=== PATIENT | male | born 1955 | race Caucasian/White ===

== ENCOUNTER 2017-11-27 20:31 | Emergency (ER) | payer MEDICARE, BC, SELFPAY ==
[2017-11-27 20:36] VITALS: BP 164/89; PULSE 80; RESP 20; TEMP 36.2; O2SAT 98
--- NOTE | 2017-11-27 20:41 | DI.RAD.S_ITS ---
PROCEDURE: XR RIBS LT MIN 3V W CXR1V INDICATIONS: GLF, lt rib pain TECHNIQUE: 4 views of the left ribs were acquired, along with a single view chest. COMPARISON: [facility], , CHEST 1 VIEW, 02/26/2017, 17:37. FINDINGS: Surgical changes and devices: None. Bones and chest wall: No displaced rib fracture identified. No suspicious bony lesions. Overlying soft tissues appear unremarkable. Lungs and pleura: No pleural effusions or pneumothorax. Lungs appear clear. Mediastinum: Mediastinal contours appear normal. Heart size is normal. IMPRESSION: 1. No displaced rib fracture identified. Dictated by: Herman Vences M.D. on 11/27/2017 at 21:04 Approved by: Herman Vences M.D. on 11/27/2017 at 21:08
--- NOTE | 2017-11-27 20:41 | DI.RAD.S_ITS ---
PROCEDURE: XR FINGER RT MIN 2V INDICATIONS: glf, rt thumb pain/swelling TECHNIQUE: AP hand, 2 views of the 1st digit required. COMPARISON: None. FINDINGS: Bones: No acute fractures or dislocations. There are postsurgical changes demonstrated with fixation anchors in the scaphoid and a fixation wire within the capitate. There is irregularity of the scaphoid compatible with sequelae of prior trauma. There is mild degeneration of the 1st carpometacarpal joint. No suspicious bony lesions. Soft tissues: There are small calcifications adjacent to the scaphoid consistent with sequelae of prior trauma. IMPRESSION: 1. No acute fracture or dislocation. Dictated by: Herman Vences M.D. on 11/27/2017 at 21:08 Approved by: Herman Vences M.D. on 11/27/2017 at 21:10
--- NOTE | 2017-11-27 20:52 | PC.NURSE ---
GLF this AM, denies loc/neck pain/nausea or other sx, pain/swelling to rt thumb with avulsion, bleeding controlled, also c/o lt lower rib pain, normal resp rate/depth, denies soa, amb ind with cane
--- NOTE | 2017-11-27 21:33 | ED.UPPEXIN ---
HPI - Extremity Injury (Upper) General Chief Complaint: Extremity Injury, Upper Stated Complaint: LEFT SIDE RIB PAIN AND RIGHT THUMB PAIN Time Seen by Provider: 11/27/17 20:50 History of Present Illness HPI narrative: HPI 62-year-old male with DM and long-standing vertiginous type symptoms with frequent falls presents after a typical fall today where he stumbled forward and fell onto concrete jamming his right thumb and striking his left lower anterior chest wall. Denies abdominal pain. Present for evaluation of his thumb injury and his left chest wall pain. Patient washed his thumb after his injury and rest it with a bandage. Patient's tetanus is up-to-date. Denied preceding chest pain, shortness of breath, abdominal pain, patient without LOC, takes no blood thinners or antiplatelet agents. Denies head strike. M/S/F/SocHx notable for: please see HPI; remainder reviewed with patient and in chart. ROS: Negative constitutional, eye, cardiovascular, pulmonary, GI, , MSK, skin, neurologic, psychiatric, endocrine unless noted in the HPI. Exam General: pleasant, non-toxic appearing, resting comfortably. HENT: No evidence of facial or head trauma. Eyes: EOMI, PERRL. Neck: Tracheal midline. No visible skin defects, no step-offs, no c-spine TTP, no stridor, or JVD. Cardiac: Regular rate and rhythm. Chest: No crepitus, visual evidence of trauma, mild tenderness to palpation from approximately 10 through 12th ribs from a mid axillary to anterior axillary line, no further tenderness palpation, no palpable abnormalities. Equal chest rise. Pulm: Clear to auscultation bilaterally, normal work of breathing without accessory muscle usage. Abd: Soft, nontender to palpation, nondistended, no guarding or visual evidence of trauma. Back: No spinous process tenderness to palpation, no step-offs or visible injuries. Pelvis: Stable, no tenderness to palpation or instability. RUE: right thumb without tenderness palpation of the MCP or IP, no bony tenderness palpation, full functional range of motion with full strength, sensation intact, brisk capillary refill, there is approximately 1.5 cm in diameter hematoma on the fingertip pad on the medial aspect there is a 6 mm long partial thickness laceration on the border of the hematoma, no further injuries appreciated. Deployment Technician 5/5, radial pulse 2+, sensation intact at hand. Shoulder, elbow, wrist, and fingers with full functional range of motion. Muscle compartments of the upper arm, forearm, and hand are soft and without marked tenderness to palpation. LUE: No visible injuries. Deployment Technician 5/5, radial pulse 2+, sensation intact at hand. Shoulder, elbow, wrist, and fingers with full functional range of motion. Muscle compartments of the upper arm, forearm, and hand are soft and without marked tenderness to palpation. RLE: No visible injuries. Dorsiflexion 5/5, distal pulse 1+, sensation intact at foot. Hip, knee, ankle, and toes with full functional range of motion. Muscle compartments of the thigh, calf, and foot are soft and without marked tenderness to palpation. LLE: No visible injuries. Dorsiflexion 5/5, distal pulse 1+, sensation grossly intact. Hip, knee, ankle, and toes with full functional range of motion. Muscle compartments of the thigh, calf, and foot are soft and without marked tenderness to palpation. Neuro: AOx3, CN VII intact Skin: Warm and dry (focal injuries noted above). Psych: Normal affect and judgment. Labs / Imaging (pertinent): CXR: no acute traumatic abnormalities. XR R Thumb: No acute fracture or dislocation. MDM Previous chart, nursing note, and vitals reviewed. A: 62-year-old male with DM and long-standing vertiginous type symptoms with frequent falls presents after a typical fall today where he stumbled forward and fell onto concrete jamming his right thumb and striking his left lower anterior chest wall. DDx & Evaluation: imaging without evidence of fracture, pneumothorax, pneumomediastinum, suspect rib contusion versus occult fracture. Abdominal exam without evidence of splenic tenderness, doubts splenic injury. Some notable for a contusion with superficial laceration that is not amenable to repair. Wound already cleaned well prior to arrival, tetanus up-to-date. No further interventions required. Return to care precautions provided. Patient was notified of their elevated blood pressure and recommended to follow up with their primary care physician. As the patient is without evidence of acute end organ dysfunction no further emergent evaluation is indicated as per the 2013 [facility] clinical policy. Impression: laceration, contusions (please reference below for remainder of encounter information) Related Data Home Medications Medication Instructions Recorded Confirmed ASCORBIC ACID (VITAMIN C) 1,000 mg PO QDAY #0 03/28/12 Fish Oil 1,000 mg PO QDAY #0 03/28/12 brimonidine #0 02/08/17 dorzolamide-timolol #0 02/08/17 latanoprost #0 02/08/17 liraglutide [Victoza 2-Shahab] #0 10/24/17 Previous Rx's Medication Instructions Recorded Syringes: 1cc Insulin Syringes syr #540 07/30/16 with [place] metformin [Glucophage] 1,000 mg PO BIDCC #360 tab 08/20/16 ropinirole 0 PO SEE INSTRUCTIONS #720 tab 09/03/16 betamethasone valerate 0 TP DIRECTED #1 bot 10/12/16 insulin aspart U-100 [Novolog 0 SQ SEE INSTRUCTIONS #15 vial 04/27/17 U-100 Insulin aspart] Glucose: Test Strips 0 str SQ SEE INSTRUCTIONS #100 str 05/04/17 furosemide 40 mg PO QAM #90 tab 05/11/17 losartan 50 mg PO QDAY #90 tab 07/26/17 amlodipine [Norvasc] 5 mg PO QDAY #90 tab 09/27/17 gabapentin [Neurontin] 0 PO SEE INSTRUCTIONS #540 cap 09/27/17 spironolactone 50 mg PO QDAY #90 tab 09/27/17 insulin glargine [Lantus Solostar 0 SQ DIRECTED #35 syr 10/10/17 U-100 Insulin] glipizide 10 mg PO BID #180 tab 10/13/17 metoprolol succinate 100 mg PO QDAY #90 tab 10/13/17 rosuvastatin [Crestor] 10 mg PO HS #90 tab 10/13/17 duloxetine [Cymbalta] 60 mg PO QDAY #90 cap 10/21/17 olmesartan [Benicar] 40 mg PO QDAY #90 tab 10/21/17 hydrocodone-acetaminophen [[place]] 1 - 2 tab PO HSP PRN #60 tab 10/24/17 Allergies Allergy/AdvReac Type Severity Reaction Status Date / Time LOLY Inhibitors AdvReac Mild cough Unverified 10/19/17 12:59 [LOLY INHIBITORS] shrimp Allergy Severe blotchy Uncoded 10/19/17 12:59 eyes, edema PFSH Surgical History History of carpal tunnel repair Status post arthroscopy Status post rotator cuff repair Family History Father Coronary artery disease Alcoholism Social History Smoking Status: Never smoker Exam Initial Vital Signs Initial Vital Signs: Vital Signs Temperature 97.1 F L 11/27/17 20:36 Pulse Rate 80 11/27/17 20:36 Respiratory Rate 20 11/27/17 20:36 Blood Pressure 164/89 H 11/27/17 20:36 Pulse Oximetry 98 11/27/17 20:36 Course Orders Ordered: ED Orders 11/27/17 20:41 XR finger RT min 2V Stat XR ribs LT min 3V w CXR1V Stat Vital Signs - 8 hr 11/27/17 20:36 Temperature 97.1 F L Pulse Rate 80 Respiratory Rate 20 Blood Pressure 164/89 H Pulse Oximetry 98 Discharge Plan Departure Prescriptions: No Action Fish Oil 1,000 mg PO QDAY Qty: 0 RF: 0 ASCORBIC ACID (VITAMIN C) 1,000 mg PO QDAY Qty: 0 RF: 0 Syringes: 1cc Insulin Syringes with [place] Qty: 540 RF: 3 metformin [Glucophage] 500 MG tablet 1,000 mg PO BIDCC Qty: 360 RF: 3 ropinirole 0.5 MG tablet PO SEE INSTRUCTIONS Qty: 720 RF: 3 betamethasone valerate 0.1 % lotion TP DIRECTED Qty: 1 RF: 3 brimonidine 0.2 % drops Qty: 0 RF: 0 dorzolamide-timolol 2 %/0.5 % drops Qty: 0 RF: 0 latanoprost 0.005 % drops Qty: 0 RF: 0 insulin aspart U-100 [Novolog U-100 Insulin aspart] 100 UNIT/1 ML solution SQ SEE INSTRUCTIONS Qty: 15 RF: 3 Glucose: Test Strips SQ SEE INSTRUCTIONS Qty: 100 RF: 11 furosemide 40 MG tablet 40 mg PO QAM Qty: 90 RF: 3 losartan 50 MG tablet 50 mg PO QDAY Qty: 90 RF: 3 amlodipine [Norvasc] 5 MG tablet 5 mg PO QDAY Qty: 90 RF: 3 spironolactone 50 MG tablet 50 mg PO QDAY Qty: 90 RF: 3 gabapentin [Neurontin] 300 MG capsule PO SEE INSTRUCTIONS Qty: 540 RF: 3 insulin glargine [Lantus Solostar U-100 Insulin] 100 UNIT/1 ML insulin pen SQ DIRECTED Qty: 35 RF: 3 glipizide 10 MG tablet 10 mg PO BID Qty: 180 RF: 3 rosuvastatin [Crestor] 10 MG tablet 10 mg PO HS Qty: 90 RF: 3 metoprolol succinate 100 MG tablet extended release 24 hr 100 mg PO QDAY Qty: 90 RF: 3 olmesartan [Benicar] 40 MG tablet 40 mg PO QDAY Qty: 90 RF: 3 duloxetine [Cymbalta] 60 MG capsule,delayed release(DR/EC) 60 mg PO QDAY Qty: 90 RF: 3 liraglutide [Victoza 2-Shahab] 0.6 MG/0.1 ML pen injector Qty: 0 RF: 0 hydrocodone-acetaminophen [[place]] 5 MG/325 MG tablet 1 - 2 tab PO HSP PRNQty: 60 RF: 0
[2017-11-27 21:48] VITALS: BP 143/88; PULSE 79; RESP 15; O2SAT 100
== END 2017-11-27 21:55 | disposition home or self-care (01) ==
PROVIDERS: Emergency Provider Emergency Medicine; PCP Family Medicine
DX: S61.011A Laceration without foreign body of right thumb without damage to nail, initial encounter (principal); S60.111A Contusion of right thumb with damage to nail, initial encounter; W19.XXXA Unspecified fall, initial encounter
CPT/HCPCS: 71101; 73140; 99282; 99283

== ENCOUNTER → 2018-04-24 11:35 | Outpatient (CLI) | payer MEDICARE, BC, SELFPAY ==
[2018-04-24 11:54] LABS: Bacteria Urine None Seen; RBC Urine None Seen (0-5/HPF); WBC Urine None Seen (0-5/HPF)
[2018-04-24 12:22] LABS: Add Manual Diff / Slide Review NO; Basophils Percent Auto 0.6 % (0-2); Eosinophils Percent Auto 3.4 % (2-4); Hematocrit 39.5 % (41-53); Hemoglobin 13.6 g/dL (13.5-17.5); Lymphocytes Percent Auto 33.8 % (25-40); Mean Corpuscular HGB Conc 34.4 % (30-36); Mean Corpuscular Hemoglobin 31.5 PG (26-34); Mean Corpuscular Volume 91.5 fL (80-100); Monocytes Percent Auto 7.8 % (3-14); Neutrophils Absolute Auto 5000 /uL (3000-5900); Neutrophils Percent Auto 54.4 % (50-75); Platelet Count 219 X10^3/uL (150-400); Red Blood Cell Count 4.32 X10^6/uL (4.5-5.9); Red Cell Distribution Width 14.4 % (11.6-14.8); White Blood Cell Count 9.1 X10^3/uL (4.5-11.0)
[2018-04-24 12:46] LABS: Blood Urea Nitrogen 27 mg/dL (9-20); Calcium 9.7 mg/dL (8.4-10.2); Carbon Dioxide 29 mmol/L (22-32); Chloride 104 mmol/L (98-107); Estimated Glomerular Filt Rate > 60.0 mL/min (>60); Glucose 127 mg/dL (80-110); HEMOLYSIS < 15 (0-50); Potassium 5.3 mmol/L (3.4-5.1); Sodium 143 mmol/L (137-145)
[2018-04-24 14:19] LABS: Appearance Urine UA CLEAR; Bilirubin Urine UA NEGATIVE (NEGATIVE); Color Urine UA YELLOW; Glucose Urine UA TRACE g/dL (Normal); Ketones Urine UA NEGATIVE (NEGATIVE); Leukocyte Esterase Urine UA NEGATIVE (NEGATIVE); Nitrite Urine UA NEGATIVE (Negative); Occult Blood Urine UA NEGATIVE (Negative); Protein Urine UA 2+ (Negative); Specific Gravity Urine UA 1.025 (1.000-1.035); Urobilinogen Urine UA 0.2 E.U./dL (0.2)
[2018-04-24 14:29] LABS: Culture Indicated Urine Cult Not Indicated
[2018-04-24 15:03] LABS: Creatinine Urine Random 110.5 mg/dL; Protein (Total) Urine Random 133 mg/dL (0-12)
== END ==
PROVIDERS: Family Provider Internal Medicine; Visit Provider Internal Medicine
DX: E11.21 Type 2 diabetes mellitus with diabetic nephropathy (principal); I10 Essential (primary) hypertension; R80.9 Proteinuria, unspecified; Z79.4 Long term (current) use of insulin
CPT/HCPCS: 36415; 80048; 81001; 82570; 84156; 85025

== ENCOUNTER → 2018-07-01 13:35 | Outpatient (CLI) | payer MEDICARE, BC, SELFPAY ==
--- NOTE | 2018-07-01 13:37 | DI.MRI.S_ITS ---
PROCEDURE: MR CERVICAL SPINE WO CON INDICATIONS: Cervicalgia + radicular symptoms TECHNIQUE: Noncontrast sagittal T1 spin echo and T2 fast spin echo, sagittal STIR, foraminal oblique sagittal T2 fast spin echo, and axial gradient echo or T2 fast spin echo through the cervical spine. COMPARISON: [facility], MR, C-SPINE WITHOUT CONTRAST, 10/02/2013, 17:49. [facility], MR, C-SPINE WITHOUT CONTRAST, 08/30/2011, 19:18. [facility] [place], , SPINE CERVICAL 2 OR 3VW, 04/28/2016, 13:48. FINDINGS: Image quality: Excellent. Alignment and Curvature: There is normal bony alignment. Bone Marrow: Marrow demonstrates normal overall signal. Spinal Cord: Visualized spinal cord has normal size and signal. No cerebellar tonsillar herniation. Paraspinous Soft Tissues: No paravertebral masses. Prevertebral soft tissues are normal in thickness. C2-C3: Preserved disc height. Moderate disc desiccation. There is mild diffuse posterior disc bulge. The central canal is mildly narrowed. No foraminal stenosis. No significant change. C3-C4: Moderate loss of disc height. Moderate disc desiccation. There is diffuse posterior disc bulge and disc osteophyte complex. Uncovertebral hypertrophy. The central canal is severity narrowed. Moderate bilateral foraminal stenosis. Severe narrowing of the lateral recess bilaterally. No significant change. C4-C5: Moderate loss of disc height and disc desiccation. There is diffuse posterior disc bulge and disc osteophyte complex. Uncovertebral hypertrophy. Mild bilateral facet arthropathy. The central canal is severity narrowed. Severe bilateral foraminal stenosis. Severe narrowing of the lateral recess bilaterally. No significant change. C5-C6: Moderate loss of disc height and disc desiccation. There is diffuse posterior disc bulge and disc osteophyte complex. Uncovertebral hypertrophy. Mild bilateral facet arthropathy. The central canal is severity narrowed. Severe bilateral foraminal stenosis. Severe narrowing of the lateral recess bilaterally. No significant change. C6-C7: Moderate loss of disc height and disc desiccation. There is diffuse posterior disc bulge and disc osteophyte complex. Uncovertebral hypertrophy. Mild bilateral facet arthropathy. The central canal is moderately narrowed. Severe bilateral foraminal stenosis. No significant change. C7-T1: Normal appearance. IMPRESSION: 1. Multilevel degenerative disc disease and facet arthropathy as described. 2. Severe central canal stenosis at C3-C4, C4-C5 and C5-C6, and moderate central canal stenosis at C6-C7. 3. Multilevel subarticular foraminal stenoses as described. 4. Multilevel severe narrowing of lateral recess bilaterally as described. Dictated by: Arianna Cardoso M.D. on 07/03/2018 at 11:05 Approved by: Arianna Cardoso M.D. on 07/03/2018 at 12:11
== END ==
PROVIDERS: Family Provider Internal Medicine; PCP Family Medicine; Visit Provider Student in an Organized Health Care Education/Training Program
DX: M54.12 Radiculopathy, cervical region (principal)
CPT/HCPCS: 72141

== ENCOUNTER → 2018-09-12 12:27 | Outpatient (CLI) | payer MEDICARE, BC, SELFPAY ==
[2018-09-12 12:52] LABS: Add Manual Diff / Slide Review NO; Basophils Absolute Auto 100 /uL (0-100); Eosinophils Absolute Auto 300 /uL (0-450); Eosinophils Percent Auto 3.8 % (2-4); Hematocrit 40.3 % (41-53); Hemoglobin 13.4 g/dL (13.5-17.5); Lymphocytes Absolute Auto 3300 /uL (1100-4500); Lymphocytes Percent Auto 39.6 % (25-40); Mean Corpuscular HGB Conc 33.2 % (30-36); Mean Corpuscular Hemoglobin 31.1 PG (26-34); Mean Corpuscular Volume 93.8 fL (80-100); Monocytes Absolute Auto 700 /uL (0-900); Monocytes Percent Auto 8.3 % (3-14); Neutrophils Absolute Auto 3900 /uL (1500-7000); Neutrophils Percent Auto 47.3 % (50-75); Platelet Count 215 X10^3/uL (150-400); Red Cell Distribution Width 13.3 % (11.6-14.8); White Blood Cell Count 8.2 X10^3/uL (4.5-11.0)
[2018-09-12 13:07] LABS: Hemoglobin A1C% w Est Avg Glu 7.8 % (4.0-6.0)
[2018-09-12 13:14] LABS: Alanine Aminotransferase 47 IU/L (21-72); Albumin 4.3 g/dL (3.5-5.0); Albumin Globulin Ratio 1.4 (1.0-2.8); Alkaline Phosphatase 60 U/L (38-126); Aspartate Aminotransferase 40 IU/L (17-59); BUN Creatinine Ratio 22.2 (6-22); Bilirubin Total 0.3 mg/dL (0.2-1.3); Blood Urea Nitrogen 20 mg/dL (9-20); Calcium 9.6 mg/dL (8.4-10.2); Carbon Dioxide 26 mmol/L (22-32); Chloride 103 mmol/L (98-107); Cholesterol 138 mg/dL (140-199); Estimated Glomerular Filt Rate > 60.0 mL/min (>60); Globulin 3.1 g/dL (1.7-4.1); Glucose 215 mg/dL (80-110); HDL Cholesterol 34 mg/dL (40-60); HEMOLYSIS < 15 (0-50); LDL Cholesterol Calculated 32 mg/dL (<100); Potassium 5.3 mmol/L (3.4-5.1); Sodium 138 mmol/L (137-145); Total Protein 7.4 g/dL (6.3-8.2); Triglycerides 361 mg/dL (35-150)
[2018-09-12 13:28] LABS: Free T4, Direct Thyroxine 0.93 ng/dL (0.78-2.19)
[2018-09-12 13:42] LABS: Thyroid Stimulating Hormone 0.48 uIU/mL (0.47-4.68)
[2018-09-12 15:27] LABS: Vitamin D 25 Hydroxy (D3) 30.1 ng/mL (30.0-100.0)
[2018-09-15 19:26] LABS: Testosterone Total 257 ng/dL (250-1100)
== END ==
PROVIDERS: Family Provider Internal Medicine Endocrinology, Diabetes & Metabolism; PCP Student in an Organized Health Care Education/Training Program; Visit Provider Student in an Organized Health Care Education/Training Program
DX: E55.9 Vitamin D deficiency, unspecified (principal); K59.00 Constipation, unspecified; E11.622 Type 2 diabetes mellitus with other skin ulcer; E78.2 Mixed hyperlipidemia; E88.9 Metabolic disorder, unspecified; G63 Polyneuropathy in diseases classified elsewhere; I10 Essential (primary) hypertension; I25.10 Atherosclerotic heart disease of native coronary artery without angina pectoris; L98.499 Non-pressure chronic ulcer of skin of other sites with unspecified severity; E29.1 Testicular hypofunction; E66.9 Obesity, unspecified
CPT/HCPCS: 36415; 80053; 80061; 82306; 83036; 84402; 84403; 84439; 84443; 85025

== ENCOUNTER → 2018-09-14 13:34 | Outpatient (CLI) | payer MEDICARE, BC, SELFPAY ==
[2018-09-14 14:50] LABS: Creatinine Urine Random 145.8 mg/dL
[2018-09-14 15:07] LABS: Microalbumi Creatinin Ratio Ur 626.2 ug/mg CR (<30); Microalbumin Urine Random 91.3 mg/dL (0-1.6)
== END ==
PROVIDERS: Family Provider Internal Medicine Endocrinology, Diabetes & Metabolism; PCP Student in an Organized Health Care Education/Training Program; Visit Provider Student in an Organized Health Care Education/Training Program
DX: E11.622 Type 2 diabetes mellitus with other skin ulcer (principal); I10 Essential (primary) hypertension; L98.499 Non-pressure chronic ulcer of skin of other sites with unspecified severity
CPT/HCPCS: 82043; 82570

== ENCOUNTER → 2019-01-26 12:18 | Outpatient (CLI) | payer MEDICARE, BC, SELFPAY ==
--- NOTE | 2019-01-26 | DI.RAD.S_ITS ---
PROCEDURE: XR CERVICAL SPINE 2V OR 3V INDICATIONS: Spinal stenosis, cervical region TECHNIQUE: 3 view(s) of the cervical spine were acquired. COMPARISON: [facility] [place], [place], SPINE CERVICAL 2 OR 3VW, 04/28/2016, 13:48. FINDINGS: Bones: No fractures or dislocations to the C7 level. The lateral masses of C1 appear intact on the odontoid view. No suspicious bony lesions. There is discectomy and anterior fusion at C5-C6. There is degenerative disc disease in cervical spine, severe at C4-C5, moderate at C3-C4 and C6-C7, and mild at C2-C3. Mild to moderate bilateral facet arthropathy scattered in cervical spine. Soft tissues: No prevertebral soft tissue swelling. IMPRESSION: Degenerative and postsurgical changes in cervical spine. Dictated by: Arianna Cardoso M.D. on 01/26/2019 at 17:19 Approved by: Arianna Cardoso M.D. on 01/26/2019 at 17:21
== END ==
PROVIDERS: Family Provider Internal Medicine Endocrinology, Diabetes & Metabolism; PCP Student in an Organized Health Care Education/Training Program; Visit Provider Physician Assistant Medical
DX: M48.02 Spinal stenosis, cervical region (principal); M50.30 Other cervical disc degeneration, unspecified cervical region; M54.12 Radiculopathy, cervical region
CPT/HCPCS: 72040

== ENCOUNTER 2019-03-15 17:03 | Emergency (ER) | payer MEDICARE, BC, SELFPAY ==
[2019-03-15 17:22] VITALS: BP 128/114; PULSE 128; RESP 15; TEMP 36.4; O2SAT 99; BMI 38.1
--- NOTE | 2019-03-15 17:22 | DI.RAD.S_ITS ---
PROCEDURE: XR CHEST 2V INDICATIONS: shortness of breath TECHNIQUE: 2 views of the chest were acquired. COMPARISON: [facility], CT, THORAX WITH CONTRAST, 12/25/2007, 22:16. [facility], CR, CHEST 1 VIEW, 02/26/2017, 17:37. [facility], CR, CHEST 1 VIEW, 06/27/2016, 0:26. FINDINGS: Surgical changes and devices: None. Lungs and pleura: Lungs are abnormal with a mild degree of interstitial prominence. No pleural effusions or pneumothorax. 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 Mediastinum: Mediastinal contours are normal. Heart size is normal. Bones and chest wall: No suspicious bony abnormalities. Soft tissues appear unremarkable. IMPRESSION: No acute disease no source of shortness of breath is not seen. There is a mild interstitial prominence but this appears to have been previously present. It is not possible to entirely exclude the presence of a mild pulmonary edema pattern superimposed. Dictated by: Kevin Ricketts M.D. on 03/15/2019 at 18:14 Approved by: Kevin Ricketts M.D. on 03/15/2019 at 18:16
--- NOTE | 2019-03-15 17:49 | ED_ITS ---
HPI - SOB/Dyspnea <Ro ZhaoMARAH - Last Filed: 03/15/19 20:17> General Chief Complaint: Shortness of Breath/Dyspnea Stated Complaint: sob,when lays down feels like he cant breath Time Seen by Provider: 03/15/19 17:40 Source: patient Mode of arrival: ambulatory Limitations: no limitations History of Present Illness HPI Narrative: 64-year-old male with a history of diabetes type II, h ypertension, and 1 coronary artery stent, presents emergency department today complaining of shortness of breath for the past 2 days. He states it was significantly worse today, worse when he lies down, and worse with exertion. He complains of associated diaphoresis when he woke up this morning and when he exerts himself. He denies any other symptoms such as fevers, chest pain, chest pressure, dizziness, cough, recent illness, chills, malaise, palpitations, or leg swelling, abdominal pain, nausea, vomiting, or bowel or bladder changes. MD Complaint: shortness of breath Related Data Home Medications Medication Instructions Recorded Confirmed brimonidine 1 drp EYE-LEFT BID #0 02/08/17 03/15/19 latanoprost 1 drp EYE-BOTH BEDTIME #0 02/08/17 03/15/19 insulin lispro 100) 100 unit/mL 50 unit SUBCUT TID ml 07/25/18 03/15/19 subcutaneous solution Respironics RemStar CPAP #1 ea 11/13/18 03/15/19 duloxetine [Cymbalta] 60 mg PO DAILY 03/15/19 03/15/19 gabapentin 1,200 mg PO BID 03/15/19 03/15/19 metoprolol succinate 100 mg PO DAILY 03/15/19 03/15/19 olmesartan [Benicar] 40 mg PO DAILY 03/15/19 03/15/19 ropinirole 2 mg PO QAM 03/15/19 03/15/19 ropinirole 3 mg PO QPM 03/15/19 03/15/19 rosuvastatin [Crestor] 10 mg PO BEDTIME 03/15/19 03/15/19 semaglutide [Ozempic] 1 mg SUBCUT QWEEK 03/15/19 03/15/19 spironolactone 50 mg PO DAILY 03/15/19 03/15/19 Previous Rx's Medication Instructions Recorded cyclobenzaprine 10 mg tablet 10 mg PO TID #30 tab 04/03/18 pen needle, diabetic 31 gauge x #300 each 07/06/1811/23 blood sugar diagnostic #600 each 07/20/18 blood-glucose meter #1 each 07/20/18 glipizide 10 mg tablet 10 mg PO BID #180 tab 08/25/18 metformin 500 mg tablet 1,000 mg PO BIDCC #360 tab 08/25/18 insulin syringe-needle U-100 1 mL #450 each 10/09/18 31 gauge x 11/23 hydrocodone 5 mg-acetaminophen 325 1 tab PO HSP PRN #30 tab 11/09/18 mg tablet insulin glargine 100 unit/mL (3 50 unit SUBCUT BID #90 ml 01/18/19 mL) subcutaneous pen Allergies Allergy/AdvReac Type Severity Reaction Status Date / Time LOLY Inhibitors AdvReac Mild cough Unverified 06/28/18 09:24 [LOLY INHIBITORS] shrimp Allergy Severe blotchy Uncoded 06/28/18 09:24 eyes, edema Review of Systems <MARAH Zaman - Last Filed: 03/15/19 20:17> Review of Systems Narrative: REVIEW OF SYSTEMS: GENERAL: Denies fever, chills, malaise, or wt. loss. HENT: No head trauma, hearing loss, rhinorrhea, epistaxis, sinus pressure, sore throat, or dysphagia. EYES: No loss of vision, double vision, eye pain, or irritation. CARDIOVASCULAR: Complains of orthopnea, see HPI. No chest pain, palpitations, edema, syncope. RESPIRATORY: Complains of shortness of breath, see HPI. GASTROINTESTINAL: No change in appetite, nausea, vomiting, stool changes, or melena. GENITOURINARY: No flank pain, urinary incontinence, hesitancy, frequency, or dysuria. No vaginal discharge or dyspareunia. MUSCULOSKELETAL: No pain, weakness, or deformities. INTEGUMENTARY: No rash, lesions, or pruritus. NEURO: No numbness, tingling, memory loss, confusion, or headaches. PSYCH: No behavior or mood changes. LYMPHATIC: No lymphadenopathy. 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 07/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) Primary osteoarthritis of left knee (Chronic 03/03/16) Restless legs syndrome (Chronic 04/24/15) Squamous cell carcinoma of nose (Resolved 2004) Type 2 diabetes mellitus with other skin ulcer (Chronic 04/24/15) Surgical History History of carpal tunnel repair (Resolved 1977) History of coronary artery stent placement (Resolved 04/2014) Hx of inguinal hernia surgery (Resolved 1977) Status post arthroscopy (Resolved) Status post rotator cuff repair (Resolved) Family History Father Coronary artery disease Alcoholism Sudden Other Depression Social History (Updated 11/12/18 @ 15:14 by MARAH Nunez) marital status: details: to Pattie lives in [place] household members: spouse lives independently: Yes caregiver/support person: No 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: [employer] / Amish Smoking Status: Never smoker alcohol intake: never substance use type: does not use Family History Father Coronary artery disease Alcoholism Sudden Other Depression Social History marital status: details: jose Blankenship lives in [place] household members: spouse lives independently: Yes caregiver/support person: No 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 Answers questions promptly and appropriately. Vital signs noted. HENT: Normocephalic, atraumatic. Ear canals patent. Oral mucosa is pink and moist, no caries or lesions present. Pharynx without erythema. EYES: PERRLA, EOMIs, conjunctiva pink, sclera white, no periorbital swelling. NECK: Full range of motion, nontender. LYMPH: No lymphadenopathy. CHEST: Normal to inspection and without deformities. CARDIOVASCULAR: S1 and S2 sounds heard. Irregular rhythm and increased rate. RESPIRATORY: Patient is not tachypneic patient is seen taking deep breath during exam, trachea midline, airway patent. No stridor, nasal flaring or accessory muscle use. Lungs are clear in all perez without wheeze, rhonchi, or crackles. Talks in complete sentences. GASTROINTESTINAL: Bowel sounds normoactive. Abdomen is soft and non-tender. No organomegaly. MUSCULOSKELETAL: Normal gait and coordination. Equal tone and mass bilaterally. No spinal tenderness or deformities. EXTREMITIES: CMS intact. Full range of motion and 5/5 strength to upper and lower extremities SKIN: Warm, dry, soft, appropriate color for ethnicity. No lesions, rashes, or wounds. NEURO: Alert and Oriented X 3. Good coordination. No ataxia, or sensory deficits, or cognitive issues. PSYCH: Appropriate affect and mood. <Eddie Horan DO - Last Filed: 03/16/19 02:38> Initial Vital Signs Initial Vital Signs: Vital Signs Temperature 97.6 F 03/15/19 17:22 Pulse Rate 128 H 03/15/19 17:22 Respiratory Rate 15 03/15/19 17:22 Blood Pressure 128/114 H 03/15/19 17:22 Pulse Oximetry 99 03/15/19 17:22 Scores <MARAH Zaman - Last Filed: 03/15/19 20:17> Wells' Criteria for PE Clinical signs and symptoms of DVT: Yes PE is #1 Dx or equally likely: Yes Heart rate > 100: Yes Immobilization at least 3 days or surg in previous 4 weeks: No History of PE or DVT: No Hemoptysis: No Malignancy w/Treatment within 6 months or palliative: No Wells' PE Score total: 7.5 Course <MARAH Zaman - Last Filed: 03/15/19 20:17> Course Course Narrative: Patient's age adjusted D-dimer is 315. This patient was managed closely with Dr. Cornelius and Dr. Horan. Fluids were started due to tachycardia 145 upon admission, initial EKG was obtained showing ST depression. A 2nd EKG was obtained 10-15 minutes later after patient was taken to Radiology showing an irregular heartbeat without P waves and continued ST depression in the leads, this was confirmed by Dr. Cornelius. 5 mg of IV metoprolol work given. Patient continued to have shortness of breath and continues to report lack of chest pain, 5mg of metoprolol was given. Positive troponin, elevated CKMB index, and elevated BNP was indicated by a call from lab, fluids were stopped at this time. Aspirin and heparin were started at this time. Patient's heart rate increased to 104, a 3rd EKG was done which continued to show ST depression and all leads as well as AFib. No additional much trouble was given due to acute heart failure. [facility] cardiology was consulted, demand ischemia versus NSTEMI was discussed. However, [facility] did not have any beds. [facility] cardiology was consulted this, I spoke with Dr. Max who accepts. Additionally, report was called to Dr. Vidya Ogden who also accepted the patient.. Plan was discussed with patient, he agrees to ALS transport to [facility]. Family was at bedside and was informed of plan of care. Patient denied further questions at this time. Orders Ordered: ED Orders 03/15/19 17:40 B Type Natriuretic Peptide Stat Complete Blood Count AUTO DIFF Stat D Dimer Stat Lactate (Lactic Acid) Stat Partial Thromboplastin Time Stat Procalcitonin Stat Prothrombin Time INR Stat Troponin & CK Cardiac Panel Stat 03/15/19 17:50 EKG-12 Lead Stat 03/15/19 18:32 EKG-12 Lead Stat 03/15/19 18:39 Comprehensive Metabolic Panel Stat Discontinued Medications Aspirin (Aspirin Chew) 324 mg PO NOW ONE Stop: 03/15/19 18:26 Last Admin: 03/15/19 18:38 Dose: 324 mg Documented by: HANNA Heparin Sodium (Porcine) (Heparin) 5,000 unit IV NOW ONE Stop: 03/15/19 18:26 Last Admin: 03/15/19 18:39 Dose: 5,000 unit Documented by: HANNA Sodium Chloride (Normal Saline 0.9%) 1,000 mls @ 1,000 mls/hr IV BOLUS ONE Stop: 03/15/19 18:50 Last Infusion: 03/15/19 18:41 Dose: 0 mls/hr Documented by: Admin: 03/15/19 18:04 Dose: 1,000 mls/hr Documented by: HANNA Heparin Sodium/Dextrose (Heparin Drip) 25,000 unit in 500 mls @ 30.59 mls/hr IV CONT MELANIE; Protocol Last Titration: 03/15/19 20:54 Dose: 0 units/kg/hr, 0 mls/hr Documented by: Titration: 03/15/19 20:54 Dose: 12 units/kg/hr, 30.59 mls/hr Documented by: Admin: 03/15/19 18:39 Dose: 12 units/kg/hr, 30.59 mls/hr Documented by: HANNA Metoprolol Tartrate (Lopressor) 5 mg IV NOW ONE Stop: 03/15/19 18:13 Last Admin: 03/15/19 18:17 Dose: 5 mg Documented by: HANNA Reevaluation(s) Reevaluation #1: Patient was re-evaluated after each EKG, he continues to report and no chest pain. Shortness of breath remains unchanged. Consultations Consultation #1: Extensive consultation was done with Dr. Cornelius and Dr. Horan. [facility] cardiology was consulted at 1900 [facility] cardiology, Dr. Max was consulted at 1909 [facility] hospitalist consulted at 1920 Vital Signs Vital signs: Vital Signs - 8 hr 03/15/19 20:10 Pulse Rate 101 H Respiratory Rate 21 Blood Pressure [Right Arm] 129/87 Pulse Oximetry 97 <Eddie Horan, - Last Filed: 03/16/19 02:38> Orders Ordered: ED Orders 03/15/19 17:40 B Type Natriuretic Peptide Stat Complete Blood Count AUTO DIFF Stat D Dimer Stat Lactate (Lactic Acid) Stat Partial Thromboplastin Time Stat Procalcitonin Stat Prothrombin Time INR Stat Troponin & CK Cardiac Panel Stat 03/15/19 17:50 EKG-12 Lead Stat 03/15/19 18:32 EKG-12 Lead Stat 03/15/19 18:39 Comprehensive Metabolic Panel Stat Discontinued Medications Aspirin (Aspirin Chew) 324 mg PO NOW ONE Stop: 03/15/19 18:26 Last Admin: 03/15/19 18:38 Dose: 324 mg Documented by: HANNA Heparin Sodium (Porcine) (Heparin) 5,000 unit IV NOW ONE Stop: 03/15/19 18:26 Last Admin: 03/15/19 18:39 Dose: 5,000 unit Documented by: HANNA Sodium Chloride (Normal Saline 0.9%) 1,000 mls @ 1,000 mls/hr IV BOLUS ONE Stop: 03/15/19 18:50 Last Infusion: 03/15/19 18:41 Dose: 0 mls/hr Documented by: Admin: 03/15/19 18:04 Dose: 1,000 mls/hr Documented by: HANNA Heparin Sodium/Dextrose (Heparin Drip) 25,000 unit in 500 mls @ 30.59 mls/hr IV CONT MELANIE; Protocol Last Titration: 03/15/19 20:54 Dose: 0 units/kg/hr, 0 mls/hr Documented by: Titration: 03/15/19 20:54 Dose: 12 units/kg/hr, 30.59 mls/hr Documented by: Admin: 03/15/19 18:39 Dose: 12 units/kg/hr, 30.59 mls/hr Documented by: HANNA Metoprolol Tartrate (Lopressor) 5 mg IV NOW ONE Stop: 03/15/19 18:13 Last Admin: 03/15/19 18:17 Dose: 5 mg Documented by: HANNA Vital Signs Vital signs: Vital Signs - 8 hr 03/15/19 20:10 Pulse Rate 101 H Respiratory Rate 21 Blood Pressure [Right Arm] 129/87 Pulse Oximetry 97 MDM - SOB/Dyspnea <MARAH Zaman - Last Filed: 03/15/19 20:17> Medical Records Attestation: I reviewed the patient's medical records. Lab Data Attestation: I reviewed the patient's lab results. Result diagrams: 03/15/19 17:40 03/15/19 18:39 Labs: Lab Results 03/15/19 03/15/19 03/15/19 Range/Units 17:40 17:40 17:40 WBC 9.1 (4.5-11.0) X10^3/uL RBC 3.99 L (4.5-5.9) X10^6/uL Hgb 12.4 L (13.5-17.5) g/dL Hct 36.7 L (41-53) % MCV 92.0 (80-100) fL MCH 31.2 (26-34) PG MCHC 33.9 (30-36) % RDW 14.4 (11.6-14.8) % Plt Count 230 (150-400) X10^3/uL Neut % (Auto) 49.3 L (50-75) % Lymph % (Auto) 38.4 (25-40) % Florence % (Auto) 8.3 (3-14) % Eos % (Auto) 2.2 (2-4) % Baso % (Auto) 1.8 (0-2) % Neut # (Auto) 4500 (2115-6099) /uL Lymph # (Auto) 3500 (8663-1428) /uL Florence # (Auto) 800 (0-900) /uL Eos # (Auto) 200 (0-450) /uL Baso # (Auto) 200 H (0-100) /uL PT (10.1-12.7) SECONDS INR (0.9-1.3) APTT (26.4-36.2) SECONDS D-Dimer (<230) ng/mL Sodium (137-145) mmol/L Potassium (3.4-5.1) mmol/L Chloride (98-107) mmol/L Carbon Dioxide (22-32) mmol/L BUN (9-20) mg/dL Creatinine (0.66-1.25) mg/dL Estimated GFR (>60) mL/min BUN/Creatinine Ratio (6-22) Glucose (80-110) mg/dL Lactate 1.6 (0.7-2.1) mmol/L Calcium (8.4-10.2) mg/dL Total Bilirubin (0.2-1.3) mg/dL AST (17-59) IU/L ALT (21-72) IU/L Alkaline Phosphatase (38-126) U/L Total Creatine Kinase 262 H (55-170) U/L CK-MB (CK-2) 18.60 H (<2.37) ng/mL CK-MB (CK-2) Rel Index 7.1 H* (1.5-5.0) % Troponin I 2.050 H* (0.01-0.034) ng/mL B-Natriuretic Peptide (<100) Total Protein (6.3-8.2) g/dL Albumin (3.5-5.0) g/dL Globulin (1.7-4.1) g/dL Albumin/Globulin Ratio (1.0-2.8) Procalcitonin (<0.5) ng/mL 03/15/19 03/15/19 03/15/19 Range/Units 17:40 17:40 17:40 WBC (4.5-11.0) X10^3/uL RBC (4.5-5.9) X10^6/uL Hgb (13.5-17.5) g/dL Hct (41-53) % MCV (80-100) fL MCH (26-34) PG MCHC (30-36) % RDW (11.6-14.8) % Plt Count (150-400) X10^3/uL Neut % (Auto) (50-75) % Lymph % (Auto) (25-40) % Florence % (Auto) (3-14) % Eos % (Auto) (2-4) % Baso % (Auto) (0-2) % Neut # (Auto) (6389-5653) /uL Lymph # (Auto) (7204-3545) /uL Florence # (Auto) (0-900) /uL Eos # (Auto) (0-450) /uL Baso # (Auto) (0-100) /uL PT 10.7 (10.1-12.7) SECONDS INR 0.9 (0.9-1.3) APTT 31 (26.4-36.2) SECONDS D-Dimer (<230) ng/mL Sodium (137-145) mmol/L Potassium (3.4-5.1) mmol/L Chloride (98-107) mmol/L Carbon Dioxide (22-32) mmol/L BUN (9-20) mg/dL Creatinine (0.66-1.25) mg/dL Estimated GFR (>60) mL/min BUN/Creatinine Ratio (6-22) Glucose (80-110) mg/dL Lactate (0.7-2.1) mmol/L Calcium (8.4-10.2) mg/dL Total Bilirubin (0.2-1.3) mg/dL AST (17-59) IU/L ALT (21-72) IU/L Alkaline Phosphatase (38-126) U/L Total Creatine Kinase (55-170) U/L CK-MB (CK-2) (<2.37) ng/mL CK-MB (CK-2) Rel Index (1.5-5.0) % Troponin I (0.01-0.034) ng/mL B-Natriuretic Peptide 517 H (<100) Total Protein (6.3-8.2) g/dL Albumin (3.5-5.0) g/dL Globulin (1.7-4.1) g/dL Albumin/Globulin Ratio (1.0-2.8) Procalcitonin < 0.05 (<0.5) ng/mL 03/15/19 03/15/19 Range/Units 17:40 18:39 WBC (4.5-11.0) X10^3/uL RBC (4.5-5.9) X10^6/uL Hgb (13.5-17.5) g/dL Hct (41-53) % MCV (80-100) fL MCH (26-34) PG MCHC (30-36) % RDW (11.6-14.8) % Plt Count (150-400) X10^3/uL Neut % (Auto) (50-75) % Lymph % (Auto) (25-40) % Florence % (Auto) (3-14) % Eos % (Auto) (2-4) % Baso % (Auto) (0-2) % Neut # (Auto) (6739-7597) /uL Lymph # (Auto) (6122-6120) /uL Florence # (Auto) (0-900) /uL Eos # (Auto) (0-450) /uL Baso # (Auto) (0-100) /uL PT (10.1-12.7) SECONDS INR (0.9-1.3) APTT (26.4-36.2) SECONDS D-Dimer 335 H (<230) ng/mL Sodium 137 (137-145) mmol/L Potassium 5.3 H (3.4-5.1) mmol/L Chloride 103 (98-107) mmol/L Carbon Dioxide 25 (22-32) mmol/L BUN 34 H (9-20) mg/dL Creatinine 1.10 (0.66-1.25) mg/dL Estimated GFR > 60.0 (>60) mL/min BUN/Creatinine Ratio 30.9 H (6-22) Glucose 224 H (80-110) mg/dL Lactate (0.7-2.1) mmol/L Calcium 9.5 (8.4-10.2) mg/dL Total Bilirubin 0.4 (0.2-1.3) mg/dL AST 38 (17-59) IU/L ALT 26 (21-72) IU/L Alkaline Phosphatase 54 (38-126) U/L Total Creatine Kinase (55-170) U/L CK-MB (CK-2) (<2.37) ng/mL CK-MB (CK-2) Rel Index (1.5-5.0) % Troponin I (0.01-0.034) ng/mL B-Natriuretic Peptide (<100) Total Protein 6.9 (6.3-8.2) g/dL Albumin 3.9 (3.5-5.0) g/dL Globulin 3.0 (1.7-4.1) g/dL Albumin/Globulin Ratio 1.3 (1.0-2.8) Procalcitonin (<0.5) ng/mL Imaging Data Chest x-ray: Radiologist's impression: [address] [address] XRay Report Signed Patient: Cory Lin KMR#: [id number] : 6Acct:[id number] Age/Sex: 64 / MDate of Service: 03/15/19 Loc: ED Accession Number: [id number] Procedure: XR chest 2V Ordering Provider: Kirstie Cornelius D.O. PROCEDURE: XR CHEST 2V INDICATIONS: shortness of breath TECHNIQUE: 2 views of the chest were acquired. COMPARISON: [facility], CT, THORAX WITH CONTRAST, 12/25/2007, 22:16. [facility], CR, CHEST 1 VIEW, 02/26/2017, 17:37. [facility], CR, CHEST 1 VIEW, 06/27/2016, 0:26. FINDINGS: Surgical changes and devices: None. Lungs and pleura: Lungs are abnormal with a mild degree of interstitial prominence. No pleural effusions or pneumothorax. 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 Mediastinum: Mediastinal contours are normal. Heart size is normal. Bones and chest wall: No suspicious bony abnormalities. Soft tissues appear unremarkable. IMPRESSION: No acute disease no source of shortness of breath is not seen. There is a mild interstitial prominence but this appears to have been previously present. It is not possible to entirely exclude the presence of a mild pulmonary edema pattern superimposed. Dictated by: Kevin Ricketts M.D. on 03/15/2019 at 18:14 Approved by: Kevin Ricketts M.D. on 03/15/2019 at 18:16 ECG Data Interpretation: EKG 1: Completed at 1854: ST depression in all leads, no ST elevation, no T-wave inversion, sinus tachycardia, rate 138, TN interval 156, QTC 383. No ectopy. EKG also viewed by Dr. Cornelius EKG 2: Completed at 1758: ST depressions noted in all leads, no ST elevation, irregular rhythm most likely atrial fibrillation, rate 114, TN interval unknown, QTC 345. EKG also viewed by Dr. Cornelius and Dr. Horan. EKG 3: Completed at 1854: ST depression noted in all leads, no ST elevation, no T-wave inversion, atrial fibrillation, rate 104, TN interval unknown, QTC 385. EKG also viewed by Dr. Cornelius and Dr. horan. MDM Narrative Medical decision making narrative: Differential includes NSTEMI (ST depression, significant risk factors such as obesity, past coronary artery stent, diabetes, and hypertension, positive troponin, elevated CK-MB index, shortness of breath that is worth with exertion, complains of episodes of diaphoresis) versus demand ischemia (positive troponin, ST depression in the leads, irregular rhythm, elevated CK-MB index, elevated BNP and shortness of breath-indicative of possible acute are failure. These diagnoses appear to be complicated by the onset of acute heart failure as exhibited by elevated BNP, orthopnea, shortness of breath. Less likely STEMI (no ST elevation), PE (while his D-dimer was slightly elevated for his age-was only slightly elevated and other lab results indicate that is clearly cardiac in nature, additionally is low risk factors such as recent travel for his PE). Further workup is needed to determine exact cause of patient's symptoms. Patient was transferred to [facility] was accepted by cardiology and hospitalist. <Eddie Horan DO - Last Filed: 03/16/19 02:38> Lab Data Labs: Lab Results 03/15/19 03/15/19 03/15/19 Range/Units 17:40 17:40 17:40 WBC 9.1 (4.5-11.0) X10^3/uL RBC 3.99 L (4.5-5.9) X10^6/uL Hgb 12.4 L (13.5-17.5) g/dL Hct 36.7 L (41-53) % MCV 92.0 (80-100) fL MCH 31.2 (26-34) PG MCHC 33.9 (30-36) % RDW 14.4 (11.6-14.8) % Plt Count 230 (150-400) X10^3/uL Neut % (Auto) 49.3 L (50-75) % Lymph % (Auto) 38.4 (25-40) % Florence % (Auto) 8.3 (3-14) % Eos % (Auto) 2.2 (2-4) % Baso % (Auto) 1.8 (0-2) % Neut # (Auto) 4500 (8767-4208) /uL Lymph # (Auto) 3500 (8849-5858) /uL Florence # (Auto) 800 (0-900) /uL Eos # (Auto) 200 (0-450) /uL Baso # (Auto) 200 H (0-100) /uL PT (10.1-12.7) SECONDS INR (0.9-1.3) APTT (26.4-36.2) SECONDS D-Dimer (<230) ng/mL Sodium (137-145) mmol/L Potassium (3.4-5.1) mmol/L Chloride (98-107) mmol/L Carbon Dioxide (22-32) mmol/L BUN (9-20) mg/dL Creatinine (0.66-1.25) mg/dL Estimated GFR (>60) mL/min BUN/Creatinine Ratio (6-22) Glucose (80-110) mg/dL Lactate 1.6 (0.7-2.1) mmol/L Calcium (8.4-10.2) mg/dL Total Bilirubin (0.2-1.3) mg/dL AST (17-59) IU/L ALT (21-72) IU/L Alkaline Phosphatase (38-126) U/L Total Creatine Kinase 262 H (55-170) U/L CK-MB (CK-2) 18.60 H (<2.37) ng/mL CK-MB (CK-2) Rel Index 7.1 H* (1.5-5.0) % Troponin I 2.050 H* (0.01-0.034) ng/mL B-Natriuretic Peptide (<100) Total Protein (6.3-8.2) g/dL Albumin (3.5-5.0) g/dL Globulin (1.7-4.1) g/dL Albumin/Globulin Ratio (1.0-2.8) Procalcitonin (<0.5) ng/mL 03/15/19 03/15/19 03/15/19 Range/Units 17:40 17:40 17:40 WBC (4.5-11.0) X10^3/uL RBC (4.5-5.9) X10^6/uL Hgb (13.5-17.5) g/dL Hct (41-53) % MCV (80-100) fL MCH (26-34) PG MCHC (30-36) % RDW (11.6-14.8) % Plt Count (150-400) X10^3/uL Neut % (Auto) (50-75) % Lymph % (Auto) (25-40) % Florence % (Auto) (3-14) % Eos % (Auto) (2-4) % Baso % (Auto) (0-2) % Neut # (Auto) (6851-6402) /uL Lymph # (Auto) (3553-5284) /uL Florence # (Auto) (0-900) /uL Eos # (Auto) (0-450) /uL Baso # (Auto) (0-100) /uL PT 10.7 (10.1-12.7) SECONDS INR 0.9 (0.9-1.3) APTT 31 (26.4-36.2) SECONDS D-Dimer (<230) ng/mL Sodium (137-145) mmol/L Potassium (3.4-5.1) mmol/L Chloride (98-107) mmol/L Carbon Dioxide (22-32) mmol/L BUN (9-20) mg/dL Creatinine (0.66-1.25) mg/dL Estimated GFR (>60) mL/min BUN/Creatinine Ratio (6-22) Glucose (80-110) mg/dL Lactate (0.7-2.1) mmol/L Calcium (8.4-10.2) mg/dL Total Bilirubin (0.2-1.3) mg/dL AST (17-59) IU/L ALT (21-72) IU/L Alkaline Phosphatase (38-126) U/L Total Creatine Kinase (55-170) U/L CK-MB (CK-2) (<2.37) ng/mL CK-MB (CK-2) Rel Index (1.5-5.0) % Troponin I (0.01-0.034) ng/mL B-Natriuretic Peptide 517 H (<100) Total Protein (6.3-8.2) g/dL Albumin (3.5-5.0) g/dL Globulin (1.7-4.1) g/dL Albumin/Globulin Ratio (1.0-2.8) Procalcitonin < 0.05 (<0.5) ng/mL 03/15/19 03/15/19 Range/Units 17:40 18:39 WBC (4.5-11.0) X10^3/uL RBC (4.5-5.9) X10^6/uL Hgb (13.5-17.5) g/dL Hct (41-53) % MCV (80-100) fL MCH (26-34) PG MCHC (30-36) % RDW (11.6-14.8) % Plt Count (150-400) X10^3/uL Neut % (Auto) (50-75) % Lymph % (Auto) (25-40) % [place] % (Auto) (3-14) % Eos % (Auto) (2-4) % Baso % (Auto) (0-2) % Neut # (Auto) (3866-3632) /uL Lymph # (Auto) (0909-0449) /uL [place] # (Auto) (0-900) /uL Eos # (Auto) (0-450) /uL Baso # (Auto) (0-100) /uL PT (10.1-12.7) SECONDS INR (0.9-1.3) APTT (26.4-36.2) SECONDS D-Dimer 335 H (<230) ng/mL Sodium 137 (137-145) mmol/L Potassium 5.3 H (3.4-5.1) mmol/L Chloride 103 (98-107) mmol/L Carbon Dioxide 25 (22-32) mmol/L BUN 34 H (9-20) mg/dL Creatinine 1.10 (0.66-1.25) mg/dL Estimated GFR > 60.0 (>60) mL/min BUN/Creatinine Ratio 30.9 H (6-22) Glucose 224 H (80-110) mg/dL Lactate (0.7-2.1) mmol/L Calcium 9.5 (8.4-10.2) mg/dL Total Bilirubin 0.4 (0.2-1.3) mg/dL AST 38 (17-59) IU/L ALT 26 (21-72) IU/L Alkaline Phosphatase 54 (38-126) U/L Total Creatine Kinase (55-170) U/L CK-MB (CK-2) (<2.37) ng/mL CK-MB (CK-2) Rel Index (1.5-5.0) % Troponin I (0.01-0.034) ng/mL B-Natriuretic Peptide (<100) Total Protein 6.9 (6.3-8.2) g/dL Albumin 3.9 (3.5-5.0) g/dL Globulin 3.0 (1.7-4.1) g/dL Albumin/Globulin Ratio 1.3 (1.0-2.8) Procalcitonin (<0.5) ng/mL Discharge Plan Departure Patient Disposition: [facility] Clinical Impression: Non-ST elevation (NSTEMI) myocardial infarction Discharge Date/Time: 03/15/19 20:30 Prescriptions: No Action brimonidine 0.2 % drops 1 drp EYE-LEFT BID Qty: 0 RF: 0 latanoprost 0.005 % drops 1 drp EYE-BOTH BEDTIME Qty: 0 RF: 0 cyclobenzaprine 10 mg tablet 10 mg PO TID Qty: 30 RF: 0 (DME) pen needle, diabetic [BD Ultra-Fine Short Pen Needle] 31 gauge x 5/16 needle See Dose Instructions .ROUTE .MEDSUPPLY Qty: 300 RF: 3 (DME) blood-glucose meter [Blood Glucose Monitoring] kit See Dose Instructions .ROUTE .MEDSUPPLY Qty: 1 RF: 0 (DME) blood sugar diagnostic [Blood Glucose Test] strip See Dose Instructions .ROUTE .MEDSUPPLY Qty: 600 RF: 3 insulin lispro [Humalog U-100 Insulin] 100 unit/mL solution 50 unit SUBCUT TID RF: 0 glipizide 10 mg tablet 10 mg PO BID Qty: 180 RF: 3 metformin [Glucophage] 500 mg tablet 1,000 mg PO BIDCC Qty: 360 RF: 3 (DME) insulin syringe-needle U-100 [BD Insulin Syringe Ultra-Fine] 1 mL 31 gauge x 5/16 syringe See Dose Instructions .ROUTE .MEDSUPPLY Qty: 450 RF: 3 hydrocodone-acetaminophen [[place]] 5-325 mg tablet 1 tab PO HSP PRN (Reason: pain) Qty: 30 RF: 0 Lantus Solostar U-100 Insulin 100 unit/mL (3 mL) insulin pen 50 unit SUBCUT BID Qty: 90 RF: 3 ropinirole 0.5 mg tablet 2 mg PO QAM RF: 0 Ozempic 0.25 mg or 0.5 mg(2 mg/1.5 mL) pen injector 1 mg SUBCUT QWEEK RF: 0 gabapentin 600 mg tablet 1,200 mg PO BID RF: 0 rosuvastatin [Crestor] 10 mg tablet 10 mg PO BEDTIME RF: 0 duloxetine [Cymbalta] 60 mg capsule,delayed release(DR/EC) 60 mg PO DAILY RF: 0 ropinirole 0.5 mg tablet 3 mg PO QPM RF: 0 metoprolol succinate 100 mg tablet extended release 24 hr 100 mg PO DAILY RF: 0 spironolactone 50 mg tablet 50 mg PO DAILY RF: 0 olmesartan [Benicar] 40 mg tablet 40 mg PO DAILY RF: 0 (DME) Respironics RemStar CPAP Qty: 1 RF: 0 Referrals: Lenny Max MD [Primary Care Provider] -
[2019-03-15 17:52] LABS: Add Manual Diff / Slide Review NO; Basophils Absolute Auto 200 /uL (0-100); Basophils Percent Auto 1.8 % (0-2); Eosinophils Absolute Auto 200 /uL (0-450); Eosinophils Percent Auto 2.2 % (2-4); Hematocrit 36.7 % (41-53); Hemoglobin 12.4 g/dL (13.5-17.5); Lymphocytes Absolute Auto 3500 /uL (1100-4500); Lymphocytes Percent Auto 38.4 % (25-40); Mean Corpuscular HGB Conc 33.9 % (30-36); Mean Corpuscular Hemoglobin 31.2 PG (26-34); Monocytes Absolute Auto 800 /uL (0-900); Monocytes Percent Auto 8.3 % (3-14); Neutrophils Absolute Auto 4500 /uL (1500-7000); Neutrophils Percent Auto 49.3 % (50-75); Platelet Count 230 X10^3/uL (150-400); Red Blood Cell Count 3.99 X10^6/uL (4.5-5.9); Red Cell Distribution Width 14.4 % (11.6-14.8); White Blood Cell Count 9.1 X10^3/uL (4.5-11.0)
[2019-03-15 17:58] LABS: INR 0.9 (0.9-1.3); Prothrombin Time 10.7 SECONDS (10.1-12.7)
[2019-03-15 18:01] LABS: PTT Partial Thromboplastin Tim 31 SECONDS (26.4-36.2)
[2019-03-15] MEDS: SODIUM CHLORIDE 0.9% 1,000 ML 1000 ML IV (18:04)
[2019-03-15 18:07] LABS: Creatine Kinase 262 U/L (55-170)
[2019-03-15 18:09] LABS: D Dimer 335 ng/mL (<230)
[2019-03-15 18:11] VITALS: BP 113/70; PULSE 113; RESP 15; O2SAT 98
[2019-03-15] MEDS: METOPROLOL TARTRATE 5 MG/5 ML INJ IV (18:17)
[2019-03-15 18:20] LABS: Procalcitonin < 0.05 ng/mL (<0.5)
[2019-03-15 18:26] LABS: CKMB % Relative Index 7.1 % (1.5-5.0)
[2019-03-15 18:27] LABS: Lactate (Lactic Acid) 1.6 mmol/L (0.7-2.1)
[2019-03-15 18:31] VITALS: BP 115/74; PULSE 77; RESP 12; O2SAT 96
[2019-03-15 18:31] LABS: B Type Natriuretic Peptide 517 (<100)
[2019-03-15 18:32] VITALS: O2SAT 95
[2019-03-15] MEDS: ASPIRIN 81 MG CHEW TAB 324 MG PO (18:38)
[2019-03-15] MEDS: HEPARIN DRIP 25,000 UNIT/500 ML IV.SOLN 30.59 UNIT IV (18:39)
[2019-03-15] MEDS: HEPARIN 5,000 UNIT/ML VIAL 5000 UNIT IV (18:39)
[2019-03-15 19:00] LABS: Alanine Aminotransferase 26 IU/L (21-72); Albumin 3.9 g/dL (3.5-5.0); Albumin Globulin Ratio 1.3 (1.0-2.8); Alkaline Phosphatase 54 U/L (38-126); Aspartate Aminotransferase 38 IU/L (17-59); BUN Creatinine Ratio 30.9 (6-22); Bilirubin Total 0.4 mg/dL (0.2-1.3); Blood Urea Nitrogen 34 mg/dL (9-20); Calcium 9.5 mg/dL (8.4-10.2); Carbon Dioxide 25 mmol/L (22-32); Chloride 103 mmol/L (98-107); Estimated Glomerular Filt Rate > 60.0 mL/min (>60); Glucose 224 mg/dL (80-110); HEMOLYSIS < 15 (0-50); Potassium 5.3 mmol/L (3.4-5.1); Sodium 137 mmol/L (137-145); Total Protein 6.9 g/dL (6.3-8.2)
[2019-03-15 20:10] VITALS: BP 129/87; PULSE 101; RESP 21; O2SAT 97
--- NOTE | 2019-03-15 20:56 | PC.NURSE ---
heparin gtt was infusing when transferred at same rate.
== END 2019-03-15 20:30 | disposition short-term general hospital (02) ==
PROVIDERS: Emergency Medicine; Emergency Provider Nurse Practitioner; Family Provider Internal Medicine Endocrinology, Diabetes & Metabolism; PCP Student in an Organized Health Care Education/Training Program
DX: I21.4 Non-ST elevation (NSTEMI) myocardial infarction (principal)
CPT/HCPCS: 36415; 71046; 80053; 82550; 82553; 83605; 83880; 84145; 84484; 85025; 85379; 85610; 85730; 93005; 94150; 96361; 96365; 96366; 96375; 99284; 99285; J1644

== ENCOUNTER → 2019-03-21 13:20 | Outpatient (CLI) | payer MEDICARE, BC, SELFPAY | PROVIDERS: Family Provider Internal Medicine Endocrinology, Diabetes & Metabolism; PCP Student in an Organized Health Care Education/Training Program; Visit Provider Family Medicine | DX: E11.621 Type 2 diabetes mellitus with foot ulcer (principal); L97.311 Non-pressure chronic ulcer of right ankle limited to breakdown of skin; L97.811 Non-pressure chronic ulcer of other part of right lower leg limited to breakdown of skin; S71.101A Unspecified open wound, right thigh, initial encounter; I48.91 Unspecified atrial fibrillation | CPT/HCPCS: 11042; 87070; 87205; 99213; 99214 ==

== ENCOUNTER → 2019-04-05 15:24 | Outpatient (CLI) | payer MEDICARE, BC, SELFPAY | PROVIDERS: Family Provider Internal Medicine Endocrinology, Diabetes & Metabolism; PCP Student in an Organized Health Care Education/Training Program; Visit Provider Family Medicine | DX: E11.621 Type 2 diabetes mellitus with foot ulcer (principal); E11.628 Type 2 diabetes mellitus with other skin complications; S71.101A Unspecified open wound, right thigh, initial encounter; L97.819 Non-pressure chronic ulcer of other part of right lower leg with unspecified severity; L97.319 Non-pressure chronic ulcer of right ankle with unspecified severity | CPT/HCPCS: 97597 ==

== ENCOUNTER → 2019-04-14 12:43 | Outpatient (CLI) | payer MEDICARE, BC, SELFPAY ==
--- NOTE | 2019-04-14 | DI.RAD.S_ITS ---
PROCEDURE: XR CERVICAL SPINE 2V OR 3V INDICATIONS: SPINAL STENOSIS TECHNIQUE: 3 view(s) of the cervical spine were acquired. COMPARISON: [facility], CR, XR CERVICAL SPINE 2V OR 3V, 01/26/2019, 12:26. FINDINGS: Evaluation of the cervical spine is limited as only lateral views are provided. The cervical thoracic junction is adequately visualized on the lateral view and the alignment through this region is well-maintained. The vertebral body heights are well-maintained without evidence of acute compression fracture. No displaced fractures are appreciated. Bony alignment appears to be within normal limits with the exception of grade 1 anterolisthesis of C5 on C6. No dynamic instability is appreciated with flexion or extension. Postoperative changes are present related to discectomy and fusion at the level of C5-6. Interbody spacers secured in place pending tibiofi orthopedic plate with 2 screws at each level. Orthopedic hardware is intact. The prevertebral soft tissues are within normal limits. The overlying soft tissues are also unremarkable. Moderate multilevel degenerative changes of the cervical spine are present demonstrating multilevel disc height loss, disc osteophyte complexes, and facet arthrosis. These findings are similar to the previous exam. IMPRESSION: 1. Unchanged appearance of the orthopedic hardware and alignment of the cervical spine, status post C5-6 anterior discectomy and fusion. 2. Moderate multilevel degenerative changes of the cervical spine have not significantly progressed. 3. Grade 1 anterolisthesis of C5 on C6 without evidence of dynamic instability. Dictated by: Alejandro Castrejon M.D. on 04/14/2019 at 12:19 Approved by: Alejandro Castrejon M.D. on 04/14/2019 at 12:23
== END ==
PROVIDERS: Family Provider Student in an Organized Health Care Education/Training Program; PCP Student in an Organized Health Care Education/Training Program; Visit Provider Neurological Surgery
DX: M48.02 Spinal stenosis, cervical region (principal); M47.812 Spondylosis without myelopathy or radiculopathy, cervical region; M43.12 Spondylolisthesis, cervical region; Z98.1 Arthrodesis status
CPT/HCPCS: 72040

== ENCOUNTER → 2019-04-18 13:29 | Outpatient (CLI) | payer MEDICARE, BC, SELFPAY | PROVIDERS: Family Provider Student in an Organized Health Care Education/Training Program; PCP Student in an Organized Health Care Education/Training Program; Visit Provider Family Medicine | DX: E11.622 Type 2 diabetes mellitus with other skin ulcer (principal); S81.811A Laceration without foreign body, right lower leg, initial encounter; L97.811 Non-pressure chronic ulcer of other part of right lower leg limited to breakdown of skin; L97.321 Non-pressure chronic ulcer of left ankle limited to breakdown of skin; S81.802A Unspecified open wound, left lower leg, initial encounter; L97.821 Non-pressure chronic ulcer of other part of left lower leg limited to breakdown of skin; I50.22 Chronic systolic (congestive) heart failure | CPT/HCPCS: 11042; 99214 ==

== ENCOUNTER → 2019-04-25 10:00 | Outpatient (CLI) | payer MEDICARE, BC, SELFPAY | PROVIDERS: Family Provider Student in an Organized Health Care Education/Training Program; PCP Student in an Organized Health Care Education/Training Program; Visit Provider Family Medicine | DX: E11.621 Type 2 diabetes mellitus with foot ulcer (principal); E11.628 Type 2 diabetes mellitus with other skin complications; S81.802A Unspecified open wound, left lower leg, initial encounter; T81.31XA Disruption of external operation (surgical) wound, not elsewhere classified, initial encounter; L97.811 Non-pressure chronic ulcer of other part of right lower leg limited to breakdown of skin; S71.101D Unspecified open wound, right thigh, subsequent encounter; L97.321 Non-pressure chronic ulcer of left ankle limited to breakdown of skin; R58 Hemorrhage, not elsewhere classified | CPT/HCPCS: 11042; 97597; 99214 ==

== ENCOUNTER 2019-04-25 13:26 | Emergency (ER) | payer MEDICARE, BC, SELFPAY ==
[2019-04-25 13:34] VITALS: BP 162/78; PULSE 71; RESP 18; TEMP 36.6; O2SAT 97
--- NOTE | 2019-04-25 13:50 | PC.NURSE ---
pt arrives to ED from wound clinic. CABG x 3 1 month ago. Wound on L medial calf from venous graft chronically bleeding. packed at wound clinic. appears slightly red around borders. denies fever, CP, SOB. appears well. Dr Rizo in to see.
[2019-04-25] MEDS: LIDOCAINE 2% W/EPI INJ 2 ML INJ (14:21)
[2019-04-25 14:46] VITALS: BP 147/69; PULSE 60; RESP 18; O2SAT 98
--- NOTE | 2019-04-25 14:47 | ED_ITS ---
HPI - Skin/Abscess/Foreign Bdy General Chief complaint: Skin/Abscess/Foreign Body Stated complaint: wound on left leg Time Seen by Provider: 04/25/19 13:38 Source: patient Mode of arrival: Ambulatory History of Present Illness HPI narrative: Patient comes emergency department complaining of ongoing bleeding for the last week from a the left lower leg wound. Patient states that the wound originated after he had a coronary artery bypass graft with vessel harvesting from his left lower leg. He states the surgery was about a month ago, but that the trouble with the wound started after he had scabs any stitches removed in the wound Care Clinic about 1 week ago. Patient states that when this stitch was removed, the tissue split open and a hole was left. The wound started to lose blood from the depths and this has continued ever since. Patient states that the wound care physician has tried Surgicel, silver nitrate, but and silver infused packing, and that they have also tried direct pressure at home, but nothing seems to stop the bleeding. Patient denies any lightheadedness Related Data Home Medications Medication Instructions Recorded Confirmed brimonidine 1 drp EYE-LEFT BID #0 02/08/17 04/25/19 latanoprost 1 drp EYE-BOTH BEDTIME #0 02/08/17 04/25/19 insulin lispro 100 unit/mL 0 unit SUBCUT TID ml 07/25/18 04/25/19 subcutaneous solution Respironics RemStar CPAP #1 ea 11/13/18 04/25/19 duloxetine [Cymbalta] 60 mg PO DAILY 03/15/19 04/25/19 gabapentin 1,200 mg PO BID 03/15/19 04/25/19 olmesartan [Benicar] 40 mg PO DAILY 03/15/19 04/25/19 ropinirole 2 mg PO QAM 03/15/19 04/25/19 ropinirole 3 mg PO QPM 03/15/19 04/25/19 rosuvastatin [Crestor] 10 mg PO BEDTIME 03/15/19 04/25/19 semaglutide [Ozempic] 1 mg SUBCUT QWEEK 03/15/19 04/25/19 amiodarone 200 mg PO BID 04/25/19 04/25/19 cyclobenzaprine 10 mg PO TID PRN 04/25/19 04/25/19 dorzolamide-timolol 1 drp EYE-BOTH BID 04/25/19 04/25/19 insulin glargine [Lantus Solostar 0 unit SUBCUT BID 04/25/19 04/25/19 U-100 Insulin] metoprolol tartrate 25 mg PO BID 04/25/19 04/25/19 rivaroxaban [Xarelto] 20 mg PO QPM 04/25/19 04/25/19 Previous Rx's Medication Instructions Recorded pen needle, diabetic 31 gauge x #300 each 07/06/1811/23 blood sugar diagnostic #600 each 07/20/18 blood-glucose meter #1 each 07/20/18 glipizide 10 mg tablet 10 mg PO BID #180 tab 08/25/18 metformin 500 mg tablet 1,000 mg PO BIDCC #360 tab 08/25/18 insulin syringe-needle U-100 1 mL #450 each 10/09/18 31 gauge x 11/23 hydrocodone 5 mg-acetaminophen 325 1 tab PO BEDTIME PRN #10 tab 03/20/19 mg tablet Allergies Allergy/AdvReac Type Severity Reaction Status Date / Time LOLY Inhibitors AdvReac Mild cough Unverified 03/20/19 09:46 [LOLY INHIBITORS] shrimp Allergy Severe blotchy Uncoded 03/20/19 09:46 eyes, edema Review of Systems Constitutional Constitutional: Denies chills, Denies fatigue, Denies fever(s), Denies frequent falls, Denies lethargy and Denies weakness Eyes Eyes: Denies change in vision, Denies eye discharge, Denies irritation and Denies loss of vision ENT Ears, Nose, Mouth, and Throat: Denies change in voice, Denies dizziness, Denies neck pain, Denies sore throat and Denies throat swelling Cardiovascular Cardiovascular: Denies chest pain, Denies irregular heart rhythm, Denies lightheadedness, Denies palpitations, Denies dyspnea, Denies dyspnea on exertion and Denies orthopnea Respiratory Respiratory: Denies cough, Denies dyspnea, Denies dyspnea on exertion and Denies wheezing Gastrointestinal Gastrointestinal: Denies abdominal pain, Denies change in bowel habits, Denies diarrhea, Denies nausea and Denies vomiting Genitourinary Genitourinary: Denies hematuria, Denies flank pain, Denies urinary incontinence and Denies urinary urgency Musculoskeletal Musculoskeletal: Denies back pain, Denies muscle weakness, Denies neck pain, Denies numbness and Denies tingling Integumentary/Breasts Skin/Breast: Denies pruritus, Denies erythema, Denies rash and Reports wounds (Single, oozing, left lower leg) Neurologic Neurologic: Denies behavioral changes, Denies confusion, Denies dizziness, Denies frequent falls, Denies loss of vision, Denies numbness, Denies tingling and Denies weakness Psychiatric Psychiatric: Denies anxiety, Denies behavioral changes, Denies confusion, Denies depression, Denies homicidal ideation and Denies suicidal ideation Endocrine Endocrine: Denies fatigue, Denies flushing and Denies palpitations Hematologic/Lymphatic Hematologic/Lymphatic: Denies easy bruising Allergic/Immunologic Allergic/Immunologic: Denies urticaria, Denies throat swelling and Denies wheezing Patient History Medical History Chronic pain (Chronic) Chronic rhinitis (Chronic) Coronary artery disease (Chronic 04/29/14) CTS (carpal tunnel syndrome) (Resolved 1977) Essential hypertension (Chronic) ETD (eustachian tube dysfunction) (Chronic) Hypersomnia (Chronic ~1997) Hypogonadism in male (Chronic) Insomnia, persistent (Chronic ~1995) Mixed hyperlipidemia (Chronic) Obesity with body mass index (BMI) of 30.0 to 39.9 (Chronic 04/24/15) Obstructive sleep apnea of adult (Chronic) Osteoarthritis of hands, 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 07/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) Primary osteoarthritis of left knee (Chronic 03/03/16) Restless legs syndrome (Chronic 04/24/15) Squamous cell carcinoma of nose (Resolved 2004) Type 2 diabetes mellitus with other skin ulcer (Chronic 04/24/15) Surgical History History of carpal tunnel repair (Resolved 1977) History of coronary artery stent placement (Resolved 04/2014) Hx of inguinal hernia surgery (Resolved 1977) Status post arthroscopy (Resolved) Status post rotator cuff repair (Resolved) Family History Father Coronary artery disease Alcoholism Sudden Other Depression Social History marital status: details: jose Blankenship, lives in [place] household members: spouse lives independently: Yes caregiver/support person: No housing: 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: [employer] [facility] Smoking Status: Never smoker alcohol intake: never substance use type: does not use Family History Father Coronary artery disease Alcoholism Sudden Other Depression Social History marital status: details: jose Blankenship, lives in [place] household members: spouse lives independently: Yes caregiver/support person: No housing: 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: [employer] [facility] Smoking Status: Never smoker alcohol intake: never substance use type: does not use Substance Use Type: does not use Exam Initial Vital Signs Initial Vital Signs: Vital Signs Temperature 97.9 F 04/25/19 13:34 Pulse Rate 71 04/25/19 13:34 Respiratory Rate 18 04/25/19 13:34 Blood Pressure 162/78 H 04/25/19 13:34 Pulse Oximetry 97 04/25/19 13:34 Const General: cooperative and well developed Nutritional Appearance: well nourished Orientation: alert, awake, oriented x3 and not confused [facility] Head: normocephalic and atraumatic Ears: external ears normal Nose: external nose normal and No nasal discharge Face and sinus: face symmetric and No dry mucous membranes Mouth: oral mucosae normal and moist mucous membranes Teeth and gingiva: dentition normal Eyes General: appearance normal, both eyes and all related structures Eyelids: eyelids normal Conjunctivae: conjunctivae normal Sclera: sclerae normal Pupils: PERRL EOM: EOM intact bilaterally Neck Neck: normal visual inspection, trachea midline, No lymphadenopathy, No midline deformity and No JVD Lymphatic: No lymphedema Chest Chest: normal inspection of the chest Resp Effort & Inspection: normal respiratory effort, able to speak in complete sentences, no respiratory distress and no use of accessory muscles Auscultation: clear to auscultation bilaterally, no rales, no rhonchi and no wheezes Cardio Rate: regular rate Rhythm: regular rhythm Heart Sounds: no click, no gallops, no murmurs and no rubs Pulses: normal peripheral pulses GI Inspection: non-distended Palpation: soft, no hepatosplenomegaly, No guarding, No pulsatile mass and No tender Auscultation: normal bowel sounds Back/Spine/Pelvis Back: No CVA tenderness Cervical Spine: cervical ROM normal and No pain with cervical ROM Thoracic/Lumbar Spine: thoracic and lumbar spine normal to inspection Skin General: No jaundice and No petechiae Other: Patient has a 2 cm by 2-1/2 cm stage IV ulcer on his left proximal medial lower leg. Two sets of slow oozing are noted in the depths of the wound. No drainage of any other sort is noted. There is mild erythema in an approximately 1 cm radius around the wound. Neuro General: alert, oriented x3, gait normal and no focal motor deficits Speech: speech normal Extrem General: full ROM, no clubbing, cyanosis or edema, no pedal edema and no calf tenderness Psych Appearance: well kempt Mental Status: mental status grossly normal Attitude: cooperative Thought Content: normal and suicidality Judgment: judgment good Procedures [facility] Procedure Name of Procedure: Electrocautery, left leg wound Side (if applicable): left Location: Proximal medial aspect of lower left leg Technique/Description of procedure performed: Patient was locally anesthetized with 2% xylocaine with epinephrine, with good hemostases. Electrical cautery was then performed throughout the wound, targeting the areas that had been continuously oozing. Patient tolerated procedure: Well Complications: none Course Course Course Narrative: Patient was treated with xylocaine with epinephrine, which did achieve hemostasis in the wound. Electrical cautery was then performed throughout the areas the wound that had been noted to be oozing. The wound was packed with iodoform gauze and a thick dressing was placed. I have advised the patient that if he begins to ooze again, direct pressure should be placed on an within the wound as much as possible. If this does not stop the bleeding, then he may return to the emergency department, but most likely, he will need to have surgery take a look at his wound and see what can be done. Cardiology may need to be consulted at that time to determine whether patient contemporary leg off of his Xarelto. At this point, good hemostasis has been achieved, and the patient is stable for discharge home. We have discussed home management of symptoms, as well as the usual indications for return. Orders Ordered: Discontinued Medications Lidocaine/Epinephrine (Xylocaine 2% W/Epi) 2 ml INJ INTRA-OP ONE Stop: 04/25/19 14:01 Last Admin: 04/25/19 14:21 Dose: 2 ml Documented by: BANG Vital Signs Vital signs: Vital Signs - 8 hr 04/25/19 13:34 04/25/19 14:46 Temperature 97.9 F Pulse Rate 71 60 Respiratory Rate 18 18 Blood Pressure 162/78 H Blood Pressure [Right Arm] 147/69 H Pulse Oximetry 97 98 MDM - Skin/Abscess/Foreign Bdy Medical Records Attestation: I reviewed the patient's medical records. Discharge Plan Departure Patient Disposition: Home Clinical Impression: Hemorrhage from wound Discharge Date/Time: 04/25/19 14:50 Activity Restrictions/Additional Instructions: The tissue surrounding her wound has been infused with xylocaine with epinephrine to help with initial vasoconstriction. Following this, the tissue has undergone electrical cauterization to try to fuse the tissues and prevent further bleeding. If your bleeding recurs, the surgeon will most likely need to manage the wound, and your field captain will likely need to be consulted to discuss whether your Xarelto can be temporarily stopped.. Please follow up with the wound care clinic for further routine care of the wound otherwise. Prescriptions: No Action brimonidine 0.2 % drops 1 drp EYE-LEFT BID Qty: 0 RF: 0 latanoprost 0.005 % drops 1 drp EYE-BOTH BEDTIME Qty: 0 RF: 0 (DME) pen needle, diabetic [BD Ultra-Fine Short Pen Needle] 31 gauge x 5/16 needle See Dose Instructions .ROUTE .MEDSUPPLY Qty: 300 RF: 3 (DME) blood-glucose meter [Blood Glucose Monitoring] kit See Dose Instructions .ROUTE .MEDSUPPLY Qty: 1 RF: 0 (DME) blood sugar diagnostic [Blood Glucose Test] strip See Dose Instructions .ROUTE .MEDSUPPLY Qty: 600 RF: 3 insulin lispro [Humalog U-100 Insulin] 100 unit/mL solution 0 unit SUBCUT TID RF: 0 glipizide 10 mg tablet 10 mg PO BID Qty: 180 RF: 3 metformin [Glucophage] 500 mg tablet 1,000 mg PO BIDCC Qty: 360 RF: 3 (DME) insulin syringe-needle U-100 [BD Insulin Syringe Ultra-Fine] 1 mL 31 gauge x 5/16 syringe See Dose Instructions .ROUTE .MEDSUPPLY Qty: 450 RF: 3 hydrocodone-acetaminophen 5-325 mg tablet 1 tab PO BEDTIME PRN (Reason: pain) Qty: 10 RF: 0 amiodarone 200 mg tablet 200 mg PO BID RF: 0 dorzolamide-timolol 22.3-6.8 mg/mL drops 1 drp EYE-BOTH BID RF: 0 metoprolol tartrate 25 mg tablet 25 mg PO BID RF: 0 Xarelto 20 mg tablet 20 mg PO QPM RF: 0 cyclobenzaprine 10 mg tablet 10 mg PO TID PRN (Reason: spasms) RF: 0 Lantus Solostar U-100 Insulin 100 unit/mL (3 mL) insulin pen 0 unit SUBCUT BID RF: 0 ropinirole 0.5 mg tablet 2 mg PO QAM RF: 0 Ozempic 0.25 mg or 0.5 mg(2 mg/1.5 mL) pen injector 1 mg SUBCUT QWEEK RF: 0 gabapentin 600 mg tablet 1,200 mg PO BID RF: 0 rosuvastatin [Crestor] 10 mg tablet 10 mg PO BEDTIME RF: 0 duloxetine [Cymbalta] 60 mg capsule,delayed release(DR/EC) 60 mg PO DAILY RF: 0 ropinirole 0.5 mg tablet 3 mg PO QPM RF: 0 olmesartan [Benicar] 40 mg tablet 40 mg PO DAILY RF: 0 (DME) Respironics RemStar CPAP Qty: 1 RF: 0 Referrals: [facility] [Provider Group] (Please call today or tomorrow to set up an appointment to follow up regarding your wound, and to discuss whether grafting will be needed.) Lenyn Max MD [Primary Care Provider] -
== END 2019-04-25 14:50 | disposition home or self-care (01) ==
PROVIDERS: Emergency Provider Emergency Medicine; Family Provider Student in an Organized Health Care Education/Training Program; PCP Student in an Organized Health Care Education/Training Program
DX: R58 Hemorrhage, not elsewhere classified (principal); T14.8XXD Other injury of unspecified body region, subsequent encounter; E11.621 Type 2 diabetes mellitus with foot ulcer; E11.628 Type 2 diabetes mellitus with other skin complications; S81.802A Unspecified open wound, left lower leg, initial encounter; T81.31XA Disruption of external operation (surgical) wound, not elsewhere classified, initial encounter; L97.811 Non-pressure chronic ulcer of other part of right lower leg limited to breakdown of skin; L97.321 Non-pressure chronic ulcer of left ankle limited to breakdown of skin; S71.101D Unspecified open wound, right thigh, subsequent encounter
CPT/HCPCS: 11042; 12001; 97597; 99282

== ENCOUNTER → 2019-05-02 13:19 | Outpatient (CLI) | payer MEDICARE, BC, SELFPAY | PROVIDERS: Family Provider Student in an Organized Health Care Education/Training Program; PCP Student in an Organized Health Care Education/Training Program; Visit Provider Family Medicine | DX: E11.622 Type 2 diabetes mellitus with other skin ulcer (principal); E11.621 Type 2 diabetes mellitus with foot ulcer; T81.31XA Disruption of external operation (surgical) wound, not elsewhere classified, initial encounter; S81.802A Unspecified open wound, left lower leg, initial encounter; L97.329 Non-pressure chronic ulcer of left ankle with unspecified severity; L97.819 Non-pressure chronic ulcer of other part of right lower leg with unspecified severity; L08.9 Local infection of the skin and subcutaneous tissue, unspecified | CPT/HCPCS: 11042; 97597 ==

== ENCOUNTER → 2019-05-09 13:41 | Outpatient (CLI) | payer MEDICARE, BC, SELFPAY | PROVIDERS: Family Provider Student in an Organized Health Care Education/Training Program; PCP Student in an Organized Health Care Education/Training Program; Visit Provider Family Medicine | DX: E11.621 Type 2 diabetes mellitus with foot ulcer (principal); T81.31XA Disruption of external operation (surgical) wound, not elsewhere classified, initial encounter; S81.802A Unspecified open wound, left lower leg, initial encounter; L08.9 Local infection of the skin and subcutaneous tissue, unspecified; L97.819 Non-pressure chronic ulcer of other part of right lower leg with unspecified severity; L97.329 Non-pressure chronic ulcer of left ankle with unspecified severity | CPT/HCPCS: 11042; 97597 ==

== ENCOUNTER → 2019-05-11 14:13 | Outpatient (CLI) | payer MEDICARE, BC, SELFPAY ==
[2019-05-11 14:28] LABS: Bacteria Urine None Seen
[2019-05-11 14:39] LABS: Add Manual Diff / Slide Review NO; Basophils Absolute Auto 100 /uL (0-100); Basophils Percent Auto 1.1 % (0-2); Eosinophils Absolute Auto 400 /uL (0-450); Eosinophils Percent Auto 6.4 % (2-4); Hematocrit 35.3 % (41-53); Hemoglobin 11.6 g/dL (13.5-17.5); Lymphocytes Absolute Auto 2300 /uL (1100-4500); Lymphocytes Percent Auto 35.5 % (25-40); Mean Corpuscular HGB Conc 32.8 % (30-36); Mean Corpuscular Hemoglobin 28.8 PG (26-34); Mean Corpuscular Volume 87.8 fL (80-100); Monocytes Absolute Auto 600 /uL (0-900); Monocytes Percent Auto 8.6 % (3-14); Neutrophils Absolute Auto 3100 /uL (1500-7000); Neutrophils Percent Auto 48.4 % (50-75); Platelet Count 320 X10^3/uL (150-400); Red Blood Cell Count 4.02 X10^6/uL (4.5-5.9); Red Cell Distribution Width 15.2 % (11.6-14.8); White Blood Cell Count 6.5 X10^3/uL (4.5-11.0)
[2019-05-11 14:42] LABS: Appearance Urine UA CLEAR; Bilirubin Urine UA NEGATIVE (NEGATIVE); Color Urine UA YELLOW; Glucose Urine UA TRACE g/dL (Negative); Ketones Urine UA NEGATIVE (NEGATIVE); Leukocyte Esterase Urine UA NEGATIVE (NEGATIVE); Nitrite Urine UA NEGATIVE (Negative); Occult Blood Urine UA TRACE-LYSED (Negative); Protein Urine UA 2+ (Negative); Urobilinogen Urine UA 0.2 E.U./dL (0.2); pH Urine UA 5.5 (4.5-8.0)
[2019-05-11 14:56] LABS: Culture Indicated Urine Cult Not Indicated; RBC Urine 0-1/HPF (0-5/HPF); Squamous Epithelial Cell Urine 0-1 /HPF (0-5/HPF); WBC Urine 0-1/HPF (0-5/HPF)
[2019-05-11 15:07] LABS: Alanine Aminotransferase 19 IU/L (<50); Albumin 4.3 g/dL (3.5-5.0); Albumin Globulin Ratio 1.6 (1.0-2.8); Alkaline Phosphatase 76 U/L (38-126); Aspartate Aminotransferase 26 IU/L (17-59); BUN Creatinine Ratio 24.4 (6-22); Bilirubin Total 0.3 mg/dL (0.2-1.3); Blood Urea Nitrogen 22 mg/dL (9-20); Calcium 9.7 mg/dL (8.4-10.2); Carbon Dioxide 27 mmol/L (22-32); Chloride 104 mmol/L (98-107); Estimated Glomerular Filt Rate > 60.0 mL/min (>60); Globulin 2.7 g/dL (1.7-4.1); Glucose 133 mg/dL (80-110); HEMOLYSIS < 15 (0-50); Potassium 4.4 mmol/L (3.4-5.1); Sodium 141 mmol/L (137-145)
[2019-05-11 15:08] LABS: Creatinine Urine Random 36.9 mg/dL; Protein (Total) Urine Random 112 mg/dL (0-12); Protein Creatinine Ratio Urine 3.03 GRAM/24H
[2019-05-11 15:23] LABS: Vitamin D 25 Hydroxy (D3) 27.1 ng/mL (30.0-100.0)
[2019-05-15 17:42] LABS: Parathyroid Hormone Int 57 pg/mL (14-64)
== END ==
PROVIDERS: PCP Student in an Organized Health Care Education/Training Program; Visit Provider Internal Medicine
DX: N18.2 Chronic kidney disease, stage 2 (mild) (principal); R80.9 Proteinuria, unspecified; E11.21 Type 2 diabetes mellitus with diabetic nephropathy; Z79.4 Long term (current) use of insulin
CPT/HCPCS: 36415; 80053; 81001; 82306; 82570; 83970; 84156; 85025

== ENCOUNTER → 2019-05-16 10:48 | Outpatient (CLI) | payer MEDICARE, BC, SELFPAY | PROVIDERS: PCP Student in an Organized Health Care Education/Training Program; Visit Provider Family Medicine | DX: E11.622 Type 2 diabetes mellitus with other skin ulcer (principal); E11.628 Type 2 diabetes mellitus with other skin complications; T81.31XA Disruption of external operation (surgical) wound, not elsewhere classified, initial encounter; S81.802A Unspecified open wound, left lower leg, initial encounter; L97.819 Non-pressure chronic ulcer of other part of right lower leg with unspecified severity; L97.329 Non-pressure chronic ulcer of left ankle with unspecified severity | CPT/HCPCS: 11042; 97607 ==

== ENCOUNTER → 2019-05-18 10:07 | Outpatient (CLI) | payer MEDICARE, BC, SELFPAY | PROVIDERS: PCP Student in an Organized Health Care Education/Training Program; Visit Provider Family Medicine | DX: E11.621 Type 2 diabetes mellitus with foot ulcer (principal); L97.811 Non-pressure chronic ulcer of other part of right lower leg limited to breakdown of skin; L97.321 Non-pressure chronic ulcer of left ankle limited to breakdown of skin; S81.802A Unspecified open wound, left lower leg, initial encounter | CPT/HCPCS: 97607 ==

== ENCOUNTER → 2019-05-23 13:36 | Outpatient (CLI) | payer MEDICARE, BC, SELFPAY | PROVIDERS: PCP Student in an Organized Health Care Education/Training Program; Visit Provider Family Medicine | DX: E11.622 Type 2 diabetes mellitus with other skin ulcer (principal); T81.31XA Disruption of external operation (surgical) wound, not elsewhere classified, initial encounter; S81.802A Unspecified open wound, left lower leg, initial encounter; L97.818 Non-pressure chronic ulcer of other part of right lower leg with other specified severity; L97.328 Non-pressure chronic ulcer of left ankle with other specified severity | CPT/HCPCS: 11042; 97607 ==

== ENCOUNTER → 2019-05-25 15:21 | Outpatient (CLI) | payer MEDICARE, BC, SELFPAY | PROVIDERS: PCP Student in an Organized Health Care Education/Training Program; Visit Provider Family Medicine | DX: E11.621 Type 2 diabetes mellitus with foot ulcer (principal); E11.628 Type 2 diabetes mellitus with other skin complications; S81.802A Unspecified open wound, left lower leg, initial encounter; L97.811 Non-pressure chronic ulcer of other part of right lower leg limited to breakdown of skin; L97.321 Non-pressure chronic ulcer of left ankle limited to breakdown of skin | CPT/HCPCS: 97607 ==

== ENCOUNTER → 2019-05-30 09:01 | Outpatient (CLI) | payer MEDICARE, BC, SELFPAY | PROVIDERS: PCP Student in an Organized Health Care Education/Training Program; Visit Provider Family Medicine | DX: E11.621 Type 2 diabetes mellitus with foot ulcer (principal); E11.622 Type 2 diabetes mellitus with other skin ulcer; L97.811 Non-pressure chronic ulcer of other part of right lower leg limited to breakdown of skin; L97.329 Non-pressure chronic ulcer of left ankle with unspecified severity; S81.802A Unspecified open wound, left lower leg, initial encounter; T81.31XA Disruption of external operation (surgical) wound, not elsewhere classified, initial encounter | CPT/HCPCS: 11042 ==

== ENCOUNTER → 2019-06-12 09:44 | Outpatient (CLI) | payer MEDICARE, BC, SELFPAY | PROVIDERS: PCP Student in an Organized Health Care Education/Training Program; Visit Provider Family Medicine | DX: E11.622 Type 2 diabetes mellitus with other skin ulcer (principal) | CPT/HCPCS: 99212; 99213 ==

== ENCOUNTER → 2019-08-14 09:55 | Outpatient (CLI) | payer MEDICARE, BC, SELFPAY | PROVIDERS: PCP Student in an Organized Health Care Education/Training Program; Referring Provider Student in an Organized Health Care Education/Training Program; Visit Provider Student in an Organized Health Care Education/Training Program | DX: E66.9 Obesity, unspecified (principal); Z68.30 Body mass index [BMI] 30.0-30.9, adult; Z71.3 Dietary counseling and surveillance | CPT/HCPCS: G0108 ==

== ENCOUNTER → 2019-08-24 09:44 | Outpatient (CLI) | payer MEDICARE, BC, SELFPAY ==
--- NOTE | 2019-08-24 12:01 | DIET.PN ---
Diabetes: Healthy Eating 1 Intervention: ? Discussed pathophysiology of diabetes and impact of nutrition/diet on blood sugar control.? Discussed fed versus non-fed state.?? ? Reviewed importance of Balance, Variety, and Moderation. ? Discussed the effect of carbohydrates/protein/fat on blood sugar control.? ? Stressed importance of consistent carbohydrate intake at each meal and provided instructions for recommended servings/portions of carbohydrates/protein per meal. Provided educational material. ? Reviewed carbohydrate counting and measuring carbohydrate content via serving sizes and reading nutrition labels.? Provided handouts.?? ? Discussed the difference between simple versus complex carbohydrates and the effect of fiber on blood sugar control.? Discussed various methods to increase fiber content in diet. ? Discussed the plate method for creating more carbohydrate conscious balanced meals. ? Stressed importance of meal timing and not going >4-5 hours between meals. Encouraged adding protein to evening snack to support glucose control overnight. ? Discussed importance of making dietary habits part of lifestyle change.
== END ==
PROVIDERS: PCP Student in an Organized Health Care Education/Training Program; Referring Provider Student in an Organized Health Care Education/Training Program; Visit Provider Student in an Organized Health Care Education/Training Program
DX: E11.9 Type 2 diabetes mellitus without complications (principal); Z71.3 Dietary counseling and surveillance
CPT/HCPCS: G0109

== ENCOUNTER → 2019-09-05 11:33 | Outpatient (CLI) | payer MEDICARE, BC, SELFPAY ==
--- NOTE | 2019-09-05 16:16 | DIET.PN ---
DIABETES Nutrition Initial Assessment:? ASSESS:??64 yom?referred for type 2 diabetes seen as part of DSME program. We spent a greater than half of today?s visit discussing his medication management. His FBG has been ranging between 100-150 however, he is experiencing hyperglycemia throughout most of the day between 200-250. He has been working more frequently, doing house work for his children. He admits he often forgets to bring his insulin with him, and skips meals when he is busy. He started taking Ozempic almost 1 year ago and reports significant changes in his bg since then. He has been able to reduce his long acting insulin and reports lower bg ranges. He reports making several dietary changes since beginning the diabetes program and cardio rehab. He has experienced several hypoglycemic events r/t illness as well as during his cardio rehab classes. He is not sure if this is related to eating behaviors or medication management. He was using [employer] meals for a while, but went back to regular meal prep. ??? LABS: Per pt report:? A1c: 7.8 FB-150 Pre-Prandial: 200-250 ? MEDS:?? metf: 1000mg BID lantus: 40 u a.m./ p.m. novolog SSI: 15-40 u glyburide: 10 mg BID ozempic: 5u 1x/wk ? DIET: Per 24-hour recall:? BF: cottage cheese, toast, fruit L: hamburger; tuna fish sandwich; granola bar D: blue apron boxed ingredients; sandwich; soup (ruiz?s reduced sodium) ? Wt: 278# Ht:? 72? BMI: 37.7 ? Exercise:? Cardiopulmonary Rehab 3x/wk for 30 min NUTRITION DX 1. Altered Nutrition related labs related to impaired glucose metabolism, lack of previous exposure to accurate nutrition information as evidenced by pt report, dx of diabetes, previous diet high in refined carbohydrates.? INTERVENTION(s): 1. Reviewed pathophysiology of diabetes and impact of nutrition/diet on blood sugar control.? Discussed fed versus non-fed state.?? 2. Discussed the effect of carbohydrates/protein/fat on blood sugar control.? Stressed importance of consistent carbohydrate intake at each meal and provided instructions for recommended servings/portions of carbohydrates/protein per meal. Provided pt with educational material. 3. Reviewed carbohydrate counting and measuring carbohydrate content via serving sizes and reading nutrition labels.? Provided handouts.?? 4. Discussed the difference between simple versus complex carbohydrates and the effect of fiber on blood sugar control.? Discussed various methods to increase fiber content in diet. 5. Stressed importance of meal timing and not going >4-5 hours between meals. Encouraged adding protein to evening snack to support glucose control overnight. Patient agreeable. 6. Discussed easy snack options for reduce unhealthy snacking. Pt will purchase fresh produce to cut and portion. Provided list of healthy snack ideas under 200 calories. 7. Discussed healthy weight loss goals of 1-2lbs per week through diet and exercise.? Pt overall weight loss goal 225 lb. 8. Recommend monitoring fasting and pre-prandial mealtime glucose. 9. Discussed importance of strict medication management and carb counting for glucose control. Pt will discuss with Dr. Morel. 10. Recommended patient request a new lipid panel and A1c. Last done September 2018. MONITOR/EVALUATE: Anticipate good compliance.? Pt will continue DSME. F/U scheduled for October. :
[2019-09-05 16:17] VITALS: BMI 37.8
== END ==
PROVIDERS: PCP Student in an Organized Health Care Education/Training Program; Referring Provider Student in an Organized Health Care Education/Training Program; Visit Provider Student in an Organized Health Care Education/Training Program
DX: E11.65 Type 2 diabetes mellitus with hyperglycemia (principal); Z79.4 Long term (current) use of insulin; Z79.84 Long term (current) use of oral hypoglycemic drugs; Z71.3 Dietary counseling and surveillance; Z68.37 Body mass index [BMI] 37.0-37.9, adult
CPT/HCPCS: G0109

== ENCOUNTER → 2019-09-07 09:45 | Outpatient (CLI) | payer MEDICARE, BC, SELFPAY ==
--- NOTE | 2019-09-07 12:16 | DIET.PN ---
Diabetes Physiology: Intervention 1. Diabetes physiology 2. Detecting and treatment of acute and chronic complications 3. Diagnosis of and difference in types of diabetes 4. Self-monitoring and pattern management a. Demonstrate glucometer and control testing b. Explain BG results and action to take when out of range. 5. Foot , eye, dental care 6. Medications a. Oral medication classification b. Injectable c. Insulin i. Injection protocol ii. Other delivery methods
== END ==
PROVIDERS: PCP Student in an Organized Health Care Education/Training Program; Referring Provider Student in an Organized Health Care Education/Training Program; Visit Provider Student in an Organized Health Care Education/Training Program
DX: E11.9 Type 2 diabetes mellitus without complications (principal); Z71.3 Dietary counseling and surveillance
CPT/HCPCS: G0109

== ENCOUNTER 2019-09-20 10:00 | Outpatient (RCR) | payer MEDICARE, BC, SELFPAY | END 2020-03-06 07:30 | LOC: CAR 10:00 | PROVIDERS: PCP Student in an Organized Health Care Education/Training Program; Visit Provider Student in an Organized Health Care Education/Training Program | DX: Z95.1 Presence of aortocoronary bypass graft (principal) | CPT/HCPCS: 93798 ==

== ENCOUNTER → 2019-12-13 10:48 | Outpatient (CLI) | payer MEDICARE, BC, SELFPAY ==
--- NOTE | 2019-12-13 10:49 | DI.RAD.S_ITS ---
PROCEDURE: XR HAND RT 2V INDICATIONS: Hand weakness, bony protrusion TECHNIQUE: 3 views of the hand(s) acquired. COMPARISON: None. FINDINGS: Bones: Postoperative change is seen in the carpus, with remote posttraumatic abnormalities. There are remote appearing bone fragments seen along the dorsal aspect of the carpus. Prominent joint space narrowing is seen involving the radiocarpal joint. Age-appropriate bony degenerative changes are seen. No suspicious lytic or blastic lesions are seen. Soft tissues: No suspicious soft tissue calcifications. IMPRESSION: Postoperative and remote posttraumatic changes are seen of the carpus, without an acute bony abnormality seen. Remote appearing bone fragments are seen along the dorsal aspect of the carpus. If it would be helpful for clinical management decision making, please consider a dedicated wrist CT for further evaluation. Dictated by: Michele Ayoub M.D. on 12/13/2019 at 12:00 Approved by: Michele Ayoub M.D. on 12/13/2019 at 12:01
== END ==
PROVIDERS: PCP Student in an Organized Health Care Education/Training Program; Referring Provider Student in an Organized Health Care Education/Training Program; Visit Provider Student in an Organized Health Care Education/Training Program
DX: M79.641 Pain in right hand (principal); R29.898 Other symptoms and signs involving the musculoskeletal system
CPT/HCPCS: 73120

== ENCOUNTER → 2020-01-15 09:10 | Outpatient (CLI) | payer MEDICARE, BC, SELFPAY ==
[2020-01-15 09:46] LABS: Alanine Aminotransferase 19 IU/L (<50); Albumin Globulin Ratio 1.3 (1.0-2.8); Alkaline Phosphatase 74 U/L (38-126); Aspartate Aminotransferase 32 IU/L (17-59); BUN Creatinine Ratio 23.5 (6-22); Bilirubin Total 0.3 mg/dL (0.2-1.3); Blood Urea Nitrogen 27 mg/dL (9-20); Calcium 9.9 mg/dL (8.4-10.2); Carbon Dioxide 32 mmol/L (22-32); Chloride 104 mmol/L (98-107); Estimated Glomerular Filt Rate > 60.0 mL/min (>60); Globulin 3.2 g/dL (1.7-4.1); Glucose 223 mg/dL (80-110); HEMOLYSIS < 15 (0-50); Potassium 5.1 mmol/L (3.4-5.1); Sodium 140 mmol/L (137-145); Total Protein 7.2 g/dL (6.3-8.2)
[2020-01-15 11:40] LABS: Creatinine Urine Random 66.1 mg/dL; Protein (Total) Urine Random 150 mg/dL (0-12); Protein Creatinine Ratio Urine 2.26 GRAM/24H
[2020-01-15 15:50] LABS: Cholesterol 101 mg/dL (140-199); HDL Cholesterol 33 mg/dL (40-60); LDL Cholesterol Calculated 34 mg/dL (<100); Triglycerides 168 mg/dL (35-150)
== END ==
PROVIDERS: PCP Student in an Organized Health Care Education/Training Program; Referring Provider Internal Medicine; Visit Provider Internal Medicine
DX: I48.91 Unspecified atrial fibrillation (principal); N18.2 Chronic kidney disease, stage 2 (mild); I25.10 Atherosclerotic heart disease of native coronary artery without angina pectoris
CPT/HCPCS: 36415; 80053; 80061; 82570; 84156

== ENCOUNTER → 2020-02-19 13:25 | Outpatient (CLI) | payer MEDICARE, BC, SELFPAY | PROVIDERS: PCP Student in an Organized Health Care Education/Training Program; Referring Provider Student in an Organized Health Care Education/Training Program; Visit Provider Family Medicine | DX: E11.621 Type 2 diabetes mellitus with foot ulcer (principal); L97.411 Non-pressure chronic ulcer of right heel and midfoot limited to breakdown of skin; E11.42 Type 2 diabetes mellitus with diabetic polyneuropathy | CPT/HCPCS: 11042; 99213; 99214 ==

== ENCOUNTER → 2020-02-26 15:07 | Outpatient (CLI) | payer MEDICARE, BC, SELFPAY | PROVIDERS: PCP Student in an Organized Health Care Education/Training Program; Referring Provider Student in an Organized Health Care Education/Training Program; Visit Provider Family Medicine | DX: E11.621 Type 2 diabetes mellitus with foot ulcer (principal); L97.411 Non-pressure chronic ulcer of right heel and midfoot limited to breakdown of skin; E11.42 Type 2 diabetes mellitus with diabetic polyneuropathy | CPT/HCPCS: 11042 ==

== ENCOUNTER → 2020-02-28 09:47 | Outpatient (CLI) | payer MEDICARE, BC, SELFPAY ==
--- NOTE | 2020-02-28 11:46 | DIET.PN ---
Diabetes: Healthy Eating 2 Intervention: Fats effects on glucose, weight, heart disease, cholesterol Sat Vs Unsat Protein- animal and plant based options Low, med, high fat meats Sugar substitutes Sodium Health claims Grocery shopping guidelines Eating away from home Alcohol Sick day guidelines Ketone Testing
== END ==
PROVIDERS: PCP Student in an Organized Health Care Education/Training Program; Referring Provider Student in an Organized Health Care Education/Training Program; Visit Provider Student in an Organized Health Care Education/Training Program
DX: E11.9 Type 2 diabetes mellitus without complications (principal)
CPT/HCPCS: G0109

== ENCOUNTER → 2020-03-05 13:23 | Outpatient (CLI) | payer MEDICARE, BC, SELFPAY | PROVIDERS: PCP Student in an Organized Health Care Education/Training Program; Referring Provider Student in an Organized Health Care Education/Training Program; Visit Provider Family Medicine | DX: E11.621 Type 2 diabetes mellitus with foot ulcer (principal); L97.411 Non-pressure chronic ulcer of right heel and midfoot limited to breakdown of skin; E11.42 Type 2 diabetes mellitus with diabetic polyneuropathy | CPT/HCPCS: 97597 ==

== ENCOUNTER → 2020-03-11 13:49 | Outpatient (CLI) | payer MEDICARE, BC, SELFPAY | PROVIDERS: PCP Student in an Organized Health Care Education/Training Program; Referring Provider Student in an Organized Health Care Education/Training Program; Visit Provider Family Medicine | DX: E11.621 Type 2 diabetes mellitus with foot ulcer (principal); L97.411 Non-pressure chronic ulcer of right heel and midfoot limited to breakdown of skin; E11.42 Type 2 diabetes mellitus with diabetic polyneuropathy | CPT/HCPCS: 97597 ==

== ENCOUNTER → 2020-03-24 14:38 | Outpatient (CLI) | payer MEDICARE, BC, SELFPAY | PROVIDERS: PCP Student in an Organized Health Care Education/Training Program; Referring Provider Student in an Organized Health Care Education/Training Program; Visit Provider Family Medicine | DX: E11.42 Type 2 diabetes mellitus with diabetic polyneuropathy (principal) | CPT/HCPCS: 99212; 99213 ==

== ENCOUNTER → 2020-07-15 10:35 | Outpatient (CLI) | payer MEDICARE, BC, SELFPAY ==
[2020-07-15 11:35] LABS: Add Manual Diff / Slide Review NO; Basophils Absolute Auto 100 /uL (0-100); Basophils Percent Auto 0.8 % (0-2); Eosinophils Absolute Auto 400 /uL (0-450); Eosinophils Percent Auto 5.6 % (2-4); Hemoglobin 11.5 g/dL (13.5-17.5); Lymphocytes Absolute Auto 2300 /uL (1100-4500); Lymphocytes Percent Auto 33.3 % (25-40); Mean Corpuscular HGB Conc 32.9 % (30-36); Mean Corpuscular Hemoglobin 27.5 PG (26-34); Mean Corpuscular Volume 83.6 fL (80-100); Monocytes Absolute Auto 500 /uL (0-900); Neutrophils Absolute Auto 3800 /uL (1500-7000); Neutrophils Percent Auto 53.3 % (50-75); Platelet Count 236 X10^3/uL (150-400); Red Blood Cell Count 4.19 X10^6/uL (4.5-5.9); Red Cell Distribution Width 16.5 % (11.6-14.8)
[2020-07-15 11:46] LABS: Hemoglobin A1C% w Est Avg Glu 8.9 % (4.0-6.0)
[2020-07-15 11:51] LABS: Alanine Aminotransferase 16 IU/L (<50); Albumin 3.8 g/dL (3.5-5.0); Albumin Globulin Ratio 1.2 (1.0-2.8); Alkaline Phosphatase 71 U/L (38-126); Aspartate Aminotransferase 27 IU/L (17-59); BUN Creatinine Ratio 24.2 (6-22); Bilirubin Total 0.2 mg/dL (0.2-1.3); Blood Urea Nitrogen 24 mg/dL (9-20); Calcium 9.2 mg/dL (8.4-10.2); Carbon Dioxide 31 mmol/L (22-32); Chloride 104 mmol/L (98-107); Cholesterol 124 mg/dL (140-199); Estimated Glomerular Filt Rate > 60.0 mL/min (>60); Globulin 3.1 g/dL (1.7-4.1); Glucose 177 mg/dL (80-110); HDL Cholesterol 40 mg/dL (40-60); HEMOLYSIS < 15 (0-50); LDL Cholesterol Calculated 40 mg/dL (<100); Potassium 4.2 mmol/L (3.4-5.1); Sodium 137 mmol/L (137-145); Total Protein 6.9 g/dL (6.3-8.2); Triglycerides 218 mg/dL (35-150)
[2020-07-15 12:08] LABS: Creatinine Urine Random 94.1 mg/dL
[2020-07-15 12:12] LABS: Protein (Total) Urine Random 262 mg/dL (0-12); Protein Creatinine Ratio Urine 2.78 GRAM/24H
[2020-07-15 12:23] LABS: Vitamin D 25 Hydroxy (D3) 21.2 ng/mL (30.0-100.0)
[2020-07-16 07:08] LABS: Parathyroid Hormone Int 58 pg/mL (15-65)
== END ==
PROVIDERS: PCP Family Medicine; Referring Provider Internal Medicine; Visit Provider Internal Medicine
DX: N18.2 Chronic kidney disease, stage 2 (mild) (principal); E11.21 Type 2 diabetes mellitus with diabetic nephropathy; Z79.4 Long term (current) use of insulin; E11.69 Type 2 diabetes mellitus with other specified complication; E78.5 Hyperlipidemia, unspecified; I25.10 Atherosclerotic heart disease of native coronary artery without angina pectoris
CPT/HCPCS: 36415; 80053; 80061; 82306; 82570; 83036; 83970; 84156; 85025

== ENCOUNTER 2020-08-23 09:20 | Emergency (ER) | payer MEDICARE, BC, SELFPAY ==
[2020-08-23] VITALS (166 sets, daily range): BP systolic 59–142; BP diastolic 39–78; PULSE 66–129; RESP 0–26; TEMP 32.3–36.3; O2SAT 88–100
[2020-08-23] MEDS: SODIUM CHLORIDE 0.9% 1,000 ML 1000 ML IV ×2 (09:10→09:15)
--- NOTE | 2020-08-23 09:20 | DI.RAD.S_ITS ---
PROCEDURE: XR CHEST 1V INDICATIONS: sepsis TECHNIQUE: One view of the chest was acquired. COMPARISON: [facility], CHEST 1 VIEW, 02/26/2017, 17:37. [facility], , CHEST 1 VIEW, 06/27/2016, 0:26. [facility], , XR CHEST 2V, 03/15/2019, 17:43. FINDINGS: Surgical changes and devices: The tip of the endotracheal tube is low lying, seen near the tamera. A gastric tube is seen, with the tip seen overlying the distal stomach. Sternotomy changes are seen. There is a left mediastinal metallic device seen. Lungs and pleura: On this supine examination, no large pneumothorax or large pleural effusions are seen. No focal areas of lung consolidation are seen. Low lung volumes are noted. This causes a crowded appearance to the lung markings and limits evaluation. Mediastinum: Mediastinal contours appear normal. Heart size is normal. Bones and chest wall: No suspicious bony lesions. Overlying soft tissues appear unremarkable. IMPRESSION: The tip of the endotracheal tube is seen low lying, near the tamera. Please consider withdrawal of the tube by 2-3 cm. The tip of the gastric tube is seen overlying the distal stomach. Sternotomy changes are seen and there is a metallic device overlying the left mediastinum. Low lung volumes. Note: Case discussed by telephone with Dr. Mccarty at 9:21 a.m. [place] time on August 23, 2020. Dictated by: Michele Ayoub M.D. on 08/23/2020 at 9:18 Approved by: Michele Ayoub M.D. on 08/23/2020 at 9:23
[2020-08-23 09:49] LABS: Bacteria Urine None Seen
[2020-08-23 09:50] LABS: Appearance Urine UA CLEAR; Bilirubin Urine UA NEGATIVE (NEGATIVE); Color Urine UA YELLOW; Glucose Urine UA TRACE g/dL (Negative); Ketones Urine UA TRACE (NEGATIVE); Leukocyte Esterase Urine UA NEGATIVE (NEGATIVE); Nitrite Urine UA NEGATIVE (Negative); Occult Blood Urine UA NEGATIVE (Negative); Protein Urine UA 2+ (Negative); Specific Gravity Urine UA 1.015 (1.000-1.035); pH Urine UA 6.5 (4.5-8.0)
[2020-08-23 09:54] LABS: COVID19 -Nasal RAPID Negative (Negative)
[2020-08-23 09:59] LABS: Add Manual Diff / Slide Review NO; Basophils Absolute Auto 0 /uL (0-100); Basophils Percent Auto 0.1 % (0-2); Eosinophils Absolute Auto 200 /uL (0-450); Eosinophils Percent Auto 0.6 % (2-4); Hematocrit 49.2 % (41-53); Hemoglobin 15.1 g/dL (13.5-17.5); Lymphocytes Absolute Auto 6100 /uL (1100-4500); Lymphocytes Percent Auto 24.7 % (25-40); Mean Corpuscular HGB Conc 30.7 % (30-36); Mean Corpuscular Hemoglobin 27.1 PG (26-34); Mean Corpuscular Volume 88.4 fL (80-100); Monocytes Absolute Auto 1100 /uL (0-900); Monocytes Percent Auto 4.3 % (3-14); Neutrophils Absolute Auto 17400 /uL (1500-7000); Neutrophils Percent Auto 70.3 % (50-75); Platelet Count 349 X10^3/uL (150-400); Red Blood Cell Count 5.57 X10^6/uL (4.5-5.9); Red Cell Distribution Width 15.9 % (11.6-14.8); White Blood Cell Count 24.7 X10^3/uL (4.5-11.0)
[2020-08-23] MEDS: KETAMINE 500 MG/5 ML INJ (10:00)
[2020-08-23 10:01] LABS: INR 1.4 (0.9-1.3); Prothrombin Time 15.9 SECONDS (10.1-12.7)
[2020-08-23 10:09] LABS: Albumin 3.7 g/dL (3.5-5.0); Albumin Globulin Ratio 1.3 (1.0-2.8); Alkaline Phosphatase 98 U/L (38-126); Aspartate Aminotransferase 41 IU/L (17-59); BUN Creatinine Ratio 16.1 (6-22); Bilirubin Total 0.3 mg/dL (0.2-1.3); Blood Urea Nitrogen 36 mg/dL (9-20); Calcium 9.3 mg/dL (8.4-10.2); Carbon Dioxide 16 mmol/L (22-32); Chloride 101 mmol/L (98-107); Creatine Kinase 294 U/L (55-170); Estimated Glomerular Filt Rate 29.8 mL/min (>60); Globulin 2.8 g/dL (1.7-4.1); Glucose 350 mg/dL (80-110); HEMOLYSIS < 15 (0-50); Lactate Dehydrogenase 712 U/L (313-618); Potassium 3.6 mmol/L (3.4-5.1); Sodium 138 mmol/L (137-145); Total Protein 6.5 g/dL (6.3-8.2)
[2020-08-23 10:11] LABS: D Dimer 2001 ng/mL (<230)
--- NOTE | 2020-08-23 10:14 | ED_ITS ---
HPI - Sepsis General Chief Complaint: Altered Mental Status Mode of arrival: EMS Source: EMS Limitations: altered mental status Evaluation Sepsis Infection Criteria Present: Suspected New Infection Sepsis persistent hypotension: SBP < 90 mmHg Associated Symptoms: diarrhea Narrative: 65-year-old male nonsmoker with extensive cardiac history including a bypass in 2019 presents as a priority patient by EMS. He has had N/V/D for the past 24 hours and had a near syncopal/syncopal episode this morning. was trying to help him for about 90 minutes prior to EMS arrival. There is no report or suspiscion of injury as a consequence of the weakness. Patient denies pain or injury They found him in significant distress with profound weakness blood pressure in the 50s and difficult IV start. GCS 14 per EMS. They placed an IO, gave fluids and presented to our room 2. Their 12 lead noted peaked T-waves and he was given an amp of calcium and route. Patient is guarding his airway and responds to verbal stimuli Review of Systems Review of Systems Narrative: Patient awake and guarding airway, arousable, answers questions with one word responses and nodding head. Other portions of ROS from EMS/ Constitutional Constitutional: Reports fatigue, Reports lethargy, Reports poor appetite and Reports weakness Eyes Eyes: Denies diplopia and Denies loss of vision ENT Ears, Nose, Mouth, and Throat: Denies sore throat, Denies throat swelling and Denies tongue swelling Cardiovascular Cardiovascular: Denies chest pain, Reports lightheadedness and Reports dyspnea Comments: near syncope Respiratory Respiratory: Reports dyspnea Gastrointestinal Gastrointestinal: Reports nausea and Reports vomiting Comments: diarrhea Genitourinary Genitourinary: Reports oliguria Musculoskeletal Musculoskeletal: Reports muscle weakness Comments: severe weakness, medics had to pick him up Integumentary/Breasts Skin/Breast: Denies wounds Neurologic Neurologic: Denies abnormal speech, Reports confusion, Denies loss of vision and Reports weakness Psychiatric Psychiatric: Reports confusion Endocrine Endocrine: Reports fatigue Allergic/Immunologic Allergic/Immunologic: Denies throat swelling and Denies tongue swelling Patient History Medical History Chronic pain Chronic rhinitis Coronary artery disease (04/29/14) CTS (carpal tunnel syndrome) (1977) Essential hypertension ETD (eustachian tube dysfunction) Hypersomnia (~1997) Hypogonadism in male Insomnia, persistent (~1995) Mixed hyperlipidemia Obesity with body mass index (BMI) of 30.0 to 39.9 (04/24/15) Obstructive sleep apnea of adult Osteoarthritis of hands, 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 (07/29/15) Primary osteoarthritis of left knee (03/03/16) Restless legs syndrome (04/24/15) Squamous cell carcinoma of nose (2004) Type 2 diabetes mellitus with other skin ulcer (04/24/15) Surgical History History of carpal tunnel repair (1977) History of coronary artery stent placement (04/2014) Hx of inguinal hernia surgery (1977) S/P CABG x 3 Status post arthroscopy Status post rotator cuff repair Family History Father Coronary artery disease Alcoholism Sudden Other Depression Social History marital status: details: jose Marx, lives in [place] household members: spouse lives independently: Yes caregiver/support person: No housing: house princess/worship: [employer] / [employer] Smoking Status: Never smoker alcohol intake: never substance use type: does not use eating out: 1-3 times/week Type(s) of exercise: walking, aerobic, bicycling, advised to exercise at least 150 min/week (moderate intensity aerobic) and advised to perform resistance training at least 2x/week Smoking Status: Never smoker Substance Use Type: does not use Exam Narrative Exam Narrative: GENERAL: [65] year old patient appears stated age. Well-nourish ed, well-developed patient, in obvious distress. Guarding airway, gag intact opens eyes to verbal, communicates but confused HEAD: Atraumatic. Normocephalic. EYES: Pupils equal round and reactive. Extraocular motions intact. No scleral icterus. No injection or drainage. ENT: Dry membranes. Nose without bleeding, purulent drainage. Throat without erythema, tonsillar hypertrophy or exudate. Airway patent. NECK: Trachea midline. Non tender CARDIOVASCULAR: Regular rate and rhythm without murmurs, gallops, or rubs. RESPIRATORY: Clear to auscultation. Breath sounds equal bilaterally. No wheezes, rales, or rhonchi. Increasingly labored GASTROINTESTINAL: Abdomen soft, non-tender, nondistended. EXTREMITIES: No edema or joint tenderness. BACK: Nontender without deformity or crepitance. No flank tenderness. NEURO: confused, no obvious focal deficit. SKIN: No rash or erythema of visible areas Initial Vital Signs Initial Vital Signs: Vital Signs Temperature 90.1 F L 08/23/20 09:40 Pulse Rate 122 H 08/23/20 09:40 Respiratory Rate 21 08/23/20 09:40 Pulse Oximetry 94 08/23/20 09:40 Procedures Intubation Time out performed: Yes sedative: Ketamine Mg Given: 125 paralytic: Rocuronium Mg Given: 75 Laryngoscope: other (Glydescope) Assist Device Used: Bougie ET Tube Size: 7.5 ET Tube Uncuffed: No Tube Secured Depth (cm): 25 Tube Secured Location: teeth Tube Placement Confirmation: Visualized tube passing through cords, Equal breath sounds bilaterally, No breath sounds over epigastrium, Confirmation by capnometry and Chest Xray Patient Tolerated Procedure: Well Intubation Complications: none Scores GCS Isabelle coma scale eye opening: To sound George coma scale verbal response: Confused George coma scale motor response: Localising George coma scale total score: 12 Course Course Course Narrative: patient guarding away, patient significantly ill. Care taken to fluid resuscitate prior to intubation, COVID negative prior. Due to increasing work of breathing and concern for loss of airway. Patient is high risk airway given Mallampati 4, High LEMON score. Glydescope, iGel, Bougie, and cric kit at bedside. 2L fluids given, MAP up to 77 prior to intubation. Quick look after Ketamine given, prior to Jethro without obstruction of arytenoid swel ling. First pass success. Orders Ordered: Discontinued Medications Diphenhydramine HCl (Diphenhydramine 50 Mg/Ml Vial) 50 mg IV NOW ONE Stop: 08/23/20 11:31 Last Admin: 08/23/20 11:35 Dose: 50 mg Documented by: BANG Epinephrine HCl (Epinephrine 1 Mg/10 Ml Syringe) 0.01 mg IV NOW ONE Stop: 08/23/20 09:21 Last Admin: 08/23/20 10:32 Dose: 0.01 mg Documented by: BANG Epinephrine HCl (Epinephrine 1 Mg/Ml) 1.2 mg 0.01 mg/kg (1.2 mg) IM NOW ONE Stop: 08/23/20 11:31 Last Admin: 08/23/20 12:25 Dose: Not Given Documented by: BRADLEY Epinephrine HCl (Epinephrine 1 Mg/Ml) 0.5 mg IM NOW ONE Stop: 08/23/20 11:34 Last Admin: 08/23/20 11:35 Dose: 0.5 mg Documented by: BANG Fentanyl (Fentanyl 100 Mcg/2 Ml Inj) 100 mcg IV NOW ONE Stop: 08/23/20 11:39 Last Admin: 08/23/20 11:39 Dose: 100 mcg Documented by: BANG Furosemide (Furosemide 40 Mg/4 Ml Vial) 40 mg IV NOW ONE Stop: 08/23/20 13:27 Last Admin: 08/23/20 13:40 Dose: 40 mg Documented by: BANG Furosemide (Furosemide 100 Mg/10 Ml Vial) 80 mg IV NOW ONE Stop: 08/23/20 14:24 Last Admin: 08/23/20 14:30 Dose: 80 mg Documented by: BANG Lactated Ringer's (Lactated Ringers) 1,000 mls @ 200 mls/hr IV CONT MELANIE Last Infusion: 08/23/20 11:54 Dose: 0 mls/hr Documented by: Admin: 08/23/20 10:25 Dose: 200 mls/hr Documented by: BANG Norepinephrine Bitartrate 4 mg (/ Dextrose) 254 mls @ 30.48 mls/hr IV TITRATE MELANIE; Protocol Last Titration: 08/23/20 15:20 Dose: 0 mcg/min, 0 mls/hr Documented by: Titration: 08/23/20 14:46 Dose: 15 mcg/min, 57.15 mls/hr Documented by: Admin: 08/23/20 14:30 Dose: 15 mcg/min, 57.15 mls/hr Documented by: Titration: 08/23/20 14:00 Dose: 15 mcg/min, 57.15 mls/hr Documented by: Titration: 08/23/20 13:42 Dose: 15 mcg/min, 57.15 mls/hr Documented by: Titration: 08/23/20 13:31 Dose: 10 mcg/min, 38.1 mls/hr Documented by: Titration: 08/23/20 13:27 Dose: 20 mcg/min, 76.2 mls/hr Documented by: Titration: 08/23/20 10:45 Dose: 20 mcg/min, 76.2 mls/hr Documented by: Titration: 08/23/20 10:34 Dose: 15 mcg/min, 57.15 mls/hr Documented by: Titration: 08/23/20 10:31 Dose: 12 mcg/min, 45.72 mls/hr Documented by: Admin: 08/23/20 10:18 Dose: 8 mcg/min, 30.48 mls/hr Documented by: BANG Piperacillin/Tazobactam/Dextrose (Zosyn) 3.375 gm in 50 mls @ 100 mls/hr IV NOW ONE Stop: 08/23/20 10:39 Last Infusion: 08/23/20 11:00 Dose: 0 mls/hr Documented by: Admin: 08/23/20 10:28 Dose: 100 mls/hr Documented by: BANG Sodium Chloride (Normal Saline 0.9%) 1,000 mls @ 1,000 mls/hr IV BOLUS ONE Stop: 08/23/20 11:39 Last Infusion: 08/23/20 09:45 Dose: 0 mls/hr Documented by: Admin: 08/23/20 09:10 Dose: 1,000 mls/hr Documented by: BANG Famotidine (Pepcid) 20 mg in 50 mls @ 200 mls/hr IV NOW ONE Stop: 08/23/20 11:44 Last Infusion: 08/23/20 12:24 Dose: 0 mls/hr Documented by: Admin: 08/23/20 11:50 Dose: 200 mls/hr Documented by: BANG Sodium Chloride (Normal Saline 0.9%) 1,000 mls @ 1,000 mls/hr IV BOLUS ONE Stop: 08/23/20 10:14 Last Infusion: 08/23/20 10:00 Dose: 0 mls/hr Documented by: Admin: 08/23/20 09:15 Dose: 1,000 mls/hr Documented by: BANG Fentanyl 1,000 mcg/ Dextrose 250 mls @ 21 mls/hr IV TITRATE MELANIE; Protocol Last Titration: 08/23/20 18:22 Dose: 0 mcg/kg/hr, 0 mls/hr Documented by: Titration: 08/23/20 14:47 Dose: 1.25 mcg/kg/hr, 37.5 mls/hr Documented by: Titration: 08/23/20 13:28 Dose: 1.25 mcg/kg/hr, 37.5 mls/hr Documented by: Admin: 08/23/20 12:33 Dose: 1.25 mcg/kg/hr, 37.5 mls/hr Documented by: BANG Propofol (Propofol) 1,000 mg in 100 mls @ 3.6 mls/hr IV TITRATE MELANIE; Protocol Last Titration: 08/23/20 15:20 Dose: 0 mcg/kg/min, 0 mls/hr Documented by: Titration: 08/23/20 14:47 Dose: 5 mcg/kg/min, 3.6 mls/hr Documented by: Titration: 08/23/20 13:28 Dose: 5 mcg/kg/min, 3.6 mls/hr Documented by: Admin: 08/23/20 10:16 Dose: 5 mcg/kg/min, 3.6 mls/hr Documented by: BANG Lactated Ringer's (Lactated Ringers) 1,000 mls @ 1,000 mls/hr IV BOLUS ONE Stop: 08/23/20 13:55 Last Infusion: 08/23/20 13:38 Dose: 0 mls/hr Documented by: Admin: 08/23/20 12:57 Dose: 1,000 mls/hr Documented by: BRADLEY Methylprednisolone (Methylprednisolone 125 Mg/2 Ml Vial) 125 mg IV NOW ONE Stop: 08/23/20 11:31 Last Admin: 08/23/20 11:35 Dose: 125 mg Documented by: BANG Reevaluation(s) Reevaluation #1: patient pressures improving with fluid administration with MAP over 65 Reevaluation #2: BP dropping. Evalation of airway intact. Lungs clear. Abdomen soft. 500mL bolus given, Push dose epi given. Levo increased 1039 MAP up to 64 1048 MAP up to 75 and has remained above 65 Time: 10:22 Reevaluation #3: during CT patient developed diffused erythematous rash. Epi 0.5IM, Solumedrol, Diphenhydramine administered. Vitals remain stable. 1136 BP rising, Levo turned down to 8 1255 - still limited urine output, patient 3rd spacing and has some decreasing sats (mid 90s). Fluids held, lasix ordered, repeat CXR. No abnormal lung sounds. Belly soft 1400 - no urine after Lasix 40. Slight bump in troponin. Lactate improved. Repeat CXR unchanged. Consultations Consultation #1: discussed with hospitalist here at [facility]. Requests transfer gi [facility] need for higher level of care Consultation #2: states his cardiology team is at [place], requests transfer there. Dr. Gutierrez contacted in the ICU at [facility]. He is happy to accept patient in transfer. Aware that Central line was attempted, but failed. Repeat imaging demonstrates no PTX. Pressors through large proximal lines and switched from L AC to R AC after about 2 hours. Vital Signs Vital signs: Vital Signs - 8 hr 08/23/20 09:40 08/23/20 09:44 08/23/20 09:45 Temperature 90.1 F L 90.9 F L 91.0 F L Pulse Rate 122 H 118 H 118 H Respiratory Rate 21 20 21 Blood Pressure 138/64 Pulse Oximetry 94 94 94 08/23/20 09:48 08/23/20 09:50 08/23/20 09:51 Temperature 91.2 F L 91.4 F L 91.4 F L Pulse Rate 120 H 116 H 129 H Respiratory Rate 21 20 20 Blood Pressure 101/78 96/68 Pulse Oximetry 95 99 99 08/23/20 09:55 08/23/20 09:59 08/23/20 10:00 Temperature 91.6 F L 91.8 F L 91.8 F L Pulse Rate 120 H 121 H 114 H Respiratory Rate 20 18 4 L Blood Pressure 108/54 L 93/46 L Pulse Oximetry 99 98 97 08/23/20 10:05 08/23/20 10:10 08/23/20 10:15 Temperature 91.9 F L 91.9 F L 92.1 F L Pulse Rate 109 H 106 H 102 H Respiratory Rate 16 8 L 23 Blood Pressure 95/53 L 98/47 L Pulse Oximetry 96 93 90 L 08/23/20 10:16 08/23/20 10:17 08/23/20 10:18 Temperature 92.1 F L 92.1 F L 92.1 F L Pulse Rate 109 H 108 H 106 H Respiratory Rate 26 H 24 18 Blood Pressure Pulse Oximetry 94 94 97 08/23/20 10:19 08/23/20 10:20 08/23/20 10:21 Temperature 92.1 F L 92.1 F L 92.1 F L Pulse Rate 105 H 104 H 107 H Respiratory Rate 24 26 H 20 Blood Pressure Pulse Oximetry 96 94 95 08/23/20 10:22 08/23/20 10:23 08/23/20 10:24 Temperature 92.1 F L 92.1 F L 92.1 F L Pulse Rate 107 H 110 H 110 H Respiratory Rate 20 19 21 Blood Pressure 75/46 L Pulse Oximetry 97 97 98 08/23/20 10:25 08/23/20 10:26 08/23/20 10:27 Temperature 92.1 F L 92.1 F L 92.3 F L Pulse Rate 111 H 109 H 85 Respiratory Rate 20 21 25 H Blood Pressure 76/48 L 77/45 L Pulse Oximetry 98 98 98 08/23/20 10:28 08/23/20 10:29 08/23/20 10:30 Temperature 92.3 F L 92.3 F L 92.3 F L Pulse Rate 68 68 66 Respiratory Rate 15 13 19 Blood Pressure 59/39 L Pulse Oximetry 98 99 99 08/23/20 10:31 08/23/20 10:32 08/23/20 10:33 Temperature 92.3 F L 92.3 F L 92.3 F L Pulse Rate 68 74 77 Respiratory Rate 19 23 22 Blood Pressure 62/41 L Pulse Oximetry 99 98 99 08/23/20 10:34 08/23/20 10:35 08/23/20 10:36 Temperature 92.3 F L 92.3 F L 92.3 F L Pulse Rate 78 78 78 Respiratory Rate 21 24 24 Blood Pressure Pulse Oximetry 99 99 98 08/23/20 10:37 08/23/20 10:38 08/23/20 10:39 Temperature 92.3 F L 92.3 F L 92.3 F L Pulse Rate 78 79 79 Respiratory Rate 23 20 14 Blood Pressure 91/50 L Pulse Oximetry 98 98 98 02/13/21 10:40 08/23/20 10:41 08/23/20 10:42 Temperature 92.3 F L 92.3 F L 92.3 F L Pulse Rate 79 78 75 Respiratory Rate 20 17 20 Blood Pressure Pulse Oximetry 98 98 97 08/23/20 10:43 08/23/20 10:44 08/23/20 10:45 Temperature 92.3 F L 92.3 F L 92.5 F L Pulse Rate 75 78 79 Respiratory Rate 14 23 20 Blood Pressure 90/52 L 94/57 L Pulse Oximetry 97 97 98 08/23/20 10:48 08/23/20 10:50 08/23/20 10:51 Temperature 92.5 F L 92.5 F L 92.5 F L Pulse Rate 77 77 77 Respiratory Rate 16 16 16 Blood Pressure 109/58 L 105/55 L Pulse Oximetry 98 98 98 08/23/20 10:54 08/23/20 10:55 08/23/20 10:57 Temperature 92.5 F L 92.5 F L 92.5 F L Pulse Rate 77 77 78 Respiratory Rate 20 18 22 Blood Pressure 107/58 L 114/53 L Pulse Oximetry 98 98 98 08/23/20 11:00 08/23/20 11:01 08/23/20 11:03 Temperature 92.5 F L 92.5 F L 92.5 F L Pulse Rate 78 78 78 Respiratory Rate 17 16 16 Blood Pressure 111/53 L 94/50 L Pulse Oximetry 97 97 97 08/23/20 11:05 08/23/20 11:06 08/23/20 11:35 Temperature 92.5 F L 92.8 F L Pulse Rate 78 77 85 Respiratory Rate 17 15 16 Blood Pressure 95/51 L Pulse Oximetry 97 97 100 08/23/20 11:36 08/23/20 11:40 08/23/20 11:45 Temperature 92.8 F L 93.0 F L 93.0 F L Pulse Rate 83 86 84 Respiratory Rate 13 14 14 Blood Pressure 128/58 L Pulse Oximetry 100 98 98 08/23/20 11:50 08/23/20 11:55 08/23/20 11:59 Temperature 93.2 F L 93.4 F L 93.6 F L Pulse Rate 83 82 80 Respiratory Rate 14 14 14 Blood Pressure 136/66 Pulse Oximetry 98 97 97 08/23/20 12:00 08/23/20 12:02 08/23/20 12:04 Temperature 93.6 F L 93.6 F L 93.6 F L Pulse Rate 80 80 79 Respiratory Rate 14 15 15 Blood Pressure 142/69 H 139/68 136/70 Pulse Oximetry 97 97 98 08/23/20 12:05 08/23/20 12:06 08/23/20 12:10 Temperature 93.6 F L 93.7 F L 93.7 F L Pulse Rate 80 79 79 Respiratory Rate 15 15 15 Blood Pressure 139/66 Pulse Oximetry 97 97 96 08/23/20 12:15 08/23/20 12:20 08/23/20 12:23 Temperature 93.9 F L 94.1 F L 94.3 F L Pulse Rate 78 77 76 Respiratory Rate 17 15 18 Blood Pressure 112/59 L Pulse Oximetry 96 97 98 08/23/20 12:24 08/23/20 12:25 08/23/20 12:26 Temperature 94.3 F L 94.3 F L 94.3 F L Pulse Rate 76 76 75 Respiratory Rate 16 18 16 Blood Pressure 118/58 L 111/60 Pulse Oximetry 98 98 99 08/23/20 12:28 08/23/20 12:30 08/23/20 12:32 Temperature 94.5 F L 94.5 F L 94.5 F L Pulse Rate 75 75 75 Respiratory Rate 18 17 16 Blood Pressure 108/57 L 100/57 L 98/53 L Pulse Oximetry 98 97 96 08/23/20 12:34 08/23/20 12:35 08/23/20 12:36 Temperature 94.6 F L 94.6 F L 94.6 F L Pulse Rate 75 75 75 Respiratory Rate 15 14 15 Blood Pressure 97/53 L 91/55 L Pulse Oximetry 95 94 94 08/23/20 12:38 08/23/20 12:40 08/23/20 12:42 Temperature 94.6 F L 94.6 F L 94.8 F L Pulse Rate 74 74 74 Respiratory Rate 14 14 15 Blood Pressure 112/59 L 115/57 L 118/58 L Pulse Oximetry 94 93 92 08/23/20 12:44 08/23/20 12:45 08/23/20 12:46 Temperature 94.8 F L 94.8 F L 94.8 F L Pulse Rate 74 74 74 Respiratory Rate 13 15 17 Blood Pressure 122/57 L 112/56 L Pulse Oximetry 91 90 L 90 L 08/23/20 12:48 08/23/20 12:50 08/23/20 12:52 Temperature 95.0 F L 95.0 F L 95.0 F L Pulse Rate 74 74 74 Respiratory Rate 18 17 16 Blood Pressure 110/57 L 103/55 L 99/57 L Pulse Oximetry 89 L 88 L 90 L 08/23/20 12:54 08/23/20 12:55 08/23/20 12:56 Temperature 95.2 F L 95.2 F L 95.2 F L Pulse Rate 74 73 73 Respiratory Rate 18 18 18 Blood Pressure 104/59 L 101/55 L Pulse Oximetry 90 L 90 L 90 L 08/23/20 12:58 08/23/20 13:00 08/23/20 13:05 Temperature 95.2 F L 95.2 F L 95.4 F L Pulse Rate 72 72 72 Respiratory Rate 18 15 18 Blood Pressure 101/59 L 100/61 Pulse Oximetry 90 L 90 L 91 08/23/20 13:10 08/23/20 13:12 08/23/20 13:14 Temperature 95.4 F L 95.5 F L 95.5 F L Pulse Rate 74 73 73 Respiratory Rate 18 18 18 Blood Pressure 114/57 L 111/58 L 104/59 L Pulse Oximetry 91 90 L 91 08/23/20 13:15 08/23/20 13:16 08/23/20 13:18 Temperature 95.5 F L 95.5 F L 95.5 F L Pulse Rate 73 73 74 Respiratory Rate 18 18 17 Blood Pressure 104/58 L 100/64 Pulse Oximetry 91 90 L 89 L 08/23/20 13:20 08/23/20 13:22 08/23/20 13:24 Temperature 95.5 F L 95.5 F L 95.7 F L Pulse Rate 73 70 69 Respiratory Rate 18 18 18 Blood Pressure 108/59 L 90/55 L 83/50 L Pulse Oximetry 95 95 95 08/23/20 13:25 08/23/20 13:26 08/23/20 13:28 Temperature 95.7 F L 95.7 F L 95.7 F L Pulse Rate 69 69 69 Respiratory Rate 16 17 18 Blood Pressure 84/48 L 76/48 L Pulse Oximetry 95 94 94 08/23/20 13:30 08/23/20 13:32 08/23/20 13:34 Temperature 95.7 F L 95.7 F L 95.7 F L Pulse Rate 69 71 72 Respiratory Rate 18 0 L 18 Blood Pressure 79/52 L 106/59 L 101/55 L Pulse Oximetry 93 95 94 08/23/20 13:35 08/23/20 13:36 08/23/20 13:38 Temperature 95.7 F L 95.9 F L 95.9 F L Pulse Rate 71 70 69 Respiratory Rate 18 18 18 Blood Pressure 90/52 L 83/51 L Pulse Oximetry 95 95 95 08/23/20 13:40 08/23/20 13:42 08/23/20 13:44 Temperature 95.9 F L 95.9 F L 95.9 F L Pulse Rate 69 69 69 Respiratory Rate 18 18 18 Blood Pressure 80/53 L 81/50 L 81/51 L Pulse Oximetry 95 95 95 08/23/20 13:45 08/23/20 13:46 08/23/20 13:48 Temperature 95.9 F L 95.9 F L 96.1 F L Pulse Rate 69 69 69 Respiratory Rate 18 18 18 Blood Pressure 85/54 L 86/51 L Pulse Oximetry 95 95 95 08/23/20 13:50 08/23/20 13:52 08/23/20 13:54 Temperature 96.1 F L 96.1 F L 96.1 F L Pulse Rate 69 69 69 Respiratory Rate 18 18 18 Blood Pressure 88/53 L 91/54 L 87/54 L Pulse Oximetry 95 95 95 08/23/20 13:55 08/23/20 13:56 08/23/20 13:58 Temperature 96.1 F L 96.1 F L 96.3 F L Pulse Rate 69 69 69 Respiratory Rate 18 18 18 Blood Pressure 88/56 L 91/57 L Pulse Oximetry 95 95 95 MDM - Sepsis Lab Data Result diagrams: 08/23/20 13:13 08/23/20 13:13 Labs: Lab Results 08/23/20 08/23/20 08/23/20 Range/Units 09:34 09:34 09:34 WBC 24.7 H (4.5-11.0) X10^3/uL RBC 5.57 (4.5-5.9) X10^6/uL Hgb 15.1 (13.5-17.5) g/dL Hct 49.2 (41-53) % MCV 88.4 (80-100) fL MCH 27.1 (26-34) PG MCHC 30.7 (30-36) % RDW 15.9 H (11.6-14.8) % Plt Count 349 (150-400) X10^3/uL Neut % (Auto) 70.3 (50-75) % Lymph % (Auto) 24.7 L (25-40) % [place] % (Auto) 4.3 (3-14) % Eos % (Auto) 0.6 L (2-4) % Baso % (Auto) 0.1 (0-2) % Neut # (Auto) 06530 H (7315-3215) /uL Lymph # (Auto) 6100 H (7382-9699) /uL [place] # (Auto) 1100 H (0-900) /uL Eos # (Auto) 200 (0-450) /uL Baso # (Auto) 0 (0-100) /uL PT 15.9 H (10.1-12.7) SECONDS INR 1.4 H (0.9-1.3) APTT (26.4-36.2) SECONDS D-Dimer 2001 H (<230) ng/mL ABG pH (7.35-7.45) ABG pCO2 (35-45) mmHg ABG pO2 (80-100) mmHg ABG HCO3 (22-26) mmol/L ABG Total CO2 (21-31) mmol/L ABG O2 Saturation (95-100) % ABG Base Excess (-2-2) mmol/L FiO2 Sodium 138 (137-145) mmol/L Potassium 3.6 (3.4-5.1) mmol/L Chloride 101 (98-107) mmol/L Carbon Dioxide 16 L (22-32) mmol/L BUN 36 H (9-20) mg/dL Creatinine 2.23 H (0.66-1.25) mg/dL Estimated GFR 29.8 L (>60) mL/min BUN/Creatinine Ratio 16.1 (6-22) Glucose 350 H (80-110) mg/dL Lactate (0.7-2.1) mmol/L Calcium 9.3 (8.4-10.2) mg/dL Ferritin 30 (18-464) ng/mL Total Bilirubin 0.3 (0.2-1.3) mg/dL AST 41 (17-59) IU/L ALT 24 (<50) IU/L Alkaline Phosphatase 98 (38-126) U/L Lactate Dehydrogenase 712 H (313-618) U/L Total Creatine Kinase 294 H (55-170) U/L CK-MB (CK-2) 9.30 H (<2.37) ng/mL CK-MB (CK-2) Rel Index 3.2 (1.5-5.0) % Troponin I 0.083 H (0.01-0.034) ng/mL NT-Pro-B Natriuret Pep 1020 H (<125) pg/mL Total Protein 6.5 (6.3-8.2) g/dL Albumin 3.7 (3.5-5.0) g/dL Globulin 2.8 (1.7-4.1) g/dL Albumin/Globulin Ratio 1.3 (1.0-2.8) Lipase (23-300) U/L Procalcitonin 7.66 H (<0.5) ng/mL Urine Color Urine Appearance Urine pH (4.5-8.0) Ur Specific [place] (1.000-1.035) Urine Protein (Negative) Urine Glucose (UA) (Negative) g/dL Urine Ketones (NEGATIVE) Urine Occult Blood (Negative) Urine Nitrate (Negative) Urine Bilirubin (NEGATIVE) Urine Urobilinogen (0.2) E.U./dL Ur Leukocyte Esterase (NEGATIVE) Urine RBC (0-5/HPF) Urine WBC (0-5/HPF) Ur Squamous Epith Cells (0-5/HPF) Urine Bacteria (None) Hyaline Casts (None) Ur Culture Indicated? SARS-CoV-2 (PCR) (Negative) Blood Type Antibody Screen 08/23/20 08/23/20 08/23/20 Range/Units 09:34 09:34 09:44 WBC (4.5-11.0) X10^3/uL RBC (4.5-5.9) X10^6/uL Hgb (13.5-17.5) g/dL Hct (41-53) % MCV (80-100) fL MCH (26-34) PG MCHC (30-36) % RDW (11.6-14.8) % Plt Count (150-400) X10^3/uL Neut % (Auto) (50-75) % Lymph % (Auto) (25-40) % [place] % (Auto) (3-14) % Eos % (Auto) (2-4) % Baso % (Auto) (0-2) % Neut # (Auto) (0219-5649) /uL Lymph # (Auto) (7805-5634) /uL [place] # (Auto) (0-900) /uL Eos # (Auto) (0-450) /uL Baso # (Auto) (0-100) /uL PT (10.1-12.7) SECONDS INR (0.9-1.3) APTT (26.4-36.2) SECONDS D-Dimer (<230) ng/mL ABG pH (7.35-7.45) ABG pCO2 (35-45) mmHg ABG pO2 (80-100) mmHg ABG HCO3 (22-26) mmol/L ABG Total CO2 (21-31) mmol/L ABG O2 Saturation (95-100) % ABG Base Excess (-2-2) mmol/L FiO2 Sodium (137-145) mmol/L Potassium (3.4-5.1) mmol/L Chloride (98-107) mmol/L Carbon Dioxide (22-32) mmol/L BUN (9-20) mg/dL Creatinine (0.66-1.25) mg/dL Estimated GFR (>60) mL/min BUN/Creatinine Ratio (6-22) Glucose (80-110) mg/dL Lactate 13.4 H* (0.7-2.1) mmol/L Calcium (8.4-10.2) mg/dL Ferritin (18-464) ng/mL Total Bilirubin (0.2-1.3) mg/dL AST (17-59) IU/L ALT (<50) IU/L Alkaline Phosphatase (38-126) U/L Lactate Dehydrogenase (313-618) U/L Total Creatine Kinase (55-170) U/L CK-MB (CK-2) (<2.37) ng/mL CK-MB (CK-2) Rel Index (1.5-5.0) % Troponin I (0.01-0.034) ng/mL NT-Pro-B Natriuret Pep (<125) pg/mL Total Protein (6.3-8.2) g/dL Albumin (3.5-5.0) g/dL Globulin (1.7-4.1) g/dL Albumin/Globulin Ratio (1.0-2.8) Lipase (23-300) U/L Procalcitonin (<0.5) ng/mL Urine Color Yellow Urine Appearance Clear Urine pH 6.5 (4.5-8.0) Ur Specific [place] 1.015 (1.000-1.035) Urine Protein 2+ H (Negative) Urine Glucose (UA) Trace H (Negative) g/dL Urine Ketones Trace H (NEGATIVE) Urine Occult Blood Negative (Negative) Urine Nitrate Negative (Negative) Urine Bilirubin Negative (NEGATIVE) Urine Urobilinogen 1.0 (0.2) E.U./dL Ur Leukocyte Esterase Negative (NEGATIVE) Urine RBC 0-1/hpf (0-5/HPF) Urine WBC 0-1/hpf (0-5/HPF) Ur Squamous Epith Cells 0-1 /hpf (0-5/HPF) Urine Bacteria None seen (None) Hyaline Casts 0-1/lpf (None) Ur Culture Indicated? Cult not indicated SARS-CoV-2 (PCR) Negative (Negative) Blood Type Antibody Screen 08/23/20 08/23/20 08/23/20 Range/Units 11:57 13:13 13:13 WBC 14.6 H (4.5-11.0) X10^3/uL RBC 4.99 (4.5-5.9) X10^6/uL Hgb 13.6 (13.5-17.5) g/dL Hct 43.7 (41-53) % MCV 87.6 (80-100) fL MCH 27.2 (26-34) PG MCHC 31.1 (30-36) % RDW 16.3 H (11.6-14.8) % Plt Count 283 (150-400) X10^3/uL Neut % (Auto) 82.2 H (50-75) % Lymph % (Auto) 13.3 L (25-40) % [place] % (Auto) 4.0 (3-14) % Eos % (Auto) 0.3 L (2-4) % Baso % (Auto) 0.2 (0-2) % Neut # (Auto) 81664 H (7443-2073) /uL Lymph # (Auto) 1900 (2794-2512) /uL [place] # (Auto) 600 (0-900) /uL Eos # (Auto) 0 (0-450) /uL Baso # (Auto) 0 (0-100) /uL PT (10.1-12.7) SECONDS INR (0.9-1.3) APTT (26.4-36.2) SECONDS D-Dimer (<230) ng/mL ABG pH 7.08 L* (7.35-7.45) ABG pCO2 49.1 H (35-45) mmHg ABG pO2 224 H (80-100) mmHg ABG HCO3 15 L (22-26) mmol/L ABG Total CO2 16 L (21-31) mmol/L ABG O2 Saturation 99 (95-100) % ABG Base Excess -15.0 L (-2-2) mmol/L FiO2 80 Sodium (137-145) mmol/L Potassium (3.4-5.1) mmol/L Chloride (98-107) mmol/L Carbon Dioxide (22-32) mmol/L BUN (9-20) mg/dL Creatinine (0.66-1.25) mg/dL Estimated GFR (>60) mL/min BUN/Creatinine Ratio (6-22) Glucose (80-110) mg/dL Lactate (0.7-2.1) mmol/L Calcium (8.4-10.2) mg/dL Ferritin (18-464) ng/mL Total Bilirubin (0.2-1.3) mg/dL AST (17-59) IU/L ALT (<50) IU/L Alkaline Phosphatase (38-126) U/L Lactate Dehydrogenase (313-618) U/L Total Creatine Kinase 359 H (55-170) U/L CK-MB (CK-2) 11.20 H (<2.37) ng/mL CK-MB (CK-2) Rel Index 3.1 (1.5-5.0) % Troponin I 0.127 H* (0.01-0.034) ng/mL NT-Pro-B Natriuret Pep (<125) pg/mL Total Protein (6.3-8.2) g/dL Albumin (3.5-5.0) g/dL Globulin (1.7-4.1) g/dL Albumin/Globulin Ratio (1.0-2.8) Lipase (23-300) U/L Procalcitonin (<0.5) ng/mL Urine Color Urine Appearance Urine pH (4.5-8.0) Ur Specific [place] (1.000-1.035) Urine Protein (Negative) Urine Glucose (UA) (Negative) g/dL Urine Ketones (NEGATIVE) Urine Occult Blood (Negative) Urine Nitrate (Negative) Urine Bilirubin (NEGATIVE) Urine Urobilinogen (0.2) E.U./dL Ur Leukocyte Esterase (NEGATIVE) Urine RBC (0-5/HPF) Urine WBC (0-5/HPF) Ur Squamous Epith Cells (0-5/HPF) Urine Bacteria (None) Hyaline Casts (None) Ur Culture Indicated? SARS-CoV-2 (PCR) (Negative) Blood Type Antibody Screen 08/23/20 08/23/20 08/23/20 Range/Units 13:13 13:13 13:13 WBC (4.5-11.0) X10^3/uL RBC (4.5-5.9) X10^6/uL Hgb (13.5-17.5) g/dL Hct (41-53) % MCV (80-100) fL MCH (26-34) PG MCHC (30-36) % RDW (11.6-14.8) % Plt Count (150-400) X10^3/uL Neut % (Auto) (50-75) % Lymph % (Auto) (25-40) % [place] % (Auto) (3-14) % Eos % (Auto) (2-4) % Baso % (Auto) (0-2) % Neut # (Auto) (0923-9043) /uL Lymph # (Auto) (2324-4066) /uL [place] # (Auto) (0-900) /uL Eos # (Auto) (0-450) /uL Baso # (Auto) (0-100) /uL PT (10.1-12.7) SECONDS INR (0.9-1.3) APTT (26.4-36.2) SECONDS D-Dimer (<230) ng/mL ABG pH (7.35-7.45) ABG pCO2 (35-45) mmHg ABG pO2 (80-100) mmHg ABG HCO3 (22-26) mmol/L ABG Total CO2 (21-31) mmol/L ABG O2 Saturation (95-100) % ABG Base Excess (-2-2) mmol/L FiO2 Sodium 134 L (137-145) mmol/L Potassium 5.0 D (3.4-5.1) mmol/L Chloride 102 (98-107) mmol/L Carbon Dioxide 15 L (22-32) mmol/L BUN 40 H (9-20) mg/dL Creatinine 2.14 H (0.66-1.25) mg/dL Estimated GFR 31.3 L (>60) mL/min BUN/Creatinine Ratio 18.7 (6-22) Glucose 401 H (80-110) mg/dL Lactate Cancelled (0.7-2.1) mmol/L Calcium 7.6 L (8.4-10.2) mg/dL Ferritin (18-464) ng/mL Total Bilirubin 0.2 (0.2-1.3) mg/dL AST 42 (17-59) IU/L ALT 22 (<50) IU/L Alkaline Phosphatase 85 (38-126) U/L Lactate Dehydrogenase (313-618) U/L Total Creatine Kinase (55-170) U/L CK-MB (CK-2) (<2.37) ng/mL CK-MB (CK-2) Rel Index (1.5-5.0) % Troponin I (0.01-0.034) ng/mL NT-Pro-B Natriuret Pep (<125) pg/mL Total Protein 5.1 L (6.3-8.2) g/dL Albumin 2.7 L (3.5-5.0) g/dL Globulin 2.4 (1.7-4.1) g/dL Albumin/Globulin Ratio 1.1 (1.0-2.8) Lipase (23-300) U/L Procalcitonin 29.0 H (<0.5) ng/mL Urine Color Urine Appearance Urine pH (4.5-8.0) Ur Specific [place] (1.000-1.035) Urine Protein (Negative) Urine Glucose (UA) (Negative) g/dL Urine Ketones (NEGATIVE) Urine Occult Blood (Negative) Urine Nitrate (Negative) Urine Bilirubin (NEGATIVE) Urine Urobilinogen (0.2) E.U./dL Ur Leukocyte Esterase (NEGATIVE) Urine RBC (0-5/HPF) Urine WBC (0-5/HPF) Ur Squamous Epith Cells (0-5/HPF) Urine Bacteria (None) Hyaline Casts (None) Ur Culture Indicated? SARS-CoV-2 (PCR) (Negative) Blood Type B Positive Antibody Screen Negative 08/23/20 08/23/20 08/23/20 Range/Units 13:14 13:30 13:50 WBC (4.5-11.0) X10^3/uL RBC (4.5-5.9) X10^6/uL Hgb (13.5-17.5) g/dL Hct (41-53) % MCV (80-100) fL MCH (26-34) PG MCHC (30-36) % RDW (11.6-14.8) % Plt Count (150-400) X10^3/uL Neut % (Auto) (50-75) % Lymph % (Auto) (25-40) % [place] % (Auto) (3-14) % Eos % (Auto) (2-4) % Baso % (Auto) (0-2) % Neut # (Auto) (4384-2524) /uL Lymph # (Auto) (4623-0088) /uL [place] # (Auto) (0-900) /uL Eos # (Auto) (0-450) /uL Baso # (Auto) (0-100) /uL PT 17.9 H (10.1-12.7) SECONDS INR 1.6 H (0.9-1.3) APTT 28 (26.4-36.2) SECONDS D-Dimer (<230) ng/mL ABG pH (7.35-7.45) ABG pCO2 (35-45) mmHg ABG pO2 (80-100) mmHg ABG HCO3 (22-26) mmol/L ABG Total CO2 (21-31) mmol/L ABG O2 Saturation (95-100) % ABG Base Excess (-2-2) mmol/L FiO2 Sodium (137-145) mmol/L Potassium (3.4-5.1) mmol/L Chloride (98-107) mmol/L Carbon Dioxide (22-32) mmol/L BUN (9-20) mg/dL Creatinine (0.66-1.25) mg/dL Estimated GFR (>60) mL/min BUN/Creatinine Ratio (6-22) Glucose (80-110) mg/dL Lactate 9.1 H* (0.7-2.1) mmol/L Calcium (8.4-10.2) mg/dL Ferritin (18-464) ng/mL Total Bilirubin (0.2-1.3) mg/dL AST (17-59) IU/L ALT (<50) IU/L Alkaline Phosphatase (38-126) U/L Lactate Dehydrogenase (313-618) U/L Total Creatine Kinase (55-170) U/L CK-MB (CK-2) (<2.37) ng/mL CK-MB (CK-2) Rel Index (1.5-5.0) % Troponin I (0.01-0.034) ng/mL NT-Pro-B Natriuret Pep (<125) pg/mL Total Protein (6.3-8.2) g/dL Albumin (3.5-5.0) g/dL Globulin (1.7-4.1) g/dL Albumin/Globulin Ratio (1.0-2.8) Lipase 158 (23-300) U/L Procalcitonin (<0.5) ng/mL Urine Color Urine Appearance Urine pH (4.5-8.0) Ur Specific [place] (1.000-1.035) Urine Protein (Negative) Urine Glucose (UA) (Negative) g/dL Urine Ketones (NEGATIVE) Urine Occult Blood (Negative) Urine Nitrate (Negative) Urine Bilirubin (NEGATIVE) Urine Urobilinogen (0.2) E.U./dL Ur Leukocyte Esterase (NEGATIVE) Urine RBC (0-5/HPF) Urine WBC (0-5/HPF) Ur Squamous Epith Cells (0-5/HPF) Urine Bacteria (None) Hyaline Casts (None) Ur Culture Indicated? SARS-CoV-2 (PCR) (Negative) Blood Type Antibody Screen Imaging Data CT scan - chest: Radiologist's Impression: Cory Lin 65 M [address] [id number] Scan ReportSigned Patient: Cory Lin KMR#: [id number]: [id number]:[id number]: 65 / MDate of Service: 08/23/20Loc: EDAccession Number: [id number] Procedure: CT angio chest PE protocol Ordering Provider: Eddie Mccarty D.O. PROCEDURE: CT ANGIO CHEST PE PROTOCOL INDICATIONS: respiratory failure, septic TECHNIQUE: After the administration of intravenous contrast, 2 mm thick sections acquired from the pulmonary apices to the posterior costophrenic angles. 3-dimensional maximum intensity projection (MIP) coronal and sagittal reformats were then acquired through the thorax. For radiation dose reduction, the following was used: automated exposure control, adjustment of mA and/or kV according to patient size. This patient has marginal renal function. A reduced dose of IV contrast was given. COMPARISON: [facility], CT, THORAX WITH CONTRAST, 12/25/2007, 22:16. [facility], CR, XR CHEST 1V, 08/23/2020, 10:04. [facility], CT, CT ABDOMEN PELVIS W CON, 08/23/2020, 11:04. FINDINGS: Image quality: Excellent. Pulmonary arteries: Pulmonary arteries are normal in size, and demonstrate no intraluminal filling defects to suggest central pulmonary embolism. Lungs and pleura: Mild dependent atelectasis can be seen. No pleural effusions or pneumothorax. Central and peripheral airways are patent. The tip of the endotracheal tube is now seen approximately 4 cm above the tamera. Mediastinum: Heart size is normal, without pericardial effusion. Prominent coronary artery calcifications are seen. Borderline prominent mediastinal lymph nodes are seen. Thoracic aorta is normal in caliber and enhancement. Esophagus is normal in caliber, without hiatal hernia. Bones and chest wall: Sternotomy wires are seen. No suspicious bony lesions. Age-appropriate bony degenerative changes are seen. Accentuated thoracic kyphosis is seen. Ribs and thoracic spine appear intact throughout. Thyroid gland demonstrates no significant abnormality. No axillary or supraclavicular adenopathy. Abdomen: The tip of the gastric tube is seen within the distal stomach. Visualized upper abdominal solid organs appear normal in the early arterial phase of enhancement. IMPRESSION: Negative for pulmonary embolism. Mild dependent atelectasis can be seen. Borderline prominent mediastinal lymph nodes are seen. The tip of the endotracheal tube is now seen approximately 4 cm above the tamera. The tip of the gastric tube is seen within the distal stomach. Incidental note is made of: Sternotomy wires Prominent coronary artery calcifications Dictated by: Michele Ayoub M.D. on 08/23/2020 at 10:54 Approved by: Michele Ayoub M.D. on 08/23/2020 at 10:59 Chest x-ray: Radiologist's Impression: [address] [id number] ReportSigned Patient: Cory Lin KMR#: [id number]: 6Acct:[id number]/Sex: 65 / MDate of Service: 08/23/20Loc: EDAccession Number: [id number] Procedure: XR chest 1V Ordering Provider: Eddie Mccarty D.O. PROCEDURE: XR CHEST 1V INDICATIONS: increased oxygen requirements TECHNIQUE: One view of the chest was acquired. [facility] 10:04. FINDINGS: Surgical changes and devices: Endotracheal tube has been mild withdrawn and appears to be in appropriate position approximately 5 cm above the tamera. An enteric tube is seen in stable position traversing the diaphragm. Cervical spinal fixation hardware is again noted. Sternotomy wires and atrial appendage clip are noted. Lungs and pleura: Low lung volumes are again seen bilaterally. No acute airspace opacity is identified. No pleural effusion or pneumothorax is seen. Mediastinum: Mediastinal contours appear normal. Heart size is stable. Bones and chest wall: No suspicious bony lesions. Overlying soft tissues appear unremarkable. IMPRESSION: Lines and tubes in satisfactory positions. Low lung volumes are again seen bilaterally without an acute airspace opacity. Dictated by: Jesus Dahl M.D. on 08/23/2020 at 13:45 Approved by: Jesus Dahl M.D. on 08/23/2020 at 13:48 Critical Care Time Critical Care Time Critical Care Time: Yes Total Critical Care Time: 60 Attestation: The high probability of a clinically significant, sudden or life threatening deterioration of the [CV] system(s) required my full and direct attention, intervention and personal management. The aggregate critical care time was [60] minutes. This time is in addition to time spent performing reported procedures but includes the following: [x] Data Review and interpretation x Patient assessment and monitoring of vital signs [x] Documentation [x] Medication orders and management Discharge Plan Departure Patient Disposition: [facility] Clinical Impression: Septic shock, Acute hypoxemic respiratory failure Prescriptions: No Action latanoprost 0.005 % drops 1 drp EYE-BOTH BEDTIME Qty: 0 RF: 0 (DME) pen needle, diabetic [BD Ultra-Fine Short Pen Needle] 31 gauge x 5/16 needle See Dose Instructions .ROUTE .MEDSUPPLY Qty: 300 RF: 3 (DME) blood-glucose meter [Blood Glucose Monitoring] kit See Dose Instructions .ROUTE .MEDSUPPLY Qty: 1 RF: 0 (DME) insulin syringe-needle U-100 [BD Insulin Syringe Ultra-Fine] 1 mL 31 gauge x 5/16 syringe See Dose Instructions .ROUTE .MEDSUPPLY Qty: 450 RF: 3 (DME) Blood Glucose Test Strip See Dose Instructions .ROUTE .MEDSUPPLY Qty: 600 RF: 3 insulin lispro [Humalog U-100 Insulin] 100 unit/mL solution 30 - 50 unit SUBCUT TID RF: 0 Lantus Solostar U-100 Insulin 100 unit/mL (3 mL) insulin pen 50 unit SUBCUT BID Qty: 75 RF: 4 amlodipine [Norvasc] 5 mg tablet 5 mg PO QDAY Qty: 90 RF: 3 carvedilol 6.25 mg tablet 6.25 mg PO BID RF: 0 duloxetine 60 mg capsule,delayed release(DR/EC) 60 mg PO DAILY Qty: 90 RF: 3 gabapentin 600 mg tablet 1,200 mg PO BID Qty: 360 RF: 3 glipizide 10 mg tablet 10 mg PO BID Qty: 180 RF: 3 metformin [Glucophage] 500 mg tablet 1,000 mg PO BIDCC Qty: 360 RF: 3 olmesartan 40 mg tablet 40 mg PO DAILY Qty: 90 RF: 3 Xarelto 20 mg tablet 20 mg PO QPM Qty: 90 RF: 3 ropinirole 0.5 mg tablet See Rx Instructions PO BID Qty: 900 RF: 3 rosuvastatin 10 mg tablet 10 mg PO DAILY Qty: 90 RF: 3 triamcinolone acetonide 0.1 % lotion 1 applic topical DAILY Qty: 60 RF: 3 hydrocodone-acetaminophen 5-325 mg tablet 2 tab PO BEDTIME PRN (Reason: pain) Qty: 60 RF: 0 dorzolamide-timolol 22.3-6.8 mg/mL drops 1 drp EYE-BOTH BID RF: 0 cyclobenzaprine 10 mg tablet 10 mg PO TID PRN (Reason: spasms) RF: 0 Ozempic 0.25 mg or 0.5 mg(2 mg/1.5 mL) pen injector 1 mg SUBCUT QWEEK RF: 0 (DME) Respironics RemStar CPAP Qty: 1 RF: 0 Referrals: Gigi Pelaez MD [Primary Care Provider] -
[2020-08-23] MEDS: propofoL 1,000 MG/100 ML VIAL 7.2 MG IV (10:15)
[2020-08-23 10:16] LABS: Alanine Aminotransferase 24 IU/L (<50); Lactate (Lactic Acid) 13.4 mmol/L (0.7-2.1)
[2020-08-23] MEDS: propofoL 1,000 MG/100 ML VIAL 3.6 MG IV (10:16)
[2020-08-23] MEDS: NOREPINEPHRINE 4 MG in DEXTROSE 5% IN WATER 250 ML 30.48 ML IV (10:18)
[2020-08-23 10:22] LABS: NT-proBNP (BNP-Adult 18+) 1020 pg/mL (<125); Troponin I 0.083 ng/mL (0.01-0.034)
[2020-08-23 10:24] LABS: CKMB % Relative Index 3.2 % (1.5-5.0)
[2020-08-23] MEDS: LACTATED RINGERS 1,000 ML 200 ML IV (10:25)
[2020-08-23 10:26] LABS: Procalcitonin 7.66 ng/mL (<0.5)
[2020-08-23] MEDS: PIPERACILLIN-TAZO 3.375 GM/50 ML FROZ.PIGGY IV (10:28)
[2020-08-23] MEDS: EPINEPHrine 1 MG/10 ML SYRINGE IV (10:32)
--- NOTE | 2020-08-23 10:42 | DI.CT.S_ITS ---
PROCEDURE: CT ANGIO CHEST PE PROTOCOL INDICATIONS: respiratory failure, septic TECHNIQUE: After the administration of intravenous contrast, 2 mm thick sections acquired from the pulmonary apices to the posterior costophrenic angles. 3-dimensional maximum intensity projection (MIP) coronal and sagittal reformats were then acquired through the thorax. For radiation dose reduction, the following was used: automated exposure control, adjustment of mA and/or kV according to patient size. This patient has marginal renal function. A reduced dose of IV contrast was given. COMPARISON: [facility], CT, THORAX WITH CONTRAST, 12/25/2007, 22:16. [facility], CR, XR CHEST 1V, 08/23/2020, 10:04. [facility], CT, CT ABDOMEN PELVIS W CON, 08/23/2020, 11:04. FINDINGS: Image quality: Excellent. Pulmonary arteries: Pulmonary arteries are normal in size, and demonstrate no intraluminal filling defects to suggest central pulmonary embolism. Lungs and pleura: Mild dependent atelectasis can be seen. No pleural effusions or pneumothorax. Central and peripheral airways are patent. The tip of the endotracheal tube is now seen approximately 4 cm above the tamera. Mediastinum: Heart size is normal, without pericardial effusion. Prominent coronary artery calcifications are seen. Borderline prominent mediastinal lymph nodes are seen. Thoracic aorta is normal in caliber and enhancement. Esophagus is normal in caliber, without hiatal hernia. Bones and chest wall: Sternotomy wires are seen. No suspicious bony lesions. Age-appropriate bony degenerative changes are seen. Accentuated thoracic kyphosis is seen. Ribs and thoracic spine appear intact throughout. Thyroid gland demonstrates no significant abnormality. No axillary or supraclavicular adenopathy. Abdomen: The tip of the gastric tube is seen within the distal stomach. Visualized upper abdominal solid organs appear normal in the early arterial phase of enhancement. IMPRESSION: Negative for pulmonary embolism. Mild dependent atelectasis can be seen. Borderline prominent mediastinal lymph nodes are seen. The tip of the endotracheal tube is now seen approximately 4 cm above the tamera. The tip of the gastric tube is seen within the distal stomach. Incidental note is made of: Sternotomy wires Prominent coronary artery calcifications Dictated by: Michele Ayoub M.D. on 08/23/2020 at 10:54 Approved by: Michele Ayoub M.D. on 08/23/2020 at 10:59
--- NOTE | 2020-08-23 10:43 | DI.CT.S_ITS ---
PROCEDURE: CT ABDOMEN PELVIS W CON INDICATIONS: septic shock, nausea, vomiting, diarrhea TECHNIQUE: After the administration of intravenous contrast, 5 mm thick sections acquired from the diaphragm to the symphysis. 5 mm coronal and sagittal reformats were acquired. For radiation dose reduction, the following was used: automated exposure control, adjustment of mA and/or kV according to patient size. COMPARISON: [facility], CT, CT ANGIO CHEST PE PROTOCOL, 08/23/2020, 11:04. [facility], CR, XR CHEST 1V, 08/23/2020, 10:04. FINDINGS: Image quality: There is streak artifact seen through the upper abdomen. ABDOMEN: Lung bases: Lung bases are clear. Heart size is normal. Advanced coronary artery calcifications are seen. Solid organs: Liver is normal in size and enhancement. Gallbladder demonstrates no significant abnormality. Biliary system is non dilated. Pancreas enhances normally. Spleen is normal in size and enhancement. No adrenal nodules. Kidneys demonstrate normal size and enhancement, without hydronephrosis. There is a water density cyst involving the medial right kidney. Peritoneum and bowel: The tip of the gastric tube is seen within the distal stomach. Generalized prominence of the small bowel can be seen, with fluid-filled loops of measure up to 3.2 cm. No transition point is seen. The distal most small bowel demonstrates fecalization of the contents. No significant colonic abnormality is seen. No free air or significant free fluid can be seen. Nodes and vessels: No retroperitoneal or mesenteric adenopathy by size criteria. Aorta and inferior vena cava are normal in size. Miscellaneous: No ventral hernias. PELVIS: Genitourinary: A Dela Cruz catheter decompresses the urinary bladder. Miscellaneous: No inguinal hernias or adenopathy. Right growing gas can be seen, including within venous structures. Bones: No suspicious bony lesions. No vertebral body compression fractures. Age-appropriate bony degenerative changes are seen. IMPRESSION: A cause of the patient's symptoms is not observed. Negative for abscess. Dilated loops of small bowel are seen, with an appearance most consistent with small bowel ileus, including fecalization of small bowel contents distally, which is consistent with stagnant motion within the small bowel. No transition point is seen to suggest small bowel obstruction. The tip of the gastric tube is seen within the distal stomach. Right groin gas can be seen, including within venous structures. Please correlate with recent venous access attempts. Incidental note is made of: Advanced coronary artery calcifications Dela Cruz catheter Dictated by: Michele Ayoub M.D. on 08/23/2020 at 10:59 Approved by: Michele Ayoub M.D. on 08/23/2020 at 11:04
[2020-08-23 10:44] LABS: Ferritin 30 ng/mL (18-464)
[2020-08-23] MEDS: fentaNYL 100 MCG/2 ML INJ 300 MCG (10:58)
[2020-08-23 11:05] LABS: Culture Indicated Urine Cult Not Indicated; Hyaline Casts Urine 0-1/LPF; RBC Urine 0-1/HPF (0-5/HPF); Squamous Epithelial Cell Urine 0-1 /HPF (0-5/HPF); WBC Urine 0-1/HPF (0-5/HPF)
[2020-08-23] MEDS: diphenhydrAMINE 50 MG/ML VIAL IV (11:35)
[2020-08-23] MEDS: methylPREDNISolone 125 MG/2 ML VIAL IV (11:35)
[2020-08-23] MEDS: EPINEPHrine 1 MG/ML 0.5 MG IM (11:35)
[2020-08-23] MEDS: fentaNYL 100 MCG/2 ML INJ IV (11:39)
[2020-08-23 11:43] LABS: Reflexed Lactate in 2 Hours Y
[2020-08-23] MEDS: FAMOTIDINE 20 MG/50 ML PIGGYBACK 200 MG IV (11:50)
[2020-08-23] MEDS: fentaNYL 1,000 MCG in DEXTROSE 5% IN WATER 230 ML 37.5 ML IV (12:33)
--- NOTE | 2020-08-23 12:46 | PC.NURSE ---
PLEASE REFER TO PAPER CHARTING FOR ADDITIONAL DOCUMENTATION [id number]: Pt arrived via EMS with reports of NVD x 24 hrs, was found down by his this morning and had been lying on BR floor for about 1 hr. Per EMS, BP 60's systolic and sat 80's RA on scene. Arrived with pressure bag NS fluids infusing via R tibial IO and NRB at 15L with 93% sat. 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 HR 121 afib, RR 20, nasal trumpet placed in R nare with NRB at 94%. Prepped for intubation, COVID swabbed, 16 F zuleta placed with minimal output, specimen sent to lab. 20G IV placed in L AC, 20G IV placed in R AC. LAbs and BC x 1 obtained. unable to obtain 2nd set of BC's. Dr Mccarty aware. EKG obtained 1001: RSI inducing medications given, see paper charting, intubated by Dr Mccarty 7.5 ETT, 25@teeth, +BBS, +color change. placed on ventilator 550/18/80/5, ETCO2 32, 18F NG placed with +gastric contents brown and odorous, CXR obtained. Placed on gtt medications and titrated to effect, see MAR and paper charting. [id number]: taken to and from CT with RN x 2 and RT. While transferring [facility] noted red diffuse rash all over chest, red face and swelling in wrists. Dr Mccarty made aware. 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 Anaphylaxis medication ordered and given per MAR. Pt appears to be comfortable and tolerating vent well. O2 decreased to 60%. 550/18/60/5.
--- NOTE | 2020-08-23 12:56 | PC.NURSE ---
No urine output. Reviewed w/ provider. Additional bolus LR x 1 Liter ordered.
[2020-08-23 12:57] LABS: Fractionated Inspired Oxygen 80; HCO3 ABG 15 mmol/L (22-26); Oxygen Saturation ABG 99 % (95-100); PCO2 ABG 49.1 mmHg (35-45); PO2 ABG 224 mmHg (80-100); TCO2 ABG 16 mmol/L (21-31); pH ABG 7.08 (7.35-7.45)
[2020-08-23] MEDS: LACTATED RINGERS 1,000 ML 1000 ML IV (12:57)
--- NOTE | 2020-08-23 13:12 | RT ---
Patient was tubed around [address] Gomez first attempt with a size 7.5 and 25 lip and color change and bilateral breath sounds T/O. Xray showed tube was placed to deep so we moved back to [address] Mccarty not sure on the time i did that. I did switch to the vincent around 1230 due from LTV not having graphs so i can manage patient better.
--- NOTE | 2020-08-23 13:27 | DI.RAD.S_ITS ---
PROCEDURE: XR CHEST 1V INDICATIONS: increased oxygen requirements TECHNIQUE: One view of the chest was acquired. COMPARISON: [facility], CR, XR CHEST 1V, 08/23/2020, 10:04. FINDINGS: Surgical changes and devices: Endotracheal tube has been mild withdrawn and appears to be in appropriate position approximately 5 cm above the tamera. An enteric tube is seen in stable position traversing the diaphragm. Cervical spinal fixation hardware is again noted. Sternotomy wires and atrial appendage clip are noted. Lungs and pleura: Low lung volumes are again seen bilaterally. No acute airspace opacity is identified. No pleural effusion or pneumothorax is seen. Mediastinum: Mediastinal contours appear normal. Heart size is stable. Bones and chest wall: No suspicious bony lesions. Overlying soft tissues appear unremarkable. IMPRESSION: Lines and tubes in satisfactory positions. Low lung volumes are again seen bilaterally without an acute airspace opacity. Dictated by: Jesus Dahl M.D. on 08/23/2020 at 13:45 Approved by: Jesus Dahl M.D. on 08/23/2020 at 13:48
--- NOTE | 2020-08-23 13:34 | PC.NURSE ---
from [id number] Levophed decreased to 8mcg/min for BP in 130's after IM for anaphylaxis. unable to change in MAR titration. at 1330 increased to 10mcg/min for BP 79/50. Noted to have no UO, Dr Mccarty made aware. Lasix 40mg IVP given.
[2020-08-23 13:35] LABS: Add Manual Diff / Slide Review NO; Basophils Absolute Auto 0 /uL (0-100); Basophils Percent Auto 0.2 % (0-2); Eosinophils Absolute Auto 0 /uL (0-450); Eosinophils Percent Auto 0.3 % (2-4); Hematocrit 43.7 % (41-53); Hemoglobin 13.6 g/dL (13.5-17.5); Lymphocytes Absolute Auto 1900 /uL (1100-4500); Lymphocytes Percent Auto 13.3 % (25-40); Mean Corpuscular HGB Conc 31.1 % (30-36); Mean Corpuscular Hemoglobin 27.2 PG (26-34); Mean Corpuscular Volume 87.6 fL (80-100); Monocytes Absolute Auto 600 /uL (0-900); Neutrophils Absolute Auto 12000 /uL (1500-7000); Neutrophils Percent Auto 82.2 % (50-75); Platelet Count 283 X10^3/uL (150-400); Red Blood Cell Count 4.99 X10^6/uL (4.5-5.9); Red Cell Distribution Width 16.3 % (11.6-14.8); White Blood Cell Count 14.6 X10^3/uL (4.5-11.0)
[2020-08-23] MEDS: FUROSEMIDE 40 MG/4 ML VIAL IV (13:40)
[2020-08-23 13:41] LABS: INR 1.6 (0.9-1.3); Prothrombin Time 17.9 SECONDS (10.1-12.7)
[2020-08-23 13:42] LABS: Creatine Kinase 359 U/L (55-170)
[2020-08-23 13:44] LABS: PTT Partial Thromboplastin Tim 28 SECONDS (26.4-36.2)
[2020-08-23 13:57] LABS: CKMB % Relative Index 3.1 % (1.5-5.0); Troponin I 0.127 ng/mL (0.01-0.034)
[2020-08-23 13:58] LABS: Lipase 158 U/L (23-300)
[2020-08-23 14:00] LABS: Lactate (Lactic Acid) 9.1 mmol/L (0.7-2.1)
[2020-08-23 14:06] LABS: Albumin 2.7 g/dL (3.5-5.0); Albumin Globulin Ratio 1.1 (1.0-2.8); Alkaline Phosphatase 85 U/L (38-126); Aspartate Aminotransferase 42 IU/L (17-59); BUN Creatinine Ratio 18.7 (6-22); Bilirubin Total 0.2 mg/dL (0.2-1.3); Blood Urea Nitrogen 40 mg/dL (9-20); Calcium 7.6 mg/dL (8.4-10.2); Carbon Dioxide 15 mmol/L (22-32); Chloride 102 mmol/L (98-107); Estimated Glomerular Filt Rate 31.3 mL/min (>60); Globulin 2.4 g/dL (1.7-4.1); Glucose 401 mg/dL (80-110); Sodium 134 mmol/L (137-145); Total Protein 5.1 g/dL (6.3-8.2)
[2020-08-23 14:11] LABS: HEMOLYSIS < 15 (0-50)
[2020-08-23 14:13] LABS: Alanine Aminotransferase 22 IU/L (<50)
[2020-08-23] MEDS: FUROSEMIDE 100 MG/10 ML VIAL 80 MG IV (14:30)
[2020-08-23] MEDS: NOREPINEPHRINE 4 MG in DEXTROSE 5% IN WATER 250 ML 57.15 ML IV (14:30)
--- NOTE | 2020-08-23 15:20 | PC.NURSE ---
[facility] arrived in department. report given to Magno ECHEVERRIA. pt removed from [facility] IV pumps and placed on [facility] IV pumps. RN assist x 3 to transfer [facility] to [facility]. Report called to [facility] ICU, spoke to Angelica KIMBROUGH. Pt departed ED at 1520
--- NOTE | 2020-08-23 15:22 | PC.NURSE ---
1030: Per CXR, ETT retracted 2-3 cm by RT. currently 23@teeth.
[2020-08-23 15:50] LABS: Reflexed Lactate in 2 Hours Y
== END 2020-08-23 15:20 | disposition short-term general hospital (02) ==
PROVIDERS: Emergency Provider Emergency Medicine; PCP Family Medicine
DX: J96.01 Acute respiratory failure with hypoxia (principal); A41.9 Sepsis, unspecified organism; E11.9 Type 2 diabetes mellitus without complications; R11.2 Nausea with vomiting, unspecified; R19.7 Diarrhea, unspecified; R55 Syncope and collapse; R53.83 Other fatigue; R42 Dizziness and giddiness; Z20.822 Contact with and (suspected) exposure to COVID-19
CPT/HCPCS: 31500; 36415; 36600; 51701; 71045; 71275; 74177; 80053; 81001; 82550; 82553; 82728; 82805; 83605; 83615; 83690; 83880; 84145; 84484; 85025; 85379; 85610; 85730; 86850; 86900; 86901; 87040; 87635; 93005; 93010; 94002; 94799; 96361; 96365; 96366; 96368; 96372; 96375; 96376; 99284; 99291; 99292; C9803; J0171; J1200; J1940; J2543; J2704; J2930; J3010; Q9967

== ENCOUNTER → 2020-09-16 12:13 | Outpatient (CLI) | payer MEDICARE, BC, SELFPAY ==
[2020-08-23 14:54] VITALS: PULSE 69; RESP 18; O2SAT 95
--- NOTE | 2020-09-16 12:16 | DI.RAD.S_ITS ---
PROCEDURE: XR WRIST RT MIN 3V INDICATIONS: right wrist pain TECHNIQUE: 4 views of the wrist were acquired. COMPARISON: [facility], CR, XR HAND RT 2V, 12/13/2019, 10:43. FINDINGS: Bones: No acute fractures or dislocations. There are extensive postsurgical changes in right wrist. A surgical pin is seen in capsulated, unchanged in position. There are 3 surgical anchors in scaphoid. There is severe radiocarpal joint degeneration and intercarpal joint degeneration. There are old corticated fracture fragments in the dorsal aspect of the wrist, consistent with sequelae of old injury. Scaphoid view: No acute fracture. Distal pole of the scaphoid is irregular. There is severe triscaphe joint degeneration. Soft tissues: No suspicious soft tissue calcifications. Severe soft tissue swelling. IMPRESSION: 1. Extensive posttraumatic and postsurgical changes in the wrist as described. No acute osseous abnormalities. 2. Severe soft tissue swelling. Dictated by: Arianna Cardoso M.D. on 09/16/2020 at 16:45 Approved by: Arianna Cardoso M.D. on 09/16/2020 at 16:50
[2020-09-16 14:23] LABS: Add Manual Diff / Slide Review NO; Basophils Absolute Auto 100 /uL (0-100); Basophils Percent Auto 0.7 % (0-2); Eosinophils Absolute Auto 300 /uL (0-450); Eosinophils Percent Auto 3.9 % (2-4); Hematocrit 27.6 % (41-53); Hemoglobin 8.8 g/dL (13.5-17.5); Lymphocytes Absolute Auto 2700 /uL (1100-4500); Lymphocytes Percent Auto 32.5 % (25-40); Mean Corpuscular Hemoglobin 26.4 PG (26-34); Mean Corpuscular Volume 82.5 fL (80-100); Monocytes Absolute Auto 900 /uL (0-900); Monocytes Percent Auto 11.2 % (3-14); Neutrophils Absolute Auto 4300 /uL (1500-7000); Neutrophils Percent Auto 51.7 % (50-75); Platelet Count 287 X10^3/uL (150-400); Red Blood Cell Count 3.34 X10^6/uL (4.5-5.9); Red Cell Distribution Width 16.8 % (11.6-14.8); White Blood Cell Count 8.4 X10^3/uL (4.5-11.0)
[2020-09-16 14:37] LABS: Alanine Aminotransferase 13 IU/L (<50); Albumin 3.6 g/dL (3.5-5.0); Albumin Globulin Ratio 1.1 (1.0-2.8); Alkaline Phosphatase 75 U/L (38-126); Aspartate Aminotransferase 22 IU/L (17-59); BUN Creatinine Ratio 19.8 (6-22); Bilirubin Total 0.2 mg/dL (0.2-1.3); Blood Urea Nitrogen 20 mg/dL (9-20); C-Reactive Protein Quant 1.3 mg/dL (<1.0); Calcium 8.9 mg/dL (8.4-10.2); Carbon Dioxide 29 mmol/L (22-32); Chloride 102 mmol/L (98-107); Estimated Glomerular Filt Rate > 60.0 mL/min (>60); Globulin 3.2 g/dL (1.7-4.1); Glucose 91 mg/dL (80-110); HEMOLYSIS < 15 (0-50); Potassium 3.5 mmol/L (3.4-5.1); Sodium 137 mmol/L (137-145); Total Protein 6.8 g/dL (6.3-8.2)
[2020-09-16 14:41] LABS: Erythrocyte Sedimentation Rate 74 MM/HR (0-15)
== END ==
PROVIDERS: PCP Family Medicine; Referring Provider Family Medicine; Visit Provider Family Medicine
DX: M25.531 Pain in right wrist (principal); R50.9 Fever, unspecified
CPT/HCPCS: 36415; 73110; 80053; 84145; 85025; 85651; 86140

== ENCOUNTER → 2020-09-17 11:12 | Outpatient (CLI) | payer MEDICARE, BC, SELFPAY ==
[2020-08-23 14:54] VITALS: PULSE 69; RESP 18; O2SAT 95
[2020-09-17 12:09] LABS: Hematocrit 26.3 % (41-53); Hemoglobin 8.6 g/dL (13.5-17.5)
[2020-09-17 12:22] LABS: HEMOLYSIS < 15 (0-50); Iron 71 ug/dL (49-181)
[2020-09-17 12:33] LABS: Percent Iron Saturation 21 % (20-50); Total Iron Binding Capacity 344 ug/dL (261-462); Transferrin 238 mg/dL (206-381)
[2020-09-17 12:59] LABS: Ferritin 19 ng/mL (18-464)
== END ==
PROVIDERS: PCP Family Medicine; Referring Provider Family Medicine; Visit Provider Family Medicine
DX: D64.9 Anemia, unspecified (principal); R50.9 Fever, unspecified
CPT/HCPCS: 36415; 82728; 83540; 83550; 85014; 85018; 87040

== ENCOUNTER → 2020-10-09 10:12 | Outpatient (CLI) | payer MEDICARE, BC, SELFPAY ==
[2020-08-23 14:54] VITALS: PULSE 69; RESP 18; O2SAT 95
[2020-10-09] MEDS: COVID-19 VACC #1, MRNA(MOD) 100 MCG/0.5 ML VIAL IM (10:25)
== END ==
PROVIDERS: PCP Family Medicine; Visit Provider Internal Medicine
DX: Z23 Encounter for immunization (principal)
CPT/HCPCS: 0011A; 91301

== ENCOUNTER → 2020-10-09 14:40 | Outpatient (CLI) | payer MEDICARE, BC, SELFPAY ==
[2020-08-23 14:54] VITALS: PULSE 69; RESP 18; O2SAT 95
[2020-10-09 16:14] LABS: Hemoglobin 10.7 g/dL (13.5-17.5)
[2020-10-09 16:37] LABS: C-Reactive Protein Quant < 0.5 mg/dL (<1.0)
[2020-10-09 16:54] LABS: Erythrocyte Sedimentation Rate 11 MM/HR (0-15)
[2020-10-12 02:10] LABS: ANA Screen, IFA Negative (.)
[2020-10-13 14:07] LABS: Albumin 3.2 g/dL (2.9-4.4); Alpha-1-Globulin 0.2 g/dL (0.0-0.4); Alpha-2-Globulin 0.7 g/dL (0.4-1.0); Gamma Globulin 0.9 g/dL (0.4-1.8); Globulin Total 2.8 g/dL (2.2-3.9)
== END ==
PROVIDERS: PCP Family Medicine; Referring Provider Family Medicine; Visit Provider Family Medicine
DX: D64.9 Anemia, unspecified (principal); M19.90 Unspecified osteoarthritis, unspecified site; M54.5 Low back pain; Z23 Encounter for immunization
CPT/HCPCS: 0011A; 36415; 84155; 84165; 85014; 85018; 85651; 86038; 86140; 91301

== ENCOUNTER → 2020-11-03 14:42 | Outpatient (CLI) | payer MEDICARE, BC, SELFPAY ==
[2020-08-23 14:54] VITALS: PULSE 69; RESP 18; O2SAT 95
[2020-11-05 11:36] LABS: Albumin 55.3 % (.); M-Spike % Not Observed % (Not Observed); Protein, Total, 24 hr urine 4763 mg/24 hr (30-150); Total Urine Protein 113.4 mg/dL (Not Estab.)
== END ==
PROVIDERS: PCP Family Medicine; Referring Provider Family Medicine; Visit Provider Family Medicine
DX: D64.9 Anemia, unspecified (principal); M19.90 Unspecified osteoarthritis, unspecified site; M54.5 Low back pain
CPT/HCPCS: 84156; 84166

== ENCOUNTER → 2020-11-06 09:46 | Outpatient (CLI) | payer MEDICARE, BC, SELFPAY ==
[2020-08-23 14:54] VITALS: PULSE 69; RESP 18; O2SAT 95
[2020-11-06] MEDS: COVID-19 VACC #2, MRNA(MOD) 100 MCG/0.5 ML VIAL IM (09:53)
== END ==
PROVIDERS: PCP Family Medicine; Visit Provider Internal Medicine
DX: Z23 Encounter for immunization (principal)
CPT/HCPCS: 0012A; 91301

== ENCOUNTER → 2020-11-24 14:47 | Outpatient (CLI) | payer MEDICARE, BC, SELFPAY ==
[2020-08-23 14:54] VITALS: PULSE 69; RESP 18; O2SAT 95
--- NOTE | 2020-11-24 | DI.RAD.S_ITS ---
PROCEDURE: XR KNEE LT 3V INDICATIONS: ARTHRITIS TECHNIQUE: 3 views of the knee were acquired. COMPARISON: None. FINDINGS: Bones: No fractures or dislocations. No suspicious bony lesions. Severe tricompartmental osteoarthritis as well as medial and lateral compartment narrowing. Soft tissues: Moderate knee joint effusion with multiple intra-articular loose bodies. No suspicious soft tissue calcifications. IMPRESSION: 1. Severe osteoarthritis with associated intra-articular loose bodies. 2. No acute fracture. No osseous lesion. If symptoms and/or clinical suspicion for pathology persist, further assessment with repeat, or advanced imaging (e.g., CT, MRI, or bone scan) may be helpful for further assessment. Dictated by: Maria Esther Crawford M.D. on 11/24/2020 at 16:51 Approved by: Maria Esther Crawford M.D. on 11/24/2020 at 16:52
--- NOTE | 2020-11-24 | DI.RAD.S_ITS ---
PROCEDURE: XR KNEE RT 3V INDICATIONS: ARTHRITIS TECHNIQUE: 3 views of the knee were acquired. COMPARISON: None. FINDINGS: Bones: No fractures or dislocations. No suspicious bony lesions. Severe tricompartmental periarticular osteophyte formation. Soft tissues: Large knee joint effusion. Multiple probable intra-articular loose bodies. No suspicious soft tissue calcifications. IMPRESSION: 1. Osteoarthritis, knee joint effusion, and probable intra-articular loose bodies. This could be further assessed with knee MRI, if clinically indicated. 2. No acute fracture. No osseous lesion. If symptoms and/or clinical suspicion for pathology persist, further assessment with repeat, or advanced imaging (e.g., CT, MRI, or bone scan) may be helpful for further assessment. Dictated by: Maria Esther Crawford M.D. on 11/24/2020 at 16:50 Approved by: Maria Esther Crawford M.D. on 11/24/2020 at 16:51
--- NOTE | 2020-11-24 | DI.RAD.S_ITS ---
PROCEDURE: XR FOOT RT MIN 3V INDICATIONS: ARTHRITIS TECHNIQUE: 3 views of the foot were acquired. COMPARISON: None. FINDINGS: Bones: No fractures or dislocations. No suspicious bony lesions. Joint space narrowing and periarticular osteophyte formation at the tibiotalar, talonavicular, navicular cuneiform joints, as well as the interphalangeal joints of the digits, and the 1st metatarsophalangeal joint. Soft tissues: No tibiotalar joint effusion. Achilles tendon appears normal. IMPRESSION: Multifocal osteoarthritis. No acute fracture. No osseous lesion. If symptoms and/or clinical suspicion for pathology persist, further assessment with repeat, or advanced imaging (e.g., CT, MRI, or bone scan) may be helpful for further assessment. Dictated by: Maria Esther Crawford M.D. on 11/24/2020 at 16:52 Approved by: Maria Esther Crawford M.D. on 11/24/2020 at 16:52
--- NOTE | 2020-11-24 | DI.RAD.S_ITS ---
PROCEDURE: XR FOOT LT MIN 3V INDICATIONS: ARTHRITIS TECHNIQUE: 3 views of the foot were acquired. COMPARISON: None. FINDINGS: Bones: No fractures or dislocations. No suspicious bony lesions. Mild periarticular osteophyte formation at the 1st metatarsophalangeal joint. Mild periarticular osteophyte formation at the talonavicular, tibiotalar, and navicular cuneiform joints. Soft tissues: No tibiotalar joint effusion. Achilles tendon appears normal. IMPRESSION: Osteoarthritis. No acute fracture. No osseous lesion. If symptoms and/or clinical suspicion for pathology persist, further assessment with repeat, or advanced imaging (e.g., CT, MRI, or bone scan) may be helpful for further assessment. Dictated by: Maria Esther Crawford M.D. on 11/24/2020 at 16:49 Approved by: Maria Esther Crawford M.D. on 11/24/2020 at 16:50
== END ==
PROVIDERS: PCP Family Medicine; Referring Provider Internal Medicine Rheumatology; Visit Provider Internal Medicine Rheumatology
DX: M06.4 Inflammatory polyarthropathy (principal); M17.0 Bilateral primary osteoarthritis of knee; M19.072 Primary osteoarthritis, left ankle and foot; M19.071 Primary osteoarthritis, right ankle and foot
CPT/HCPCS: 73562; 73630

== ENCOUNTER → 2020-12-11 11:06 | Outpatient (CLI) | payer MEDICARE, BC, SELFPAY ==
[2020-08-23 14:54] VITALS: PULSE 69; RESP 18; O2SAT 95
[2020-12-11 12:18] LABS: Add Manual Diff / Slide Review NO; Basophils Absolute Auto 100 /uL (0-100); Basophils Percent Auto 0.8 % (0-2); Eosinophils Absolute Auto 500 /uL (0-450); Eosinophils Percent Auto 8.2 % (2-4); Hematocrit 38.1 % (41-53); Hemoglobin 12.5 g/dL (13.5-17.5); Lymphocytes Absolute Auto 2200 /uL (1100-4500); Lymphocytes Percent Auto 34.1 % (25-40); Mean Corpuscular HGB Conc 32.9 % (30-36); Mean Corpuscular Hemoglobin 28.6 PG (26-34); Monocytes Absolute Auto 500 /uL (0-900); Monocytes Percent Auto 8.1 % (3-14); Neutrophils Absolute Auto 3200 /uL (1500-7000); Neutrophils Percent Auto 48.8 % (50-75); Platelet Count 200 X10^3/uL (150-400); Red Blood Cell Count 4.38 X10^6/uL (4.5-5.9); Red Cell Distribution Width 20.5 % (11.6-14.8); White Blood Cell Count 6.6 X10^3/uL (4.5-11.0)
[2020-12-11 12:33] LABS: Anisocytosis 2+
== END ==
PROVIDERS: PCP Family Medicine; Referring Provider Family Medicine; Visit Provider Family Medicine
DX: D50.0 Iron deficiency anemia secondary to blood loss (chronic) (principal)
CPT/HCPCS: 36415; 85025

== ENCOUNTER → 2020-12-19 11:42 | Outpatient (CLI) | payer MEDICARE, BC, SELFPAY ==
[2020-08-23 14:54] VITALS: PULSE 69; RESP 18; O2SAT 95
--- NOTE | 2020-12-19 11:44 | DI.RAD.S_ITS ---
PROCEDURE: XR SHOULDER LT MIN 2V INDICATIONS: left shoulder pain TECHNIQUE: 3 views of the shoulder were acquired. COMPARISON: None. FINDINGS: Bones: No fractures or dislocations. No suspicious bony lesions. Visualized ribs appear intact. Soft tissues: No suspicious soft tissue calcifications. IMPRESSION: Moderate AC joint osteoarthritis. Dictated by: Kevin Ricketts M.D. on 12/19/2020 at 13:00 Approved by: Kevin Ricketts M.D. on 12/19/2020 at 13:00
== END ==
PROVIDERS: PCP Family Medicine; Referring Provider Family Medicine; Visit Provider Family Medicine
DX: M25.512 Pain in left shoulder (principal); M19.012 Primary osteoarthritis, left shoulder
CPT/HCPCS: 73030

== ENCOUNTER → 2021-01-21 09:18 | Outpatient (CLI) | payer MEDICARE, BC, SELFPAY ==
[2020-08-23 14:54] VITALS: PULSE 69; RESP 18; O2SAT 95
[2021-01-21 10:19] LABS: Add Manual Diff / Slide Review NO; Basophils Absolute Auto 100 /uL (0-100); Eosinophils Absolute Auto 700 /uL (0-450); Eosinophils Percent Auto 10.2 % (2-4); Hematocrit 39.4 % (41-53); Hemoglobin 13.3 g/dL (13.5-17.5); Lymphocytes Absolute Auto 2600 /uL (1100-4500); Lymphocytes Percent Auto 36.9 % (25-40); Mean Corpuscular HGB Conc 33.8 % (30-36); Mean Corpuscular Hemoglobin 30.5 PG (26-34); Mean Corpuscular Volume 90.1 fL (80-100); Monocytes Absolute Auto 600 /uL (0-900); Neutrophils Absolute Auto 3000 /uL (1500-7000); Neutrophils Percent Auto 42.9 % (50-75); Platelet Count 210 X10^3/uL (150-400); Red Blood Cell Count 4.37 X10^6/uL (4.5-5.9); Red Cell Distribution Width 17.5 % (11.6-14.8)
[2021-01-21 10:29] LABS: Hemoglobin A1C% w Est Avg Glu 7.9 % (4.0-6.0)
[2021-01-21 10:57] LABS: Alanine Aminotransferase 40 IU/L (<50); Albumin 3.7 g/dL (3.5-5.0); Albumin Globulin Ratio 1.4 (1.0-2.8); Alkaline Phosphatase 81 U/L (38-126); Aspartate Aminotransferase 47 IU/L (17-59); BUN Creatinine Ratio 25.2 (6-22); Bilirubin Total 0.4 mg/dL (0.2-1.3); Blood Urea Nitrogen 27 mg/dL (9-20); Calcium 9.4 mg/dL (8.4-10.2); Carbon Dioxide 28 mmol/L (22-32); Chloride 103 mmol/L (98-107); Estimated Glomerular Filt Rate > 60.0 mL/min (>60); Globulin 2.6 g/dL (1.7-4.1); Glucose 128 mg/dL (80-110); HEMOLYSIS < 15 (0-50); Potassium 3.9 mmol/L (3.4-5.1); Sodium 139 mmol/L (137-145); Total Protein 6.3 g/dL (6.3-8.2)
== END ==
PROVIDERS: PCP Family Medicine; Referring Provider Internal Medicine; Visit Provider Internal Medicine
DX: N18.2 Chronic kidney disease, stage 2 (mild) (principal); E11.21 Type 2 diabetes mellitus with diabetic nephropathy; E55.9 Vitamin D deficiency, unspecified; Z79.4 Long term (current) use of insulin; R80.9 Proteinuria, unspecified
CPT/HCPCS: 36415; 80053; 82306; 83036; 85025

== ENCOUNTER 2021-03-19 10:04 | Emergency (ER) | payer MEDICARE, OTHER, SELFPAY ==
[2020-08-23 14:54] VITALS: PULSE 69; RESP 18; O2SAT 95
[2021-03-19 10:08] VITALS: BP 190/74; PULSE 87; RESP 16; TEMP 36.4; O2SAT 98; BMI 36.6
[2021-03-19 10:10] VITALS: BP 190/74; PULSE 82; O2SAT 99
--- NOTE | 2021-03-19 10:28 | DI.RAD.S_ITS ---
PROCEDURE: XR KNEE LT 3V INDICATIONS: knee pain and swelling TECHNIQUE: 3 views of the knee were acquired. COMPARISON: [facility], CR, XR KNEE RT 3V, 11/24/2020, 14:51. [facility], CR, XR KNEE LT 3V, 11/24/2020, 14:51. FINDINGS: Bones: There is severe medial and lateral femorotibial joint space narrowing seen, with associated endplate irregularity and sclerosis with prominent osteophyte formation. On the sunrise view, there is moderate to severe lateral patellofemoral joint space narrowing seen. Osteophyte formation can be seen along the margins of the patella. Numerous ossified intra-articular bodies are seen. Soft tissues: There is a moderate joint effusion. No suspicious soft tissue calcifications. Postoperative clips are seen. Atherosclerotic calcification is noted. IMPRESSION: Advanced osteoarthritic degenerative changes are seen. Moderate joint effusion. Dictated by: Michele Ayoub M.D. on 03/19/2021 at 10:01 Approved by: Michele Ayoub M.D. on 03/19/2021 at 10:02
--- NOTE | 2021-03-19 10:44 | ED_ITS ---
HPI - Extremity Problem General Chief complaint: Extremity Problem,Nontraumatic Stated complaint: Possible blood- PCP told to come Time Seen by Provider: 03/19/21 10:43 Source: patient Mode of arrival: Ambulatory Limitations: no limitations History of Present Illness HPI Narrative: 66-year-old male here for evaluation of pain and swelling behind his left knee. Contacted his primary doctor this morning who told him to come to the emergency department for evaluation of a potential blood clot. He states that he did notice at this morning. Denies any specific trauma. No fevers. Does have pain in his knee but this is not new for him. Related Data Home Medications Medication Instructions Recorded Confirmed Respironics RemStar CPAP #1 ea 11/13/18 12/11/20 semaglutide (Ozempic) 1 mg SUBCUT QWEEK 03/15/19 12/11/20 cyclobenzaprine 10 mg tablet 10 mg PO TID PRN 04/25/19 12/11/20 dorzolamide 22.3 mg-timolol 6.8 1 drp EYE-BOTH BID 04/25/19 12/11/20 mg/mL eye drops aspirin 81 mg tablet,delayed 81 mg PO DAILY 09/10/20 12/11/20 release (Enteric Coated Aspirin) epinephrine 0.3 mg/0.3 mL 0.3 mg IM ONCE PRN 09/10/20 12/11/20 injection, auto-injector brimonidine 0.2 % eye drops drp EYE-BOTH BID ml 02/03/21 Previous Rx's Medication Instructions Recorded pen needle, diabetic 31 gauge x #300 each 07/06/1811/23 (BD Ultra-Fine Short Pen Needle) blood-glucose meter (Blood Glucose #1 each 07/20/18 Monitoring) amlodipine 5 mg tablet (Norvasc) 5 mg PO QDAY #90 tab 08/21/20 duloxetine 60 mg capsule,delayed 60 mg PO DAILY #90 cap 08/21/20 release gabapentin 600 mg tablet 1,200 mg PO BID #360 tab 08/21/20 metformin 500 mg tablet 1,000 mg PO BIDCC #360 tab 08/21/20 (Glucophage) olmesartan 40 mg tablet 40 mg PO DAILY #90 tab 08/21/20 rivaroxaban 20 mg tablet (Xarelto) 20 mg PO QPM #90 tab 08/21/20 ropinirole 0.5 mg tablet See Rx Instructions PO BID #900 tab 08/21/20 rosuvastatin 10 mg tablet 10 mg PO DAILY #90 tab 08/21/20 triamcinolone acetonide 0.1 % 1 applic TOPICAL DAILY #60 ml 08/22/20 lotion allopurinol 300 mg tablet 300 mg PO DAILY #90 tab 09/30/20 colchicine 0.6 mg tablet 0.6 mg PO BID #180 tab 09/30/20 pantoprazole 40 mg tablet,delayed 40 mg PO BID #180 tab 09/30/20 release latanoprost 0.005 % eye drops 1 drp EYE-BOTH BEDTIME #7.5 ml 10/07/20 carvedilol 25 mg tablet 25 mg PO BID #180 tab 12/01/20 dapagliflozin 10 mg tablet 10 mg PO DAILY #90 tab 12/11/20 hydrocodone 5 mg-acetaminophen 325 2 tab PO BEDTIME PRN #60 tab 01/13/21 mg tablet insulin glargine 100 unit/mL (3 55 unit SUBCUT BID #135 ml 02/02/21 mL) subcutaneous pen (Lantus Solostar U-100 Insulin) insulin lispro 100 unit/mL 5 unit SUBCUT TID #150 ml 02/02/21 subcutaneous solution (Humalog U-100 Insulin) blood sugar diagnostic (Blood #600 each 02/05/21 Glucose Test) insulin syringe-needle U-100 1 mL #600 ea 02/05/21 31 gauge x 5/16 (BD Insulin Syringe Ultra-Fine) Allergies Allergy/AdvReac Type Severity Reaction Status Date / Time Iodinated Contrast Media Allergy Severe Anaphylaxis Verified 03/19/21 10:12 tamsulosin AdvReac Severe hypotension Verified 03/19/21 10:12 LOLY Inhibitors AdvReac Mild cough Verified 03/19/21 10:12 [LOLY INHIBITORS] shrimp Allergy Severe blotchy Uncoded 12/11/20 10:07 eyes, edema contrast dye Allergy Anaphylaxis Uncoded 12/11/20 10:07 Review of Systems Constitutional Constitutional: Denies fever(s) Musculoskeletal Musculoskeletal: Reports system reviewed and no additional complaints, except as documented Integumentary/Breasts Comments: No rashes Neurologic Comments: No change in neurologic status Hematologic/Lymphatic On Anticoagulants: No Patient History Medical History Chronic pain Chronic rhinitis Coronary artery disease (04/29/14) CTS (carpal tunnel syndrome) (1977) Essential hypertension ETD (eustachian tube dysfunction) Hypersomnia (~1997) Hypogonadism in male Insomnia, persistent (~1995) Mixed hyperlipidemia Obesity with body mass index (BMI) of 30.0 to 39.9 (04/24/15) Obstructive sleep apnea of adult Osteoarthritis of hands, 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 (07/29/15) Primary osteoarthritis of left knee (03/03/16) Restless legs syndrome (04/24/15) Squamous cell carcinoma of nose (2004) Type 2 diabetes mellitus with other skin ulcer (04/24/15) Surgical History (Updated 09/18/20 @ 16:07 by Francisco J Lin LPN) History of carpal tunnel repair (1977) History of coronary artery stent placement (04/2014) Hx of inguinal hernia surgery (1977) S/P CABG x 3 S/P CABG x 3 Status post arthroscopy Status post rotator cuff repair Family History Father Coronary artery disease Alcoholism Sudden Other Depression Social History marital status: details: to Francisco J, lives in [place] household members: spouse lives independently: Yes caregiver/support person: No housing: house princess/faith: [employer] / [employer] Smoking Status: Never smoker alcohol intake: never substance use type: does not use eating out: 1-3 times/week Type(s) of exercise: walking, aerobic, bicycling, advised to exercise at least 150 min/week (moderate intensity aerobic) and advised to perform resistance training at least 2x/week Smoking Status: Never smoker alcohol intake frequency: holidays/special occasions only Substance Use Type: does not use Exam Initial Vital Signs Initial Vital Signs: Vital Signs Temperature 97.6 F 03/19/21 10:08 Pulse Rate 87 03/19/21 10:08 Respiratory Rate 16 03/19/21 10:08 Blood Pressure 190/74 H 03/19/21 10:08 Pulse Oximetry 98 03/19/21 10:08 Const General: cooperative and healthy appearing [facility] Head: normal to inspection and normocephalic Eyes General: appearance normal, both eyes and all related structures Resp Effort & Inspection: normal respiratory effort Cardio Rate: regular rate Skin General: no rashes or lesions noted Extrem General: normal to inspection Other: Patient with a fullness that is minimally tender to palpation in the posterior aspect of the left knee. He does have an effusion of his left knee but he states this is not new. Course Orders Ordered: ED Orders 03/19/21 10:28 XR knee LT 3V Stat 03/19/21 10:45 US periph venous low extrem lt Stat Vital Signs Vital signs: Vital Signs - 8 hr 03/19/21 10:08 03/19/21 10:10 03/19/21 11:50 Temperature 97.6 F Pulse Rate 87 82 81 Respiratory Rate 16 Blood Pressure 190/74 H 190/74 H 154/78 H Pulse Oximetry 98 99 97 03/19/21 11:52 Temperature Pulse Rate Respiratory Rate 16 Blood Pressure Pulse Oximetry MDM - Extremity (Nontraumatic) Imaging Data US - DVT: Radiologist's Impression: [address] [address] Ultrasound Report Signed Patient: Cory Lin MR#: [id number] : 1955 Acct:[id number] Age/Sex: 66 / M Date of Service: 03/19/21 Loc: ED Accession Number: [id number] ?? Procedure: US periph venous low extrem lt Ordering Provider: Jacob Crump D.O. PROCEDURE:? US PERIPH VENOUS LOW EXTREM LT ? INDICATIONS:? POSTERIOR LEFT KNEE SWELLING ? TECHNIQUE:? Real-time imaging, as well as color and pulse Doppler interrogation, were performed of the lower extremity deep veins from the inguinal ligament to the popliteal fossa.? ? COMPARISON:? None. ? FINDINGS:? The common femoral, femoral and popliteal veins are normally compressible, and free of intraluminal thrombus.? Color and pulse Doppler demonstrate normal phasic intraluminal flow.? There is normal augmentation response to distal compression maneuver. ?Complex focus of echogenicity within the posterior popliteal fossa measuring 19.9 x 5.7 x 2.6 cm. ? IMPRESSION:? ? 1. No deep venous thrombosis. ? 2. Complex focus of echogenicity within the posterior fossa suggestive of Villegas cyst, possibly partially ruptured ? ? Dictated by: Mere Sheffield M.D. on 03/19/2021 at 11:53 ? ? Approved by: Mere Sheffield M.D. on 03/19/2021 at 11:55?? MDM Narrative Medical decision making narrative: Patient is neurovascularly intact. Does not appear to be any infection in his knee. The ultrasounds consistent with a Villegas cyst in this is also consistent with his presentation. No indication for antibiotics. Discussed this with the patient. Discussed return precautions and follow-up instructions. He expressed understanding agreement. Discharge Plan Departure Patient Disposition: Home Clinical Impression: Villegas's cyst, ruptured Instructions: DI for Villegas Cyst Activity Restrictions/Additional Instructions: The ultrasound today showed that the swelling in the back of your left knee is a Villegas cyst that most likely has ruptured. I recommend you contact your primary doctor has any definitive treatment of this will require a visit to see an orthopedic surgeon. Return to the emergency department for any new symptoms. Prescriptions: No Action aspirin [Enteric Coated Aspirin] 81 mg tablet,delayed release (DR/EC) 81 mg PO DAILY RF: 0 epinephrine 0.3 mg/0.3 mL auto-injector 0.3 mg IM ONCE PRN (Reason: anaphylaxis) RF: 0 dapagliflozin 10 mg tablet 10 mg PO DAILY Qty: 90 RF: 1 (DME) pen needle, diabetic [BD Ultra-Fine Short Pen Needle] 31 gauge x 5/16 needle See Dose Instructions .ROUTE .MEDSUPPLY Qty: 300 RF: 3 (DME) blood-glucose meter [Blood Glucose Monitoring] kit See Dose Instructions .ROUTE .MEDSUPPLY Qty: 1 RF: 0 amlodipine [Norvasc] 5 mg tablet 5 mg PO QDAY Qty: 90 RF: 3 duloxetine 60 mg capsule,delayed release(DR/EC) 60 mg PO DAILY Qty: 90 RF: 3 gabapentin 600 mg tablet 1,200 mg PO BID Qty: 360 RF: 3 metformin [Glucophage] 500 mg tablet 1,000 mg PO BIDCC Qty: 360 RF: 3 olmesartan 40 mg tablet 40 mg PO DAILY Qty: 90 RF: 3 Xarelto 20 mg tablet 20 mg PO QPM Qty: 90 RF: 3 ropinirole 0.5 mg tablet See Rx Instructions PO BID Qty: 900 RF: 3 rosuvastatin 10 mg tablet 10 mg PO DAILY Qty: 90 RF: 3 triamcinolone acetonide 0.1 % lotion 1 applic topical DAILY Qty: 60 RF: 3 pantoprazole 40 mg tablet,delayed release (DR/EC) 40 mg PO BID Qty: 180 RF: 3 colchicine 0.6 mg tablet 0.6 mg PO BID Qty: 180 RF: 3 allopurinol 300 mg tablet 300 mg PO DAILY Qty: 90 RF: 3 latanoprost 0.005 % drops 1 drp EYE-BOTH BEDTIME Qty: 7.5 RF: 3 carvedilol 25 mg tablet 25 mg PO BID Qty: 180 RF: 3 hydrocodone-acetaminophen 5-325 mg tablet 2 tab PO BEDTIME PRN (Reason: pain) Qty: 60 RF: 0 insulin lispro [Humalog U-100 Insulin] 100 unit/mL solution 5 unit SUBCUT TID Qty: 150 RF: 3 Lantus Solostar U-100 Insulin 100 unit/mL (3 mL) insulin pen 55 unit SUBCUT BID Qty: 135 RF: 3 brimonidine 0.2 % drops EYE-BOTH BID RF: 0 (DME) Blood Glucose Test Strip See Dose Instructions .ROUTE .MEDSUPPLY Qty: 600 RF: 3 (DME) insulin syringe-needle U-100 [BD Insulin Syringe Ultra-Fine] 1 mL 31 gauge x 5/16 syringe See Dose Instructions .ROUTE .MEDSUPPLY Qty: 600 RF: 3 dorzolamide-timolol 22.3-6.8 mg/mL drops 1 drp EYE-BOTH BID RF: 0 cyclobenzaprine 10 mg tablet 10 mg PO TID PRN (Reason: spasms) RF: 0 Ozempic 0.25 mg or 0.5 mg(2 mg/1.5 mL) pen injector 1 mg SUBCUT QWEEK RF: 0 (DME) Respironics RemStar CPAP Qty: 1 RF: 0 Referrals: Gigi Pelaez MD [Primary Care Provider] -
--- NOTE | 2021-03-19 10:45 | DI.US.S_ITS ---
PROCEDURE: US PERIPH VENOUS LOW EXTREM LT INDICATIONS: POSTERIOR LEFT KNEE SWELLING TECHNIQUE: Real-time imaging, as well as color and pulse Doppler interrogation, were performed of the lower extremity deep veins from the inguinal ligament to the popliteal fossa. COMPARISON: None. FINDINGS: The common femoral, femoral and popliteal veins are normally compressible, and free of intraluminal thrombus. Color and pulse Doppler demonstrate normal phasic intraluminal flow. There is normal augmentation response to distal compression maneuver. Complex focus of echogenicity within the posterior popliteal fossa measuring 19.9 x 5.7 x 2.6 cm. IMPRESSION: 1. No deep venous thrombosis. 2. Complex focus of echogenicity within the posterior fossa suggestive of Villegas cyst, possibly partially ruptured Dictated by: Mere Sheffield M.D. on 03/19/2021 at 11:53 Approved by: Mere Sheffield M.D. on 03/19/2021 at 11:55
[2021-03-19 11:50] VITALS: BP 154/78; PULSE 81; O2SAT 97
[2021-03-19 11:52] VITALS: RESP 16
[2021-03-19 12:29] VITALS: BP 144/71; PULSE 81; RESP 16; O2SAT 97
== END 2021-03-19 12:32 | disposition home or self-care (01) ==
PROVIDERS: Emergency Provider Emergency Medicine; PCP Family Medicine
DX: M66.0 Rupture of popliteal cyst (principal)
CPT/HCPCS: 73562; 93971; 99283; 99284

== ENCOUNTER → 2021-04-14 08:27 | Outpatient (CLI) | payer MEDICARE, OTHER, SELFPAY ==
[2020-08-23 14:54] VITALS: PULSE 69; RESP 18; O2SAT 95
[2021-04-14 09:20] LABS: Add Manual Diff / Slide Review NO; Basophils Absolute Auto 100 /uL (0-100); Basophils Percent Auto 0.7 % (0-2); Eosinophils Absolute Auto 100 /uL (0-450); Eosinophils Percent Auto 1.5 % (2-4); Hematocrit 34.1 % (41-53); Hemoglobin 11.4 g/dL (13.5-17.5); Lymphocytes Absolute Auto 2700 /uL (1100-4500); Lymphocytes Percent Auto 27.5 % (25-40); Mean Corpuscular HGB Conc 33.5 % (30-36); Mean Corpuscular Hemoglobin 31.2 PG (26-34); Mean Corpuscular Volume 93.2 fL (80-100); Monocytes Absolute Auto 900 /uL (0-900); Monocytes Percent Auto 9.5 % (3-14); Neutrophils Absolute Auto 5900 /uL (1500-7000); Neutrophils Percent Auto 60.8 % (50-75); Platelet Count 333 X10^3/uL (150-400); Red Blood Cell Count 3.66 X10^6/uL (4.5-5.9); Red Cell Distribution Width 15.5 % (11.6-14.8); White Blood Cell Count 9.8 X10^3/uL (4.5-11.0)
[2021-04-14 09:48] LABS: Alanine Aminotransferase 18 IU/L (<50); Albumin 3.5 g/dL (3.5-5.0); Albumin Globulin Ratio 1.3 (1.0-2.8); Alkaline Phosphatase 76 U/L (38-126); Aspartate Aminotransferase 20 IU/L (17-59); BUN Creatinine Ratio 23.1 (6-22); Bilirubin Total 0.6 mg/dL (0.2-1.3); Blood Urea Nitrogen 25 mg/dL (9-20); Calcium 9.5 mg/dL (8.4-10.2); Carbon Dioxide 26 mmol/L (22-32); Chloride 98 mmol/L (98-107); Estimated Glomerular Filt Rate > 60.0 mL/min (>60); Globulin 2.6 g/dL (1.7-4.1); Glucose 126 mg/dL (80-110); HEMOLYSIS < 15 (0-50); Potassium 4.4 mmol/L (3.4-5.1); Sodium 134 mmol/L (137-145); Total Protein 6.1 g/dL (6.3-8.2)
[2021-04-14 10:10] LABS: Erythrocyte Sedimentation Rate 137 MM/HR (0-15)
[2021-04-14 10:14] LABS: C-Reactive Protein Quant 22.8 mg/dL (<1.0)
[2021-04-14 11:09] LABS: Microalbumin Urine Random 257.3 mg/dL (0-1.6)
[2021-04-14 11:10] LABS: Creatinine Urine Random 133.5 mg/dL; Microalbumi Creatinin Ratio Ur 1927.3 ug/mg CR (<30)
[2021-04-14 16:07] LABS: Hemoglobin A1C% w Est Avg Glu 8.2 % (4.0-6.0)
== END ==
PROVIDERS: PCP Family Medicine; Referring Provider Family Medicine; Visit Provider Family Medicine
DX: D50.0 Iron deficiency anemia secondary to blood loss (chronic) (principal); E11.69 Type 2 diabetes mellitus with other specified complication; M11.20 Other chondrocalcinosis, unspecified site; R50.9 Fever, unspecified; Z79.4 Long term (current) use of insulin
CPT/HCPCS: 36415; 80053; 82043; 82570; 83036; 85025; 85651; 86140

== ENCOUNTER → 2021-07-29 13:33 | Outpatient (CLI) | payer MEDICARE, OTHER, SELFPAY ==
[2020-08-23 14:54] VITALS: PULSE 69; RESP 18; O2SAT 95
== END ==
PROVIDERS: PCP Family Medicine; Referring Provider Family Medicine; Visit Provider Family Medicine
DX: E11.621 Type 2 diabetes mellitus with foot ulcer (principal); L97.512 Non-pressure chronic ulcer of other part of right foot with fat layer exposed; L03.031 Cellulitis of right toe; E11.40 Type 2 diabetes mellitus with diabetic neuropathy, unspecified
CPT/HCPCS: 11042; 73630; 87070; 87075; 87077; 87147; 87186; 87205; 93922; 99213; 99214

== ENCOUNTER → 2021-07-29 14:40 | Outpatient (CLI) | payer MEDICARE, OTHER, SELFPAY ==
[2020-08-23 14:54] VITALS: PULSE 69; RESP 18; O2SAT 95
--- NOTE | 2021-07-29 | DI.RAD.S_ITS ---
PROCEDURE: XR FOOT RT MIN 3V INDICATIONS: EVALUATE FOR OSTEOMYELITIS TECHNIQUE: 3 views of the foot were acquired. COMPARISON: [facility], CR, XR FOOT RT MIN 3V, 11/24/2020, 14:51. [facility], CR, XR FOOT LT MIN 3V, 11/24/2020, 14:51. FINDINGS: Bones: No acute fracture identified. There is persistent flexion of the right toes. Moderate polyarticular osteoarthritic changes of the right foot and ankle appear stable. Findings are most pronounced at the 2nd through 4th tarsometatarsal joints, anterior subtalar joint, and anterior tibiotalar joint. There also moderate degenerative changes of the 1st metatarsophalangeal joint. No suspicious osseous erosions, periosteal reaction, or osseous destruction identified radiographically. Prominent plantar calcaneal spur. Soft tissues: No tibiotalar joint effusion. Achilles tendon appears normal. No evidence for soft tissue gas. Vascular calcifications are present. No definite soft tissue defect identified. IMPRESSION: Right foot without acute fracture or dislocation. Relatively stable appearance of polyarticular osteoarthritic changes of the right foot and ankle. No definite radiographic finding for osteomyelitis. If there is persistent clinical concern, consider further evaluation with contrast enhanced MRI. Dictated by: Jacob Abdi M.D. on 07/29/2021 at 16:41 Approved by: Jacob Abdi M.D. on 07/29/2021 at 16:45
== END ==
PROVIDERS: PCP Family Medicine; Referring Provider Family Medicine; Visit Provider Family Medicine
DX: E11.621 Type 2 diabetes mellitus with foot ulcer (principal)
CPT/HCPCS: 73630

== ENCOUNTER → 2021-08-05 14:51 | Outpatient (CLI) | payer MEDICARE, OTHER, SELFPAY ==
[2020-08-23 14:54] VITALS: PULSE 69; RESP 18; O2SAT 95
== END ==
PROVIDERS: PCP Family Medicine; Referring Provider Family Medicine; Visit Provider Family Medicine
DX: E11.621 Type 2 diabetes mellitus with foot ulcer (principal); L97.512 Non-pressure chronic ulcer of other part of right foot with fat layer exposed; E11.40 Type 2 diabetes mellitus with diabetic neuropathy, unspecified; L03.031 Cellulitis of right toe; L60.0 Ingrowing nail; B95.61 Methicillin susceptible Staphylococcus aureus infection as the cause of diseases classified elsewhere; B95.7 Other staphylococcus as the cause of diseases classified elsewhere; Z79.01 Long term (current) use of anticoagulants
CPT/HCPCS: 11042; 11730; 99214

== ENCOUNTER → 2021-08-06 10:12 | Outpatient (CLI) | payer MEDICARE, OTHER, SELFPAY ==
[2020-08-23 14:54] VITALS: PULSE 69; RESP 18; O2SAT 95
[2021-08-06 11:17] LABS: Add Manual Diff / Slide Review NO; Basophils Absolute Auto 100 /uL (0-100); Basophils Percent Auto 0.8 % (0-2); Eosinophils Absolute Auto 400 /uL (0-450); Eosinophils Percent Auto 5.3 % (2-4); Hematocrit 39.8 % (41-53); Hemoglobin 13.2 g/dL (13.5-17.5); Lymphocytes Absolute Auto 2400 /uL (1100-4500); Lymphocytes Percent Auto 30.2 % (25-40); Mean Corpuscular HGB Conc 33.2 % (30-36); Mean Corpuscular Hemoglobin 31.2 PG (26-34); Mean Corpuscular Volume 94.1 fL (80-100); Monocytes Absolute Auto 600 /uL (0-900); Monocytes Percent Auto 7.9 % (3-14); Neutrophils Absolute Auto 4400 /uL (1500-7000); Neutrophils Percent Auto 55.8 % (50-75); Platelet Count 202 X10^3/uL (150-400); Red Blood Cell Count 4.23 X10^6/uL (4.5-5.9); Red Cell Distribution Width 15.6 % (11.6-14.8); White Blood Cell Count 7.9 X10^3/uL (4.5-11.0)
[2021-08-06 11:35] LABS: Erythrocyte Sedimentation Rate 37 MM/HR (0-15)
[2021-08-06 11:50] LABS: BUN Creatinine Ratio 21.7 (6-22); Blood Urea Nitrogen 23 mg/dL (9-20); Calcium 10.1 mg/dL (8.4-10.2); Carbon Dioxide 31 mmol/L (22-32); Chloride 103 mmol/L (98-107); Estimated Glomerular Filt Rate > 60.0 mL/min (>60); Glucose 123 mg/dL (80-110); HEMOLYSIS < 15 (0-50); Potassium 3.9 mmol/L (3.4-5.1); Sodium 140 mmol/L (137-145)
[2021-08-06 11:54] LABS: C-Reactive Protein Quant < 0.5 mg/dL (<1.0)
== END ==
PROVIDERS: PCP Family Medicine; Referring Provider Internal Medicine Nephrology; Visit Provider Internal Medicine Nephrology
DX: N18.2 Chronic kidney disease, stage 2 (mild) (principal); R50.9 Fever, unspecified
CPT/HCPCS: 36415; 80048; 85025; 85651; 86140; 87040

== ENCOUNTER → 2021-08-13 13:42 | Outpatient (CLI) | payer MEDICARE, OTHER, SELFPAY ==
[2020-08-23 14:54] VITALS: PULSE 69; RESP 18; O2SAT 95
== END ==
PROVIDERS: PCP Family Medicine; Referring Provider Family Medicine; Visit Provider Family Medicine
DX: E11.621 Type 2 diabetes mellitus with foot ulcer (principal); L97.512 Non-pressure chronic ulcer of other part of right foot with fat layer exposed; L08.9 Local infection of the skin and subcutaneous tissue, unspecified; E11.40 Type 2 diabetes mellitus with diabetic neuropathy, unspecified; Z79.01 Long term (current) use of anticoagulants; Z79.4 Long term (current) use of insulin; Z79.84 Long term (current) use of oral hypoglycemic drugs
CPT/HCPCS: 11042; 99214

== ENCOUNTER → 2021-08-20 12:19 | Outpatient (CLI) | payer MEDICARE, OTHER, SELFPAY ==
[2020-08-23 14:54] VITALS: PULSE 69; RESP 18; O2SAT 95
== END ==
PROVIDERS: PCP Family Medicine; Referring Provider Family Medicine; Visit Provider Family Medicine
DX: E11.621 Type 2 diabetes mellitus with foot ulcer (principal); L97.512 Non-pressure chronic ulcer of other part of right foot with fat layer exposed; L08.9 Local infection of the skin and subcutaneous tissue, unspecified; E11.40 Type 2 diabetes mellitus with diabetic neuropathy, unspecified; Z79.01 Long term (current) use of anticoagulants; Z79.4 Long term (current) use of insulin; Z79.84 Long term (current) use of oral hypoglycemic drugs
CPT/HCPCS: 11042; 87070; 87075; 87205

== ENCOUNTER → 2021-08-27 11:09 | Outpatient (CLI) | payer MEDICARE, OTHER, SELFPAY ==
[2020-08-23 14:54] VITALS: PULSE 69; RESP 18; O2SAT 95
== END ==
PROVIDERS: PCP Family Medicine; Referring Provider Family Medicine; Visit Provider Family Medicine
DX: E11.621 Type 2 diabetes mellitus with foot ulcer (principal); L97.512 Non-pressure chronic ulcer of other part of right foot with fat layer exposed; E11.40 Type 2 diabetes mellitus with diabetic neuropathy, unspecified; Z79.01 Long term (current) use of anticoagulants
CPT/HCPCS: 11042; 99212

== ENCOUNTER → 2021-09-15 10:43 | Outpatient (CLI) | payer MEDICARE, OTHER, SELFPAY ==
[2020-08-23 14:54] VITALS: PULSE 69; RESP 18; O2SAT 95
== END ==
PROVIDERS: PCP Family Medicine; Referring Provider Family Medicine; Visit Provider Family Medicine
DX: Z09 Encounter for follow-up examination after completed treatment for conditions other than malignant neoplasm (principal); E11.40 Type 2 diabetes mellitus with diabetic neuropathy, unspecified; Z87.2 Personal history of diseases of the skin and subcutaneous tissue
CPT/HCPCS: 99212; 99213

== ENCOUNTER → 2021-10-14 14:23 | Outpatient (CLI) | payer MEDICARE, OTHER, SELFPAY ==
[2020-08-23 14:54] VITALS: PULSE 69; RESP 18; O2SAT 95
[2021-10-14 16:00] LABS: Add Manual Diff / Slide Review NO; Basophils Absolute Auto 0 /uL (0-100); Basophils Percent Auto 0.4 % (0-2); Eosinophils Absolute Auto 2600 /uL (0-450); Hematocrit 33.2 % (41-53); Hemoglobin 11.3 g/dL (13.5-17.5); Lymphocytes Absolute Auto 2200 /uL (1100-4500); Lymphocytes Percent Auto 20.7 % (25-40); Mean Corpuscular HGB Conc 34.1 % (30-36); Mean Corpuscular Hemoglobin 32.1 PG (26-34); Mean Corpuscular Volume 94.1 fL (80-100); Monocytes Absolute Auto 1100 /uL (0-900); Monocytes Percent Auto 10.3 % (3-14); Neutrophils Absolute Auto 4700 /uL (1500-7000); Neutrophils Percent Auto 44.6 % (50-75); Platelet Count 402 X10^3/uL (150-400); Red Blood Cell Count 3.53 X10^6/uL (4.5-5.9); Red Cell Distribution Width 14.5 % (11.6-14.8); White Blood Cell Count 10.7 X10^3/uL (4.5-11.0)
[2021-10-14 16:50] LABS: C-Reactive Protein Quant 25.2 mg/dL (<1.0)
[2021-10-14 17:28] LABS: Erythrocyte Sedimentation Rate 125 MM/HR (0-15)
== END ==
PROVIDERS: PCP Family Medicine; Referring Provider Physician Assistant; Visit Provider Physician Assistant
DX: M25.462 Effusion, left knee (principal); M71.22 Synovial cyst of popliteal space [Baker], left knee
CPT/HCPCS: 36415; 85025; 85651; 86140

== ENCOUNTER 2021-10-14 15:41 | Emergency (ER) | payer MEDICARE, OTHER, SELFPAY ==
[2020-08-23 14:54] VITALS: PULSE 69; RESP 18; O2SAT 95
[2021-10-14 16:09] VITALS: BP 101/54; PULSE 79; RESP 16; TEMP 36.6; O2SAT 98; BMI 33.5
--- NOTE | 2021-10-14 16:12 | DI.RAD.S_ITS ---
PROCEDURE: XR ELBOW RT MIN 3V INDICATIONS: R elbow pain TECHNIQUE: 3 views of the elbow were acquired. COMPARISON: None. FINDINGS: Bones: No fractures or dislocations. No suspicious bony lesions. Soft tissues: No elbow joint effusion. No suspicious soft tissue calcifications. IMPRESSION: Normal right elbow Dictated by: Moiz Lomeli M.D. on 10/14/2021 at 16:30 Approved by: Moiz Lomeli M.D. on 10/14/2021 at 16:31
[2021-10-14 17:09] VITALS: BP 106/53; PULSE 78; RESP 18; O2SAT 98
--- NOTE | 2021-10-14 17:12 | ED_ITS ---
HPI - Extremity Injury (Upper) <Tigist Santos, [facility] - Last Filed: 10/14/21 20:03> General Chief Complaint: Extremity Injury, Upper Stated Complaint: rt elbow bruising, no known injury Time Seen by Provider: 10/14/21 17:11 Source: patient Mode of arrival: Wheelchair History of Present Illness HPI narrative: This is a 66-year-old male with history of insulin-dependent type 2 diabetes, pseudogout, chronic left knee pain with a chronic figueroa cyst on Eliquis. Patient presents to the emergency department for right anterior arm ecchymosis which he noticed 3 days ago. He states that he has had posterior superficial right elbow pain for approximately 1 week. He denies any known trauma but has felt tenderness when he puts his elbow on a surface and he has noticed that the posterior elbow is more swollen than usual. He denies any anterior arm pain, he denies any sensation changes, range of motion deficit, strength changes, or any other concern. Patient states that he has a significant history of pseudogout with a chronically elevated ESR and CRP. He takes colchicine and allopurinol daily. Patient sees Dr. Pelaez for his primary care provider and has an upcoming appointment with him tomorrow. Patient states that he has had a fever up to 103 over the last 2-3 days only at nighttime. He states that he has had fevers in the past with his gout. He denies any abdominal pain, chest pain, shortness of breath, weakness alteration in daily activities due to either of these problems in his left knee or his right elbow. He states that his blood sugars have been fairly well controlled recently. Related Data Home Medications Medication Instructions Recorded Confirmed Respironics RemStar CPAP #1 ea 11/13/18 08/20/21 semaglutide (Ozempic) 1 mg SUBCUT QWEEK 03/15/19 08/20/21 cyclobenzaprine 10 mg tablet 10 mg PO TID PRN 04/25/19 08/20/21 dorzolamide 22.3 mg-timolol 6.8 1 drp EYE-BOTH BID 04/25/19 08/20/21 mg/mL eye drops aspirin 81 mg tablet,delayed 81 mg PO DAILY 09/10/20 08/20/21 release (Enteric Coated Aspirin) epinephrine 0.3 mg/0.3 mL 0.3 mg IM ONCE PRN 09/10/20 08/20/21 injection, auto-injector brimonidine 0.2 % eye drops drp EYE-BOTH BID ml 02/03/21 08/20/21 Previous Rx's Medication Instructions Recorded pen needle, diabetic 31 gauge x #300 each 07/06/18 5/16 (BD Ultra-Fine Short Pen Needle) blood-glucose meter (Blood Glucose #1 each 07/20/18 Monitoring) triamcinolone acetonide 0.1 % 1 applic TOPICAL DAILY #60 ml 08/22/20 lotion latanoprost 0.005 % eye drops 1 drp EYE-BOTH BEDTIME #7.5 ml 10/07/20 blood sugar diagnostic (Blood #600 each 02/05/21 Glucose Test) insulin syringe-needle U-100 1 mL #600 ea 02/05/21 31 gauge x 5/16 (BD Insulin Syringe Ultra-Fine) allopurinol 300 mg tablet 300 mg PO DAILY #90 tab 03/24/21 amlodipine 10 mg tablet 10 mg PO DAILY #90 tab 03/24/21 carvedilol 12.5 mg tablet 12.5 mg PO BID #180 tab 03/24/21 colchicine 0.6 mg tablet 0.6 mg PO BID #180 tab 03/24/21 dapagliflozin 10 mg tablet 10 mg PO DAILY #90 tab 03/24/21 duloxetine 60 mg capsule,delayed 60 mg PO DAILY #90 cap 03/24/21 release furosemide 20 mg tablet 20 mg PO DAILY #90 tab 03/24/21 gabapentin 600 mg tablet 1,200 mg PO BID #360 tab 03/24/21 olmesartan 40 mg tablet 40 mg PO DAILY #90 tab 03/24/21 pantoprazole 20 mg tablet,delayed 20 mg PO DAILY #90 tab 03/24/21 release ropinirole 2 mg tablet See Rx Instructions PO BID #270 tab 03/24/21 rosuvastatin 10 mg tablet 10 mg PO DAILY #90 tab 03/24/21 insulin glargine 100 unit/mL (3 55 unit (0.55 mL) SUBCUT BID #135 03/26/21 mL) subcutaneous pen (Lantus ml Solostar U-100 Insulin) insulin lispro 100 unit/mL 5 unit (0.05 mL) SUBCUT TID #150 ml 03/26/21 subcutaneous solution (Humalog U-100 Insulin) metformin 500 mg tablet 1,000 mg PO BIDCC #360 tab 03/26/21 rivaroxaban 20 mg tablet (Xarelto) 20 mg PO QPM #90 tab 06/15/21 hydrocodone 5 mg-acetaminophen 325 2 tab PO BEDTIME PRN #60 tab 08/13/21 mg tablet diclofenac sodium 1 % topical gel 4 g TOPICAL QID PRN #100 g 10/14/21 (Voltaren Arthritis Pain) hydrocodone 5 mg-acetaminophen 325 1 tab PO Q8H PRN #14 tab 10/14/21 mg tablet lidocaine 5 % topical patch 1 patch TOPICAL DAILY PRN #15 ea 10/14/21 tramadol 50 mg tablet 50 mg PO DAILY PRN #14 tab 10/14/21 Allergies Allergy/AdvReac Type Severity Reaction Status Date / Time Iodinated Contrast Media Allergy Severe Anaphylaxis Verified 10/14/21 16:12 tamsulosin AdvReac Severe hypotension Verified 10/14/21 16:12 LOLY Inhibitors AdvReac Mild cough Verified 10/14/21 16:12 [LOLY INHIBITORS] shrimp Allergy Severe blotchy Uncoded 08/20/21 09:35 eyes, edema contrast dye Allergy Anaphylaxis Uncoded 08/20/21 09:35 Review of Systems <MARAH Chen - Last Filed: 10/14/21 20:03> Review of Systems Narrative: General: Endorses fever for the last 3 nights chills, malaise, sweats, fatigue Head/Neck: denies headache, neck pain, dizziness Eyes: denies visual changes, eye pain Cardio: denies chest pain, palpitations, edema Respiratory: denies dyspnea, cough, orthopnea GI: denies abdominal pain, nausea, vomiting, or diarrhea : denies dysuria, hematuria, urinary retention, frequency or incontinence MSK: Patient endorses left knee pain and a chronic history of this related to gout, right posterior elbow pain for approximately 1 week, now with ecchymosis on the anterior of his right arm, patient denies any pain Skin: denies rash, itching, skin lesions or other Neuro: denies numbness, tingling Patient History <MARAH Chen - Last Filed: 10/14/21 20:03> Medical History Chronic pain Chronic rhinitis Coronary artery disease (04/29/14) CTS (carpal tunnel syndrome) (1977) Essential hypertension ETD (eustachian tube dysfunction) Hypersomnia (~1997) Hypogonadism in male Insomnia, persistent (~1995) Mixed hyperlipidemia Obesity with body mass index (BMI) of 30.0 to 39.9 (04/24/15) Obstructive sleep apnea of adult Osteoarthritis of hands, 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 (07/29/15) Primary osteoarthritis of left knee (03/03/16) Restless legs syndrome (04/24/15) Squamous cell carcinoma of nose (2004) Type 2 diabetes mellitus with other skin ulcer (04/24/15) Surgical History History of carpal tunnel repair (1977) History of coronary artery stent placement (04/2014) Hx of inguinal hernia surgery (1977) S/P CABG x 3 S/P CABG x 3 Status post arthroscopy Status post rotator cuff repair Family History Father Coronary artery disease Alcoholism Sudden Other Depression Social History marital status: details: jose Marx, lives in [place] household members: spouse lives independently: Yes caregiver/support person: No housing: house princess/sikh: [employer] [facility] Smoking Status: Never smoker alcohol intake: never substance use type: does not use eating out: 1-3 times/week Type(s) of exercise: walking, aerobic, bicycling, advised to exercise at least 150 min/week (moderate intensity aerobic) and advised to perform resistance t raining at least 2x/week Smoking Status: Never smoker alcohol intake frequency: holidays/special occasions only Substance Use Type: does not use Exam <MARAH Chen - Last Filed: 10/14/21 20:03> Narrative Exam Narrative: Independently reviewed vitals signs and nursing notes. General: Awake, alert, nontoxic, no cardiorespiratory distress Head/Neck: Atraumatic, neck full range of motion Eyes: EOMI, conjunctiva normal Nose: nares patent, no rhinorrhea Mouth/Throat: moist mucus membranes, posterior pharynx normal, no oral lesions Cardio: Regular rate and rhythm, no peripheral edema Respiratory: respirations unlabored without wheezing, stridor, or rales. No retractions. GI: Abdomen soft, nontender MSK: Moves all extremities, neurovascularly intact, right elbow with posterior swelling consistent with bursitis, fluctuance palpated over olecranon, no surrounding erythema, no discoloration on the posterior was elbow. Anteriorly, patient has ecchymosis from the mid forearm up to the mid bicep, no tenderness, no surrounding erythema, no signs of trauma, no dependent edema. Full flexion and extension of the right arm is intact without deficit. No sensation changes, radial pulse is 2 +, cap refill less than 2 seconds Skin: Normal capillary refill, no rash, ecchymoses On the anterior right arm Neuro: Normal speech and cognition, normal gait Initial Vital Signs Initial Vital Signs: Vital Signs Temperature 97.9 F 10/14/21 16:09 Pulse Rate 79 10/14/21 16:09 Respiratory Rate 16 10/14/21 16:09 Blood Pressure 101/54 L 10/14/21 16:09 Pulse Oximetry 98 10/14/21 16:09 <Marta Sifuentes DO - Last Filed: 10/15/21 07:03> Initial Vital Signs Initial Vital Signs: Vital Signs Temperature 97.9 F 10/14/21 16:09 Pulse Rate 79 10/14/21 16:09 Respiratory Rate 16 10/14/21 16:09 Blood Pressure 101/54 L 10/14/21 16:09 Pulse Oximetry 98 10/14/21 16:09 Procedures <MARAH Chen - Last Filed: 10/14/21 20:03> Bursa Procedure Time Out Performed: Yes Side of body: right Site of Procedure: olecranon bursa XRAY Obtained: normal Antisepsis Used: Chlorhexidine Local Anesthetic: lidocaine 1% and with bicarb Amount of anesthesia used (mL): 5 Fluid obtained (mL): 5 Fluid Type: bloody Patient Tolerated Procedure: Well and No complications Complications: none <DO Lorelei Meadows Last Filed: 10/15/21 07:03> Bursa Procedure Additional Comments: candi raya supervised procedure Course <MARAH Chen - Last Filed: 10/14/21 20:03> Orders Ordered: Discontinued Medications Hydrocodone Bitart/Acetaminophen (Hydrocodone/Acet 5/325 Tablet) 1 tab PO NOW ONE Stop: 10/14/21 19:30 Last Admin: 10/14/21 19:47 Dose: 1 tab Documented by: LORENA Lidocaine (Lidocaine Patch 1 Each Adh..Patch) 1 each TOP NOW ONE Stop: 10/14/21 19:30 Last Admin: 10/14/21 19:47 Dose: 1 each Documented by: LORENA Lidocaine/Sodium Bicarbonate (Lido 1%/Sod Bicarb 8.4% (10ml) 10 Ml Syringe) 10 ml INJ NOW ONE Stop: 10/14/21 17:45 Last Admin: 10/14/21 17:49 Dose: 10 ml Documented by: LORENA Vital Signs Vital signs: Vital Signs - 8 hr 10/14/21 16:09 10/14/21 17:09 10/14/21 17:30 Temperature 97.9 F Pulse Rate 79 78 78 Respiratory Rate 16 18 18 Blood Pressure 101/54 L 106/53 L Pulse Oximetry 98 98 98 <Marta Sifuentes DO - Last Filed: 10/15/21 07:03> Orders Ordered: Discontinued Medications Hydrocodone Bitart/Acetaminophen (Hydrocodone/Acet 5/325 Tablet) 1 tab PO NOW ONE Stop: 10/14/21 19:30 Last Admin: 10/14/21 19:47 Dose: 1 tab Documented by: LORENA Lidocaine (Lidocaine Patch 1 Each Adh..Patch) 1 each TOP NOW ONE Stop: 10/14/21 19:30 Last Admin: 10/14/21 19:47 Dose: 1 each Documented by: LORENA Lidocaine/Sodium Bicarbonate (Lido 1%/Sod Bicarb 8.4% (10ml) 10 Ml Syringe) 10 ml INJ NOW ONE Stop: 10/14/21 17:45 Last Admin: 10/14/21 17:49 Dose: 10 ml Documented by: LORENA Vital Signs Vital signs: Vital Signs - 8 hr 10/14/21 16:09 10/14/21 17:09 10/14/21 17:30 Temperature 97.9 F Pulse Rate 79 78 78 Respiratory Rate 16 18 18 Blood Pressure 101/54 L 106/53 L Pulse Oximetry 98 98 98 MDM - Extremity Injury (Upper) <Tigist J Crew, [facility] - Last Filed: 10/14/21 20:03> Lab Data Result diagrams: 10/14/21 17:35 10/14/21 17:35 Labs: Lab Results 10/14/21 10/14/21 10/14/21 Range/Units 17:35 17:35 17:35 WBC 10.4 (4.5-11.0) X10^3/uL RBC 3.64 L (4.5-5.9) X10^6/uL Hgb 11.5 L (13.5-17.5) g/dL Hct 34.2 L (41-53) % MCV 93.9 (80-100) fL MCH 31.7 (26-34) PG MCHC 33.7 (30-36) % RDW 14.9 H (11.6-14.8) % Plt Count 368 (150-400) X10^3/uL Neut % (Auto) 47.1 L (50-75) % Lymph % (Auto) 20.8 L (25-40) % [place] % (Auto) 8.8 (3-14) % Eos % (Auto) 22.5 H (2-4) % Baso % (Auto) 0.8 (0-2) % Neut # (Auto) 4900 (6061-8741) /uL Lymph # (Auto) 2200 (8234-4394) /uL [place] # (Auto) 900 (0-900) /uL Eos # (Auto) 2300 H (0-450) /uL Baso # (Auto) 100 (0-100) /uL ESR (0-15) MM/HR PT 19.1 H (10.1-12.7) SECONDS INR 1.7 H (0.9-1.3) Sodium 135 L (137-145) mmol/L Potassium 4.3 (3.4-5.1) mmol/L Chloride 98 (98-107) mmol/L Carbon Dioxide 24 (22-32) mmol/L BUN 34 H (9-20) mg/dL Creatinine 1.14 (0.66-1.25) mg/dL Estimated GFR > 60.0 (>60) mL/min BUN/Creatinine Ratio 29.8 H (6-22) Glucose 309 H (80-110) mg/dL Uric Acid 5.3 (3.5-8.5) mg/dL Calcium 8.9 (8.4-10.2) mg/dL Total Bilirubin 0.6 (0.2-1.3) mg/dL AST 21 (17-59) IU/L ALT 18 (<50) IU/L Alkaline Phosphatase 79 (38-126) U/L C-Reactive Protein 27.3 H (<1.0) mg/dL Total Protein 7.1 (6.3-8.2) g/dL Albumin 3.7 (3.5-5.0) g/dL Globulin 3.4 (1.7-4.1) g/dL Albumin/Globulin Ratio 1.1 (1.0-2.8) Procalcitonin 0.34 (<0.5) ng/mL Fluid Crystals (NONE) 10/14/21 10/14/21 Range/Units 17:35 19:47 WBC (4.5-11.0) X10^3/uL RBC (4.5-5.9) X10^6/uL Hgb (13.5-17.5) g/dL Hct (41-53) % MCV (80-100) fL MCH (26-34) PG MCHC (30-36) % RDW (11.6-14.8) % Plt Count (150-400) X10^3/uL Neut % (Auto) (50-75) % Lymph % (Auto) (25-40) % [place] % (Auto) (3-14) % Eos % (Auto) (2-4) % Baso % (Auto) (0-2) % Neut # (Auto) (8372-8182) /uL Lymph # (Auto) (3915-3044) /uL [place] # (Auto) (0-900) /uL Eos # (Auto) (0-450) /uL Baso # (Auto) (0-100) /uL ESR 75 H D (0-15) MM/HR PT (10.1-12.7) SECONDS INR (0.9-1.3) Sodium (137-145) mmol/L Potassium (3.4-5.1) mmol/L Chloride (98-107) mmol/L Carbon Dioxide (22-32) mmol/L BUN (9-20) mg/dL Creatinine (0.66-1.25) mg/dL Estimated GFR (>60) mL/min BUN/Creatinine Ratio (6-22) Glucose (80-110) mg/dL Uric Acid (3.5-8.5) mg/dL Calcium (8.4-10.2) mg/dL Total Bilirubin (0.2-1.3) mg/dL AST (17-59) IU/L ALT (<50) IU/L Alkaline Phosphatase (38-126) U/L C-Reactive Protein (<1.0) mg/dL Total Protein (6.3-8.2) g/dL Albumin (3.5-5.0) g/dL Globulin (1.7-4.1) g/dL Albumin/Globulin Ratio (1.0-2.8) Procalcitonin (<0.5) ng/mL Fluid Crystals None present (NONE) Imaging Data Extremity x-ray #1: Radiologist's Impression: PROCEDURE:? XR ELBOW RT MIN 3V ? INDICATIONS:? R elbow pain ? TECHNIQUE:? 3 views of the elbow were acquired.? ? COMPARISON:? None. ? FINDINGS:? ? Bones:? No fractures or dislocations.? No suspicious bony lesions.? ? Soft tissues:? No elbow joint effusion.? No suspicious soft tissue calcifications.? ? IMPRESSION:? Normal right elbow ?? Dictated by: Moiz Lomeli M.D. on 10/14/2021 at 16:30 ? ? Approved by: Moiz Lomeli M.D. on 10/14/2021 at 16:31 ? [facility] Narrative Medical decision making narrative: This 66-year-old male who has a history of diabetes, pseudogout, chronic left knee pain, currently on Eliquis, allopurinol, colchicine who presented to the emergency department today with anterior arm ecchymosis and right elbow bursitis. He states that he has had posterior right elbow pain for approximately 1 week, denies any known injury and 2-3 days ago he noticed that he had ecchymoses from his right forearm up to his right biceps. He states it is not getting worse and starting to dissipate. Fluid was aspirated from his right olecranon bursa, sent for crystals, culture, Gram stain. Drainage was bloody, without any serosanguineous fluid, lab work was completed which did not show any leukocytosis, his INR is elevated at 1.7, ESR is elevated at 75 compared with his last at 37 in July of 2021 however compared with prior on 04/14/2021 it was 137. Patient had his ESR drawn earlier today at the clinic and his ESR then was 125. Patient's CRP is elevated at 27.3, earlier today his level was 25.2. His CRP on 04/14/2021 was 22.8. Gram stain of right bursa is still pending, culture pending, crystals are also pending. This is not appear to be an infectious process, recommend patient follow-up with Dr. Pelaez tomorrow at his regularly scheduled appointment. He was prescribed diclofenac gel, tramadol as needed, hydrocodone, patient states that he is almost out of his prescribed hydrocodone , and lidocaine patches for his left knee. Patient states he was being worked up for left knee replacement. Patient is appropriate and amenable to discharge home. Vital signs are stable on repeat examination is unremarkable. Patient has been informed of results. Patient has been given strict return to ER precautions for any new or worsening symptoms. Patient understands to follow up closely with outpatient providers as instructed. Patient understands plan and agrees to discharge home. All questions and concerns answered at this time. <Marta Sifuentes, - Last Filed: 10/15/21 07:03> Lab Data Labs: Lab Results 10/14/21 10/14/21 10/14/21 Range/Units 17:35 17:35 17:35 WBC 10.4 (4.5-11.0) X10^3/uL RBC 3.64 L (4.5-5.9) X10^6/uL Hgb 11.5 L (13.5-17.5) g/dL Hct 34.2 L (41-53) % MCV 93.9 (80-100) fL MCH 31.7 (26-34) PG MCHC 33.7 (30-36) % RDW 14.9 H (11.6-14.8) % Plt Count 368 (150-400) X10^3/uL Neut % (Auto) 47.1 L (50-75) % Lymph % (Auto) 20.8 L (25-40) % [place] % (Auto) 8.8 (3-14) % Eos % (Auto) 22.5 H (2-4) % Baso % (Auto) 0.8 (0-2) % Neut # (Auto) 4900 (4884-1795) /uL Lymph # (Auto) 2200 (2743-5647) /uL [place] # (Auto) 900 (0-900) /uL Eos # (Auto) 2300 H (0-450) /uL Baso # (Auto) 100 (0-100) /uL ESR (0-15) MM/HR PT 19.1 H (10.1-12.7) SECONDS INR 1.7 H (0.9-1.3) Sodium 135 L (137-145) mmol/L Potassium 4.3 (3.4-5.1) mmol/L Chloride 98 (98-107) mmol/L Carbon Dioxide 24 (22-32) mmol/L BUN 34 H (9-20) mg/dL Creatinine 1.14 (0.66-1.25) mg/dL Estimated GFR > 60.0 (>60) mL/min BUN/Creatinine Ratio 29.8 H (6-22) Glucose 309 H (80-110) mg/dL Uric Acid 5.3 (3.5-8.5) mg/dL Calcium 8.9 (8.4-10.2) mg/dL Total Bilirubin 0.6 (0.2-1.3) mg/dL AST 21 (17-59) IU/L ALT 18 (<50) IU/L Alkaline Phosphatase 79 (38-126) U/L C-Reactive Protein 27.3 H (<1.0) mg/dL Total Protein 7.1 (6.3-8.2) g/dL Albumin 3.7 (3.5-5.0) g/dL Globulin 3.4 (1.7-4.1) g/dL Albumin/Globulin Ratio 1.1 (1.0-2.8) Procalcitonin 0.34 (<0.5) ng/mL Fluid Crystals (NONE) 10/14/21 10/14/21 Range/Units 17:35 19:47 WBC (4.5-11.0) X10^3/uL RBC (4.5-5.9) X10^6/uL Hgb (13.5-17.5) g/dL Hct (41-53) % MCV (80-100) fL MCH (26-34) PG MCHC (30-36) % RDW (11.6-14.8) % Plt Count (150-400) X10^3/uL Neut % (Auto) (50-75) % Lymph % (Auto) (25-40) % [place] % (Auto) (3-14) % Eos % (Auto) (2-4) % Baso % (Auto) (0-2) % Neut # (Auto) (9385-4107) /uL Lymph # (Auto) (4875-8142) /uL [place] # (Auto) (0-900) /uL Eos # (Auto) (0-450) /uL Baso # (Auto) (0-100) /uL ESR 75 H D (0-15) MM/HR PT (10.1-12.7) SECONDS INR (0.9-1.3) Sodium (137-145) mmol/L Potassium (3.4-5.1) mmol/L Chloride (98-107) mmol/L Carbon Dioxide (22-32) mmol/L BUN (9-20) mg/dL Creatinine (0.66-1.25) mg/dL Estimated GFR (>60) mL/min BUN/Creatinine Ratio (6-22) Glucose (80-110) mg/dL Uric Acid (3.5-8.5) mg/dL Calcium (8.4-10.2) mg/dL Total Bilirubin (0.2-1.3) mg/dL AST (17-59) IU/L ALT (<50) IU/L Alkaline Phosphatase (38-126) U/L C-Reactive Protein (<1.0) mg/dL Total Protein (6.3-8.2) g/dL Albumin (3.5-5.0) g/dL Globulin (1.7-4.1) g/dL Albumin/Globulin Ratio (1.0-2.8) Procalcitonin (<0.5) ng/mL Fluid Crystals None present (NONE) Discharge Plan Departure Patient Disposition: Home Clinical Impression: Pseudogout, Elevated sed rate (elev SR), Elevated C-reactive protein (CRP) Elbow swelling Qualifiers: Laterality: right Qualified Code(s): M25.421 - Effusion, right elbow Acute knee pain Qualifiers: Laterality: left Qualified Code(s): M25.562 - Pain in left knee Instructions: Bursitis, DI for Pseudogout Activity Restrictions/Additional Instructions: *You have been diagnosed with this is most likely bleeding into your bursa. May be there was some trauma or an episode of bleeding in your right elbow because there was blood in the bursa when we kandy back fluid. Your lab work overall is reassuring, your ESR is down from 125 earlier today to 75. You do not have an elevated white count. Your glucose is elevated currently and was 309. Your CRP is 27.3, the last 1 to compare to is on 04/14/2021 and it was 22.8 then. The lab work from your fluid in your elbow is still pending, I will not have these results by the time that you leave today however your primary care provider will be able to see this tomorrow. Please continue your medications as currently prescribed. You can use ice, I have sent tramadol, hydrocodone, diclofenac gel, lidocaine patches to your pharmacy. *What to do: *Please continue to take your regular medications as directed. [ x] New medication prescriptions sent to your pharmacy: [[facility] ] [ ] New medication written as a paper prescription [ ] No new medications given *Please follow up with your primary care provider in 2-3 days, call for an appointment. Let them know you were seen in the Emergency Department and that we asked that you be seen for follow-up. We will electronically transmit a record of today's note if your PCP is in our system *If you do not have a primary care provider please contact [phone] to establish care with one of the [facility] primary care providers. *Return to Emergency Department if you should have any new, worsening or concerning symptoms, such as [fever greater than 101F, chills, worsening pain, persistent vomiting or other bothersome symptoms] Prescriptions: New tramadol 50 mg tablet 50 mg PO DAILY PRN (Reason: pain) Qty: 14 0RF hydrocodone-acetaminophen 5-325 mg tablet 1 tab PO Q8H PRN (Reason: pain) Qty: 14 0RF diclofenac sodium [Voltaren Arthritis Pain] 1 % gel 4 g topical QID PRN (Reason: pain) Qty: 100 0RF Rx Instructions: apply to single knee, ankle, foot; for foot includes sole/toes/top of foot lidocaine 5 % adhesive patch,medicated 1 patch topical DAILY PRN (Reason: knee pain) Qty: 15 0RF Rx Instructions: leave on most painful area for up to 12 hrs No Action aspirin [Enteric Coated Aspirin] 81 mg tablet,delayed release (DR/EC) 81 mg PO DAILY 0RF epinephrine 0.3 mg/0.3 mL auto-injector 0.3 mg IM ONCE PRN (Reason: anaphylaxis) 0RF Rx Instructions: as a single dose (DME) pen needle, diabetic [BD Ultra-Fine Short Pen Needle] 31 gauge x 5/16 needle See Dose Instructions .ROUTE .MEDSUPPLY Qty: 300 3RF Dose Instruction: As directed Rx Instructions: As directed (DME) blood-glucose meter [Blood Glucose Monitoring] kit See Dose Instructions .ROUTE .MEDSUPPLY Qty: 1 0RF Dose Instruction: As directed Rx Instructions: One Touch Ultra Glucose Monitor, check glucose 6 times daily triamcinolone acetonide 0.1 % lotion 1 applic topical DAILY Qty: 60 3RF latanoprost 0.005 % drops 1 drp EYE-BOTH BEDTIME Qty: 7.5 3RF brimonidine 0.2 % drops EYE-BOTH BID 0RF (DME) Blood Glucose Test Strip See Dose Instructions .ROUTE .MEDSUPPLY Qty: 600 3RF Dose Instruction: As directed Rx Instructions: One Touch Ultra Blue Test Strips. Test blood glucose 6 times daily (DME) insulin syringe-needle U-100 [BD Insulin Syringe Ultra-Fine] 1 mL 31 gauge x 5/16 syringe See Dose Instructions .ROUTE .MEDSUPPLY Qty: 600 3RF Dose Instruction: As directed Rx Instructions: Use to inject insulin up to 6 times daily allopurinol 300 mg tablet 300 mg PO DAILY Qty: 90 3RF amlodipine 10 mg tablet 10 mg PO DAILY Qty: 90 3RF carvedilol 12.5 mg tablet 12.5 mg PO BID Qty: 180 3RF Rx Instructions: must administer with a meal/food colchicine 0.6 mg tablet 0.6 mg PO BID Qty: 180 3RF dapagliflozin 10 mg tablet 10 mg PO DAILY Qty: 90 3RF duloxetine 60 mg capsule,delayed release(DR/EC) 60 mg PO DAILY Qty: 90 3RF gabapentin 600 mg tablet 1,200 mg PO BID Qty: 360 3RF olmesartan 40 mg tablet 40 mg PO DAILY Qty: 90 3RF pantoprazole 20 mg tablet,delayed release (DR/EC) 20 mg PO DAILY Qty: 90 3RF ropinirole 2 mg tablet See Rx Instructions PO BID Qty: 270 3RF Rx Instructions: Take one tab each am and 2 tabs at bedtime rosuvastatin 10 mg tablet 10 mg PO DAILY Qty: 90 3RF furosemide 20 mg tablet 20 mg PO DAILY Qty: 90 3RF metformin 500 mg tablet 1,000 mg PO BIDCC Qty: 360 3RF Lantus Solostar U-100 Insulin 100 unit/mL (3 mL) insulin pen 55 unit SUBCUT BID Qty: 135 3RF insulin lispro [Humalog U-100 Insulin] 100 unit/mL solution 5 unit SUBCUT TID Qty: 150 3RF Xarelto 20 mg tablet 20 mg PO QPM Qty: 90 3RF hydrocodone-acetaminophen 5-325 mg tablet 2 tab PO BEDTIME PRN (Reason: pain) Qty: 60 0RF Label Comments: patient states taken a long time ago. 04/25/19 Rx Instructions: EXEMPT dorzolamide-timolol 22.3-6.8 mg/mL drops 1 drp EYE-BOTH BID 0RF Label Comments: INSTILL 1 DROP INTO OU BID cyclobenzaprine 10 mg tablet 10 mg PO TID PRN (Reason: spasms) 0RF Label Comments: patient states taken a long time ago. 04/25/19 Ozempic 0.25 mg or 0.5 mg(2 mg/1.5 mL) pen injector 1 mg SUBCUT QWEEK 0RF (DME) Respironics RemStar CPAP Qty: 1 0RF Dose Instruction: As directed Label Comments: Pressure: 10-18 cmH2O DME: [facility] Instructions: As directed Referrals: Gigi Pelaez MD [Primary Care Provider] - <Marta Sifuentes DO - Last Filed: 10/15/21 07:03> Cosign ED Attending Cosignature Attestation: I saw and evaluated patient myself. He has contusion of his right arm probably from something traumatic and on Eliquis. It does not appear that he had a biceps tendon rupture. Bursa is bloody probably due to trauma and Eliquis. Does not appear to be infectious at this time. I was immediately available in the department for consultation. Documentation has been reviewed. I agree with assessment and plan.
[2021-10-14 17:30] VITALS: PULSE 78; RESP 18; O2SAT 98
[2021-10-14 17:48] LABS: Add Manual Diff / Slide Review NO; Basophils Absolute Auto 100 /uL (0-100); Basophils Percent Auto 0.8 % (0-2); Eosinophils Absolute Auto 2300 /uL (0-450); Eosinophils Percent Auto 22.5 % (2-4); Hematocrit 34.2 % (41-53); Hemoglobin 11.5 g/dL (13.5-17.5); Lymphocytes Absolute Auto 2200 /uL (1100-4500); Lymphocytes Percent Auto 20.8 % (25-40); Mean Corpuscular HGB Conc 33.7 % (30-36); Mean Corpuscular Hemoglobin 31.7 PG (26-34); Mean Corpuscular Volume 93.9 fL (80-100); Monocytes Absolute Auto 900 /uL (0-900); Monocytes Percent Auto 8.8 % (3-14); Neutrophils Absolute Auto 4900 /uL (1500-7000); Neutrophils Percent Auto 47.1 % (50-75); Platelet Count 368 X10^3/uL (150-400); Red Blood Cell Count 3.64 X10^6/uL (4.5-5.9); Red Cell Distribution Width 14.9 % (11.6-14.8); White Blood Cell Count 10.4 X10^3/uL (4.5-11.0)
[2021-10-14] MEDS: LIDO 1%/SOD BICARB 8.4% (10ML) 10 ML SYRINGE INJ (17:49)
[2021-10-14 18:02] LABS: INR 1.7 (0.9-1.3); Prothrombin Time 19.1 SECONDS (10.1-12.7)
[2021-10-14 18:11] LABS: Alanine Aminotransferase 18 IU/L (<50); Albumin 3.7 g/dL (3.5-5.0); Albumin Globulin Ratio 1.1 (1.0-2.8); Alkaline Phosphatase 79 U/L (38-126); Aspartate Aminotransferase 21 IU/L (17-59); BUN Creatinine Ratio 29.8 (6-22); Bilirubin Total 0.6 mg/dL (0.2-1.3); Blood Urea Nitrogen 34 mg/dL (9-20); Calcium 8.9 mg/dL (8.4-10.2); Carbon Dioxide 24 mmol/L (22-32); Chloride 98 mmol/L (98-107); Estimated Glomerular Filt Rate > 60.0 mL/min (>60); Globulin 3.4 g/dL (1.7-4.1); Glucose 309 mg/dL (80-110); HEMOLYSIS < 15 (0-50); Potassium 4.3 mmol/L (3.4-5.1); Sodium 135 mmol/L (137-145); Total Protein 7.1 g/dL (6.3-8.2); Uric Acid 5.3 mg/dL (3.5-8.5)
--- NOTE | 2021-10-14 18:14 | PC.NURSE ---
Ultrasound aware she is currently with patients and will be here as soon as able
[2021-10-14 18:23] LABS: Procalcitonin 0.34 ng/mL (<0.5)
[2021-10-14 18:30] LABS: Erythrocyte Sedimentation Rate 75 MM/HR (0-15)
[2021-10-14 19:07] LABS: C-Reactive Protein Quant 27.3 mg/dL (<1.0)
[2021-10-14] MEDS: LIDOCAINE PATCH 1 EACH ADH..PATCH TOP (19:47)
[2021-10-14] MEDS: HYDROCODONE/ACET 5/325 TABLET 1 TAB PO (19:47)
[2021-10-14 20:03] VITALS: BP 121/57; PULSE 74; O2SAT 97
[2021-10-14 20:07] LABS: Crystals Body Fluid - IN-HOUSE NONE Present
== END 2021-10-14 20:04 | disposition home or self-care (01) ==
PROVIDERS: Emergency Provider Nurse Practitioner Critical Care Medicine; PCP Family Medicine
DX: M25.421 Effusion, right elbow (principal); M25.562 Pain in left knee; M11.262 Other chondrocalcinosis, left knee; R79.82 Elevated C-reactive protein (CRP); R70.0 Elevated erythrocyte sedimentation rate; M25.462 Effusion, left knee; M71.22 Synovial cyst of popliteal space [Baker], left knee
CPT/HCPCS: 23931; 36415; 73080; 80053; 84145; 84550; 85025; 85610; 85651; 86140; 87040; 87070; 87075; 87205; 89060; 99284

== ENCOUNTER → 2022-01-06 17:48 | Outpatient (ROUT) | payer MEDICARE, OTHER, SELFPAY ==
[2020-08-23 14:54] VITALS: PULSE 69; RESP 18; O2SAT 95
== END ==
PROVIDERS: PCP Family Medicine; Visit Provider Orthopaedic Surgery
DX: Z11.2 Encounter for screening for other bacterial diseases (principal)
CPT/HCPCS: 87070; 87075; 87205

== ENCOUNTER → 2022-02-16 08:52 | Outpatient (CLI) | payer MEDICARE, OTHER, SELFPAY ==
[2020-08-23 14:54] VITALS: PULSE 69; RESP 18; O2SAT 95
[2022-02-16 10:40] LABS: BUN Creatinine Ratio 26.1 (6-22); Blood Urea Nitrogen 23 mg/dL (9-20); Calcium 9.4 mg/dL (8.4-10.2); Carbon Dioxide 30 mmol/L (22-32); Chloride 105 mmol/L (98-107); Estimated Glomerular Filt Rate > 60 mL/min (>60); Glucose 176 mg/dL (80-110); HEMOLYSIS < 15 (0-50); Potassium 4.2 mmol/L (3.4-5.1); Sodium 139 mmol/L (137-145)
== END ==
PROVIDERS: PCP Family Medicine; Referring Provider Internal Medicine Nephrology; Visit Provider Internal Medicine Nephrology
DX: N18.2 Chronic kidney disease, stage 2 (mild) (principal)
CPT/HCPCS: 36415; 80048

== ENCOUNTER → 2022-02-22 08:43 | Outpatient (CLI) | payer MEDICARE, OTHER, SELFPAY ==
[2020-08-23 14:54] VITALS: PULSE 69; RESP 18; O2SAT 95
[2022-02-22 09:43] LABS: Add Manual Diff / Slide Review NO; Basophils Absolute Auto 0 /uL (0-100); Basophils Percent Auto 0.2 % (0-2); Eosinophils Absolute Auto 0 /uL (0-450); Hematocrit 34.7 % (41-53); Hemoglobin 11.4 g/dL (13.5-17.5); Lymphocytes Absolute Auto 800 /uL (1100-4500); Lymphocytes Percent Auto 4.7 % (25-40); Mean Corpuscular HGB Conc 32.8 % (30-36); Mean Corpuscular Hemoglobin 28.8 PG (26-34); Mean Corpuscular Volume 87.6 fL (80-100); Monocytes Absolute Auto 800 /uL (0-900); Monocytes Percent Auto 4.6 % (3-14); Neutrophils Absolute Auto 15500 /uL (1500-7000); Neutrophils Percent Auto 90.5 % (50-75); Platelet Count 190 X10^3/uL (150-400); Red Blood Cell Count 3.96 X10^6/uL (4.5-5.9); Red Cell Distribution Width 20.1 % (11.6-14.8); White Blood Cell Count 17.1 X10^3/uL (4.5-11.0)
[2022-02-22 10:08] LABS: Alanine Aminotransferase 20 IU/L (<50); Albumin 3.4 g/dL (3.5-5.0); Albumin Globulin Ratio 1.3 (1.0-2.8); Alkaline Phosphatase 81 U/L (38-126); Aspartate Aminotransferase 25 IU/L (17-59); BUN Creatinine Ratio 24.2 (6-22); Bilirubin Total 0.6 mg/dL (0.2-1.3); Blood Urea Nitrogen 29 mg/dL (9-20); Calcium 8.6 mg/dL (8.4-10.2); Carbon Dioxide 26 mmol/L (22-32); Chloride 100 mmol/L (98-107); Estimated Glomerular Filt Rate > 60 mL/min (>60); Globulin 2.6 g/dL (1.7-4.1); Glucose 226 mg/dL (80-110); HEMOLYSIS < 15 (0-50); Potassium 4.6 mmol/L (3.4-5.1); Sodium 136 mmol/L (137-145); Uric Acid 5.7 mg/dL (3.5-8.5)
[2022-02-22 10:27] LABS: Erythrocyte Sedimentation Rate 68 MM/HR (0-15)
[2022-02-22 10:30] LABS: C-Reactive Protein Quant 25.2 mg/dL (<1.0)
[2022-02-22 10:59] LABS: Anisocytosis 1+
[2022-02-23 07:27] LABS: Acinetobacter baumannii Not Detected (Not Detect); Candida albicans Not Detected (Not Detect); Candida glabrata Not Detected (Not Detect); Candida krusei Not Detected (Not Detect); Candida parapsilosis Not Detected (Not Detect); Candida tropicalis Not Detected (Not Detect); E. coli Not Detected (Not Detect); Enterobacter cloacae complex Not Detected (Not Detect); Enterobacteriaceae species Not Detected (Not Detect); Enterococcus species Not Detected (Not Detect); Haemophilus influenzae Not Detected (Not Detect); Listeria monocytogenes Not Detected (Not Detect); Methicillin-resistant gene Not Detected (Not Detect); Neisseria meningitidis Not Detected (Not Detect); Proteus species Not Detected (Not Detect); Pseudomonas aeruginosa Not Detected (Not Detect); Serratia marcescens Not Detected (Not Detect); Staphylococcus species Detected (Not Detect); Streptococcus agalactiae (Gr B Not Detected (Not Detect); Streptococcus pneumonia Not Detected (Not Detect); Streptococcus pyogenes (Gr A) Not Detected (Not Detect); Streptococcus species Not Detected (Not Detect)
== END ==
PROVIDERS: PCP Family Medicine; Referring Provider Family Medicine; Visit Provider Family Medicine
DX: M25.50 Pain in unspecified joint (principal); R50.9 Fever, unspecified
CPT/HCPCS: 36415; 80053; 84550; 85025; 85651; 86140; 87040; 87150

== ENCOUNTER 2022-02-23 11:30 | Inpatient (IN) | payer MEDICARE, OTHER, SELFPAY ==
[2020-08-23 14:54] VITALS: PULSE 69; RESP 18; O2SAT 95
[2022-02-23] VITALS (27 sets, daily range): BP systolic 87–116; BP diastolic 50–59; PULSE 81–89; RESP 15–25; TEMP 36.3–37.4; O2SAT 86–97; BMI 33.0
--- NOTE | 2022-02-23 11:50 | DI.RAD.S_ITS ---
PROCEDURE: XR CHEST 1V INDICATIONS: suspected sepsis TECHNIQUE: One view of the chest was acquired. COMPARISON: [facility], CR, XR CHEST 1V, 08/23/2020, 13:30. FINDINGS: Surgical changes and devices: Median sternotomy wires and atrial appendage clip is again seen and unchanged. Fusion hardware in lower cervical spine is also noted and unchanged. Lungs and pleura: Subtle increased opacity in bilateral infrahilar region are seen concerning for small infiltrate/atelectasis. No pleural effusions or pneumothorax. Mediastinum: Mediastinal contours appear normal. Heart size is enlarged. Bones and chest wall: No suspicious bony lesions. Overlying soft tissues appear unremarkable. IMPRESSION: Finding may represent small bibasilar infiltrate/atelectasis. No pleural effusion or pneumothorax. Dictated by: Pedrito Bojorquez M.D. on 02/23/2022 at 12:36 Approved by: Pedrito Bojorquez M.D. on 02/23/2022 at 12:37
--- NOTE | 2022-02-23 11:54 | ED.GENADULT ---
HPI - General Adult General Chief complaint: Fever Stated complaint: Blood infection- sent by Dr Pelaez Time Seen by Provider: 02/23/22 11:54 History of Present Illness HPI narrative: 66-year-old gentleman with a history of diabetes, hypertension, osteoarthritis with recurrent episodes of pseudogout, coronary artery disease who presented yesterday to his primary care physician complaining of myalgias and generally feeling unwell. No specific cough, vomiting, diarrhea. Not complaining of significant headache neck pain, palpitations, skin changes or lower extremity edema. Does note that his left knee seems to be flaring with pseudogout as is his right wrist. His notes that he has been increasingly somnolent and slightly more confused over the last 24-36 hours. Blood work was done by his primary care with significant abnormalities including an elevated lactic acid, white blood cell count and procalcitonin. He sent into the emergency room today as he does seem to be worsening. Related Data Home Medications Medication Instructions Recorded Confirmed semaglutide 0.25 mg or 0.5 mg (2 1 mg SUBCUT QWEEK 03/15/19 02/23/22 mg/1.5 mL) subcutaneous pen injector (Fangxinmei) cyclobenzaprine 10 mg tablet 10 mg PO TID PRN spasms 04/25/19 02/23/22 aspirin 81 mg tablet,delayed 81 mg PO DAILY 09/10/20 02/23/22 release (Enteric Coated Aspirin) epinephrine 0.3 mg/0.3 mL 0.3 mg IM ONCE PRN anaphylaxis 09/10/20 02/23/22 injection, auto-injector glucagon 1 mg solution for 1 mg SUBCUT Q20M PRN Hypoglycemia 02/15/22 02/23/22 injection hydrocodone 5 mg-acetaminophen 325 1 tab PO Q6H PRN pain 02/23/22 02/23/22 mg tablet sucralfate 1 gram tablet (Carafate) 1 g PO QID stomach irritation 02/23/22 02/23/22 tamsulosin 0.4 mg capsule (Flomax) 0.4 mg PO DAILY PRN Urinary 02/23/22 02/23/22 Retention tramadol 50 mg tablet 50 mg PO Q6HR 02/23/22 02/23/22 triamcinolone acetonide 0.1 % 1 applic topical DAILY PRN Rash 02/23/22 02/23/22 lotion Previous Rx's Medication Instructions Recorded allopurinol 300 mg tablet 300 mg PO DAILY #90 tabs 03/24/21 amlodipine 10 mg tablet 10 mg PO DAILY #90 tabs 03/24/21 carvedilol 12.5 mg tablet 12.5 mg PO BID #180 tabs 03/24/21 colchicine 0.6 mg tablet 0.6 mg PO BID #180 tabs 03/24/21 dapagliflozin 10 mg tablet 10 mg PO DAILY #90 tabs 03/24/21 duloxetine 60 mg capsule,delayed 60 mg PO DAILY #90 caps 03/24/21 release furosemide 20 mg tablet 20 mg PO DAILY #90 tabs 03/24/21 gabapentin 600 mg tablet 1,200 mg PO BID #360 tabs 03/24/21 olmesartan 40 mg tablet 40 mg PO DAILY #90 tabs 03/24/21 pantoprazole 20 mg tablet,delayed 20 mg PO DAILY #90 tabs 03/24/21 release ropinirole 2 mg tablet See Rx Instructions PO BID #270 03/24/21 tabs rosuvastatin 10 mg tablet 10 mg PO DAILY #90 tabs 03/24/21 insulin glargine 100 unit/mL (3 55 unit (0.55 mL) SUBCUT BID #135 03/26/21 mL) subcutaneous pen (Lantus mL Solostar U-100 Insulin) insulin lispro 100 unit/mL 5 unit (0.05 mL) SUBCUT TID #150 mL 03/26/21 subcutaneous solution (Humalog U-100 Insulin) metformin 500 mg tablet 1,000 mg PO BIDCC #360 tabs 03/26/21 rivaroxaban 20 mg tablet (Xarelto) 20 mg PO QPM #90 tabs 06/15/21 prednisone 10 mg tablet 10 mg PO DAILY #30 tabs 02/22/22 Allergies Allergy/AdvReac Type Severity Reaction Status Date / Time Iodinated Contrast Media Allergy Severe Anaphylaxis Verified 02/23/22 12:07 LOLY Inhibitors AdvReac Mild cough Verified 02/23/22 12:07 [LOLY INHIBITORS] shrimp Allergy Severe blotchy Uncoded 02/23/22 12:07 eyes, edema contrast dye Allergy Anaphylaxis Uncoded 02/23/22 12:07 Review of Systems Review of Systems Narrative: Remainder of complete review of systems is otherwise unremarkable except for that included in the HPI. 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 (07/29/15) Primary osteoarthritis of left knee (03/03/16) Restless legs syndrome (04/24/15) Squamous cell carcinoma of nose (2004) Type 2 diabetes mellitus with other skin ulcer (04/24/15) Wound healing, delayed Wound, open, foot Surgical History History of carpal tunnel repair (1977) History of coronary artery stent placement (04/2014) Hx of inguinal hernia surgery (1977) S/P CABG x 3 S/P CABG x 3 Status post arthroscopy Status post rotator cuff repair Family History Father Coronary artery disease Alcoholism Sudden Other Depression Social History marital status: details: jose Marx, lives in [place] household members: spouse lives independently: Yes caregiver/support person: No housing: house princess/faith: [employer] / Y[employer]anism Smoking Status: Never smoker alcohol intake: never substance use type: does not use eating out: 1-3 times/week Type(s) of exercise: walking, aerobic, bicycling, advised to exercise at least 150 min/week (moderate intensity aerobic) and advised to perform resistance training at least 2x/week Smoking Status: Never smoker alcohol intake frequency: holidays/special occasions only Substance Use Type: does not use Exam Initial Vital Signs Initial Vital Signs: Vital Signs Pulse Rate 88 02/23/22 11:46 Blood Pressure 102/53 L 02/23/22 11:46 Pulse Oximetry 95 02/23/22 11:46 General: Chronically ill-appearing, appears fatigued able confirm history but most of the history is supplied by his HEENT: Moist mucous membranes, normal sclera with reactive pupils, Neck: No JVD, supple Respiratory: Lungs are clear to auscultation, no wheezing no rales no rhonchi. Full and symmetrical air movement Cardiac: Regular rate and rhythm no murmurs no bruits Abdomen: Soft, nontender, good bowel tones, no flank pain Skin: Warm and dry, no rashes, chronic venous stasis changes Neurologic: Grossly neurologically intact with no obvious asymmetries or abnormalities Extremities: No trauma, well perfused. Right wrist is swollen and warm to the touch more consistent with acute arthritis rather than infection. Left knee with minor effusion no erythema or warmth. Psych: Cooperative, mild confusion, fatigue Course Orders Ordered: ED Orders 02/23/22 11:50 XR chest 1V Stat EKG-12 Lead Stat 02/23/22 12:09 COVID19 -Nasal RAPID/Pre-Proc Stat 02/23/22 12:35 Blood Culture Stat Complete Blood Count AUTO DIFF Stat Comprehensive Metabolic Panel Stat Lactate (Lactic Acid) Stat Lipase Stat Procalcitonin Stat 02/23/22 14:32 CT abdomen pelvis wo con Stat Acetaminophen (Acetaminophen 325 Mg Tablet) 650 mg PO Q6HR PRN PRN Reason: Fever/Mild Pain (1-3) Hydrocodone Bitart/Acetaminophen (Hydrocodone/Acet 5/325 Tablet) 1 tab PO Q4HR PRN PRN Reason: Pain, Moderate (4-6) Allopurinol (Allopurinol 300 Mg Tablet) 300 mg PO DAILY MELANIE Aspirin (Aspirin Ec 81 Mg Tablet) 81 mg PO DAILY MELANIE Colchicine (Colchicine 0.6 Mg Tablet) 0.6 mg PO BID MELANIE Dextrose (Dextrose 50 % In Water 25 Gm/50 Ml Syringe) 25 gm IV PRN PRN PRN Reason: Hypoglycemia Docusate Sodium (Docusate 100 Mg Capsule) 100 mg PO BID MELANIE Duloxetine HCl (Duloxetine 30 Mg Capsule) 60 mg PO DAILY MELANIE Gabapentin (Gabapentin 600 Mg Tablet) 1,200 mg PO BID MELANIE Piperacillin Sod/Tazobactam (Sod 3.375 gm/ Sodium Chloride) 100 mls @ 25 mls/hr IV Q8H MELANIE Lactated Ringer's (Lactated Ringers) 1,000 mls @ 150 mls/hr IV CONT MELANIE Last Admin: 02/23/22 18:29 Dose: 150 mls/hr Documented By: TLS Insulin Glargine (Insulin Glargine 100 Unit/Ml 3ml Pen) 55 unit SUBCUT BEDTIME MELANIE Insulin Human Lispro (Insulin Lispro 100 Unit/Ml 3ml Vial) 0 unit SUBCUT ACHS [facility]; Protocol Last Admin: 02/23/22 16:29 Dose: Not Given Documented By: BT Oxycodone HCl (Oxycodone Ir 10 Mg Tablet) 10 mg PO Q4HR PRN PRN Reason: Pain, Severe (7-10) Pantoprazole Sodium (Pantoprazole Dr 20 Mg Tablet) 20 mg PO DAILY MELANIE Rivaroxaban (Rivaroxaban 10 Mg Tablet) 20 mg PO QPM MELANIE Last Admin: 02/23/22 16:46 Dose: 20 mg Documented By: BT Ropinirole HCl (Ropinirole 1 Mg Tablet) 1 mg PO DAILY MELANIE Ropinirole HCl (Ropinirole 1 Mg Tablet) 2 mg PO BEDTIME MELANIE Tamsulosin HCl (Tamsulosin 0.4 Mg Capsule) 0.4 mg PO BEDTIME MELANIE Discontinued Medications Sodium Chloride (Normal Saline 0.9%) 1,000 mls @ 1,000 mls/hr IV BOLUS ONE Stop: 02/23/22 12:49 Last Admin: 02/23/22 13:30 Dose: Not Given Documented By: ARUN Sodium Chloride (Normal Saline 0.9%) 3,320.31 mls @ 1,106.77 mls/hr 30 ml/kg infuse over 3 hr (3320.31 ml) IV NOW ONE Stop: 02/23/22 15:21 Last Infusion: 02/23/22 16:31 Dose: 1,106.77 mls/hr Documented By: Infusion: 02/23/22 15:39 Dose: 1,106.77 mls/hr Documented By: Infusion: 02/23/22 15:34 Dose: 0 mls/hr Documented By: Admin: 02/23/22 12:22 Dose: 1,106.77 mls/hr Documented By: BS Piperacillin Sod/Tazobactam (Sod 4.5 gm/ Sodium Chloride) 100 mls @ 200 mls/hr IV NOW ONE Stop: 02/23/22 12:23 Last Infusion: 02/23/22 13:56 Dose: 0 mls/hr Documented By: Admin: 02/23/22 13:20 Dose: 200 mls/hr Documented By: ARUN Vancomycin HCl/Dextrose (Vancomycin) 1,500 mg in 300 mls @ 200 mls/hr IV NOW ONE Stop: 02/23/22 14:59 Last Infusion: 02/23/22 16:30 Dose: 200 mls/hr Documented By: Infusion: 02/23/22 15:36 Dose: 200 mls/hr Documented By: Admin: 02/23/22 13:58 Dose: 200 mls/hr Documented By: BRIE Lactated Ringer's (Lactated Ringers) 1,000 mls @ 150 mls/hr IV CONT MELANIE Last Admin: 02/23/22 16:30 Dose: Not Given Documented By: LEXIS Vancomycin HCl (Vancomycin Per Pharmacy) 1 request MISC NOW ONE Stop: 02/23/22 12:23 Last Admin: 02/23/22 14:12 Dose: Not Given Documented By: BRIE Vital Signs Vital signs: Vital Signs - 8 hr 02/23/22 11:51 02/23/22 11:46 02/23/22 11:46 Temperature 98 F Pulse Rate 86 88 Respiratory Rate 20 Blood Pressure 102/53 L 102/53 L Pulse Oximetry 94 95 Oxygen Delivery Method Room Air Oxygen Flow Rate 02/23/22 11:54 02/23/22 11:54 02/23/22 12:00 Temperature Pulse Rate 89 Respiratory Rate Blood Pressure 91/52 L 87/51 L Pulse Oximetry 94 Oxygen Delivery Method Oxygen Flow Rate 02/23/22 12:00 02/23/22 12:20 02/23/22 12:20 Temperature Pulse Rate 87 87 Respiratory Rate 25 H Blood Pressure 97/54 L Pulse Oximetry 97 94 Oxygen Delivery Method Oxygen Flow Rate 02/23/22 12:30 02/23/22 12:53 02/23/22 12:54 Temperature 98.5 F Pulse Rate 85 Respiratory Rate 24 20 22 Blood Pressure Pulse Oximetry 93 86 L 91 Oxygen Delivery Method Room Air Nasal Cannula Oxygen Flow Rate 1 02/23/22 12:40 02/23/22 12:40 02/23/22 12:50 Temperature Pulse Rate 86 85 Respiratory Rate 23 24 Blood Pressure 99/50 L Pulse Oximetry 94 89 L Oxygen Delivery Method Room Air Oxygen Flow Rate 02/23/22 12:50 02/23/22 13:00 02/23/22 13:00 Temperature Pulse Rate 85 Respiratory Rate 23 Blood Pressure 103/54 L 108/56 L Pulse Oximetry 93 Oxygen Delivery Method Nasal Cannula Oxygen Flow Rate 1 02/23/22 13:10 02/23/22 13:10 02/23/22 13:20 Temperature Pulse Rate 84 Respiratory Rate 23 Blood Pressure 104/55 L 107/58 L Pulse Oximetry 95 Oxygen Delivery Method Oxygen Flow Rate 02/23/22 13:20 02/23/22 13:30 02/23/22 13:30 Temperature Pulse Rate 84 84 Respiratory Rate 23 24 Blood Pressure 110/59 L Pulse Oximetry 95 94 Oxygen Delivery Method Oxygen Flow Rate 02/23/22 13:40 02/23/22 13:40 02/23/22 13:50 Temperature Pulse Rate 84 83 Respiratory Rate 22 23 Blood Pressure 112/58 L Pulse Oximetry 94 Oxygen Delivery Method Oxygen Flow Rate 02/23/22 13:50 02/23/22 14:00 02/23/22 14:00 Temperature Pulse Rate 83 Respiratory Rate 23 Blood Pressure 104/56 L 110/57 L Pulse Oximetry 95 Oxygen Delivery Method Oxygen Flow Rate 02/23/22 14:10 02/23/22 14:10 02/23/22 14:20 Temperature Pulse Rate 84 Respiratory Rate 24 Blood Pressure 100/55 L 114/56 L Pulse Oximetry 96 Oxygen Delivery Method Oxygen Flow Rate 02/23/22 14:20 02/23/22 14:30 02/23/22 14:30 Temperature Pulse Rate 81 81 Respiratory Rate 24 23 Blood Pressure 110/55 L Pulse Oximetry 95 94 Oxygen Delivery Method Oxygen Flow Rate Medical Decision Making Lab Data Result diagrams: 02/23/22 12:35 02/23/22 12:35 Labs: Lab Results 02/23/22 02/23/22 02/23/22 Range/Units 12:09 12:09 12:35 WBC 12.2 H (4.5-11.0) X10^3/uL RBC 3.57 L (4.5-5.9) X10^6/uL Hgb 10.3 L (13.5-17.5) g/dL Hct 31.0 L (41-53) % MCV 86.9 (80-100) fL MCH 28.8 (26-34) PG MCHC 33.1 (30-36) % RDW 19.6 H (11.6-14.8) % Plt Count 164 (150-400) X10^3/uL Neut % (Auto) 87.9 H (50-75) % Lymph % (Auto) 6.4 L (25-40) % Clark % (Auto) 5.2 (3-14) % Eos % (Auto) 0.4 L (2-4) % Baso % (Auto) 0.1 (0-2) % Neut # (Auto) 20798 H (2997-4377) /uL Lymph # (Auto) 800 L (1567-1601) /uL Clark # (Auto) 600 (0-900) /uL Eos # (Auto) 0 (0-450) /uL Baso # (Auto) 0 (0-100) /uL Sodium (137-145) mmol/L Potassium (3.4-5.1) mmol/L Chloride (98-107) mmol/L Carbon Dioxide (22-32) mmol/L BUN (9-20) mg/dL Creatinine (0.66-1.25) mg/dL Estimated GFR (>60) mL/min BUN/Creatinine Ratio (6-22) Glucose (80-110) mg/dL Lactate (0.7-2.1) mmol/L Calcium (8.4-10.2) mg/dL Total Bilirubin (0.2-1.3) mg/dL AST (17-59) IU/L ALT (<50) IU/L Alkaline Phosphatase (38-126) U/L Total Protein (6.3-8.2) g/dL Albumin (3.5-5.0) g/dL Globulin (1.7-4.1) g/dL Albumin/Globulin Ratio (1.0-2.8) Lipase (23-300) U/L Procalcitonin (<0.5) ng/mL Fluid Color Cancelled Fluid Appearance Cancelled Fluid RBC Cancelled Fld Tot Nucleated Cell Cancelled Fluid Polynuclear WBCs Cancelled Fluid Mononuclear WBCs Cancelled Fluid Eosinophils Cancelled Fluid Other Cells Cancelled Body Fluid Clot Cancelled SARS-CoV-2 (PCR) Negative (Negative) 02/23/22 02/23/22 Range/Units 12:35 12:35 WBC (4.5-11.0) X10^3/uL RBC (4.5-5.9) X10^6/uL Hgb (13.5-17.5) g/dL Hct (41-53) % MCV (80-100) fL MCH (26-34) PG MCHC (30-36) % RDW (11.6-14.8) % Plt Count (150-400) X10^3/uL Neut % (Auto) (50-75) % Lymph % (Auto) (25-40) % Clark % (Auto) (3-14) % Eos % (Auto) (2-4) % Baso % (Auto) (0-2) % Neut # (Auto) (7347-7356) /uL Lymph # (Auto) (4394-2557) /uL Clark # (Auto) (0-900) /uL Eos # (Auto) (0-450) /uL Baso # (Auto) (0-100) /uL Sodium 134 L (137-145) mmol/L Potassium 4.0 (3.4-5.1) mmol/L Chloride 98 (98-107) mmol/L Carbon Dioxide 24 (22-32) mmol/L BUN 47 H (9-20) mg/dL Creatinine 1.62 H (0.66-1.25) mg/dL Estimated GFR 47 L (>60) mL/min BUN/Creatinine Ratio 29.0 H (6-22) Glucose 175 H (80-110) mg/dL Lactate 3.0 H (0.7-2.1) mmol/L Calcium 8.5 (8.4-10.2) mg/dL Total Bilirubin 0.5 (0.2-1.3) mg/dL AST 35 (17-59) IU/L ALT 20 (<50) IU/L Alkaline Phosphatase 95 (38-126) U/L Total Protein 6.2 L (6.3-8.2) g/dL Albumin 3.2 L (3.5-5.0) g/dL Globulin 3.0 (1.7-4.1) g/dL Albumin/Globulin Ratio 1.1 (1.0-2.8) Lipase 12 L (23-300) U/L Procalcitonin 12.6 H (<0.5) ng/mL Fluid Color Fluid Appearance Fluid RBC Fld Tot Nucleated Cell Fluid Polynuclear WBCs Fluid Mononuclear WBCs Fluid Eosinophils Fluid Other Cells Body Fluid Clot SARS-CoV-2 (PCR) (Negative) Imaging Data Chest x-ray: Radiologist's Impression: FINDINGS:? ? Surgical changes and devices:? Median sternotomy wires and atrial appendage clip is again seen and unchanged.? Fusion hardware in lower cervical spine is also noted and unchanged. ? Lungs and pleura:? Subtle increased opacity in bilateral infrahilar region are seen concerning for small infiltrate/atelectasis.? No pleural effusions or pneumothorax.? ? Mediastinum:? Mediastinal contours appear normal.? Heart size is enlarged.? ? Bones and chest wall:? No suspicious bony lesions.? Overlying soft tissues appear unremarkable.? ? IMPRESSION:? Finding may represent small bibasilar infiltrate/atelectasis.? No pleural effusion or pneumothorax. ? ? Dictated by: Pedrito Bojorquez M.D. on 02/23/2022 at 12:36 ? ? ECG Data Interpretation: Sinus rhythm with first-degree AV block Left axis deviation No acute ischemic changes MDM Narrative Medical decision making narrative: 56-year-old gentleman with multiple chronic medical issues presenting with fever increasing weakness leukocytosis elevated lactic acid without obvious infectious source. Blood cultures are positive with Staph aureus drawn yesterday at 8:15 a.m. I did do a bedside ultrasound of his right wrist and there was a bit of intra-articular fluid however I was unable to obtain any synovial fluid with single attempt at joint aspiration. His left knee is chronically swollen it is not warm to the touch I do not think that this is a septic joint. There are no skin changes or cellulitis. He has responded nicely to initial fluid boluses vancomycin and Zosyn. As a still have no source for his infection I am going to do a CT scan of his abdomen. He will be admitted to Dr. Campo or his covering partner today. Findings reviewed with patient and his questions are answered he is safe for transfer to the floor. After the 1 L and a half of fluids his blood pressure is in the 110/65 range in continues to show adequate peripheral perfusion. 233 care is reviewed with Dr. Pelaez. He will admit the patient. CT scan of the abdomen is still pending as we do not have a source for his infection. Patient continues to improve with fluid resuscitation. He is safe for transfer to the floor Additional Information: Severe Sepsis Criteria [ x] bacterial source of infection suspected and documented [ ] 2 SIRS Criteria met [ ] HR >90 [ ] RR >20 [ x ] fever or hypothermia [ x ] leukocytosis/leukopenia/bandemia [ ] Evidence of at least 1 organ system dysfunction [x ] Lactate > 2 [ ] BP < 90 or MAP <65, >40mm decrease from normal baseline [ ] Creat > 2.0 [ ] T. Bili > 2.0 [ ] platelet count < 100k [ x ] altered mental status [ ] mechanical ventilation [ ] provider documentation of severe sepsis Severe Sepsis Determination. the patient has been screened and [ x] DOES meet criteria for severe sepsis [ ] DOES NOT meet criteria for severe sepsis Goal directed treatment Within 3 hours [ x ] blood cx drawn prior to abx [ x ] broad spectrum abx started [ x ] lactic acid level checked [ x] lactic redrawn within 6 hours if >2.0 Septic Shock Criteria [ ] lactic > 4 at any time [ ] SBP ,90 or MAP , 65 [ ] documentation of septic shock Time Septic Shock diagnosed: [ ] Septic Shock Determination. the patient has been screened and [ ] DOES meet criteria for septic shock [x ] DOES NOT meet criteria for septic shock Goal directed therapy within 3 hours of septic shock or initial hypotension [ x] 30ml/kg fluid [ ] ABW used [ ] IBW (33.6) used due to BMI > 30 [ ] patient or advocate declining fluid administration after shared decision making conversation Clinical reason for NOT initiating fluid bolus: Within 6 hours (if continued hypotension after fluids or initial lactate >4) [ ] repeat volume status and tissue perfusion assessment documented after fluid bolus was completed at [Date/Time] Must include vital signs, cardiopulmonary exam, capillary refill, peripheral pulse evaluation, skin exam [ ] Initiate vasopressor therapy if persistent hypotension after adequate fluid bolus Discharge Plan Departure Patient Disposition: Admitted As Inpatient Clinical Impression: Blood bacterial culture positive Sepsis Qualifiers: Sepsis type: sepsis due to unspecified organism Sepsis acute organ dysfunction status: with acute organ dysfunction Severe sepsis acute organ dysfunction type: acute renal failure Acute renal failure type: unspecified Severe sepsis shock status: without septic shock Qualified Code(s): A41.9 - Sepsis, unspecified organism Admit Date/Time: 02/23/22 14:34 Admit Provider: Gigi Pelaez
[2022-02-23] MEDS: SODIUM CHLORIDE 0.9% 1106.77 ML IV (12:22)
[2022-02-23 12:58] LABS: Add Manual Diff / Slide Review NO; Basophils Absolute Auto 0 /uL (0-100); Basophils Percent Auto 0.1 % (0-2); Eosinophils Absolute Auto 0 /uL (0-450); Eosinophils Percent Auto 0.4 % (2-4); Hemoglobin 10.3 g/dL (13.5-17.5); Lymphocytes Absolute Auto 800 /uL (1100-4500); Lymphocytes Percent Auto 6.4 % (25-40); Mean Corpuscular HGB Conc 33.1 % (30-36); Mean Corpuscular Hemoglobin 28.8 PG (26-34); Mean Corpuscular Volume 86.9 fL (80-100); Monocytes Absolute Auto 600 /uL (0-900); Monocytes Percent Auto 5.2 % (3-14); Neutrophils Absolute Auto 10700 /uL (1500-7000); Neutrophils Percent Auto 87.9 % (50-75); Platelet Count 164 X10^3/uL (150-400); Red Blood Cell Count 3.57 X10^6/uL (4.5-5.9); Red Cell Distribution Width 19.6 % (11.6-14.8); White Blood Cell Count 12.2 X10^3/uL (4.5-11.0)
[2022-02-23 13:17] LABS: Alanine Aminotransferase 20 IU/L (<50); Albumin 3.2 g/dL (3.5-5.0); Albumin Globulin Ratio 1.1 (1.0-2.8); Alkaline Phosphatase 95 U/L (38-126); Aspartate Aminotransferase 35 IU/L (17-59); Bilirubin Total 0.5 mg/dL (0.2-1.3); Blood Urea Nitrogen 47 mg/dL (9-20); Calcium 8.5 mg/dL (8.4-10.2); Carbon Dioxide 24 mmol/L (22-32); Chloride 98 mmol/L (98-107); Estimated Glomerular Filt Rate 47 mL/min (>60); Glucose 175 mg/dL (80-110); HEMOLYSIS < 15 (0-50); Lipase 12 U/L (23-300); Sodium 134 mmol/L (137-145); Total Protein 6.2 g/dL (6.3-8.2)
[2022-02-23] MEDS: PIPERACILLIN/TAZO 4.5 GM in SODIUM CHLORIDE 0.9% 100 ML IV (13:20)
[2022-02-23 13:32] LABS: Procalcitonin 12.6 ng/mL (<0.5)
[2022-02-23 13:34] LABS: COVID19 -Nasal RAPID Negative (Negative)
[2022-02-23] MEDS: VANCOMYCIN 1,500 MG/300 ML PIGGYBACK 200 MG IV (13:58)
--- NOTE | 2022-02-23 14:30 | P.HP_ITS ---
History of Present Illness History of Present Illness Date Patient Seen: 02/23/22 Time Patient Seen: 15:29 Chief complaint: Blood infection- sent by Dr Pelaez Narrative: 66-year-old male with coronary artery disease status post coronary artery stenting and CABG insulin-dependent diabetes with diabetic nephropathy neuropathy hypertension hyperlipidemia obstructive sleep apnea with obesity significant arthritis restless leg syndrome patient presented to the clinic yesterday with not feeling well symptoms. Patient was weak his noticed he was a little bit pale. 24 hours before arrival to the clinic patient had 1 episode of fever. Patient began to have multiple areas of joint pain including his knee wrists and shoulders. Patient has a history of significant osteoarthritis and pseudogout. Patient has had episodes of weakness low-grade fevers and inflammatory markers elevation 2 or 3 times in the past few years. Patient has had a workup for bacterial infections with blood cultures echocardiogram including AMANDA to rule out valvular vegetations. Despite this patient has not had any obvious source of infection with workup over the past 1- 2 years with these events are episodes. His episode he presents with that today is very similar to his previous episodes. After evaluation in the clinic blood work was done including blood cultures and white blood cell count. Patient was discharged home with his closely monitoring him who was a nurse. Patient's blood work came back positive this morning with a blood culture patient was contacted his and patient was brought to the emergency department His states that last night was a little bit of a rough night he was a little bit confused. Trying to bring him into the emergency department he was very weak and had a hard time standing and had a little bit of a fall. On arrival to the emergency department patient was found to have a solid systolic blood pressure of 87 and diastolic pressed pressure of 51 which is considered quite hypotensive for the patient. Patient was not significantly tachycardic patient is on a beta-sis. His temperature was 98.5 his his temp erature was at home was 100.1. because of patient's hypotensive status is weakness and positive blood culture. Patient was treated for sepsis. Patient had additional blood work testing done which showed elevated lactic acid elevated white blood cell count elevated procalcitonin. Patient was given appropriate antibiotics fluid resuscitation. A my evaluation in the patient is not hypoxic blood pressures are a little bit soft. He is not mentating normally and not a good historian his is at the bedside. He says he is tired and weak and his joints hurt. 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 (07/29/15) Primary osteoarthritis of left knee (03/03/16) Restless legs syndrome (04/24/15) Squamous cell carcinoma of nose (2004) Type 2 diabetes mellitus with other skin ulcer (04/24/15) Wound healing, delayed Wound, open, foot Surgical History History of carpal tunnel repair (1977) History of coronary artery stent placement (04/2014) Hx of inguinal hernia surgery (1977) S/P CABG x 3 S/P CABG x 3 Status post arthroscopy Status post rotator cuff repair Family & Social History Family History Father Coronary artery disease Alcoholism Sudden Other Depression Social History: household members spouse lives independently Yes caregiver/support person No Safety & Behavioral: Feels Safe in Current Yes Environment Been Physically Hurt or No Threatened By a Person Tobacco & Substance use: Smoking Status Never smoker alcohol intake never alcohol intake frequency holiday/special occasion Substance Use Type does not use Meds Home Medications and Allergies Home Medications Medication Instructions Recorded Confirmed Type pen needle, diabetic 31 gauge x #300 ea 07/06/18 08/20/21 Rx 5/16 (BD Ultra-Fine Short Pen Needle) blood-glucose meter (Blood Glucose #1 ea 07/20/18 08/20/21 Rx Monitoring kit) Respironics RemStar CPAP #1 ea 11/13/18 08/20/21 History semaglutide 0.25 mg or 0.5 mg (2 1 mg SUBCUT QWEEK 03/15/19 08/20/21 History mg/1.5 mL) subcutaneous pen injector (Ozempic) cyclobenzaprine 10 mg tablet 10 mg PO TID PRN spasms 04/25/19 08/20/21 History dorzolamide 22.3 mg-timolol 6.8 1 drp EYE-BOTH BID 04/25/19 08/20/21 History mg/mL eye drops triamcinolone acetonide 0.1 % 1 applic topical DAILY #60 mL 08/22/20 08/20/21 Rx lotion aspirin 81 mg tablet,delayed 81 mg PO DAILY 09/10/20 08/20/21 History release (Enteric Coated Aspirin) epinephrine 0.3 mg/0.3 mL 0.3 mg IM ONCE PRN anaphylaxis 09/10/20 08/20/21 History injection, auto-injector latanoprost 0.005 % eye drops 1 drp EYE-BOTH BEDTIME #7.5 mL 10/07/20 08/20/21 Rx brimonidine 0.2 % eye drops drp EYE-BOTH BID 02/03/21 08/20/21 History blood sugar diagnostic (Blood #600 ea 02/05/21 08/20/21 Rx Glucose Test strips) insulin syringe-needle U-100 1 mL #600 ea 02/05/21 08/20/21 Rx 31 gauge x 5/16 (BD Insulin Syringe Ultra-Fine) allopurinol 300 mg tablet 300 mg PO DAILY #90 tabs 03/24/21 08/20/21 Rx amlodipine 10 mg tablet 10 mg PO DAILY #90 tabs 03/24/21 08/20/21 Rx carvedilol 12.5 mg tablet 12.5 mg PO BID #180 tabs 03/24/21 08/20/21 Rx colchicine 0.6 mg tablet 0.6 mg PO BID #180 tabs 03/24/21 08/20/21 Rx dapagliflozin 10 mg tablet 10 mg PO DAILY #90 tabs 03/24/21 08/20/21 Rx duloxetine 60 mg capsule,delayed 60 mg PO DAILY #90 caps 03/24/21 08/20/21 Rx release furosemide 20 mg tablet 20 mg PO DAILY #90 tabs 03/24/21 08/20/21 Rx gabapentin 600 mg tablet 1,200 mg PO BID #360 tabs 03/24/21 08/20/21 Rx olmesartan 40 mg tablet 40 mg PO DAILY #90 tabs 03/24/21 08/20/21 Rx pantoprazole 20 mg tablet,delayed 20 mg PO DAILY #90 tabs 03/24/21 08/20/21 Rx release ropinirole 2 mg tablet See Rx Instructions PO BID #270 03/24/21 08/20/21 Rx tabs rosuvastatin 10 mg tablet 10 mg PO DAILY #90 tabs 03/24/21 08/20/21 Rx insulin glargine 100 unit/mL (3 55 unit (0.55 mL) SUBCUT BID #135 03/26/21 08/20/21 Rx mL) subcutaneous pen (Lantus mL Solostar U-100 Insulin) insulin lispro 100 unit/mL 5 unit (0.05 mL) SUBCUT TID #150 mL 03/26/21 08/20/21 Rx subcutaneous solution (Humalog U-100 Insulin) metformin 500 mg tablet 1,000 mg PO BIDCC #360 tabs 03/26/21 08/20/21 Rx rivaroxaban 20 mg tablet (Xarelto) 20 mg PO QPM #90 tabs 06/15/21 08/20/21 Rx tramadol 50 mg tablet 50 mg PO BID PRN pain #60 tabs 12/10/21 Rx hydrocodone 5 mg-acetaminophen 325 2 tab PO BEDTIME PRN pain #60 tabs 02/11/22 Rx mg tablet glucagon 1 mg solution for 1 mg SUBCUT Q20M PRN 02/15/22 02/15/22 History injection tamsulosin 0.4 mg capsule (Flomax) 0.4 mg PO BEDTIME #30 caps 02/15/22 02/15/22 Rx prednisone 10 mg tablet 10 mg PO DAILY #30 tabs 02/22/22 02/22/22 Rx Allergies Allergy/AdvReac Type Severity Reaction Status Date / Time Iodinated Contrast Media Allergy Severe Anaphylaxis Verified 02/23/22 12:07 LOLY Inhibitors AdvReac Mild cough Verified 02/23/22 12:07 [LOLY INHIBITORS] shrimp Allergy Severe blotchy Uncoded 02/23/22 12:07 eyes, edema contrast dye Allergy Anaphylaxis Uncoded 02/23/22 12:07 Exam Vital Signs (past 8 hours): - 02/23/22 11:51 02/23/22 11:46 02/23/22 11:46 Temperature 98 F Pulse Rate 86 88 Respiratory Rate 20 Blood Pressure 102/53 L 102/53 L Pulse Oximetry 94 95 Oxygen Delivery Method Room Air Oxygen Flow Rate 02/23/22 11:54 02/23/22 11:54 02/23/22 12:00 Temperature Pulse Rate 89 Respiratory Rate Blood Pressure 91/52 L 87/51 L Pulse Oximetry 94 Oxygen Delivery Method Oxygen Flow Rate 02/23/22 12:00 02/23/22 12:20 02/23/22 12:20 Temperature Pulse Rate 87 87 Respiratory Rate 25 H Blood Pressure 97/54 L Pulse Oximetry 97 94 Oxygen Delivery Method Oxygen Flow Rate 02/23/22 12:30 02/23/22 12:53 02/23/22 12:54 Temperature 98.5 F Pulse Rate 85 Respiratory Rate 24 20 22 Blood Pressure Pulse Oximetry 93 86 L 91 Oxygen Delivery Method Room Air Nasal Cannula Oxygen Flow Rate 1 02/23/22 12:40 02/23/22 12:40 02/23/22 12:50 Temperature Pulse Rate 86 85 Respiratory Rate 23 24 Blood Pressure 99/50 L Pulse Oximetry 94 89 L Oxygen Delivery Method Room Air Oxygen Flow Rate 02/23/22 12:50 02/23/22 13:00 02/23/22 13:00 Temperature Pulse Rate 85 Respiratory Rate 23 Blood Pressure 103/54 L 108/56 L Pulse Oximetry 93 Oxygen Delivery Method Nasal Cannula Oxygen Flow Rate 1 02/23/22 13:10 02/23/22 13:10 02/23/22 13:20 Temperature Pulse Rate 84 Respiratory Rate 23 Blood Pressure 104/55 L 107/58 L Pulse Oximetry 95 Oxygen Delivery Method Oxygen Flow Rate 02/23/22 13:20 02/23/22 13:30 02/23/22 13:30 Temperature Pulse Rate 84 84 Respiratory Rate 23 24 Blood Pressure 110/59 L Pulse Oximetry 95 94 Oxygen Delivery Method Oxygen Flow Rate 02/23/22 13:40 02/23/22 13:40 02/23/22 13:50 Temperature Pulse Rate 84 83 Respiratory Rate 22 23 Blood Pressure 112/58 L Pulse Oximetry 94 Oxygen Delivery Method Oxygen Flow Rate 02/23/22 13:50 02/23/22 14:00 02/23/22 14:00 Temperature Pulse Rate 83 Respiratory Rate 23 Blood Pressure 104/56 L 110/57 L Pulse Oximetry 95 Oxygen Delivery Method Oxygen Flow Rate 02/23/22 14:10 02/23/22 14:10 02/23/22 14:20 Temperature Pulse Rate 84 Respiratory Rate 24 Blood Pressure 100/55 L 114/56 L Pulse Oximetry 96 Oxygen Delivery Method Oxygen Flow Rate 02/23/22 14:20 Temperature Pulse Rate 81 Respiratory Rate 24 Blood Pressure Pulse Oximetry 95 Oxygen Delivery Method Oxygen Flow Rate Oxygen Delivery Method Nasal Cannula Oxygen Flow Rate 1 General Narrative Exam Narrative: general: Patient alert pale resting comfortably in bed. He recognizes me knows he is at [facility]. HEENT: Pupils equal round and reactive oral mucosa is very dry neck is supple. Cardio: S1-S2 systolic murmur is present mild. Normal heart rate. Respiratory: Lungs are clear no wheezes or crackles normal respiratory effort Abdomen: Soft obese nontender no appreciable organomegaly no rebound or guarding no fluid wave Extremities: Patient has a swollen right wrist which is warm to the touch his left knee is quite swollen but not red or hot. Right shoulder shows no swelling. Patient has multiple skin abrasions on his lower extremities no s ignificant edema. Neurologic: Patient is a poor historian his cranial nerves are intact. Demonstrates generalized weakness although he is moving all extremities. Objective Labs Result Diagrams: 02/23/22 12:35 02/23/22 12:35 Labs: Laboratory Results - last 24 hr 02/23/22 02/23/22 02/23/22 12:09 12:35 12:35 WBC 12.2 H RBC 3.57 L Hgb 10.3 L Hct 31.0 L MCV 86.9 MCH 28.8 MCHC 33.1 RDW 19.6 H Plt Count 164 Neut % (Auto) 87.9 H Lymph % (Auto) 6.4 L [place] % (Auto) 5.2 Eos % (Auto) 0.4 L Baso % (Auto) 0.1 Neut # (Auto) 65737 H Lymph # (Auto) 800 L [place] # (Auto) 600 Eos # (Auto) 0 Baso # (Auto) 0 Sodium 134 L Potassium 4.0 Chloride 98 Carbon Dioxide 24 BUN 47 H Creatinine 1.62 H Estimated GFR 47 L BUN/Creatinine Ratio 29.0 H Glucose 175 H Lactate Calcium 8.5 Total Bilirubin 0.5 AST 35 ALT 20 Alkaline Phosphatase 95 Total Protein 6.2 L Albumin 3.2 L Globulin 3.0 Albumin/Globulin Ratio 1.1 Lipase 12 L Procalcitonin 12.6 H SARS-CoV-2 (PCR) Negative 02/23/22 12:35 WBC RBC Hgb Hct MCV MCH MCHC RDW Plt Count Neut % (Auto) Lymph % (Auto) [place] % (Auto) Eos % (Auto) Baso % (Auto) Neut # (Auto) Lymph # (Auto) [place] # (Auto) Eos # (Auto) Baso # (Auto) Sodium Potassium Chloride Carbon Dioxide BUN Creatinine Estimated GFR BUN/Creatinine Ratio Glucose Lactate 3.0 H Calcium Total Bilirubin AST ALT Alkaline Phosphatase Total Protein Albumin Globulin Albumin/Globulin Ratio Lipase Procalcitonin SARS-CoV-2 (PCR) Assessment & Plan Assessment and plan (1) Severe sepsis: Status: Acute Plan Severe sepsis. Patient has severe sepsis patient is hypotensive elevated lactic acid elevated procalcitonin elevated white blood cell count and a positive blood culture with Staph aureus does not appear to be methicillin res istant. unknown source at this point of infection. Repeat blood cultures were done. Tried to aspirate his left wrist unsuccessful. Patient will have a urine culture done. Chest x-ray shows no acute infection CT scan of abdomen and pelvis will be done to rule out underlying abdominal infection. Will proceed with an echocardiogram to rule out vegetative heart disease. And will see if we can track down the underlying source of the infection. Patient has multiple skin abrasions and breakdown and history of significantly poorly controlled diabetes. We will treat his sepsis with the IV fluids which were started in the emergency department per sepsis bundle protocol. Patient had blood cultures done. He was given antibiotics with vancomycin and Zosyn. Appears that his Staph aureus is not methicillin-resistant so will continue with Zosyn and hold off on vancomycin. Monitor closely is blood pressures and continue fluid resuscitation with lactated Ringer's. Acute kidney injury patient's baseline creatinine is 0.8-1.2. His creatinine is 1.6 with his EGFR significantly decreased. His acute injury is due to his underlying infection with Staph aureus does positive in his blood stream. Will treat the appropriate infection with antibiotics and provide fluid support and pressure support and hopefully his renal function will improve will continue to watch closely as renal function renally dose medications as needed and hopefully he will have improvement of his kidney function as we improve his underlying infection. Acute mental status changes consistent with acute metabolic encephalopathy due to underlying infection. Patient's states patient was confused last night he was trying to open packages that were not there. He is a poor historian and not mentally at his baseline. Hopefully as his blood pressure improves in his infection resolves his mental status will improve her. Polyarticular joint pain with swelling. Patient has polyarticular joint pain and swelling. He has swelling of his right wrist left knee. Previous removal fluid showed pseudogout. Trial of removal fluid in his right wrist in the emergency department today which was unsuccessful. I do not think this is the source of his infection and I think this is a flare-up of his pseudogout. Coronary artery disease status post CABG. His blood pressure is quite soft today. Patient is on multiple antihypertensive medications this will be held. He will be restarted on his antihypertensives as his blood pressure responds appropriately to his underlying treatment of his infection. Chronic intermittent atrial fibrillation Patient is not in AFib now. He is chronic and fully anticoagulated. Will continue with current anticoagulation at this time Insulin-dependent type 2 diabetes. Patient will be placed on long acting insulin. Have blood sugars monitor per protocol a.c. and HS with insulin sliding coverage to improve blood sugar control while in the hospital. Morbid obesity a BMI of 33.1. Patient has sleep apnea. Will monitor his O2 sats per protocol. Will provide treatment of his sleep apnea with home missing if needed. Hyperlipidemia. Continue with statin medication for cholesterol management. BPH with history of urinary obstruction. Patient will be continued on his Flomax. Monitor closely his in's an out's provide a Dela Cruz catheter if needed. Disposition plan patient meets inpatient criteria. Patient will be continued on home proton pump inhibitor no need for DVT prophylaxis as he is anticoagulated. Discharge anticipate taken his home Time Spent With Patient Critical Care time: I spent a total of [] minutes of critical care time on this patient's care today; this time is exclusive of procedural time.
--- NOTE | 2022-02-23 14:32 | DI.CT.S_ITS ---
PROCEDURE: CT ABDOMEN PELVIS WO CON INDICATIONS: sepsis, unknown source TECHNIQUE: After the administration of oral contrast, 5 mm thick sections acquired from the diaphragms to the symphysis. 5 mm coronal and sagittal reformats were performed. For radiation dose reduction, the following was used: automated exposure control, adjustment of mA and/or kV according to patient size. COMPARISON: None. FINDINGS: Image quality: Excellent. ABDOMEN: Lung bases: Dependent atelectasis and scarring in posterior and lateral periphery of bilateral lung bases are seen. Heart size is enlarged, no pericardial effusion. Extensive atherosclerotic disease throughout coronary vessels are seen. Median sternotomy wires and surgical clips also noted. Solid organs: There is hepatomegaly, no gross discrete hepatic lesion is seen. Gallbladder is distended with faint hyperdensities seen in dependent portion of gallbladder lumen. No gallbladder wall thickening or pericholecystic fluid. Pancreas is normal in size. Spleen is normal in size. No adrenal nodules. Both kidneys are normal in size, without hydronephrosis or nephrolithiasis. Mild bilateral perinephric fat stranding is seen. Peritoneum and bowel: There is no bowel obstruction. No abnormal bowel wall thickening or mesenteric fat stranding. Mild fecal stasis in the colon is seen extending to rectum. No abscess collection. No free fluid or free air. Nodes and vessels: No retroperitoneal or mesenteric adenopathy by size criteria. Aorta and inferior vena cava are normal in size. [id number] atherosclerotic calcifications in abdominal aorta is seen. Miscellaneous: No ventral hernias. PELVIS: Genitourinary: Bladder wall thickness is normal. Miscellaneous: No inguinal hernias or adenopathy. Bones: No suspicious bony lesions. No vertebral body compression fractures. Prior left laminectomy at L4 and L5 levels are seen. IMPRESSION: 1. Mild constipation. No bowel obstruction. No abnormal bowel wall thickening. No free fluid or free air. No abscess collection. 2. Mild bilateral perinephric fat stranding. No renal stone or hydronephrosis. Infectious process such as pyelonephritis cannot be entirely excluded. No gross abnormality is seen in urinary bladder. 3. Bibasilar atelectasis and scarring. Cardiomegaly and prior median sternotomy. Extensive atherosclerotic disease. 4. Hepatomegaly, no discrete hepatic lesion. 5. Suggestion of tiny gallstones. No CT evidence of acute cholecystitis. Dictated by: Pedrito Bojorquez M.D. on 02/23/2022 at 15:49 Approved by: Pedrito Bojorquez M.D. on 02/23/2022 at 15:53
[2022-02-23 14:48] LABS: Reflexed Lactate in 2 Hours Y
[2022-02-23 16:08] LABS: Lactate 2HR (Lactic Acid Rflx) 2.9 mmol/L (0.7-2.1)
[2022-02-23] MEDS: RIVAROXABAN 10 MG TABLET 20 MG PO (16:46)
[2022-02-23] MEDS: LACTATED RINGERS 1,000 ML 150 ML IV (18:29)
[2022-02-23 18:50] LABS: Bacteria Urine None Seen; Granular Casts Urine 1-5/LPF; Hyaline Casts Urine 1-5/LPF; Renal Epithelial Cells Urine 0-1/HPF (0-1/HPF); Squamous Epithelial Cell Urine 0-1 /HPF (0-5/HPF); Transitional Epi Cells Urine 0-1/HPF (0-5/HPF); WBC Urine 1-5/HPF (0-5/HPF)
[2022-02-23 18:53] LABS: Culture Indicated Urine Cult Not Indicated; RBC Urine 0-1/HPF (0-5/HPF)
[2022-02-23] MEDS: GABAPENTIN 600 MG TABLET 1200 MG PO (21:40)
[2022-02-23] MEDS: COLCHICINE 0.6 MG TABLET PO (21:41)
[2022-02-23] MEDS: DOCUSATE 100 MG CAPSULE PO (21:41)
[2022-02-23] MEDS: TAMSULOSIN 0.4 MG CAPSULE PO (21:41)
[2022-02-23] MEDS: ROPINIROLE 1 MG TABLET 2 MG PO (21:41)
[2022-02-23] MEDS: PIPERACILLIN/TAZO 3.375 GM in SODIUM CHLORIDE 0.9% 100 ML IV (21:43)
[2022-02-23] MEDS: INSULIN GLARGINE 100 UNIT/ML 3ML PEN 55 UNIT SUBCUT (21:48)
[2022-02-24] VITALS: BP 121/58; PULSE 86; RESP 19; TEMP 36.9; O2SAT 96
[2022-02-24] MEDS: LACTATED RINGERS 1,000 ML 150 ML IV ×3 (01:15→17:29)
[2022-02-24 04:00] VITALS: BP 98/51; PULSE 77; RESP 17; TEMP 36.2; O2SAT 100
[2022-02-24 04:54] LABS: Add Manual Diff / Slide Review NO; Basophils Absolute Auto 0 /uL (0-100); Eosinophils Absolute Auto 0 /uL (0-450); Eosinophils Percent Auto 0.3 % (2-4); Hematocrit 28.7 % (41-53); Hemoglobin 9.6 g/dL (13.5-17.5); Lymphocytes Absolute Auto 900 /uL (1100-4500); Lymphocytes Percent Auto 9.5 % (25-40); Mean Corpuscular HGB Conc 33.5 % (30-36); Mean Corpuscular Hemoglobin 29.1 PG (26-34); Monocytes Absolute Auto 600 /uL (0-900); Monocytes Percent Auto 6.4 % (3-14); Neutrophils Absolute Auto 7900 /uL (1500-7000); Neutrophils Percent Auto 83.8 % (50-75); Platelet Count 140 X10^3/uL (150-400); White Blood Cell Count 9.5 X10^3/uL (4.5-11.0)
[2022-02-24 05:03] LABS: Alanine Aminotransferase 17 IU/L (<50); Albumin 2.7 g/dL (3.5-5.0); Alkaline Phosphatase 77 U/L (38-126); Aspartate Aminotransferase 24 IU/L (17-59); BUN Creatinine Ratio 36.1 (6-22); Bilirubin Total 0.4 mg/dL (0.2-1.3); Blood Urea Nitrogen 43 mg/dL (9-20); Calcium 7.9 mg/dL (8.4-10.2); Carbon Dioxide 20 mmol/L (22-32); Chloride 104 mmol/L (98-107); Estimated Glomerular Filt Rate > 60 mL/min (>60); Globulin 2.8 g/dL (1.7-4.1); Glucose 73 mg/dL (80-110); HEMOLYSIS < 15 (0-50); Potassium 3.6 mmol/L (3.4-5.1); Sodium 135 mmol/L (137-145); Total Protein 5.5 g/dL (6.3-8.2)
[2022-02-24] MEDS: PIPERACILLIN/TAZO 3.375 GM in SODIUM CHLORIDE 0.9% 100 ML IV ×3 (05:52→20:48)
--- NOTE | 2022-02-24 06:01 | DI.ECHO.S_ITS ---
[place] +---------+ Hospital +---------+ : : [address] [place] : : : : [id number] : : : : Phone: [phone]+ Echocardiogram Report + + :Name: CHARLOTTE BHATT Study Date: 02/24/2022 Height: 72 in : :[facility] ReadingLocation: Weight: 254 lb : : Gender: Male BSA: 2.4 m2 : :: 1955 Age: 66 yrs BP: 113/59 mmHg: :Reason For Study: POSITIVE BLOOD CULTURE, SOURCE ENDOCARDITIS? : :Ordering Physician: HERMINIA, : :LYNNE Performed By: Sia Corley : :Referring: LYNNE HOPE : + + Interpretation Summary 1) Mildly to moderately increased left ventricular thickness (concentric) with normal size and severely reduced systolic function (EF 25-30%). 2) Mildly enlarged right ventricle with moderately reduced function. 3) Severely enlarged left atrium. 4) There is mild to moderate mitral regurgitation. 5) Compared to the Echo done 12/26/2014, LVEF has dropped significantly from normal to severely reduced on this study. Procedure: A two-dimensional transthoracic echocardiogram with color flow and Doppler was performed. The study quality was technically adequate. Comparison is made with the echocardiogram of 12/26/2014. A contrast injection of Definity was performed to improve assessment of LV function. The patient was in sinus rhythm with heart rates between 81-84 bpm during the exam. Left Ventricle: The left ventricle is normal in size. There is mild-moderate concentric left ventricular hypertrophy. Proximal septal thickening is noted. The ejection fraction is estimated to be 25-30%. There is severe global hypokinesis of the left ventricle. Right Ventricle: The right ventricle is mildly dilated. Right ventricular systolic function is moderately reduced. Atria: The left atrium is severely dilated. Right atrial size is normal. There is no Doppler evidence for an interatrial shunt. Mitral Valve: The mitral valve leaflets appear mildly thickened, but open well. There is mild to moderate mitral regurgitation. Aortic Valve: The aortic valve is trileaflet. The aortic valve opens well. There is no aortic valve stenosis. No aortic regurgitation is present. Tricuspid Valve: The tricuspid valve leaflets are thin and pliable. There is trace tricuspid regurgitation. Pulmonary artery pressures cannot be estimated because of the lack of a measurable TR jet velocity. Pulmonic Valve: The pulmonic valve leaflets are thin and pliable; valve motion is normal. There is no pulmonic valvular regurgitation. Great Vessels: The aortic root is normal size. The dimensions of the ascending aorta are normal. The IVC is dilated (diameter is greater than 2.1 cm) and it collapses less than 50% with a sniff. This suggests a high right atrial pressure of 15 mm Hg. Pericardium/ Pleura There is no pericardial effusion. There is no pleural effusion. MMode/2D Measurements & Calculations LVIDd: 5.7 cm LVOT diam: 2.6 cm LVIDs: 4.8 cm Ao root diam: 3.9 cm FS: 17.0 % asc Aorta Diam: 3.7 cm EPSS: 1.1 cm IVSd: 1.4 cm LVPWd: 1.2 cm LV monique. diameter/BSA (cm/m^2): 2.4 LV sys. diameter/BSA (cm/m^2): 2.0 LA A2 area: 34.7 cm2 RA long axis: 5.8 cm LA A4 area: 32.2 cm2 RA area: 22.3 cm2 LA length (vol): 6.7 cm RA vol: 72.1 ml LA vol: 141.0 ml RA : 30.6 ml/m2 LA vol index: 59.8 ml/m2 IVC diam: 2.9 cm RVD1 (basal): 4.7 cm RVD2 (mid): 4.2 cm TAPSE: 1.3 cm Doppler Measurements & Calculations Ao V2 max: 121.8 cm/sec LVOT Max Howard: 84.4 cm/sec Ao V2 mean: 87.7 cm/sec LV V1 max P.9 mmHg Ao max P.9 mmHg LV V1 VTI: 16.6 cm Ao mean P.4 mmHg GALILEO(I,D): 3.8 cm2 Ao V2 VTI: 23.7 cm GALILEO(V,D): 3.7 cm2 sev ratio: 0.70 GALILEO indexed to BSA (cm^2/m^2): 1.6 MV E max howard: 134.0 cm/sec PA V2 max: 89.7 cm/sec MV A max howard: 93.0 cm/sec PA V2 mean: 60.0 cm/sec MV E/A: 1.4 PA mean P.6 mmHg Med Peak E' Howard: 5.3 cm/sec PA pr(Accel): 29.3 mmHg E/E' med: 25.4 Lat Peak E' Howard: 10.3 cm/sec E/E' lat: 13.0 E/e' average: 19.2 MV dec time: 0.16 sec SV(OT): 88.9 ml Reading Physician:09:55 AM
--- NOTE | 2022-02-24 06:09 | P.PN_ITS ---
Subjective Subjective Date Patient Seen: 02/24/22 Time Patient Seen: 06:09 Interval history: Patient seen and evaluated this morning. Patient states he did well overnight. Resting comfortably with nasal CPAP in place. Has an 8 much. Been out of bed a little bit. No difficulty with urination or bowel movement he says. Complaining of pain in his hand elbow knee and shoulder. He says his hand is a little bit less swollen and red and he is able to move it a little bit better. Reviewed laboratory tests. Blood culture results white blood cell count kidney function. Patient's blood pressure still little bit soft overnight but improved. Still receiving IV fluids. No signs of urinary obstruction. CT scan and urinalysis was reviewed. Exam Vital Signs (past 8 hours): - 02/24/22 00:00 02/24/22 04:00 Temperature 98.4 F 97.2 F L Pulse Rate 86 77 Respiratory Rate 19 17 Blood Pressure 121/58 L 98/51 L Pulse Oximetry 96 100 Oxygen Delivery Method Nasal Cannula Oxygen Flow Rate 0 Narrative Exam Narrative: Gen.: Alert oriented this morning better historian than in the emergency department yesterday HEENT: Pupils equal round and reactive. Neck is supple or mucosa is moist Cardio: S1-S2 regular rhythm systolic murmur present Respiratory: Normal respiratory effort lungs are clear patient has nasal CPAP on for his sleep apnea Abdomen: Soft obese no tenderness Extremities: Decreased range of motion at right wrist left elbow. Right wrist swelling and mild redness left elbow quite swollen. No lower extremity edema. Multiple skin abrasions and contusions Objective Labs Result Diagrams: 02/24/22 04:35 02/24/22 04:35 Labs: Laboratory Results - last 24 hr 02/23/22 02/23/22 02/23/22 12:09 12:09 12:35 WBC 12.2 H RBC 3.57 L Hgb 10.3 L Hct 31.0 L MCV 86.9 MCH 28.8 MCHC 33.1 RDW 19.6 H Plt Count 164 Neut % (Auto) 87.9 H Lymph % (Auto) 6.4 L Schley % (Auto) 5.2 Eos % (Auto) 0.4 L Baso % (Auto) 0.1 Neut # (Auto) 67082 H Lymph # (Auto) 800 L Schley # (Auto) 600 Eos # (Auto) 0 Baso # (Auto) 0 Sodium Potassium Chloride Carbon Dioxide BUN Creatinine Estimated GFR BUN/Creatinine Ratio Glucose Lactate Calcium Magnesium Total Bilirubin AST ALT Alkaline Phosphatase Total Protein Albumin Globulin Albumin/Globulin Ratio Lipase Procalcitonin Urine RBC Urine WBC Ur Squamous Epith Cells Ur Transition Epith Cell Ur Renal Epithelial Cell Urine Bacteria Hyaline Casts Granular Casts Other Casts Ur Culture Indicated? Fluid Color Cancelled Fluid Appearance Cancelled Fluid RBC Cancelled Fld Tot Nucleated Cell Cancelled Fluid Polynuclear WBCs Cancelled Fluid Mononuclear WBCs Cancelled Fluid Eosinophils Cancelled Fluid Other Cells Cancelled Body Fluid Clot Cancelled SARS-CoV-2 (PCR) Negative 02/23/22 02/23/22 02/23/22 12:35 12:35 15:05 WBC RBC Hgb Hct MCV MCH MCHC RDW Plt Count Neut % (Auto) Lymph % (Auto) Schley % (Auto) Eos % (Auto) Baso % (Auto) Neut # (Auto) Lymph # (Auto) Schley # (Auto) Eos # (Auto) Baso # (Auto) Sodium 134 L Potassium 4.0 Chloride 98 Carbon Dioxide 24 BUN 47 H Creatinine 1.62 H Estimated GFR 47 L BUN/Creatinine Ratio 29.0 H Glucose 175 H Lactate 3.0 H Calcium 8.5 Magnesium Total Bilirubin 0.5 AST 35 ALT 20 Alkaline Phosphatase 95 Total Protein 6.2 L Albumin 3.2 L Globulin 3.0 Albumin/Globulin Ratio 1.1 Lipase 12 L Procalcitonin 12.6 H Urine RBC 0-1/hpf Urine WBC 1-5/hpf Ur Squamous Epith Cells 0-1 /hpf Ur Transition Epith Cell 0-1/hpf Ur Renal Epithelial Cell 0-1/hpf Urine Bacteria None seen Hyaline Casts 1-5/lpf Granular Casts 1-5/lpf Other Casts Ur Culture Indicated? Cult not indicated Fluid Color Fluid Appearance Fluid RBC Fld Tot Nucleated Cell Fluid Polynuclear WBCs Fluid Mononuclear WBCs Fluid Eosinophils Fluid Other Cells Body Fluid Clot SARS-CoV-2 (PCR) 02/23/22 02/24/22 02/24/22 15:21 04:35 04:35 WBC 9.5 RBC 3.30 L Hgb 9.6 L Hct 28.7 L MCV 87.0 MCH 29.1 MCHC 33.5 RDW 20.0 H Plt Count 140 L Neut % (Auto) 83.8 H Lymph % (Auto) 9.5 L Schley % (Auto) 6.4 Eos % (Auto) 0.3 L Baso % (Auto) 0.0 Neut # (Auto) 7900 H Lymph # (Auto) 900 L Schley # (Auto) 600 Eos # (Auto) 0 Baso # (Auto) 0 Sodium 135 L Potassium 3.6 Chloride 104 Carbon Dioxide 20 L BUN 43 H Creatinine 1.19 Estimated GFR > 60 BUN/Creatinine Ratio 36.1 H Glucose 73 L D Lactate 2.9 H Calcium 7.9 L Magnesium 2.0 Total Bilirubin 0.4 AST 24 ALT 17 Alkaline Phosphatase 77 Total Protein 5.5 L Albumin 2.7 L Globulin 2.8 Albumin/Globulin Ratio 1.0 Lipase Procalcitonin Urine RBC Urine WBC Ur Squamous Epith Cells Ur Transition Epith Cell Ur Renal Epithelial Cell Urine Bacteria Hyaline Casts Granular Casts Other Casts Ur Culture Indicated? Fluid Color Fluid Appearance Fluid RBC Fld Tot Nucleated Cell Fluid Polynuclear WBCs Fluid Mononuclear WBCs Fluid Eosinophils Fluid Other Cells Body Fluid Clot SARS-CoV-2 (PCR) [facility] Medical History Chronic pain Chronic rhinitis Coronary artery disease (04/29/14) CTS (carpal tunnel syndrome) (1977) Diabetes mellitus Essential hypertension ETD (eustachian tube dysfunction) Hypersomnia (~1997) Hypogonadism in male Insomnia, persistent (~1995) Mixed hyperlipidemia Obesity with body mass index (BMI) of 30.0 to 39.9 (04/24/15) Obstructive sleep apnea of adult Osteoarthritis of hands, 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 (07/29/15) Primary osteoarthritis of left knee (03/03/16) Restless legs syndrome (04/24/15) Squamous cell carcinoma of nose (2004) Type 2 diabetes mellitus with other skin ulcer (04/24/15) Wound healing, delayed Wound, open, foot Surgical History History of carpal tunnel repair (1977) History of coronary artery stent placement (04/2014) Hx of inguinal hernia surgery (1977) S/P CABG x 3 S/P CABG x 3 Status post arthroscopy Status post rotator cuff repair Family History Father Coronary artery disease Alcoholism Sudden Other Depression Social History marital status: details: jose Marx, lives in [place] household members: spouse lives independently: Yes caregiver/support person: No housing: house princess/adventism: [employer] / [employer] Smoking Status: Never smoker alcohol intake: never substance use type: does not use eating out: 1-3 times/week Type(s) of exercise: walking, aerobic, bicycling, advised to exercise at least 150 min/week (moderate intensity aerobic) and advised to perform resistance training at least 2x/week Assessment & Plan Assessment and plan (1) Severe sepsis: Status: Acute Plan Severe sepsis.? Blood culture both bottles show Staph aureus. Him patient on Zosyn and vancomycin waiting culture susceptibility. No identifiable source at this point. Urinalysis shows no signs of infection CT scan shows some perinephric stranding which would not be consistent with infection. No other abdominal source. I doubt hand is the source of infection although he has multiple skin abrasions which may be the cause. Will proceed with echocardiogram to rule out vegetative disease today. Continue IV antibiotics. Repeat lactic acid this morning. Blood pressure still a little bit softer. Did not require pressure support. Continue with IV fluids and DC later today. Acute kidney injury patient's electrolytes are good this morning. Received lactated Ringer's yesterday. His creatinine is now back down to baseline. Continue to monitor electrolytes. Acute injury due to hypotension due to severe sepsis. Acute mental status changes consistent with acute metabolic encephalopathy due to underlying? infection.? No significant episodes of confusion last night he is oriented this morning complaining of hand and wrist pain. Improving as his infection improves. ?Polyarticular joint pain with swelling.? Affecting wrist the knee elbow and shoulder. Red swollen right wrist. Unable to receive fluid from the wrist yesterday. History of pseudogout which I think this is the cause. I do not think it is an infection as a cause I am going to start his prednisone which he was on 10 mg a day as an outpatient for this. Symptoms are a little bit i mproved. ?Coronary artery disease status post CABG.? Blood pressure is stabilized. Blood pressure medication is on hold due to low blood pressure. Will continue to monitor and really at back in his antihypertensive medication and beta-sis for his heart when his blood pressure stable. Chronic intermittent atrial fibrillation?no signs of AFib at this point. Continue with anticoagulation Insulin-dependent type 2 diabetes.? Lantus insulin with insulin sliding scale coverage. Diabetic diet. Morbid obesity a BMI of 33.1.? With sleep apnea. CPAP machine provided. Nutritional consultation. Hyperlipidemia.? Continue with statin medication for cholesterol management. BPH with history of urinary obstruction.? Patient urinating freely continue with Flomax. Will continue to monitor for signs of obstruction Disposition plan continue inpatient. Blood pressure still a little bit of soft. Continue IV fluids throughout this afternoon work with physical therapy and dietary continue eye antibiotics echocardiogram prednisone monitor culture results anticipate another 2 days. Anticipate home with home health. Time Spent With Patient Critical Care time: I spent a total of [] minutes of critical care time on this patient's care today; this time is exclusive of procedural time. Quality VTE Deep Vein Thrombosis/Pulmonary Embolism Present on Admission: No
[2022-02-24 06:36] LABS: Lactate (Lactic Acid) 1.4 mmol/L (0.7-2.1)
[2022-02-24 08:00] VITALS: BP 116/60; PULSE 83; RESP 18; TEMP 36.9; O2SAT 94
[2022-02-24] MEDS: COLCHICINE 0.6 MG TABLET PO ×2 (08:29→20:47)
[2022-02-24] MEDS: DOCUSATE 100 MG CAPSULE PO ×2 (08:29→20:48)
[2022-02-24] MEDS: allopurinoL 300 MG TABLET PO (08:29)
[2022-02-24] MEDS: ASPIRIN EC 81 MG TABLET PO (08:29)
[2022-02-24] MEDS: predniSONE 20 MG TABLET PO (08:29)
[2022-02-24] MEDS: PANTOPRAZOLE DR 20 MG TABLET PO (08:29)
[2022-02-24] MEDS: GABAPENTIN 600 MG TABLET 1200 MG PO ×2 (08:29→20:48)
[2022-02-24] MEDS: DULOXETINE 30 MG CAPSULE 60 MG PO (08:29)
[2022-02-24] MEDS: ROPINIROLE 1 MG TABLET PO (08:35)
--- NOTE | 2022-02-24 10:20 | PT.IIE ---
Current Diagnoses Sepsis, unspecified organism (02/23/22) Severe sepsis without septic shock (02/23/22) Surgical History (Last Reviewed 02/23/22 @ 13:59 by Ciera Pretty MD) History of carpal tunnel repair (1977) History of coronary artery stent placement (04/2014) Hx of inguinal hernia surgery (1977) S/P CABG x 3 S/P CABG x 3 Status post arthroscopy Status post rotator cuff repair Medical History (Last Reviewed 02/23/22 @ 13:59 by Ciera Pretty MD) Chronic pain Chronic rhinitis Coronary artery disease (04/29/14) CTS (carpal tunnel syndrome) (1977) Diabetes mellitus Essential hypertension ETD (eustachian tube dysfunction) Hypersomnia (~1997) Hypogonadism in male Insomnia, persistent (~1995) Mixed hyperlipidemia Obesity with body mass index (BMI) of 30.0 to 39.9 (04/24/15) Obstructive sleep apnea of adult Osteoarthritis of hands, 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 (07/29/15) Primary osteoarthritis of left knee (03/03/16) Restless legs syndrome (04/24/15) Squamous cell carcinoma of nose (2004) Type 2 diabetes mellitus with other skin ulcer (04/24/15) Wound healing, delayed Wound, open, foot Physical Therapy Inpatient Evaluation/Re-Eval M1 PT/OT-IP Prior Functional Status Start: 02/24/22 12:14 Freq: NEEDED Status: Active Protocol: Document 02/24/22 10:20 AB (Rec: 02/24/22 12:24 AB [id number]) Medical Review Prior Functional Status Medical History Reviewed Yes Communication able to make needs known; [place] Mobility and Gait pt stated that he is modified independent with all mobilities and ambulation using 4WW but occasionally uses a SPC or without AD ( furniture cruises when he does not use any AD); pt has h/o falls Social History Household Members spouse Living Arrangements House Number of Floors (Floors) One Floor Number of Stairs To Enter/Railing? 3 steps with wide rails to enter the house Home Environment High Toilet,Walk in Shower, Built-In Shower Seat Home Equipment Front Wheel Walker,Four Wheel Walker,Straight Cane,Grab Bars Near Toilet,Grab Bars In Shower Additional Social History Comment pt stated that spouse works on weekdays from 7am to 7 pm and will not be able to assist him M2 PT-IP Current Condition Start: 02/24/22 12:14 Freq: NEEDED Status: Active Protocol: Document 02/24/22 10:20 AB (Rec: 02/24/22 12:24 AB [email or web address]) Physical Therapy Current Condition Current Condition Evaluation Date 02/24/22 Treatment Diagnosis sepsis; pseudogout; difficulty in walking Onset Date 02/23/22 M3 PT-IP Subjective Start: 02/24/22 12:14 Freq: NEEDED Status: Active Protocol: Document 02/24/22 10:20 AB (Rec: 02/24/22 12:24 AB [id number]) Subjective Physical Therapy Visit Type Type Initial Evaluation Visit Start Time 10:20 Visit Stop Time 11:00 Total Visit Minutes 40 Number of PLASTIC [employer]ODU[employer] SALES REPRESENTATIVE Visits 0 Physical Therapy Visit Comments Patient Comments agreeable to do PT M4 PT-IP Mobility and Gait Start: 02/24/22 12:14 Freq: NEEDED Status: Active Protocol: Document 02/24/22 10:20 AB (Rec: 02/24/22 12:24 AB [email or web address]) PT-Bed Mobility Assessment Supine to Sit Supine to Sit Maximum Assistance,1 Person Assistance,2 Person Assistance ,Bedrails PT-Transfer Assessment Sit to and From Stand Sit to and from Stand Maximum Assistance,2 Person Assistance,Use of Upper Extremities Equipment Transfer Assistive Device Gait Belt,Front Wheeled Walker Orthotic/Prosthetic Devices or Brace: No Transfers Transfer Destination Chair Transfer Technique Stand Step Pivot Transfer Ability Level of Assist Maximum Assistance,2 Person Assistance,Use of Upper Extremities Comments Mobility Comments completed supine to sit x 3 attemps requiring max A x 1-2 and max cues. pt with R hand swelling and c/o L biceps/ shoulder pain and unable to use much of BUE to assist with bed mobility/transfers. able to sit on EOB min A with posterior trunk lean. cued for balance and upright posture and able to sit with CGA after positioning and cueing. completed sit to stand x 2 attempts max A x 2 and max cues and step transfer to chair max A x 2 and max cues. presents with unsteady standing balance and unable to use hands to push on FWW and pt leans on forearms againg FWW for support. positioned pt on the chair. call light and table placed within reach. informed pt regarding SNF rehab recommendation at this time, pt understood but does not want to go to SNF if possible. Gait Assessment Comments Gait Comments unable at this time PT-Balance Assessment Sitting Balance and Reactions Static Sitting Balance Ability Fair Dynamic Sitting Balance Ability Fair Standing Balance and Reactions Static Standing Balance Ability Poor Dynamic Standing Balance Ability Poor Device Used FWW M5 PT-IP Objective Assessments Start: 02/24/22 12:14 Freq: NEEDED Status: Active Protocol: Document 02/24/22 10:20 AB (Rec: 02/24/22 12:24 AB [id number]) Orientation Orientation/Cognition Level of Alertness Alert Orientation Name,Place,Situation Language Function Ability Hard of Hearing Safety Awareness Decreased Safety Awareness Memory Description Short Term Impaired Gross Range of Motion Lower Extremity ROM Assessment Left Impaired Impairments pain limiting L knee movement Strength Lower Extremity Strength Assessment Left Impaired Hip 4-/5 Knee 3+/5 Coordination Assessment Gross Coordination Gross Coordination WNL Muscle Tone Muscle Tone WNL Yes M6 PT-IP Treatment Start: 02/24/22 12:14 Freq: NEEDED Status: Active Protocol: Document 02/24/22 10:20 AB (Rec: 02/24/22 12:24 AB [email or web address]) Physical Therapy Treatment Education Education Provided Safety M7 PT-IP Assessment and Plan Start: 02/24/22 12:14 Freq: NEEDED Status: Active Protocol: Document 02/24/22 10:20 AB (Rec: 02/24/22 12:24 AB [email or web address]) PT Summary Assessment and Plan Potential Rehabilitation Potential Fair Status of Condition at Evaluation Evolving Summary Impairments Pain,ROM,Strength,Balance, Coordination,Sensation,Tone, Cognition,Bed Mobility, Transfers,Gait,Activity Tolerance Assessment Summary pt rquiring max A x 2 and max cues with all mobilities and unable to ambulate at this time. Pt will require SNF rehab to improve strength and independence prior to d/c home . will continue to assess progress. Goals Bed Mobility Goal Minimal Assistance Transfer Goal Minimal Assistance,Front Wheeled Walker Gait Goal Minimal Assistance,Front Wheel Walker Gait Distance 100 Other Goals improve bed mobility, transfers using FWW, ambulation using FWW 150 ft SBA up/down 3 steps 1 rail SBA Days to Meet Goals 10 Frequency of Treatment Frequency Of Treatment Once a Day Treatment Plan Physical Therapy Treatment Plan Bed Mobility Training,Transfer Training,Gait Training, Therapeutic Exercise,Balance Retraining,Discharge Planning, Hot or Cold Pack,Neuromuscular Re-ed,Coordination Retraining ,Manual Therapy Recommendations To Nursing Amount of Assist Needed 2 Person Assist Discharge Recommendations PT Discharge Recommendations SNF Rehab Transportation Needs at Discharge Wheelchair/Cabulance
[2022-02-24 11:35] VITALS: BP 120/56; PULSE 82; RESP 18; TEMP 37.6; O2SAT 93
[2022-02-24] MEDS: HYDROCODONE/ACET 5/325 TABLET 1 TAB PO (11:55)
--- NOTE | 2022-02-24 12:17 | CM.DANOTE ---
Patient is a 66 yo male who was admitted on 02/23/22 for Positive blood cultures. Pt has M[place] and [place] for insurance and his PCP is Dr. Gigi Pelaez. EMR was reviewed. Per MD, pt with hx of osteoarthritis, neuropathy, and diabetes and admitted for severe sepsis, kidney injury, and encephalopathy. Per MD, pt on IV-Abx and to work with PT and anticipated to d/c in 1-2 days if stable to home with new HH. PT ordered and pending. SW met bedside with pt and explained role and he confirms he lives in [place] with his spouse/DPOA Glendy and is mostly independent with ADLs at baseline and drives but confirms he has been struggling with joint pain and feeling unwell for the last year or two off and on. Pt denies any hx of SNF but states he has used HH in the past and would be agreeable to HH again at d/c. Pt states he has no HH preference after reviewing HH Choice list and does not remember which agency he used in the past. Pt states either his , local son, or two local Dtrs would provide transport at d/c and pt does not anticipate any further needs at d/c at this time. SW made referral to [facility] based on Vendor Calendar and faxed initial referral. F2F and HH orders completed but not faxed yet. Plan: SW to follow for PT eval to confirm safe d/c to home with family support and new [facility] referral and to fax F2F, HH orders, and d/c summ at discharge. JANN Hankins Discharge Planning/Care Management CM Discharge Assessment Start: 02/24/22 12:15 Freq: Status: Active Protocol: Document 02/24/22 12:16 BF (Rec: 02/24/22 12:17 BF [id number]) Discharge Planning Assessment Assigned Seat Cover Maker JANN Carvajal DPNIMISHA/Assigned Designee Name spouse Glendy Contact Information [phone] Advance Directives? Yes: ANTIONETTE ECHEVERRIA for HC, HC Directive Advance Directives on File Yes History Provided By Patient,Family Member,Medical Record Has Patient been admitted in last 30 No days? Prior Living Arrangements House Household Members spouse Type of transporation used prior to Drives own vehicle admit Independent with ADL's Yes Is patient alert and oriented? Yes Needs Assistance With Home Chores / Shopping Caregiver for Another No Patient/Family Preference Home with Home Health Barriers to Discharge No Discharge Plan Home with Home Health Community Services Physical Therapy,Home Health Aid,Home Health Nurse Transportation Arrangement Pt states spouse, son, or two dtrs will transport at d/c Referrals Initiated Home Health If patient plan is home with home health Yes : Has signed face to face form been completed? Medicare Choice List Provided Yes SNF/HH Preference [facility] Whiteboard Updated in Patient Room with Yes name and ext. # of Seat Cover Maker Review Status In Process Please Provide Date Initial DC 02/24/22 Assessment Was Performed Next Review Type Continued Stay Review
[2022-02-24] MEDS: VANCOMYCIN 1,500 MG/300 ML PIGGYBACK 200 MG IV (14:17)
[2022-02-24 17:00] VITALS: BP 119/67; PULSE 78; RESP 18; TEMP 36.6; O2SAT 92
[2022-02-24] MEDS: RIVAROXABAN 10 MG TABLET 20 MG PO (17:39)
--- NOTE | 2022-02-24 18:12 | PC.NURSE ---
right hand posterior lesion with increased erythema, new anterior blistering, large posterior blood filled blister, edema
[2022-02-24 20:00] VITALS: BP 116/62; PULSE 79; RESP 18; TEMP 36.8; O2SAT 94
[2022-02-24] MEDS: ROPINIROLE 1 MG TABLET 2 MG PO (20:47)
[2022-02-24] MEDS: TAMSULOSIN 0.4 MG CAPSULE PO (20:49)
[2022-02-24] MEDS: INSULIN GLARGINE 100 UNIT/ML 3ML PEN 55 UNIT SUBCUT (21:01)
[2022-02-25] VITALS (65 sets, daily range): BP systolic 114–156; BP diastolic 58–86; PULSE 76–119; RESP 10–30; TEMP 32–37.2; O2SAT 92–100
--- NOTE | 2022-02-25 02:24 | RT ---
Called to pt's room by RN. Found pt on home CPAP unit, in respiratory distress. Placed on nonrebreather on 15L, noting spontaneous respirations. Pt was responsive and answering questions. RN placed pt on pulse oximetry which showed SpO2 in the 50s. Increased liter flow to flush setting to provide more flow. RN notified Dr. Pelaez. EKG done. Pt transfered to ICU bed and promptly placed on BiPAP. Settings: IPAP 10, EPAP 5, FiO2 60%. FiO2 was titrated to 50%. SpO2 WNL. Noting adequate return volumes and minute ventilation, mask leak within acceptable range. Will cont. to monitor the pt closely.
[2022-02-25] MEDS: FUROSEMIDE 40 MG/4 ML VIAL IV ×3 (02:46→17:45)
[2022-02-25 03:27] LABS: Add Manual Diff / Slide Review NO; Basophils Absolute Auto 0 /uL (0-100); Basophils Percent Auto 0.2 % (0-2); Eosinophils Absolute Auto 0 /uL (0-450); Hemoglobin 10.3 g/dL (13.5-17.5); Lymphocytes Absolute Auto 900 /uL (1100-4500); Lymphocytes Percent Auto 7.6 % (25-40); Mean Corpuscular HGB Conc 33.3 % (30-36); Mean Corpuscular Hemoglobin 28.3 PG (26-34); Monocytes Absolute Auto 400 /uL (0-900); Monocytes Percent Auto 3.5 % (3-14); Neutrophils Absolute Auto 10600 /uL (1500-7000); Neutrophils Percent Auto 88.7 % (50-75); Platelet Count 190 X10^3/uL (150-400); Red Blood Cell Count 3.65 X10^6/uL (4.5-5.9); Red Cell Distribution Width 19.9 % (11.6-14.8)
[2022-02-25 03:35] LABS: Alanine Aminotransferase 19 IU/L (<50); Albumin Globulin Ratio 0.9 (1.0-2.8); Alkaline Phosphatase 109 U/L (38-126); Aspartate Aminotransferase 25 IU/L (17-59); BUN Creatinine Ratio 37.3 (6-22); Bilirubin Total 0.6 mg/dL (0.2-1.3); Blood Urea Nitrogen 41 mg/dL (9-20); Calcium 8.5 mg/dL (8.4-10.2); Carbon Dioxide 21 mmol/L (22-32); Chloride 104 mmol/L (98-107); Estimated Glomerular Filt Rate > 60 mL/min (>60); Globulin 3.2 g/dL (1.7-4.1); Glucose 103 mg/dL (80-110); HEMOLYSIS < 15 (0-50); Potassium 3.6 mmol/L (3.4-5.1); Sodium 137 mmol/L (137-145); Total Protein 6.2 g/dL (6.3-8.2)
--- NOTE | 2022-02-25 03:53 | PC.NURSE ---
Shift note: At 0300, patient screamed for help as he is short of breath despite of bedside CPAP, O2 sat checked - 50's, RT called and replaced O2 support to NRB at 15lpm, O2 sat went up to 86%, patient still complained of short of breath, patient was alert and orientedx4, coarse crackles noted throughout bilateral lung field. Dr. Pelaez notified and ordered stat lasix IV push, stat EKG as patient went to afib RVR HR 110s, place patient on BIPAP and consult tele ICU for further management. Patient moved to ICU Rm [id number], report given to RN [place]. Will continue to monitor.
--- NOTE | 2022-02-25 04:01 | P.TELICUCN_ITS ---
History of Present Illness Consult details If camera was activated, add TeleICU A-V Statement: Patient was seen by two-way interactive audiovisual telecommunication. Chief complaint: Blood infection- sent by Dr Pelaez Consent obtained for tele-business and services instructor care: Yes Patient Location: ICU Provider location (State): [place] Other participants/roles: RN Narrative: 66 y.o. male upgraded to ICU status for BIPAP therapy. RN reports possible episode of AF on floor prior to ICU arrival. BIPAP @ 10/5 FiO2 50% w/ RR of 10 on initial camera activation. Patient also received 40 mg Lasix on floor prior to transport. Originally admitted 02/23 for increasing somnolence and fluid- responsive hypotension; also had mild JAMAL which has resolved. Blood cultures are (+) for Staphyloccoccus aureus; sensitivities are pending. 02/23 AM 2-D echo w/ LVEF% of 20-25%, RV dysfunction and mild-moderate MR. 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 [facility] Medical History Chronic pain Chronic rhinitis Coronary artery disease (04/29/14) CTS (carpal tunnel syndrome) (1977) Diabetes mellitus Essential hypertension ETD (eustachian tube dysfunction) Hypersomnia (~1997) Hypogonadism in male Insomnia, persistent (~1995) Mixed hyperlipidemia Obesity with body mass index (BMI) of 30.0 to 39.9 (04/24/15) Obstructive sleep apnea of adult Osteoarthritis of hands, 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 (07/29/15) Primary osteoarthritis of left knee (03/03/16) Restless legs syndrome (04/24/15) Squamous cell carcinoma of nose (2004) Type 2 diabetes mellitus with other skin ulcer (04/24/15) Wound healing, delayed Wound, open, foot Surgical History History of carpal tunnel repair (1977) History of coronary artery stent placement (04/2014) Hx of inguinal hernia surgery (1977) S/P CABG x 3 S/P CABG x 3 Status post arthroscopy Status post rotator cuff repair Family History Father Coronary artery disease Alcoholism Sudden Other Depression Social History marital status: details: jose Marx, lives in [place] household members: spouse lives independently: Yes caregiver/support person: No housing: house princess/spiritism: Religion Saint / Hoahaoism Smoking Status: Never smoker alcohol intake: never substance use type: does not use eating out: 1-3 times/week Type(s) of exercise: walking, aerobic, bicycling, advised to exercise at least 150 min/week (moderate intensity aerobic) and advised to perform resistance training at least 2x/week Current Medications Current Medications Medications: Home Medications semaglutide 0.25 mg or 0.5 mg (2 mg/1.5 mL) subcutaneous pen injector (Ozempic) 1 mg SUBCUT QWEEK 03/15/19 [History Confirmed 02/23/22] cyclobenzaprine 10 mg tablet 10 mg PO TID PRN spasms 04/25/19 [History Confirmed 02/23/22] aspirin 81 mg tablet,delayed release (Enteric Coated Aspirin) 81 mg PO DAILY 09/10/20 [History Confirmed 02/23/22] epinephrine 0.3 mg/0.3 mL injection, auto-injector 0.3 mg IM ONCE PRN anaphylaxis 09/10/20 [History Confirmed 02/23/22] allopurinol 300 mg tablet 300 mg PO DAILY #90 tabs 03/24/21 [Rx Confirmed 02/23/22] amlodipine 10 mg tablet 10 mg PO DAILY #90 tabs 03/24/21 [Rx Confirmed 02/23/22] carvedilol 12.5 mg tablet 12.5 mg PO BID #180 tabs 03/24/21 [Rx Confirmed 02/23/22] colchicine 0.6 mg tablet 0.6 mg PO BID #180 tabs 03/24/21 [Rx Confirmed 02/23/22] dapagliflozin 10 mg tablet 10 mg PO DAILY #90 tabs 03/24/21 [Rx Confirmed 02/23/22] duloxetine 60 mg capsule,delayed release 60 mg PO DAILY #90 caps 03/24/21 [Rx Confirmed 02/23/22] furosemide 20 mg tablet 20 mg PO DAILY #90 tabs 03/24/21 [Rx Confirmed 02/23/22] gabapentin 600 mg tablet 1,200 mg PO BID #360 tabs 03/24/21 [Rx Confirmed 02/23/22] olmesartan 40 mg tablet 40 mg PO DAILY #90 tabs 03/24/21 [Rx Confirmed 02/23/22] pantoprazole 20 mg tablet,delayed release 20 mg PO DAILY #90 tabs 03/24/21 [Rx Confirmed 02/23/22] ropinirole 2 mg tablet See Rx Instructions PO BID #270 tabs 03/24/21 [Rx Confirmed 02/23/22] rosuvastatin 10 mg tablet 10 mg PO DAILY #90 tabs 03/24/21 [Rx Confirmed 02/23/22] insulin glargine 100 unit/mL (3 mL) subcutaneous pen (Lantus Solostar U-100 Insulin) 55 unit (0.55 mL) SUBCUT BID #135 mL 03/26/21 [Rx Confirmed 02/23/22] insulin lispro 100 unit/mL subcutaneous solution (Humalog U-100 Insulin) 5 unit (0.05 mL) SUBCUT TID #150 mL 03/26/21 [Rx Confirmed 02/23/22] metformin 500 mg tablet 1,000 mg PO BIDCC #360 tabs 03/26/21 [Rx Confirmed 02/23/22] rivaroxaban 20 mg tablet (Xarelto) 20 mg PO QPM #90 tabs 06/15/21 [Rx Confirmed 02/23/22] glucagon 1 mg solution for injection 1 mg SUBCUT Q20M PRN Hypoglycemia 02/15/22 [History Confirmed 02/23/22] prednisone 10 mg tablet 10 mg PO DAILY #30 tabs 02/22/22 [Rx Confirmed 02/23/22] hydrocodone 5 mg-acetaminophen 325 mg tablet 1 tab PO Q6H PRN pain 02/23/22 [History Confirmed 02/23/22] sucralfate 1 gram tablet (Carafate) 1 g PO QID stomach irritation 02/23/22 [History Confirmed 02/23/22] tamsulosin 0.4 mg capsule (Flomax) 0.4 mg PO DAILY PRN Urinary Retention 02/23/22 [History Confirmed 02/23/22] tramadol 50 mg tablet 50 mg PO Q6HR 02/23/22 [History Confirmed 02/23/22] triamcinolone acetonide 0.1 % lotion 1 applic topical DAILY PRN Rash 02/23/22 [History Confirmed 02/23/22] Visit Medications (administered) Generic Name Dose Route Start Last Admin Trade Name Nara PRN Reason Stop Dose Admin Hydrocodone Bitart/Acetaminophen 1 tab 02/23/22 15:49 02/24/22 11:55 Hydrocodone/Acet 5/325 Tablet PO 1 tab Q4HR PRN Administration Pain, Moderate (4-6) Allopurinol 300 mg 02/24/22 09:00 02/24/22 08:29 Allopurinol 300 Mg Tablet PO 300 mg DAILY MELANIE Administration Aspirin 81 mg 02/24/22 09:00 02/24/22 08:29 Aspirin Ec 81 Mg Tablet PO 81 mg DAILY MELANIE Administration Colchicine 0.6 mg 02/23/22 21:00 02/24/22 20:47 Colchicine 0.6 Mg Tablet PO 0.6 mg BID MELANIE Administration Docusate Sodium 100 mg 02/23/22 21:00 02/24/22 20:48 Docusate 100 Mg Capsule PO 100 mg BID MELANIE Administration Duloxetine HCl 60 mg 02/24/22 09:00 02/24/22 08:29 Duloxetine 30 Mg Capsule PO 60 mg DAILY MELANIE Administration Gabapentin 1,200 mg 02/23/22 21:00 02/24/22 20:48 Gabapentin 600 Mg Tablet PO 1,200 mg BID MELANIE Administration Piperacillin Sod/Tazobactam 100 mls @ 25 mls/hr 02/23/22 21:00 02/25/22 00:48 Sod 3.375 gm/ Sodium Chloride IV Infused Q8H MELANIE Infusion Vancomycin HCl/Dextrose 1,500 mg in 300 mls @ 200 mls/hr 02/24/22 14:00 02/24/22 14:17 Vancomycin IV 200 mls/hr DAILY@1400 MELANIE Administration Insulin Glargine 55 unit 02/23/22 21:00 02/24/22 21:01 Insulin Glargine 100 Unit/Ml 3ml Pen SUBCUT 55 unit BEDTIME MELANIE Administration Insulin Human Lispro 0 unit 02/23/22 16:45 02/24/22 21:00 Insulin Lispro 100 Unit/Ml 3ml Vial SUBCUT Not Given ACHS [facility] Protocol Pantoprazole Sodium 20 mg 02/24/22 09:00 02/24/22 08:[address] 20 Mg Tablet PO 20 mg DAILY MELANIE Administration Prednisone 20 mg 02/24/22 09:00 02/24/22 08:29 Prednisone 20 Mg Tablet PO 20 mg DAILY MELANIE Administration Rivaroxaban 20 mg 02/23/22 17:00 02/24/22 17:39 Rivaroxaban 10 Mg Tablet PO 20 mg QPM MELANIE Administration Ropinirole HCl 1 mg 02/24/22 09:00 02/24/22 08:35 Ropinirole 1 Mg Tablet PO 1 mg DAILY MELANIE Administration Ropinirole HCl 2 mg 02/23/22 21:00 02/24/22 20:47 Ropinirole 1 Mg Tablet PO 2 mg BEDTIME MELANIE Administration Tamsulosin HCl 0.4 mg 02/23/22 21:00 02/24/22 20:49 Tamsulosin 0.4 Mg Capsule PO 0.4 mg BEDTIME MELANIE Administration Exam Vital Signs (past 8 hours): - 02/25/22 00:00 02/25/22 02:53 02/25/22 02:54 Temperature 97.6 F Pulse Rate 80 108 H Respiratory Rate 19 30 H Blood Pressure 124/67 156/75 H Pulse Oximetry 93 95 Fraction of Inspired Oxygen 02/25/22 02:24 02/25/22 02:56 02/25/22 03:00 Temperature Pulse Rate Respiratory Rate 30 H Blood Pressure 156/75 H 147/68 H Pulse Oximetry Fraction of Inspired Oxygen 50 02/25/22 03:00 02/25/22 03:30 02/25/22 03:34 Temperature Pulse Rate 104 H 99 H 95 H Respiratory Rate 30 H 30 H 28 H Blood Pressure Pulse Oximetry 96 96 96 Fraction of Inspired Oxygen 02/25/22 03:34 Temperature Pulse Rate Respiratory Rate Blood Pressure 114/58 L Pulse Oximetry Fraction of Inspired Oxygen Fraction of Inspired Oxygen 50 Oxygen Delivery Method Room Air Oxygen Flow Rate 0 Const General: comfortable Nutritional Appearance: obese Resp Effort & Inspection: normal respiratory effort (on NIPPV 10/5 50% w/ RR 10) Objective Labs Result Diagrams: 02/25/22 03:15 02/25/22 03:15 Labs: Laboratory Results - last 24 hr 02/24/22 02/24/22 02/24/22 04:35 04:35 06:10 WBC 9.5 RBC 3.30 L Hgb 9.6 L Hct 28.7 L MCV 87.0 MCH 29.1 MCHC 33.5 RDW 20.0 H Plt Count 140 L Neut % (Auto) 83.8 H Lymph % (Auto) 9.5 L [place] % (Auto) 6.4 Eos % (Auto) 0.3 L Baso % (Auto) 0.0 Neut # (Auto) 7900 H Lymph # (Auto) 900 L [place] # (Auto) 600 Eos # (Auto) 0 Baso # (Auto) 0 Sodium 135 L Potassium 3.6 Chloride 104 Carbon Dioxide 20 L BUN 43 H Creatinine 1.19 Estimated GFR > 60 BUN/Creatinine Ratio 36.1 H Glucose 73 L D Lactate 1.4 Calcium 7.9 L Magnesium 2.0 Total Bilirubin 0.4 AST 24 ALT 17 Alkaline Phosphatase 77 Total Protein 5.5 L Albumin 2.7 L Globulin 2.8 Albumin/Globulin Ratio 1.0 02/25/22 02/25/22 03:15 03:15 WBC 12.0 H RBC 3.65 L Hgb 10.3 L Hct 31.0 L MCV 85.0 MCH 28.3 MCHC 33.3 RDW 19.9 H Plt Count 190 Neut % (Auto) 88.7 H Lymph % (Auto) 7.6 L [place] % (Auto) 3.5 Eos % (Auto) 0.0 L Baso % (Auto) 0.2 Neut # (Auto) 67619 H Lymph # (Auto) 900 L [place] # (Auto) 400 Eos # (Auto) 0 Baso # (Auto) 0 Sodium 137 Potassium 3.6 Chloride 104 Carbon Dioxide 21 L BUN 41 H Creatinine 1.10 Estimated GFR > 60 BUN/Creatinine Ratio 37.3 H Glucose 103 Lactate Calcium 8.5 Magnesium Total Bilirubin 0.6 AST 25 ALT 19 Alkaline Phosphatase 109 Total Protein 6.2 L Albumin 3.0 L Globulin 3.2 Albumin/Globulin Ratio 0.9 L Assessment & Plan Assessment and plan (1) Acute respiratory failure with hypoxia: Status: Acute Plan: -Continue NIPPV; wean as tolerated -Assess response to Lasix 40 mg; given recent mild creatinine elevation, will not give additional doses @ this time -Check proBNP (2) Bacteremia due to Staphylococcus aureus: Status: Acute Plan: -Continue vancomycin/Zosyn -Given BMI, may require AMANDA to definitively evaluate for endocarditis if no other source is found. It appears that this was previously considered to evaluate whether his anticoagulation was stopped (he had a L atrial appendage clipping during the CABG) (3) Type 2 diabetes mellitus with complication, with long-term current use of insulin: Problem details: Complicated by neuropathy/retinopathy Status: Acute Plan: -Continue SUBQ insulin protocol (4) Coronary artery disease: Problem details: Stent 2013, [place] Qualifiers: Associated angina: unspecified whether angina present Coronary Disease- Associated Artery/Lesion type: [place] artery [place] vs. transplanted heart: [place] heart Qualified Code(s): I25.10 - Atherosclerotic heart disease of [place] coronary artery without angina pectoris Status: Chronic Plan: -Check troponins (5) Pseudogout: Status: Acute Plan: -As per bedside team (6) Obstructive sleep apnea of adult: Status: Chronic Plan: -See above re: NIPPV (7) Obesity with body mass index (BMI) of 30.0 to 39.9: Status: Chronic Plan: -Follow (8) Chronic pain: Status: Chronic Plan: -On gabapentin, this dose may need to be adjusted given tonight's change; however eGFR remains OK (9) Systolic heart failure: Qualifiers: Heart failure chronicity: acute Qualified Code(s): I50.21 - Acute systolic (congestive) heart failure Status: Acute Plan: -Gentle diuresis -Awaiting BNP -See above (10) Atrial fibrillation: Qualifiers: Atrial fibrillation type: unspecified Qualified Code(s): I48.91 - Unspecified atrial fibrillation Status: Acute Plan: -Was on Coreg CREDIT REPORTER; this was held due to hypotension; would consider restartig later today if hemodynamics allow (11) Chronic anticoagulation: Status: Acute Plan: -Continue Xarelto Time Spent With Patient Critical Care time: I spent a total of 35 minutes of critical care time on this patient's care today; this time is exclusive of procedural time.
[2022-02-25 04:19] LABS: NT-proBNP (BNP-Adult 18+) 10200 pg/mL (<125)
[2022-02-25 04:43] LABS: Troponin I 0.029 ng/mL (0.01-0.034)
[2022-02-25] MEDS: PIPERACILLIN/TAZO 3.375 GM in SODIUM CHLORIDE 0.9% 100 ML IV ×3 (06:00→20:50)
--- NOTE | 2022-02-25 06:53 | P.PN_ITS ---
Subjective Subjective Date Patient Seen: 02/25/22 Time Patient Seen: 06:53 Interval history: Patient transferred to the ICU early this morning because of acute respiratory failure. Patient was on CPAP became quite hypoxic had a hard time breathing. Required increasing levels of oxygen and eventually BiPAP to maintain saturations. Transferred from the medical floor to the ICU. Patient was on BiPAP for approximately 4 hours. Was given a dose of 40 mg of IV Lasix. He is off BiPAP now. On 6 L nasal cannula saturations look good. Blood pressures improved and stable overnight IV fluids off. Still quite weak. Complaining of right hand wrist pain. Exam Vital Signs (past 8 hours): - 02/25/22 00:00 02/25/22 02:53 02/25/22 02:54 Temperature 97.6 F Pulse Rate 80 108 H Respiratory Rate 19 30 H Blood Pressure 124/67 156/75 H Pulse Oximetry 93 95 Oxygen Delivery Method Oxygen Flow Rate Fraction of Inspired Oxygen 02/25/22 02:24 02/25/22 02:56 02/25/22 03:00 Temperature Pulse Rate Respiratory Rate 30 H Blood Pressure 156/75 H 147/68 H Pulse Oximetry Oxygen Delivery Method Oxygen Flow Rate Fraction of Inspired Oxygen 50 02/25/22 03:00 02/25/22 03:30 02/25/22 03:34 Temperature Pulse Rate 104 H 99 H 95 H Respiratory Rate 30 H 30 H 28 H Blood Pressure Pulse Oximetry 96 96 96 Oxygen Delivery Method Oxygen Flow Rate Fraction of Inspired Oxygen 02/25/22 03:34 02/25/22 03:30 02/25/22 04:00 Temperature Pulse Rate 93 H Respiratory Rate 29 H Blood Pressure 114/58 L Pulse Oximetry 95 Oxygen Delivery Method Room Air Oxygen Flow Rate Fraction of Inspired Oxygen 02/25/22 04:29 02/25/22 04:30 02/25/22 04:36 Temperature Pulse Rate 88 94 H Respiratory Rate 28 H 28 H Blood Pressure 114/58 L Pulse Oximetry 97 99 Oxygen Delivery Method Oxygen Flow Rate Fraction of Inspired Oxygen 50 02/25/22 04:36 02/25/22 05:00 02/25/22 05:30 Temperature Pulse Rate 85 84 Respiratory Rate 28 H 27 H Blood Pressure 130/64 Pulse Oximetry 97 98 Oxygen Delivery Method Oxygen Flow Rate Fraction of Inspired Oxygen 02/25/22 05:37 02/25/22 05:37 02/25/22 05:56 Temperature Pulse Rate 85 Respiratory Rate 28 H Blood Pressure 123/60 Pulse Oximetry 98 97 Oxygen Delivery Method Nasal Cannula Oxygen Flow Rate 6 Fraction of Inspired Oxygen 44 02/25/22 06:00 02/25/22 06:00 02/25/22 06:30 Temperature Pulse Rate 84 83 Respiratory Rate 28 H 28 H Blood Pressure 121/58 L Pulse Oximetry 95 92 Oxygen Delivery Method Oxygen Flow Rate Fraction of Inspired Oxygen Fraction of Inspired Oxygen 44 Oxygen Delivery Method Nasal Cannula Oxygen Flow Rate 6 Narrative Exam Narrative: Gen.: Alert he says he was confused last night thought his was sitting next to him at the bedside. HEENT: Pupils equal round and reactive. Oral mucosa is dry neck is supple Cardio: S1-S2 regular rate and rhythm systolic murmur present Respiratory: Lung sounds are diminished throughout. Do not appreciate any crackles decreased breath sounds at lung bases. Abdomen: Soft obese nontender Extremities: Right wrist is swollen red tender to the touch she has decreased range of motion. No significant lower extremity edema Neurologic: Grossly intact. Objective Labs Result Diagrams: 02/25/22 03:15 02/25/22 03:15 Labs: Laboratory Results - last 24 hr 02/25/22 02/25/22 02/25/22 03:15 03:15 03:15 WBC 12.0 H RBC 3.65 L Hgb 10.3 L Hct 31.0 L MCV 85.0 MCH 28.3 MCHC 33.3 RDW 19.9 H Plt Count 190 Neut % (Auto) 88.7 H Lymph % (Auto) 7.6 L [place] % (Auto) 3.5 Eos % (Auto) 0.0 L Baso % (Auto) 0.2 Neut # (Auto) 94940 H Lymph # (Auto) 900 L [place] # (Auto) 400 Eos # (Auto) 0 Baso # (Auto) 0 Sodium 137 Potassium 3.6 Chloride 104 Carbon Dioxide 21 L BUN 41 H Creatinine 1.10 Estimated GFR > 60 BUN/Creatinine Ratio 37.3 H Glucose 103 Calcium 8.5 Magnesium 2.0 Total Bilirubin 0.6 AST 25 ALT 19 Alkaline Phosphatase 109 Troponin I NT-Pro-B Natriuret Pep Total Protein 6.2 L Albumin 3.0 L Globulin 3.2 Albumin/Globulin Ratio 0.9 L 02/25/22 02/25/22 03:15 03:15 WBC RBC Hgb Hct MCV MCH MCHC RDW Plt Count Neut % (Auto) Lymph % (Auto) [place] % (Auto) Eos % (Auto) Baso % (Auto) Neut # (Auto) Lymph # (Auto) [place] # (Auto) Eos # (Auto) Baso # (Auto) Sodium Potassium Chloride Carbon Dioxide BUN Creatinine Estimated GFR BUN/Creatinine Ratio Glucose Calcium Magnesium Total Bilirubin AST ALT Alkaline Phosphatase Troponin I 0.029 NT-Pro-B Natriuret Pep 28807 H Total Protein Albumin Globulin Albumin/Globulin Ratio [facility] Medical History Chronic pain Chronic rhinitis Coronary artery disease (04/29/14) CTS (carpal tunnel syndrome) (1977) Diabetes mellitus Essential hypertension ETD (eustachian tube dysfunction) Hypersomnia (~1997) Hypogonadism in male Insomnia, persistent (~1995) Mixed hyperlipidemia Obesity with body mass index (BMI) of 30.0 to 39.9 (04/24/15) Obstructive sleep apnea of adult Osteoarthritis of hands, 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 (07/29/15) Primary osteoarthritis of left knee (03/03/16) Restless legs syndrome (04/24/15) Squamous cell carcinoma of nose (2004) Type 2 diabetes mellitus with other skin ulcer (04/24/15) Wound healing, delayed Wound, open, foot Surgical History History of carpal tunnel repair (1977) History of coronary artery stent placement (04/2014) Hx of inguinal hernia surgery (1977) S/P CABG x 3 S/P CABG x 3 Status post arthroscopy Status post rotator cuff repair Family History Father Coronary artery disease Alcoholism Sudden Other Depression Social History marital status: details: jose Marx, lives in [place] household members: spouse lives independently: Yes caregiver/support person: No housing: house princess/yazidism: [employer] Saint / Protestant Smoking Status: Never smoker alcohol intake: never substance use type: does not use eating out: 1-3 times/week Type(s) of exercise: walking, aerobic, bicycling, advised to exercise at least 150 min/week (moderate intensity aerobic) and advised to perform resistance training at least 2x/week Assessment & Plan Assessment and plan (1) Severe sepsis: Status: Acute (2) Acute respiratory failure with hypoxia: Status: Acute (3) Bacteremia due to Staphylococcus aureus: Status: Acute Plan Acute respiratory failure most likely due to decompensated acute systolic heart failure. Patient given IV Lasix this morning. Requiring BiPAP he is off BiPAP now on 6 L nasal cannula oxygen. Looks like he had good urine response. May give another dose of Lasix a little later this morning. Dose of potassium as well to prevent hypokalemia will be provided. Continue to monitor closely his renal function urinary output and blood pressure and oxygen status. Acute systolic heart failure. Previous echo shows ejection fraction of 40-50%. His quite low on echocardiogram here in the hospital probably due to underlying infection. He received a lot of fluids for resuscitation to maintain blood pressure because of his sepsis. Continue with diuresis restart beta-sis this morning. Atrial fibrillation. Patient went into atrial fibrillation with rapid ventricular response with acute decompensation. Probably contributed to his heart failure. Restart beta-sis this morning he is in normal sinus rhythm he is currently anticoagulated. Severe sepsis.? Blood culture both bottles show Staph aureus.? Lactic acid is normal white blood cell count is elevated. Staph aureus mics pending continue with vancomycin and Zosyn. Acute kidney injury patient's electrolytes are good this morning.? Monitor kidney function tomorrow. Continue with beta-sis Lasix potassium dose today due to Lasix IV. Acute mental status changes consistent with acute metabolic encephalopathy due to respiratory failure and underlying infection. Mild confusion last night doing much better this morning. ?Polyarticular joint pain with swelling.? Affecting wrist the knee elbow and shoulder.? Red swollen right wrist.? Unable to receive fluid from the wrist yesterday. Pseudogout versus infection.//continue with antibiotics steroids. ?Coronary artery disease status post CABG.? Troponins negative this morning. Restart beta-sis. Insulin-dependent type 2 diabetes.? Lantus insulin with insulin sliding scale coverage.? Diabetic diet. Morbid obesity a BMI of 33.1.? With sleep apnea.? Hyperlipidemia.? Continue with statin medication for cholesterol management. BPH with history of urinary obstruction.? Patient urinating freely continue with Flomax.? Will continue to monitor for signs of obstruction Disposition plan continue inpatient.? Transfer to ICU today. Restart beta- sis her continue with Lasix potassium replacement.. Time Spent With Patient Critical Care time: I spent a total of [] minutes of critical care time on this patient's care today; this time is exclusive of procedural time. Quality VTE Deep Vein Thrombosis/Pulmonary Embolism Present on Admission: No
--- NOTE | 2022-02-25 07:18 | PC.NURSE ---
Addendum entered by Elizabeth Nguyen R.N. 02/25/22 07:24: As preceptor, I agree with [place] RNs assessment, interventions, and documentations. Original Note: 0300-Pt yelled out that he couldn't breathe. O2 sats were checked by nurse and RT, read mid 50s on CPAP. Pt was upgraded to a BiPap 10/5 50%. He was then transferred to the ICU due to increased oxygen requirements. Had a spell of Afib, and an episode of Vtach, as well as multifocal PVCs. EKG was done. 40 mg Lasix was given. Pt put out 1200 after Lasix and was taken off Bipap and put on 6L NC satting 94%. [place] [address].
--- NOTE | 2022-02-25 07:56 | DI.RAD.S_ITS ---
PROCEDURE: XR CHEST 1V INDICATIONS: CHF TECHNIQUE: One view of the chest was acquired. COMPARISON: [facility], CR, XR CHEST 1V, 02/23/2022, 12:07. [facility], CR, XR CHEST 1V, 08/23/2020, 13:30. FINDINGS: Surgical changes and devices: ACDF. Post median sternotomy. Atrial appendage clip. Lungs and pleura: No consolidation identified. Prominent pulmonary markings. No pleural effusions or pneumothorax. Mediastinum: Mediastinal contours appear unchanged. Heart size is at the upper limits of normal. Bones and chest wall: No suspicious bony lesions. Overlying soft tissues appear unremarkable. IMPRESSION: Possible pulmonary vasculature engorgement. Dictated by: Jacob Panchal M.D. on 02/25/2022 at 9:10 Approved by: Jacob Panchal M.D. on 02/25/2022 at 9:12
[2022-02-25] MEDS: POTASSIUM CHLORIDE 20 MEQ TAB PO ×2 (08:37→15:43)
[2022-02-25] MEDS: DOCUSATE 100 MG CAPSULE PO ×2 (08:38→20:49)
[2022-02-25] MEDS: PANTOPRAZOLE DR 20 MG TABLET PO (08:38)
[2022-02-25] MEDS: DULOXETINE 30 MG CAPSULE 60 MG PO (08:38)
[2022-02-25] MEDS: allopurinoL 300 MG TABLET PO (08:38)
[2022-02-25] MEDS: ASPIRIN EC 81 MG TABLET PO (08:38)
[2022-02-25] MEDS: GABAPENTIN 600 MG TABLET 1200 MG PO ×2 (08:38→20:49)
[2022-02-25] MEDS: predniSONE 20 MG TABLET PO (08:38)
[2022-02-25 09:07] LABS: Troponin I 0.082 ng/mL (0.01-0.034)
[2022-02-25] MEDS: COLCHICINE 0.6 MG TABLET PO ×2 (09:12→20:49)
[2022-02-25] MEDS: ROPINIROLE 1 MG TABLET PO (09:12)
[2022-02-25] MEDS: SODIUM CHLORIDE 0.9% FLUSH 10 ML IV ×2 (09:14→20:52)
--- NOTE | 2022-02-25 09:47 | P.TELICUPN_ITS ---
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: Yes Patient Location: ICU Provider location (State): Other participants/roles: MD Interval history: Pt was seen through the camera in the presence of the medical staff Current Medications Current Medications Medications: Home Medications semaglutide 0.25 mg or 0.5 mg (2 mg/1.5 mL) subcutaneous pen injector (Ozempic) 1 mg SUBCUT QWEEK 03/15/19 [History Confirmed 02/23/22] cyclobenzaprine 10 mg tablet 10 mg PO TID PRN spasms 04/25/19 [History Confirmed 02/23/22] aspirin 81 mg tablet,delayed release (Enteric Coated Aspirin) 81 mg PO DAILY 09/10/20 [History Confirmed 02/23/22] epinephrine 0.3 mg/0.3 mL injection, auto-injector 0.3 mg IM ONCE PRN anaphylaxis 09/10/20 [History Confirmed 02/23/22] allopurinol 300 mg tablet 300 mg PO DAILY #90 tabs 03/24/21 [Rx Confirmed 02/23/22] amlodipine 10 mg tablet 10 mg PO DAILY #90 tabs 03/24/21 [Rx Confirmed 02/23/22] carvedilol 12.5 mg tablet 12.5 mg PO BID #180 tabs 03/24/21 [Rx Confirmed 02/23/22] colchicine 0.6 mg tablet 0.6 mg PO BID #180 tabs 03/24/21 [Rx Confirmed 02/23/22] dapagliflozin 10 mg tablet 10 mg PO DAILY #90 tabs 03/24/21 [Rx Confirmed 02/23/22] duloxetine 60 mg capsule,delayed release 60 mg PO DAILY #90 caps 03/24/21 [Rx Confirmed 02/23/22] furosemide 20 mg tablet 20 mg PO DAILY #90 tabs 03/24/21 [Rx Confirmed 02/23/22] gabapentin 600 mg tablet 1,200 mg PO BID #360 tabs 03/24/21 [Rx Confirmed 02/23/22] olmesartan 40 mg tablet 40 mg PO DAILY #90 tabs 03/24/21 [Rx Confirmed 02/23/22] pantoprazole 20 mg tablet,delayed release 20 mg PO DAILY #90 tabs 03/24/21 [Rx Confirmed 02/23/22] ropinirole 2 mg tablet See Rx Instructions PO BID #270 tabs 03/24/21 [Rx Co nfirmed 02/23/22] rosuvastatin 10 mg tablet 10 mg PO DAILY #90 tabs 03/24/21 [Rx Confirmed 02/23/22] insulin glargine 100 unit/mL (3 mL) subcutaneous pen (Lantus Solostar U-100 Insulin) 55 unit (0.55 mL) SUBCUT BID #135 mL 03/26/21 [Rx Confirmed 02/23/22] insulin lispro 100 unit/mL subcutaneous solution (Humalog U-100 Insulin) 5 unit (0.05 mL) SUBCUT TID #150 mL 03/26/21 [Rx Confirmed 02/23/22] metformin 500 mg tablet 1,000 mg PO BIDCC #360 tabs 03/26/21 [Rx Confirmed 02/23/22] rivaroxaban 20 mg tablet (Xarelto) 20 mg PO QPM #90 tabs 06/15/21 [Rx Confirmed 02/23/22] glucagon 1 mg solution for injection 1 mg SUBCUT Q20M PRN Hypoglycemia 02/15/22 [History Confirmed 02/23/22] prednisone 10 mg tablet 10 mg PO DAILY #30 tabs 02/22/22 [Rx Confirmed 02/23/22] hydrocodone 5 mg-acetaminophen 325 mg tablet 1 tab PO Q6H PRN pain 02/23/22 [History Confirmed 02/23/22] sucralfate 1 gram tablet (Carafate) 1 g PO QID stomach irritation 02/23/22 [History Confirmed 02/23/22] tamsulosin 0.4 mg capsule (Flomax) 0.4 mg PO DAILY PRN Urinary Retention 02/23/22 [History Confirmed 02/23/22] tramadol 50 mg tablet 50 mg PO Q6HR 02/23/22 [History Confirmed 02/23/22] triamcinolone acetonide 0.1 % lotion 1 applic topical DAILY PRN Rash 02/23/22 [History Confirmed 02/23/22] Visit Medications (administered) Generic Name Dose Route Start Last Admin Trade Name Freq PRN Reason Stop Dose Admin Hydrocodone Bitart/Acetaminophen 1 tab 02/23/22 15:49 02/24/22 11:55 Hydrocodone/Acet 5/325 Tablet PO 1 tab Q4HR PRN Administration Pain, Moderate (4-6) Allopurinol 300 mg 02/24/22 09:00 02/25/22 08:38 Allopurinol 300 Mg Tablet PO 300 mg DAILY MELANIE Administration Aspirin 81 mg 02/24/22 09:00 02/25/22 08:38 Aspirin Ec 81 Mg Tablet PO 81 mg DAILY MELANIE Administration Colchicine 0.6 mg 02/23/22 21:00 02/25/22 09:12 Colchicine 0.6 Mg Tablet PO 0.6 mg BID MELANIE Administration Docusate Sodium 100 mg 02/23/22 21:00 02/25/22 08:38 Docusate 100 Mg Capsule PO 100 mg BID MELANIE Administration Duloxetine HCl 60 mg 02/24/22 09:00 02/25/22 08:38 Duloxetine 30 Mg Capsule PO 60 mg DAILY MELANIE Administration Gabapentin 1,200 mg 02/23/22 21:00 02/25/22 08:38 Gabapentin 600 Mg Tablet PO 1,200 mg BID MELANIE Administration Piperacillin Sod/Tazobactam 100 mls @ 25 mls/hr 02/23/22 21:00 02/25/22 06:00 Sod 3.375 gm/ Sodium Chloride IV 25 mls/hr Q8H MELANIE Administration Insulin Glargine 55 unit 02/23/22 21:00 02/24/22 21:01 Insulin Glargine 100 Unit/Ml 3ml Pen SUBCUT 55 unit BEDTIME MELANIE Administration Insulin Human Lispro 0 unit 02/23/22 16:45 02/25/22 08:38 Insulin Lispro 100 Unit/Ml 3ml Vial SUBCUT Not Given ACHS MELANIE Protocol Pantoprazole Sodium 20 mg 02/24/22 09:00 02/25/22 08:[address] 20 Mg Tablet PO 20 mg DAILY MELANIE Administration Prednisone 20 mg 02/24/22 09:00 02/25/22 08:38 Prednisone 20 Mg Tablet PO 20 mg DAILY MELANIE Administration Rivaroxaban 20 mg 02/23/22 17:00 02/24/22 17:39 Rivaroxaban 10 Mg Tablet PO 20 mg QPM MELANIE Administration Ropinirole HCl 1 mg 02/24/22 09:00 02/25/22 09:12 Ropinirole 1 Mg Tablet PO 1 mg DAILY MELANIE Administration Ropinirole HCl 2 mg 02/23/22 21:00 02/24/22 20:47 Ropinirole 1 Mg Tablet PO 2 mg BEDTIME MELANIE Administration Sodium Chloride 10 ml 02/25/22 09:00 02/25/22 09:14 Sodium Chloride 0.9% Flush IV 10 ml BID MELANIE Administration Tamsulosin HCl 0.4 mg 02/23/22 21:00 02/24/22 20:49 Tamsulosin 0.4 Mg Capsule PO 0.4 mg BEDTIME MELANIE Administration Objective Labs Result Diagrams: 02/25/22 03:15 02/25/22 03:15 Labs: Laboratory Results - last 24 hr 02/25/22 02/25/22 02/25/22 03:15 03:15 03:15 WBC 12.0 H RBC 3.65 L Hgb 10.3 L Hct 31.0 L MCV 85.0 MCH 28.3 MCHC 33.3 RDW 19.9 H Plt Count 190 Neut % (Auto) 88.7 H Lymph % (Auto) 7.6 L Craig % (Auto) 3.5 Eos % (Auto) 0.0 L Baso % (Auto) 0.2 Neut # (Auto) 25565 H Lymph # (Auto) 900 L Craig # (Auto) 400 Eos # (Auto) 0 Baso # (Auto) 0 Sodium 137 Potassium 3.6 Chloride 104 Carbon Dioxide 21 L BUN 41 H Creatinine 1.10 Estimated GFR > 60 BUN/Creatinine Ratio 37.3 H Glucose 103 Calcium 8.5 Magnesium 2.0 Total Bilirubin 0.6 AST 25 ALT 19 Alkaline Phosphatase 109 Troponin I NT-Pro-B Natriuret Pep Total Protein 6.2 L Albumin 3.0 L Globulin 3.2 Albumin/Globulin Ratio 0.9 L 02/25/22 02/25/22 02/25/22 03:15 03:15 08:30 WBC RBC Hgb Hct MCV MCH MCHC RDW Plt Count Neut % (Auto) Lymph % (Auto) Craig % (Auto) Eos % (Auto) Baso % (Auto) Neut # (Auto) Lymph # (Auto) Craig # (Auto) Eos # (Auto) Baso # (Auto) Sodium Potassium Chloride Carbon Dioxide BUN Creatinine Estimated GFR BUN/Creatinine Ratio Glucose Calcium Magnesium Total Bilirubin AST ALT Alkaline Phosphatase Troponin I 0.029 0.082 H NT-Pro-B Natriuret Pep 53802 H Total Protein Albumin Globulin Albumin/Globulin Ratio Exam Vital Signs (past 8 hours): - 02/25/22 02:53 02/25/22 02:54 02/25/22 02:24 Temperature Pulse Rate 108 H Respiratory Rate 30 H 30 H Blood Pressure 156/75 H Pulse Oximetry 95 Oxygen Delivery Method Oxygen Flow Rate Fraction of Inspired Oxygen 02/25/22 02:56 02/25/22 03:00 02/25/22 03:00 Temperature Pulse Rate 104 H Respiratory Rate 30 H Blood Pressure 156/75 H 147/68 H Pulse Oximetry 96 Oxygen Delivery Method Oxygen Flow Rate Fraction of Inspired Oxygen 50 02/25/22 03:30 02/25/22 03:34 02/25/22 03:34 Temperature Pulse Rate 99 H 95 H Respiratory Rate 30 H 28 H Blood Pressure 114/58 L Pulse Oximetry 96 96 Oxygen Delivery Method Oxygen Flow Rate Fraction of Inspired Oxygen 02/25/22 03:30 02/25/22 04:00 02/25/22 04:29 Temperature Pulse Rate 93 H Respiratory Rate 29 H Blood Pressure 114/58 L Pulse Oximetry 95 Oxygen Delivery Method Room Air Oxygen Flow Rate Fraction of Inspired Oxygen 50 02/25/22 04:30 02/25/22 04:36 02/25/22 04:36 Temperature Pulse Rate 88 94 H Respiratory Rate 28 H 28 H Blood Pressure 130/64 Pulse Oximetry 97 99 Oxygen Delivery Method Oxygen Flow Rate Fraction of Inspired Oxygen 02/25/22 05:00 02/25/22 05:30 02/25/22 05:37 Temperature Pulse Rate 85 84 85 Respiratory Rate 28 H 27 H 28 H Blood Pressure Pulse Oximetry 97 98 98 Oxygen Delivery Method Oxygen Flow Rate Fraction of Inspired Oxygen 02/25/22 05:37 02/25/22 05:56 02/25/22 06:00 Temperature Pulse Rate Respiratory Rate Blood Pressure 123/60 121/58 L Pulse Oximetry 97 Oxygen Delivery Method Nasal Cannula Oxygen Flow Rate 6 Fraction of Inspired Oxygen 44 02/25/22 06:00 02/25/22 06:30 02/25/22 08:00 Temperature 98.2 F Pulse Rate 84 83 Respiratory Rate 28 H 28 H 26 H Blood Pressure Pulse Oximetry 95 92 96 Oxygen Delivery Method Oxygen Flow Rate 6 Fraction of Inspired Oxygen 02/25/22 07:00 02/25/22 07:30 02/25/22 08:00 Temperature Pulse Rate 84 83 Respiratory Rate 25 H 27 H Blood Pressure 128/58 L Pulse Oximetry 95 92 Oxygen Delivery Method Oxygen Flow Rate Fraction of Inspired Oxygen 02/25/22 08:00 02/25/22 08:30 02/25/22 09:00 Temperature Pulse Rate 83 84 Respiratory Rate 27 H 25 H Blood Pressure 125/59 L Pulse Oximetry 96 94 Oxygen Delivery Method Oxygen Flow Rate Fraction of Inspired Oxygen 02/25/22 09:00 Temperature Pulse Rate 84 Respiratory Rate 25 H Blood Pressure Pulse Oximetry 93 Oxygen Delivery Method Oxygen Flow Rate Fraction of Inspired Oxygen Fraction of Inspired Oxygen 44 Oxygen Delivery Method Nasal Cannula Oxygen Flow Rate 6 Quality TeleICU VTE Deep Vein Thrombosis/Pulmonary Embolism Present on Admission: No Assessment & Plan Assessment & Plan narrative: [address] [address] Teleintensivist Consult Note Patient: Cory Lin MR#: [id number] : 1955 Acct:[id number] Age/Sex: 66 / M ? Date of Service: 02/23/22 Provider:?Cornelio Dasilva MD History of Present Illness Consult details If camera was activated, add TeleICU A-V Statement: Patient was seen by two-way interactive audiovisual telecommunication. 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 male upgraded to ICU status for BIPAP therapy.? RN reports possible episode of AF on floor prior to ICU arrival.? BIPAP @ 10/5 FiO2 50% w/ RR of 10 on initial camera activation.? Patient also received 40 mg Lasix on floor prior to transport.? Originally admitted 02/23 for increasing somnolence and fluid- responsive hypotension; also had mild JAMAL which has resolved.? Blood cultures are (+) for Staphyloccoccus aureus; sensitivities are pending. 8 AM 2-D echo w/ LVEF% of 20-25%, RV dysfunction and mild-moderate MR. 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 PFSH Medical History? 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 History of carpal tunnel repair (1977) History of coronary artery stent placement (04/2014) Hx of inguinal hernia surgery (1977) S/P CABG x 3 S/P CABG x 3 Status post arthroscopy Status post rotator cuff repair Family History? Father?? Coronary artery disease Alcoholism Sudden deathOther Depression Social History? marital status:? details:? to Francisco J, lives in [place] household members:? spouse lives independently:? Yes caregiver/support person:? No housing:? house princess/denominational:? [employer] [facility] Smoking Status:? Never smoker alcohol intake:? never substance use type:? does not use eating out:? 1-3 times/week Type(s) of exercise:? walking, aerobic, bicycling, advised to exercise at least 150 min/week (moderate intensity aerobic) and advised to perform resistance training at least 2x/week Current Medications Current Medications Medications: Home Medications semaglutide 0.25 mg or 0.5 mg (2 mg/1.5 mL) subcutaneous pen injector (Ozempic) 1 mg SUBCUT QWEEK 03/15/19 [History Confirmed 02/23/22] cyclobenzaprine 10 mg tablet 10 mg PO TID PRN spasms 10/16/19 [History Confirmed 02/23/22] aspirin 81 mg tablet,delayed release (Enteric Coated Aspirin) 81 mg PO DAILY 09/10/20 [History Confirmed 02/23/22] epinephrine 0.3 mg/0.3 mL injection, auto-injector 0.3 mg IM ONCE PRN anaphylaxis 09/10/20 [History Confirmed 02/23/22] allopurinol 300 mg tablet 300 mg PO DAILY #90 tabs 03/24/21 [Rx Confirmed 02/23/22] amlodipine 10 mg tablet 10 mg PO DAILY #90 tabs 03/24/21 [Rx Confirmed 02/23/22] carvedilol 12.5 mg tablet 12.5 mg PO BID #180 tabs 03/24/21 [Rx Confirmed 02/23/22] colchicine 0.6 mg tablet 0.6 mg PO BID #180 tabs 03/24/21 [Rx Confirmed 02/23/22] dapagliflozin 10 mg tablet 10 mg PO DAILY #90 tabs 03/24/21 [Rx Confirmed 02/23/22] duloxetine 60 mg capsule,delayed release 60 mg PO DAILY #90 caps 03/24/21 [Rx Confirmed 02/23/22] furosemide 20 mg tablet 20 mg PO DAILY #90 tabs 03/24/21 [Rx Confirmed 02/23/22] gabapentin 600 mg tablet 1,200 mg PO BID #360 tabs 03/24/21 [Rx Confirmed 02/23/22] olmesartan 40 mg tablet 40 mg PO DAILY #90 tabs 03/24/21 [Rx Confirmed 02/23/22] pantoprazole 20 mg tablet,delayed release 20 mg PO DAILY #90 tabs 03/24/21 [Rx Confirmed 02/23/22] ropinirole 2 mg tablet See Rx Instructions PO BID #270 tabs 03/24/21 [Rx Confirmed 02/23/22] rosuvastatin 10 mg tablet 10 mg PO DAILY #90 tabs 03/24/21 [Rx Confirmed 02/23/22] insulin glargine 100 unit/mL (3 mL) subcutaneous pen (Lantus Solostar U-100 Insulin) 55 unit (0.55 mL) SUBCUT BID #135 mL 03/26/21 [Rx Confirmed 02/23/22] insulin lispro 100 unit/mL subcutaneous solution (Humalog U-100 Insulin) 5 unit (0.05 mL) SUBCUT TID #150 mL 03/26/21 [Rx Confirmed 02/23/22] metformin 500 mg tablet 1,000 mg PO BIDCC #360 tabs 03/26/21 [Rx Confirmed 02/23/22] rivaroxaban 20 mg tablet (Xarelto) 20 mg PO QPM #90 tabs 06/15/21 [Rx Confirmed 02/23/22] glucagon 1 mg solution for injection 1 mg SUBCUT Q20M PRN Hypoglycemia 02/15/22 [History Confirmed 02/23/22] prednisone 10 mg tablet 10 mg PO DAILY #30 tabs 02/22/22 [Rx Confirmed 02/23/22] hydrocodone 5 mg-acetaminophen 325 mg tablet 1 tab PO Q6H PRN pain 02/23/22 [History Confirmed 02/23/22] sucralfate 1 gram tablet (Carafate) 1 g PO QID stomach irritation 02/23/22 [History Confirmed 02/23/22] tamsulosin 0.4 mg capsule (Flomax) 0.4 mg PO DAILY PRN Urinary Retention 02/23/22 [History Confirmed 02/23/22] tramadol 50 mg tablet 50 mg PO Q6HR 02/23/22 [History Confirmed 02/23/22] triamcinolone acetonide 0.1 % lotion 1 applic topical DAILY PRN Rash 02/23/22 [History Confirmed 02/23/22] Visit Medications (administered) Generic Name Dose Route Start Last Admin ? Trade Name Freq? PRN Reason Stop Dose Admin Hydrocodone Bitart/Acetaminophen ?1 tab ?02/23/22 15:49 ?02/24/22 11:55 ? Hydrocodone/Acet 5/325 Tablet ?PO ? ?1 tab ? ?Q4HR PRN ? ?Administration ? ?Pain, Moderate (4-6) ? ? Allopurinol ?300 mg ?02/24/22 09:00 ?02/24/22 08:29 ? Allopurinol 300 Mg Tablet ?PO ? ?300 mg ? ?DAILY MELANIE ? ?Administration Aspirin ?81 mg ?02/24/22 09:00 ?02/24/22 08:29 ? Aspirin Ec 81 Mg Tablet ?PO ? ?81 mg ? ?DAILY MELANIE ? ?Administration Colchicine ?0.6 mg ?02/23/22 21:00 ?02/24/22 20:47 ? Colchicine 0.6 Mg Tablet ?PO ? ?0.6 mg ? ?BID MELANIE ? ?Administration Docusate Sodium ?100 mg ?02/23/22 21:00 ?02/24/22 20:48 ? Docusate 100 Mg Capsule ?PO ? ?100 mg ? ?BID MELANIE ? ?Administration Duloxetine HCl ?60 mg ?02/24/22 09:00 ?02/24/22 08:29 ? Duloxetine 30 Mg Capsule ?PO ? ?60 mg ? ?DAILY MELANIE ? ?Administration Gabapentin ?1,200 mg ?02/23/22 21:00 ?02/24/22 20:48 ? Gabapentin 600 Mg Tablet ?PO ? ?1,200 mg ? ?BID MELANIE ? ?Administration Piperacillin Sod/Tazobactam ?100 mls @ 25 mls/hr ?02/23/22 21:00 ?02/25/22 00:48 ? Sod 3.375 gm/ Sodium Chloride ?IV ? ?Infused ? ?Q8H MELANIE ? ?Infusion Vancomycin HCl/Dextrose ?1,500 mg in 300 mls @ 200 mls/hr ?02/24/22 14:00 ?02/24/22 14:17 ? Vancomycin ?IV ? ?200 mls/hr ? ?DAILY@1400 MELANIE ? ?Administration Insulin Glargine ?55 unit ?02/23/22 21:00 ?02/24/22 21:01 ? Insulin Glargine 100 Unit/Ml 3ml Pen ?SUBCUT ? ?55 unit ? ?BEDTIME MELANIE ? ?Administration Insulin Human Lispro ?0 unit ?02/23/22 16:45 ?02/24/22 21:00 ? Insulin Lispro 100 Unit/Ml 3ml Vial ?SUBCUT ? ?Not Given ? ?ACHS MELANIE ?Protocol ? ? Pantoprazole Sodium ?20 mg ?02/24/22 09:00 ?02/24/22 08:29 ? Pantoprazole Dr 20 Mg Tablet ?PO ? ?20 mg ? ?DAILY MELANIE ? ?Administration Prednisone ?20 mg ?02/24/22 09:00 ?02/24/22 08:29 ? Prednisone 20 Mg Tablet ?PO ? ?20 mg ? ?DAILY MELANIE ? ?Administration Rivaroxaban ?20 mg ?02/23/22 17:00 ?02/24/22 17:39 ? Rivaroxaban 10 Mg Tablet ?PO ? ?20 mg ? ?QPM MELANIE ? ?Administration Ropinirole HCl ?1 mg ?02/24/22 09:00 ?02/24/22 08:35 ? Ropinirole 1 Mg Tablet ?PO ? ?1 mg ? ?DAILY MELANIE ? ?Administration Ropinirole HCl ?2 mg ?02/23/22 21:00 ?02/24/22 20:47 ? Ropinirole 1 Mg Tablet ?PO ? ?2 mg ? ?BEDTIME MELANIE ? ?Administration Tamsulosin HCl ?0.4 mg ?02/23/22 21:00 ?02/24/22 20:49 ? Tamsulosin 0.4 Mg Capsule ?PO ? ?0.4 mg ? ?BEDTIME MELANIE ? ?Administration Exam Vital Signs (past 8 hours): - ? 02/25/22 00:00 02/25/22 02:53 02/25/22 02:54 Temperature 97.6 F ? ? Pulse Rate 80 ? 108 H Respiratory Rate 19 ? 30 H Blood Pressure 124/67 156/75 H ? Pulse Oximetry 93 ? 95 Fraction of Inspired Oxygen ? 02/25/22 02:24 02/25/22 02:56 02/25/22 03:00 Temperature ? ? ? Pulse Rate ? ? ? Respiratory Rate 30 H ? ? Blood Pressure ? 156/75 H 147/68 H Pulse Oximetry ? ? ? Fraction of Inspired Oxygen ? 50 ? ? 02/25/22 03:00 02/25/22 03:30 02/25/22 03:34 Temperature ? ? ? Pulse RateB 104 H 99 H 95 H Respiratory Rate 30 H 30 H 28 H Blood Pressure ? ? ? Pulse Oximetry 96 96 96 Fraction of Inspired Oxygen ? 02/25/22 03:34 Temperature ? Pulse Rate ? Respiratory Rate ? Blood Pressure 114/58 L Pulse Oximetry ? Fraction of Inspired Oxygen ? Fraction of Inspired Oxygen ? 50? Oxygen Delivery Method? Room Air? Oxygen Flow Rate? 0 ? Const General: comfortable Nutritional Appearance: obese Resp Effort & Inspection: normal respiratory effort (on NIPPV 10/5 50% w/ RR 10) Objective Labs Result Diagrams: 02/25/22 03:15? 02/25/22 03:15? Labs: Laboratory Results - last 24 hr ? 02/24/22 02/24/22 02/24/22 ? 04:35 04:35 06:10 WBC ?9.5 ? ? RBC ?3.30 L ? ? Hgb ?9.6 L ? ? Hct ?28.7 L ? ? MCV ?87.0 ? ? MCH ?29.1 ? ? MCHC ?33.5 ? ? RDW ?20.0 H ? ? Plt Count ?140 L ? ? Neut % (Auto) ?83.8 H ? ? Lymph % (Auto) ?9.5 L ? ? Craig % (Auto) ?6.4 ? ? Eos % (Auto) ?0.3 L ? ? Baso % (Auto) ?0.0 ? ? Neut # (Auto) ?7900 H ? ? Lymph # (Auto) ?900 L ? ? Craig # (Auto) ?600 ? ? Eos # (Auto) ?0 ? ? Baso # (Auto) ?0 ? ? Sodium ? ?135 L ? Potassium ? ?3.6 ? Chloride ? ?104 ? Carbon Dioxide ? ?20 L ? BUN ? ?43 H ? Creatinine ? ?1.19 ? Estimated GFR ? ?> 60 ? BUN/Creatinine Ratio ? ?36.1 H ? Glucose ? ?73 L D ? Lactate ? ? ?1.4 Calcium ? ?7.9 LB ? Magnesium ? ?2.0 ? Total Bilirubin ? ?0.4 ? AST ? ?24 ? ALT ? ?17B ? Alkaline Phosphatase ? ?77 ? Total Protein ? ?5.5 L ? Albumin ? ?2.7 L ? Globulin ? ?2.8 ? Albumin/Globulin Ratio ? ?1.0 ? ? 02/25/22 02/25/22 ? 03:15 03:15 WBC ?12.0 H ? RBC ?3.65 L ? Hgb ?10.3 L ? Hct ?31.0 L ? MCV ?85.0 ? MCH ?28.3 ? MCHC ?33.3 ? RDW ?19.9 H ? Plt Count ?190 ? Neut % (Auto) ?88.7 H ? Lymph % (Auto) ?7.6 L ? Craig % (Auto) ?3.5 ? Eos % (Auto) ?0.0 L ? Baso % (Auto) ?0.2 ? Neut # (Auto) ?07051 H ? Lymph # (Auto) ?900 L ? Craig # (Auto) ?400 ? Eos # (Auto) ?0 ? Baso # (Auto) ?0 ? Sodium ? ?137 Potassium ? ?3.6 Chloride ? ?104 Carbon Dioxide ? ?21 L BUN ? ?41 H Creatinine ? ?1.10 Estimated GFR ? ?> 60 BUN/Creatinine Ratio ? ?37.3 H Glucose ? ?103 Lactate ? ? Calcium ? ?8.5 Magnesium ? ? Total Bilirubin ? ?0.6 AST ? ?25 ALT ? ?19 Alkaline Phosphatase ? ?109 Total Protein ? ?6.2 L Albumin ? ?3.0 L Globulin ? ?3.2 Albumin/Globulin Ratio ? ?0.9 L Assessment and plan (1) Acute respiratory failure with hypoxia: ?Status:?Acute ?Plan: -Continue NIPPV; wean as tolerated -Good response to IV Lasix 40 mg; close I/O, adjust lasix dose and frequency for goal 2L negative -Check proBNP (2) Bacteremia due to Staphylococcus aureus: ?Status:?Acute ?Plan: -Continue vancomycin/Zosyn -Recommend to transfer to a higher level of care for AMANDA to definitively evaluate for endocarditis. It appears that this was previously considered to evaluate whether his anticoagulation was stopped (he had a L atrial appendage clipping during the CABG) (3) Type 2 diabetes mellitus with complication, with long-term current use of i nsulin: ?Problem details: Complicated by neuropathy/retinopathy ?Status:?Acute ?Plan: -Continue SUBQ insulin protocol (4) Coronary artery disease, continue meds, rec card consult and AMANDA as above (5) Afib on xarelto and BB (6) Gout, on medical mgt, may consider to wean off predinsone in the sitting of baceteremia (7) on Full AC and PPI Time Spent With Patient Critical Care time: I spent a total of [40] minutes of critical care time on this patient's care today; this time is exclusive of procedural time.
--- NOTE | 2022-02-25 09:49 | PC.NURSE ---
Called Dr Pelaez's office and gave them information for Dr Pelaez to call Dr Mazariegos about patient needing to tx for a higher level of care per Dr Mazariegos's request on rounds.
[2022-02-25] MEDS: carvediloL 12.5 MG TABLET PO ×3 (09:53→20:51)
[2022-02-25 13:13] LABS: Troponin I 0.083 ng/mL (0.01-0.034)
--- NOTE | 2022-02-25 13:22 | PT.IPTN ---
Current Diagnoses Sepsis, unspecified organism (02/23/22) Methicillin susceptible Staphylococcus aureus infection as the cause of diseases classified elsewhere (02/23/22) Type 2 diabetes mellitus with unspecified complications (02/23/22) Obesity, unspecified (02/23/22) Obstructive sleep apnea (adult) (pediatric) (02/23/22) Other chronic pain (02/23/22) Atherosclerotic heart disease of [place] coronary artery without angina pectoris (02/23/22) Unspecified atrial fibrillation (02/23/22) Acute systolic (congestive) heart failure (02/23/22) Acute respiratory failure with hypoxia (02/23/22) Other chondrocalcinosis, unspecified site (02/23/22) Severe sepsis without septic shock (02/23/22) Bacteremia (02/23/22) 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 (02/23/22) 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 (02/23/22) Physical Therapy Treatment Note M2 PT-IP Current Condition Start: 02/24/22 12:14 Freq: NEEDED Status: Active Protocol: Document 02/25/22 12:28 SP (Rec: 02/25/22 13:46 SP [id number]) Physical Therapy Current Condition Current Condition Evaluation Date 02/24/22 Treatment Diagnosis sepsis; pseudogout; difficulty in walking Onset Date 02/23/22 M3 PT-IP Subjective Start: 02/24/22 12:14 Freq: NEEDED Status: Active Protocol: Document 02/25/22 12:28 SP (Rec: 02/25/22 13:46 SP [id number]) Subjective Physical Therapy Visit Type Type Treatment Note Visit Start Time 12:28 Visit Stop Time 13:22 Total Visit Minutes 54 Notes Vitals taken pre mobility: O2 throughout supine: BP 123/59 HR 90, SaO2 95 6L NC with mobility: SaO2 maintained 95% on 6L NC PT Aide provided 2nd person physical assist required during mobility. in room provided PFWW stability during STS from chair, and pericare in standing for hygiene. Number of [employer] Visits 1 Physical Therapy Visit Comments Patient Comments Pt agreeable to working with therapy on 2nd attempt, 1045 am was really tired and stated needed extra time for breath recovery from activity earlier . M4 PT-IP Mobility and Gait Start: 02/24/22 12:14 Freq: NEEDED Status: Active Protocol: Document 02/25/22 12:28 SP (Rec: 02/25/22 13:46 SP [id number]) PT-Bed Mobility Assessment Supine to Sit Supine to Sit Moderate Assistance,Maximum Assistance,2 Person Assistance ,Head of Bed Elevated Sit to Supine Sit to Supine Moderate Assistance,Maximum Assistance,2 Person Assistance Scooting Scooting to Edge of Bed Moderate Assistance Scooting Up and Down in Bed Maximum Assistance PT-Transfer Assessment Sit to and From Stand Sit to and from Stand Maximum Assistance,2 Person Assistance,Use of Upper Extremities Equipment Transfer Assistive Device Gait Belt,Platform Walker Orthotic/Prosthetic Devices or Brace: No Transfers Transfer Destination Chair Transfer Technique Stand Step Pivot Transfer Ability Level of Assist Moderate Assistance,Maximum Assistance,2 Person Assistance ,Use of Upper Extremities Comments Mobility Comments [employer] instructed BLE exercises: AP, HS (AAROM LLE, alot grinding and pain tolerant range), hip abd toward EOB during mobility Min A for LLE as needed. Elevated supine>sit Mod-Max A x1-2 for trunk righting, improved LUE support WB on bed and R elbow, Min A LLE to EOB. Scoot Mod A x2 with use of transfer pad and LUE WB on bed. Pt able maintain sit at EOB with LUE support on bed/RUE PFWW. Sit> stand Max A x2, stationary marching Mod A x2, stand step pivot to R to chair, Mod A x2 and cues w/ support of PFWW to back and side positioning. Stand>sit Max A x2 cued for proper hand placement chair arm LUE low self chair. SitS> stand heavy Max A x2 and 3rd person stabilize PFWW anteriorly, SPT back to bed w/ PFWW, static stand at EOB and assisted in hygiene pericare Mod A x2, stand>sit Mod A x2. Sit>supine Mod A x2 support for trunk alignment and BLE into bed. Then ed of RLE knee flexion self mobilize , Max A x1 to center upper body. Max A x2 to scoot up in bed with bed in [place] positioning w/ use of bed pad. Pt had call light and all needs in reach before left. in room. Bed alarmed. Gait Assessment Gait Gait Assistance Required: Moderate Assistance,Maximum Assistance,2 Person Assist Distance (Feet) 2 Able to Maintain Weight Bearing Status Yes During Gait Assistive Devices Assistive Device Gait Belt,Platform Walker Orthotic/Prosthetic Devices or Brace: No Gait Deviations General Gait Pattern Antalgic,Decreased Stride Length,Decreased Feet Clearance,Flexed Trunk,Lateral Trunk Lean,Step-to Gait,Wide Based Gait Factors Limiting Gait Function Factors Limiting Gait Function Decreased Activity Tolerance, Decreased Sensation,Decreased Strength,Limited Range of Motion,Pain,Poor Balance,Poor Safety Awareness,Respiratory Distress Comments Gait Comments Stand step pivot transfer only bed<>chair use of PFWW Max A for trunk support, PFWW repositioning on R>L, cues for foot clearance and directioning, upright posture and equal UE WB L handle, R platform elbow with improved stability. Stair Climbing Assessment Comments Stair Climbing Comments Unable at this time but will need complete 3 step wide HR to enter home for safe DC when able. PT-Balance Assessment Sitting Balance and Reactions Static Sitting Balance Ability Good Dynamic Sitting Balance Ability Fair Standing Balance and Reactions Static Standing Balance Ability Poor Dynamic Standing Balance Ability Poor Device Used PFWW M5 PT-IP Objective Assessments Start: 02/24/22 12:14 Freq: NEEDED Status: Active Protocol: Document 02/24/22 10:20 AB (Rec: 02/24/22 12:24 AB [id number]) Orientation Orientation/Cognition Level of Alertness Alert Orientation Name,Place,Situation Language Function Ability Hard of Hearing Safety Awareness Decreased Safety Awareness Memory Description Short Term Impaired Gross Range of Motion Lower Extremity ROM Assessment Left Impaired Impairments pain limiting L knee movement Strength Lower Extremity Strength Assessment Left Impaired Hip 4-/5 Knee 3+/5 Coordination Assessment Gross Coordination Gross Coordination WNL Muscle Tone Muscle Tone WNL Yes M6 PT-IP Treatment Start: 02/24/22 12:14 Freq: NEEDED Status: Active Protocol: Document 02/25/22 12:28 SP (Rec: 02/25/22 13:46 SP [id number]) Physical Therapy Treatment Exercises Exercises Ankle Pumps,Gluteal Sets,Quad Sets,Heel Slides,Supine Hip Abduction Education Education Provided Weight Bearing Status,Safety Other Treatments Other Treatment Performed Ed use of RLE knee bent, RUE elbow WB and LUE WB onto bed to assist bed mobility. M7 PT-IP Assessment and Plan Start: 02/24/22 12:14 Freq: NEEDED Status: Active Protocol: Document 02/25/22 12:28 SP (Rec: 02/25/22 13:46 SP [id number]) PT Summary Assessment and Plan Potential Rehabilitation Potential Fair Status of Condition at Evaluation Evolving Summary Impairments Pain,ROM,Strength,Balance, Coordination,Sensation,Tone, Cognition,Bed Mobility, Transfers,Gait,Activity Tolerance Progress Towards Goals Progressing Toward Goals,Slow Progress due to Pain,Slow Progress due to Medical Issues ,Slow Progress due to Activity Tolerance Assessment Summary Pt reported R shld pain when assisting into FF to don gown initially, notified nurse. Pt requires Mod-Max A x2 for all mobility using PFWW. Improved R forearm WB onto PFWW improved upright posturing and trunk stability for self support during transfer. Improved increase LUE and BLE WB during tx. Pt will need SNF for improving strength and functional mobility. not at home, works 7-7pm. Goals Bed Mobility Goal Minimal Assistance Transfer Goal Minimal Assistance,Front Wheeled Walker Gait Goal Minimal Assistance,Front Wheel Walker Gait Distance 100 Other Goals improve bed mobility, transfers using FWW, ambulation using FWW 150 ft SBA up/down 3 steps 1 rail SBA Days to Meet Goals 10 Frequency of Treatment Frequency Of Treatment Once a Day Treatment Plan Physical Therapy Treatment Plan Bed Mobility Training,Transfer Training,Gait Training, Therapeutic Exercise,Balance Retraining,Discharge Planning, Hot or Cold Pack,Neuromuscular Re-ed,Coordination Retraining ,Manual Therapy Other Recommendations and Next Treatment LE ex, bed mob, transfers, STS Focus , gait if able. Extend O2 line for ease and chair follow. Recommendations To Nursing Amount of Assist Needed 2 Person Assist Discharge Recommendations PT Discharge Recommendations SNF Rehab Transportation Needs at Discharge Wheelchair/Cabulance
[2022-02-25] MEDS: RIVAROXABAN 10 MG TABLET 20 MG PO (17:45)
--- NOTE | 2022-02-25 20:34 | PM.ICURNDS ---
- Date Patient Seen: 02/25/22 Time Patient Seen: 20:37 :: This patient was seen via real time interactive two-way audiovisual telecommunication. Note: Currently off BiPAP and on 4 liters NC. Remains in A fib w/ HR ~90 on coreg and anticoagulated with xarelto. Will continue diuresis to seek net negative fluid balance. Cont BiPAP support nightly. Awaiting to be transfer to tertiary facility for AMANDA to rule out endocarditis. D/w RN and patient.
[2022-02-25] MEDS: ROPINIROLE 1 MG TABLET 2 MG PO (20:50)
[2022-02-25] MEDS: TAMSULOSIN 0.4 MG CAPSULE PO (20:50)
[2022-02-25] MEDS: INSULIN GLARGINE 100 UNIT/ML 3ML PEN 55 UNIT SUBCUT (20:53)
[2022-02-25] MEDS: INSULIN LISPRO 100 UNIT/ML 3ML VIAL SUBCUT (21:19)
[2022-02-26] VITALS (67 sets, daily range): BP systolic 123–155; BP diastolic 60–90; PULSE 80–108; RESP 10–22; TEMP 31.2–37.1; O2SAT 94–100
--- NOTE | 2022-02-26 02:25 | RT ---
Pt currently asleep while on 4L NC, SpO2 99%, HR 85 BPM.
[2022-02-26 04:37] LABS: Add Manual Diff / Slide Review NO; Basophils Absolute Auto 0 /uL (0-100); Basophils Percent Auto 0.2 % (0-2); Eosinophils Absolute Auto 0 /uL (0-450); Eosinophils Percent Auto 0.3 % (2-4); Hemoglobin 9.7 g/dL (13.5-17.5); Lymphocytes Absolute Auto 1300 /uL (1100-4500); Lymphocytes Percent Auto 11.9 % (25-40); Mean Corpuscular HGB Conc 33.5 % (30-36); Mean Corpuscular Hemoglobin 28.5 PG (26-34); Mean Corpuscular Volume 85.1 fL (80-100); Monocytes Absolute Auto 900 /uL (0-900); Monocytes Percent Auto 8.2 % (3-14); Neutrophils Absolute Auto 8600 /uL (1500-7000); Neutrophils Percent Auto 79.4 % (50-75); Platelet Count 191 X10^3/uL (150-400); Red Blood Cell Count 3.41 X10^6/uL (4.5-5.9); Red Cell Distribution Width 20.6 % (11.6-14.8); White Blood Cell Count 10.8 X10^3/uL (4.5-11.0)
[2022-02-26 04:54] LABS: Alanine Aminotransferase 15 IU/L (<50); Albumin 2.6 g/dL (3.5-5.0); Albumin Globulin Ratio 0.8 (1.0-2.8); Alkaline Phosphatase 102 U/L (38-126); Aspartate Aminotransferase 20 IU/L (17-59); BUN Creatinine Ratio 34.6 (6-22); Bilirubin Total 0.6 mg/dL (0.2-1.3); Blood Urea Nitrogen 36 mg/dL (9-20); Calcium 8.2 mg/dL (8.4-10.2); Carbon Dioxide 29 mmol/L (22-32); Chloride 101 mmol/L (98-107); Estimated Glomerular Filt Rate > 60 mL/min (>60); Globulin 3.2 g/dL (1.7-4.1); Glucose 150 mg/dL (80-110); HEMOLYSIS < 15 (0-50); Magnesium 1.9 mg/dL (1.6-2.3); Potassium 3.2 mmol/L (3.4-5.1); Sodium 137 mmol/L (137-145); Total Protein 5.8 g/dL (6.3-8.2)
[2022-02-26] MEDS: PIPERACILLIN/TAZO 3.375 GM in SODIUM CHLORIDE 0.9% 100 ML IV ×3 (05:20→20:27)
[2022-02-26 05:35] LABS: Anisocytosis 1+
--- NOTE | 2022-02-26 07:20 | PM.PN.1 ---
Subjective Subjective Date Patient Seen: 02/26/22 Time Patient Seen: 08:30 Interval history: Patient seems to have had a stable evening. Was back on BiPAP overnight but has done well without that. On 4 L oxygen currently. Reports he does not really feel any better he did when he came to the hospital. Right wrist still very swollen and painful and red. He is frustrated that we still do not have a source of infection much like last time he was in the hospital he says. Exam Vital Signs (past 8 hours): - 02/26/22 00:00 02/26/22 04:00 02/25/22 23:53 Temperature 97.2 F L Pulse Rate 100 H Respiratory Rate 18 Blood Pressure 141/72 H Pulse Oximetry 96 Oxygen Delivery Method BiPAP Nasal Cannula Oxygen Flow Rate 4 Fraction of Inspired Oxygen 02/26/22 00:00 02/26/22 00:00 02/26/22 01:10 Temperature Pulse Rate 95 H 95 H Respiratory Rate 18 Blood Pressure 141/72 H 142/68 H 142/68 H Pulse Oximetry 100 100 Oxygen Delivery Method Oxygen Flow Rate Fraction of Inspired Oxygen 50 50 02/26/22 01:10 02/26/22 02:05 02/26/22 03:31 Temperature Pulse Rate 95 H 104 H 87 Respiratory Rate 18 Blood Pressure 142/68 H 139/67 132/87 Pulse Oximetry 100 97 96 Oxygen Delivery Method Oxygen Flow Rate 4 Fraction of Inspired Oxygen 02/26/22 04:33 02/26/22 04:33 02/26/22 05:35 Temperature 97.3 F L Pulse Rate 108 H 102 H Respiratory Rate 20 Blood Pressure 137/74 137/74 153/78 H Pulse Oximetry 96 100 Oxygen Delivery Method Oxygen Flow Rate 4 Fraction of Inspired Oxygen 02/26/22 05:29 02/26/22 06:08 02/25/22 23:30 Temperature Pulse Rate 80 96 H 92 H Respiratory Rate Blood Pressure 155/81 H Pulse Oximetry 100 99 97 Oxygen Delivery Method Nasal Cannula Oxygen Flow Rate 4 Fraction of Inspired Oxygen 36 02/26/22 00:00 02/26/22 00:01 02/26/22 00:01 Temperature Pulse Rate 107 H 92 H Respiratory Rate Blood Pressure 142/68 H Pulse Oximetry 99 100 Oxygen Delivery Method Oxygen Flow Rate Fraction of Inspired Oxygen 02/26/22 00:30 02/26/22 01:00 02/26/22 01:01 Temperature Pulse Rate 91 H 90 Respiratory Rate Blood Pressure 134/71 Pulse Oximetry 100 100 Oxygen Delivery Method Oxygen Flow Rate Fraction of Inspired Oxygen 02/26/22 01:01 02/26/22 01:30 02/26/22 02:00 Temperature Pulse Rate 92 H 86 89 Respiratory Rate Blood Pressure Pulse Oximetry 100 100 97 Oxygen Delivery Method Oxygen Flow Rate Fraction of Inspired Oxygen 02/26/22 02:01 02/26/22 02:01 02/26/22 02:30 Temperature Pulse Rate 88 85 Respiratory Rate Blood Pressure 139/67 Pulse Oximetry 96 99 Oxygen Delivery Method Oxygen Flow Rate Fraction of Inspired Oxygen 02/26/22 03:00 02/26/22 03:00 02/26/22 03:30 Temperature Pulse Rate 84 91 H Respiratory Rate Blood Pressure 132/87 Pulse Oximetry 100 96 Oxygen Delivery Method Oxygen Flow Rate Fraction of Inspired Oxygen 02/26/22 04:00 02/26/22 04:00 02/26/22 04:30 Temperature Pulse Rate 93 H 90 Respiratory Rate Blood Pressure 137/74 Pulse Oximetry 97 96 Oxygen Delivery Method Oxygen Flow Rate Fraction of Inspired Oxygen 02/26/22 05:00 02/26/22 05:00 02/26/22 05:30 Temperature Pulse Rate 81 89 Respiratory Rate Blood Pressure 153/78 H Pulse Oximetry 100 100 Oxygen Delivery Method Oxygen Flow Rate Fraction of Inspired Oxygen 02/26/22 06:00 02/26/22 06:00 02/26/22 06:30 Temperature Pulse Rate 100 H 99 H Respiratory Rate Blood Pressure 155/81 H Pulse Oximetry 99 98 Oxygen Delivery Method Oxygen Flow Rate Fraction of Inspired Oxygen 02/26/22 07:00 02/26/22 07:01 02/26/22 07:01 Temperature Pulse Rate 96 H 96 H Respiratory Rate Blood Pressure 148/79 H Pulse Oximetry 96 96 Oxygen Delivery Method Oxygen Flow Rate Fraction of Inspired Oxygen Fraction of Inspired Oxygen 36 Oxygen Delivery Method Nasal Cannula Oxygen Flow Rate 4 Objective Labs Result Diagrams: 02/26/22 04:11 02/26/22 04:11 Labs: Laboratory Results - last 24 hr 02/25/22 02/25/22 02/26/22 08:30 12:30 04:11 WBC 10.8 RBC 3.41 L Hgb 9.7 L Hct 29.0 L MCV 85.1 MCH 28.5 MCHC 33.5 RDW 20.6 H Plt Count 191 Neut % (Auto) 79.4 H Lymph % (Auto) 11.9 L [place]bs % (Auto) 8.2 Eos % (Auto) 0.3 L Baso % (Auto) 0.2 Neut # (Auto) 8600 H Lymph # (Auto) 1300 [place]bs # (Auto) 900 Eos # (Auto) 0 Baso # (Auto) 0 RBC Morphology See below Anisocytosis 1+ H Sodium Potassium Chloride Carbon Dioxide BUN Creatinine Estimated GFR BUN/Creatinine Ratio Glucose Calcium Magnesium Total Bilirubin AST ALT Alkaline Phosphatase Troponin I 0.082 H 0.083 H Total Protein Albumin Globulin Albumin/Globulin Ratio 02/26/22 04:11 WBC RBC Hgb Hct MCV MCH MCHC RDW Plt Count Neut % (Auto) Lymph % (Auto) [place] % (Auto) Eos % (Auto) Baso % (Auto) Neut # (Auto) Lymph # (Auto) [place] # (Auto) Eos # (Auto) Baso # (Auto) RBC Morphology Anisocytosis Sodium 137 Potassium 3.2 L Chloride 101 Carbon Dioxide 29 BUN 36 H Creatinine 1.04 Estimated GFR > 60 BUN/Creatinine Ratio 34.6 H Glucose 150 H Calcium 8.2 L Magnesium 1.9 Total Bilirubin 0.6 AST 20 ALT 15 Alkaline Phosphatase 102 Troponin I Total Protein 5.8 L Albumin 2.6 L Globulin 3.2 Albumin/Globulin Ratio 0.8 L PFSH Medical History Chronic pain Chronic rhinitis Coronary artery disease (04/29/14) CTS (carpal tunnel syndrome) (1977) Diabetes mellitus Essential hypertension ETD (eustachian tube dysfunction) Hypersomnia (~1997) Hypogonadism in male Insomnia, persistent (~1995) Mixed hyperlipidemia Obesity with body mass index (BMI) of 30.0 to 39.9 (04/24/15) Obstructive sleep apnea of adult Osteoarthritis of hands, 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 (07/29/15) Primary osteoarthritis of left knee (03/03/16) Restless legs syndrome (04/24/15) Squamous cell carcinoma of nose (2004) Type 2 diabetes mellitus with other skin ulcer (04/24/15) Wound healing, delayed Wound, open, foot Surgical History History of carpal tunnel repair (1977) History of coronary artery stent placement (04/2014) Hx of inguinal hernia surgery (1977) S/P CABG x 3 S/P CABG x 3 Status post arthroscopy Status post rotator cuff repair Family History Father Coronary artery disease Alcoholism Sudden Other Depression Social History marital status: details: jose Marx, lives in [place] household members: spouse lives independently: Yes caregiver/support person: No housing: house princess/mosque: [facility] Smoking Status: Never smoker alcohol intake: never substance use type: does not use eating out: 1-3 times/week Type(s) of exercise: walking, aerobic, bicycling, advised to exercise at least 150 min/week (moderate intensity aerobic) and advised to perform resistance training at least 2x/week Assessment & Plan Assessment & Plan narrative: 1. Sepsis-patient growing Staph aureus from all blood cultures. Sensitive to current antibiotic therapy. No clear source of infection and agree that transesophageal echo is probably essential to rule out endocarditis. That can not be performed at this hospital. Dr. Pelaez spoke with patient's legal researcher who is in [place] at [facility] and plan was to transfer there hopefully today for transesophageal echo. Dr. Pelaez told me he also spoke with Infectious Disease and current antibiotic therapy seems to be appropriate, least until we have a more defined source of infection. Based on blood cultures we could begin to tailor antibiotic therapy. White count has normalized and remained normal. I do wonder about the obvious erythematous and swollen area on the right wrist. I find hard to believe this could be a source of bacteremia like we are seeing but he is diabetic with other chronic medical conditions perhaps that is his source of infection. I still think a AMANDA to rule out endocarditis makes sense 2. Acute systolic congestive heart failure-patient required BiPAP support because of congestive heart failure night before last. Has done better with diuresis. Still seems to benefit from BiPAP therapy overnight. Continue with diuresis as per tele teacher of the visually impaired 3. Atrial fibrillation-patient continues in atrial fibrillation but with borderline controlled rate. Blood pressure stable. He is chronically anticoagulated. 4. Acute kidney injury-renal function appears to have returned to normal. Continue to monitor fluid intake given his heart failure issues above 5. Metabolic encephalopathy-seems to have cleared. He seems like he is at his baseline although I have not seen him before. He asks appropriate questions and seems appropriately eager to leave the hospital 6. Diabetes-overall mostly adequate blood sugar control. Last blood sugar done last evening was a bit higher however. Continue to monitor and consider increased long-acting insulin verses increasing his coverage insulin depending on his pattern Note: Greater than 30 minutes total time was spent on day of service, evaluating the patient on the floor, including examining the patient, discussing clinical course with clinical and nursing staff, reviewing clinical course in the computer, preparing documentation and writing orders for continued management of care, discussing status with family as appropriate, reviewing plans for the next 24 hours with both patient/family and nursing staff as appropriate. Quality VTE Deep Vein Thrombosis/Pulmonary Embolism Present on Admission: No
[2022-02-26] MEDS: POTASSIUM CHLORIDE IN WATER 10 MEQ/100 ML PIGGYBACK 100 MEQ IV ×6 (07:48→13:04)
[2022-02-26] MEDS: ASPIRIN EC 81 MG TABLET PO (08:16)
[2022-02-26] MEDS: GABAPENTIN 600 MG TABLET 1200 MG PO ×2 (08:18→20:26)
[2022-02-26] MEDS: ROPINIROLE 1 MG TABLET PO (08:18)
[2022-02-26] MEDS: DULOXETINE 30 MG CAPSULE 60 MG PO (08:18)
[2022-02-26] MEDS: MAGNESIUM OXIDE 400 MG TABLET PO (08:18)
[2022-02-26] MEDS: DOCUSATE 100 MG CAPSULE PO ×2 (08:19→20:30)
[2022-02-26] MEDS: PANTOPRAZOLE DR 20 MG TABLET PO (08:19)
[2022-02-26] MEDS: carvediloL 12.5 MG TABLET PO ×2 (08:19→20:26)
[2022-02-26] MEDS: POTASSIUM CHLORIDE 20 MEQ TAB PO ×2 (08:20→17:56)
[2022-02-26] MEDS: allopurinoL 300 MG TABLET PO (08:20)
[2022-02-26] MEDS: SODIUM CHLORIDE 0.9% FLUSH 10 ML IV (08:21)
[2022-02-26] MEDS: predniSONE 20 MG TABLET PO (08:21)
[2022-02-26] MEDS: COLCHICINE 0.6 MG TABLET PO (08:21)
--- NOTE | 2022-02-26 09:54 | PM.PN.EICU ---
Subjective Subjective Consent obtained for tele-internal medicine nurse practitioner care: Yes Patient Location: ICU Provider location (State): Other participants/roles: MD Current Medications Current Medications Medications: Home Medications semaglutide 0.25 mg or 0.5 mg (2 mg/1.5 mL) subcutaneous pen injector (Ozempic) 1 mg SUBCUT QWEEK 03/15/19 [History Confirmed 02/23/22] cyclobenzaprine 10 mg tablet 10 mg PO TID PRN spasms 04/25/19 [History Confirmed 02/23/22] aspirin 81 mg tablet,delayed release (Enteric Coated Aspirin) 81 mg PO DAILY 09/10/20 [History Confirmed 02/23/22] epinephrine 0.3 mg/0.3 mL injection, auto-injector 0.3 mg IM ONCE PRN anaphylaxis 09/10/20 [History Confirmed 02/23/22] allopurinol 300 mg tablet 300 mg PO DAILY #90 tabs 03/24/21 [Rx Confirmed 02/23/22] amlodipine 10 mg tablet 10 mg PO DAILY #90 tabs 03/24/21 [Rx Confirmed 02/23/22] carvedilol 12.5 mg tablet 12.5 mg PO BID #180 tabs 03/24/21 [Rx Confirmed 02/23/22] colchicine 0.6 mg tablet 0.6 mg PO BID #180 tabs 03/24/21 [Rx Confirmed 02/23/22] dapagliflozin 10 mg tablet 10 mg PO DAILY #90 tabs 03/24/21 [Rx Confirmed 02/23/22] duloxetine 60 mg capsule,delayed release 60 mg PO DAILY #90 caps 03/24/21 [Rx Confirmed 02/23/22] furosemide 20 mg tablet 20 mg PO DAILY #90 tabs 03/24/21 [Rx Confirmed 02/23/22] gabapentin 600 mg tablet 1,200 mg PO BID #360 tabs 03/24/21 [Rx Confirmed 02/23/22] olmesartan 40 mg tablet 40 mg PO DAILY #90 tabs 03/24/21 [Rx Confirmed 02/23/22] pantoprazole 20 mg tablet,delayed release 20 mg PO DAILY #90 tabs 03/24/21 [Rx Confirmed 02/23/22] ropinirole 2 mg tablet See Rx Instructions PO BID #270 tabs 03/24/21 [Rx Confirmed 02/23/22] rosuvastatin 10 mg tablet 10 mg PO DAILY #90 tabs 03/24/21 [Rx Confirmed 02/23/22] insulin glargine 100 unit/mL (3 mL) subcutaneous pen (Lantus Solostar U-100 Insulin) 55 unit (0.55 mL) SUBCUT BID #135 mL 03/26/21 [Rx Confirmed 02/23/22] insulin lispro 100 unit/mL subcutaneous solution (Humalog U-100 Insulin) 5 unit (0.05 mL) SUBCUT TID #150 mL 03/26/21 [Rx Confirmed 02/23/22] metformin 500 mg tablet 1,000 mg PO BIDCC #360 tabs 03/26/21 [Rx Confirmed 02/23/22] rivaroxaban 20 mg tablet (Xarelto) 20 mg PO QPM #90 tabs 06/15/21 [Rx Confirmed 02/23/22] glucagon 1 mg solution for injection 1 mg SUBCUT Q20M PRN Hypoglycemia 02/15/22 [History Confirmed 02/23/22] prednisone 10 mg tablet 10 mg PO DAILY #30 tabs 02/22/22 [Rx Confirmed 02/23/22] hydrocodone 5 mg-acetaminophen 325 mg tablet 1 tab PO Q6H PRN pain 02/23/22 [History Confirmed 02/23/22] sucralfate 1 gram tablet (Carafate) 1 g PO QID stomach irritation 02/23/22 [History Confirmed 02/23/22] tamsulosin 0.4 mg capsule (Flomax) 0.4 mg PO DAILY PRN Urinary Retention 02/23/22 [History Confirmed 02/23/22] tramadol 50 mg tablet 50 mg PO Q6HR 02/23/22 [History Confirmed 02/23/22] triamcinolone acetonide 0.1 % lotion 1 applic topical DAILY PRN Rash 02/23/22 [History Confirmed 02/23/22] Visit Medications (administered) Generic Name Dose Route Start Last Admin Trade Name Freq PRN Reason Stop Dose Admin Hydrocodone Bitart/Acetaminophen 1 tab 02/23/22 15:49 02/24/22 11:55 Hydrocodone/Acet 5/325 Tablet PO 1 tab Q4HR PRN Administration Pain, Moderate (4-6) Allopurinol 300 mg 02/24/22 09:00 02/26/22 08:20 Allopurinol 300 Mg Tablet PO 300 mg DAILY MELANIE Administration Aspirin 81 mg 02/24/22 09:00 02/26/22 08:16 Aspirin Ec 81 Mg Tablet PO 81 mg DAILY MELANIE Administration Carvedilol 12.5 mg 02/25/22 09:00 02/26/22 08:19 Carvedilol 12.5 Mg Tablet PO 12.5 mg BID MELANIE Administration Colchicine 0.6 mg 02/23/22 21:00 02/26/22 08:21 Colchicine 0.6 Mg Tablet PO 0.6 mg BID MELANIE Administration Docusate Sodium 100 mg 02/23/22 21:00 02/26/22 08:19 Docusate 100 Mg Capsule PO 100 mg BID MELANIE Administration Duloxetine HCl 60 mg 02/24/22 09:00 02/26/22 08:18 Duloxetine 30 Mg Capsule PO 60 mg DAILY MELANIE Administration Gabapentin 1,200 mg 02/23/22 21:00 02/26/22 08:18 Gabapentin 600 Mg Tablet PO 1,200 mg BID MELANIE Administration Piperacillin Sod/Tazobactam 100 mls @ 25 mls/hr 02/23/22 21:00 02/26/22 05:20 Sod 3.375 gm/ Sodium Chloride IV 25 mls/hr Q8H MELANIE Administration POTASSIUM CHLORIDE IN WATER 10 meq in 100 mls @ 100 mls/hr 02/26/22 07:30 02/26/22 08:55 Potassium Cl 10 Meq/100 Ml Catrina IV 02/26/22 13:29 100 mls/hr Q1H MELANIE Administration Insulin Glargine 55 unit 02/23/22 21:00 02/25/22 20:53 Insulin Glargine 100 Unit/Ml 3ml Pen SUBCUT 55 unit BEDTIME MELANIE Administration Insulin Human Lispro 0 unit 02/23/22 16:45 02/26/22 08:13 Insulin Lispro 100 Unit/Ml 3ml Vial SUBCUT Not Given ACHS [facility] Protocol Magnesium Oxide 400 mg 02/26/22 09:00 02/26/22 08:18 Magnesium Oxide 400 Mg Tablet PO 400 mg DAILY MELANIE Administration Pantoprazole Sodium 20 mg 02/24/22 09:00 02/26/22 08:[address] 20 Mg Tablet PO 20 mg DAILY MELANIE Administration Potassium Chloride 20 meq 02/26/22 08:00 02/26/22 08:20 Potassium Chloride 20 Meq Tab PO 20 meq BIDWM MELANIE Administration Prednisone 20 mg 02/24/22 09:00 02/26/22 08:21 Prednisone 20 Mg Tablet PO 20 mg DAILY MELANIE Administration Rivaroxaban 20 mg 02/23/22 17:00 02/25/22 17:45 Rivaroxaban 10 Mg Tablet PO 20 mg QPM MELANIE Administration Ropinirole HCl 1 mg 02/24/22 09:00 02/26/22 08:18 Ropinirole 1 Mg Tablet PO 1 mg DAILY MELANIE Administration Ropinirole HCl 2 mg 02/23/22 21:00 02/25/22 20:50 Ropinirole 1 Mg Tablet PO 2 mg BEDTIME MELANIE Administration Sodium Chloride 10 ml 02/25/22 09:00 02/26/22 08:21 Sodium Chloride 0.9% Flush IV 10 ml BID MELANIE Administration Tamsulosin HCl 0.4 mg 02/23/22 21:00 02/25/22 20:50 Tamsulosin 0.4 Mg Capsule PO 0.4 mg BEDTIME MELANIE Administration Objective Ventilator Parameters: Ventilator Settings FiO2 4 Labs Result Diagrams: 02/26/22 04:11 02/26/22 04:11 Labs: Laboratory Results - last 24 hr 02/25/22 02/26/22 02/26/22 12:30 04:11 04:11 WBC 10.8 RBC 3.41 L Hgb 9.7 L Hct 29.0 L MCV 85.1 MCH 28.5 MCHC 33.5 RDW 20.6 H Plt Count 191 Neut % (Auto) 79.4 H Lymph % (Auto) 11.9 L Pacific % (Auto) 8.2 Eos % (Auto) 0.3 L Baso % (Auto) 0.2 Neut # (Auto) 8600 H Lymph # (Auto) 1300 Pacific # (Auto) 900 Eos # (Auto) 0 Baso # (Auto) 0 RBC Morphology See below Anisocytosis 1+ H Sodium 137 Potassium 3.2 L Chloride 101 Carbon Dioxide 29 BUN 36 H Creatinine 1.04 Estimated GFR > 60 BUN/Creatinine Ratio 34.6 H Glucose 150 H Calcium 8.2 L Magnesium 1.9 Total Bilirubin 0.6 AST 20 ALT 15 Alkaline Phosphatase 102 Troponin I 0.083 H Total Protein 5.8 L Albumin 2.6 L Globulin 3.2 Albumin/Globulin Ratio 0.8 L Nasal Screen MRSA (PCR) 02/26/22 06:15 WBC RBC Hgb Hct MCV MCH MCHC RDW Plt Count Neut % (Auto) Lymph % (Auto) Pacific % (Auto) Eos % (Auto) Baso % (Auto) Neut # (Auto) Lymph # (Auto) Pacific # (Auto) Eos # (Auto) Baso # (Auto) RBC Morphology Anisocytosis Sodium Potassium Chloride Carbon Dioxide BUN Creatinine Estimated GFR BUN/Creatinine Ratio Glucose Calcium Magnesium Total Bilirubin AST ALT Alkaline Phosphatase Troponin I Total Protein Albumin Globulin Albumin/Globulin Ratio Nasal Screen MRSA (PCR) Negative for mrsa Exam Vital Signs (past 8 hours): - 02/26/22 04:00 02/26/22 02:05 02/26/22 03:31 Temperature Pulse Rate 104 H 87 Respiratory Rate Blood Pressure 139/67 132/87 Pulse Oximetry 97 96 Oxygen Delivery Method Nasal Cannula Oxygen Flow Rate 4 Fraction of Inspired Oxygen 02/26/22 04:33 02/26/22 04:33 02/26/22 05:35 Temperature 97.3 F L Pulse Rate 108 H 102 H Respiratory Rate 20 Blood Pressure 137/74 137/74 153/78 H Pulse Oximetry 96 100 Oxygen Delivery Method Oxygen Flow Rate 4 Fraction of Inspired Oxygen 02/26/22 05:29 02/26/22 06:08 02/26/22 02:00 Temperature Pulse Rate 80 96 H 89 Respiratory Rate Blood Pressure 155/81 H Pulse Oximetry 100 99 97 Oxygen Delivery Method Nasal Cannula Oxygen Flow Rate 4 Fraction of Inspired Oxygen 36 02/26/22 02:01 02/26/22 02:01 02/26/22 02:30 Temperature Pulse Rate 88 85 Respiratory Rate Blood Pressure 139/67 Pulse Oximetry 96 99 Oxygen Delivery Method Oxygen Flow Rate Fraction of Inspired Oxygen 02/26/22 03:00 02/26/22 03:00 02/26/22 03:30 Temperature Pulse Rate 84 91 H Respiratory Rate Blood Pressure 132/87 Pulse Oximetry 100 96 Oxygen Delivery Method Oxygen Flow Rate Fraction of Inspired Oxygen 02/26/22 04:00 02/26/22 04:00 02/26/22 04:30 Temperature Pulse Rate 93 H 90 Respiratory Rate Blood Pressure 137/74 Pulse Oximetry 97 96 Oxygen Delivery Method Oxygen Flow Rate Fraction of Inspired Oxygen 02/26/22 05:00 02/26/22 05:00 02/26/22 05:30 Temperature Pulse Rate 81 89 Respiratory Rate Blood Pressure 153/78 H Pulse Oximetry 100 100 Oxygen Delivery Method Oxygen Flow Rate Fraction of Inspired Oxygen 02/26/22 06:00 02/26/22 06:00 02/26/22 06:30 Temperature Pulse Rate 100 H 99 H Respiratory Rate Blood Pressure 155/81 H Pulse Oximetry 99 98 Oxygen Delivery Method Oxygen Flow Rate Fraction of Inspired Oxygen 02/26/22 07:00 02/26/22 07:01 02/26/22 07:01 Temperature Pulse Rate 96 H 96 H Respiratory Rate Blood Pressure 148/79 H Pulse Oximetry 96 96 Oxygen Delivery Method Oxygen Flow Rate Fraction of Inspired Oxygen 02/26/22 08:19 02/26/22 07:30 02/26/22 07:35 Temperature Pulse Rate 99 H 80 Respiratory Rate Blood Pressure 124/74 138/74 Pulse Oximetry 96 Oxygen Delivery Method Oxygen Flow Rate Fraction of Inspired Oxygen 02/26/22 07:35 02/26/22 08:00 02/26/22 08:00 Temperature 98.5 F Pulse Rate 103 H 82 82 Respiratory Rate 16 Blood Pressure 124/74 Pulse Oximetry 98 100 100 Oxygen Delivery Method Oxygen Flow Rate 4 Fraction of Inspired Oxygen 02/26/22 08:30 02/26/22 08:00 02/26/22 09:00 Temperature Pulse Rate 98 H Respiratory Rate Blood Pressure 123/78 Pulse Oximetry 99 Oxygen Delivery Method Nasal Cannula Oxygen Flow Rate Fraction of Inspired Oxygen 02/26/22 09:00 02/26/22 09:30 Temperature Pulse Rate 87 101 H Respiratory Rate Blood Pressure Pulse Oximetry 96 98 Oxygen Delivery Method Oxygen Flow Rate Fraction of Inspired Oxygen Fraction of Inspired Oxygen 36 Oxygen Delivery Method Nasal Cannula Oxygen Flow Rate 4 Quality TeleICU VTE Deep Vein Thrombosis/Pulmonary Embolism Present on Admission: No Assessment & Plan Assessment & Plan narrative: [place] [address] Teleintensivist Progress Note Patient: Cory Lin MR#: [id number] : 1955 Acct:[id number] Age/Sex: 66 / M ? Date of Service: 02/23/22 Provider:?Sveta Mazariegos MD Subjective Subjective Consent obtained for tele-internal medicine nurse practitioner care: Yes Patient Location: ICU Provider location (State): Other participants/roles: MD Interval history: Pt was seen through the camera in the presence of the medical staff Current Medications Current Medications Medications: Home Medications semaglutide 0.25 mg or 0.5 mg (2 mg/1.5 mL) subcutaneous pen injector (Ozempic) 1 mg SUBCUT QWEEK 03/15/19 [History Confirmed 02/23/22] cyclobenzaprine 10 mg tablet 10 mg PO TID PRN spasms 04/25/19 [History Confirmed 02/23/22] aspirin 81 mg tablet,delayed release (Enteric Coated Aspirin) 81 mg PO DAILY 09/10/20 [History Confirmed 02/23/22] epinephrine 0.3 mg/0.3 mL injection, auto-injector 0.3 mg IM ONCE PRN anaphylaxis 09/10/20 [History Confirmed 02/23/22] allopurinol 300 mg tablet 300 mg PO DAILY #90 tabs 03/24/21 [Rx Confirmed 02/23/22] amlodipine 10 mg tablet 10 mg PO DAILY #90 tabs 03/24/21 [Rx Confirmed 02/23/22] carvedilol 12.5 mg tablet 12.5 mg PO BID #180 tabs 03/24/21 [Rx Confirmed 02/23/22] colchicine 0.6 mg tablet 0.6 mg PO BID #180 tabs 03/24/21 [Rx Confirmed 02/23/22] dapagliflozin 10 mg tablet 10 mg PO DAILY #90 tabs 03/24/21 [Rx Confirmed 02/23/22] duloxetine 60 mg capsule,delayed release 60 mg PO DAILY #90 caps 03/24/21 [Rx Confirmed 02/23/22] furosemide 20 mg tablet 20 mg PO DAILY #90 tabs 03/24/21 [Rx Confirmed 02/23/22] gabapentin 600 mg tablet 1,200 mg PO BID #360 tabs 03/24/21 [Rx Confirmed 02/23/22] olmesartan 40 mg tablet 40 mg PO DAILY #90 tabs 03/24/21 [Rx Confirmed 02/23/22] pantoprazole 20 mg tablet,delayed release 20 mg PO DAILY #90 tabs 03/24/21 [Rx Confirmed 02/23/22] ropinirole 2 mg tablet See Rx Instructions PO BID #270 tabs 03/24/21 [Rx Confirmed 02/23/22] rosuvastatin 10 mg tablet 10 mg PO DAILY #90 tabs 03/24/21 [Rx Confirmed 02/23/22] insulin glargine 100 unit/mL (3 mL) subcutaneous pen (Lantus Solostar U-100 Insulin) 55 unit (0.55 mL) SUBCUT BID #135 mL 03/26/21 [Rx Confirmed 02/23/22] insulin lispro 100 unit/mL subcutaneous solution (Humalog U-100 Insulin) 5 unit (0.05 mL) SUBCUT TID #150 mL 03/26/21 [Rx Confirmed 02/23/22] metformin 500 mg tablet 1,000 mg PO BIDCC #360 tabs 03/26/21 [Rx Confirmed 02/23/22] rivaroxaban 20 mg tablet (Xarelto) 20 mg PO QPM #90 tabs 06/15/21 [Rx Confirmed 02/23/22] glucagon 1 mg solution for injection 1 mg SUBCUT Q20M PRN Hypoglycemia 02/15/22 [History Confirmed 02/23/22] prednisone 10 mg tablet 10 mg PO DAILY #30 tabs 02/22/22 [Rx Confirmed 02/23/22] hydrocodone 5 mg-acetaminophen 325 mg tablet 1 tab PO Q6H PRN pain 02/23/22 [History Confirmed 02/23/22] sucralfate 1 gram tablet (Carafate) 1 g PO QID stomach irritation 02/23/22 [History Confirmed 02/23/22] tamsulosin 0.4 mg capsule (Flomax) 0.4 mg PO DAILY PRN Urinary Retention 02/23/22 [History Confirmed 02/23/22] tramadol 50 mg tablet 50 mg PO Q6HR 02/23/22 [History Confirmed 02/23/22] triamcinolone acetonide 0.1 % lotion 1 applic topical DAILY PRN Rash 02/23/22 [History Confirmed 02/23/22] Visit Medications (administered) Generic Name Dose Route Start Last Admin ? Trade Name Freq? PRN Reason Stop Dose Admin Hydrocodone Bitart/Acetaminophen ?1 tab ?02/23/22 15:49 ?02/24/22 11:55 ? Hydrocodone/Acet 5/325 Tablet ?PO ? ?1 tab ? ?Q4HR PRN ? ?Administration ? ?Pain, Moderate (4-6) ? ? Allopurinol ?300 mg ?02/24/22 09:00 ?02/25/22 08:38 ? Allopurinol 300 Mg Tablet ?PO ? ?300 mg ? ?DAILY MELANIE ? ?Administration Aspirin ?81 mg ?02/24/22 09:00 ?02/25/22 08:38 ? Aspirin Ec 81 Mg Tablet ?PO ? ?81 mg ? ?DAILY MELANIE ? ?Administration Colchicine ?0.6 mg ?02/23/22 21:00 ?02/25/22 09:12 ? Colchicine 0.6 Mg Tablet ?PO ? ?0.6 mg ? ?BID MELANIE ? ?Administration Docusate Sodium ?100 mg ?02/23/22 21:00 ?02/25/22 08:38 ? Docusate 100 Mg Capsule ?PO ? ?100 mg ? ?BID MELANIE ? ?Administration Duloxetine HCl ?60 mg ?02/24/22 09:00 ?02/25/22 08:38 ? Duloxetine 30 Mg Capsule ?PO ? ?60 mg ? ?DAILY MELANIE ? ?Administration Gabapentin ?1,200 mg ?02/23/22 21:00 ?02/25/22 08:38 ? Gabapentin 600 Mg Tablet ?PO ? ?1,200 mg ? ?BID MELANIE ? ?Administration Piperacillin Sod/Tazobactam ?100 mls @ 25 mls/hr ?02/23/22 21:00 ?02/25/22 06:00 ? Sod 3.375 gm/ Sodium Chloride ?IV ? ?25 mls/hr ? ?Q8H MELANIE ? ?Administration Insulin Glargine ?55 unit ?02/23/22 21:00 ?02/24/22 21:01 ? Insulin Glargine 100 Unit/Ml 3ml Pen ?SUBCUT ? ?55 unit ? ?BEDTIME MELANIE ? ?Administration Insulin Human Lispro ?0 unit ?02/23/22 16:45 ?02/25/22 08:38 ? Insulin Lispro 100 Unit/Ml 3ml Vial ?SUBCUT ? ?Not Given ? ?[facility] MELANIE ?Protocol ? ? Pantoprazole Sodium ?20 mg ?02/24/22 09:00 ?02/25/22 08:38 ? Pantoprazole Dr 20 Mg Tablet ?PO ? ?20 mg ? ?DAILY MELANIE ? ?Administration Prednisone ?20 mg ?02/24/22 09:00 ?02/25/22 08:38 ? Prednisone 20 Mg Tablet ?PO ? ?20 mg ? ?DAILY MELANIE ? ?Administration Rivaroxaban ?20 mg ?02/23/22 17:00 ?02/24/22 17:39 ? Rivaroxaban 10 Mg Tablet ?PO ? ?20 mg ? ?QPM MELANIE ? ?Administration Ropinirole HCl ?1 mg ?02/24/22 09:00 ?02/25/22 09:12 ? Ropinirole 1 Mg Tablet ?PO ? ?1 mg ? ?DAILY MELANIE ? ?Administration Ropinirole HCl ?2 mg ?02/23/22 21:00 ?02/24/22 20:47 ? Ropinirole 1 Mg Tablet ?PO ? ?2 mg ? ?BEDTIME MELANIE ? ?Administration Sodium Chloride ?10 ml ?02/25/22 09:00 ?02/25/22 09:14 ? Sodium Chloride 0.9% Flush ?IV ? ?10 ml ? ?BID MELANIE ? ?Administration Tamsulosin HCl ?0.4 mg ?02/23/22 21:00 ?02/24/22 20:49 ? Tamsulosin 0.4 Mg Capsule ?PO ? ?0.4 mg ? ?BEDTIME MELANIE ? ?Administration Objective Labs Result Diagrams: 02/25/22 03:15? 02/25/22 03:15? Labs: Laboratory Results - last 24 hr ? 02/25/22 02/25/22 02/25/22 ? 03:15 03:15 03:15 WBC ?12.0 H ? ? RBC ?3.65 L ? ? Hgb ?10.3 L ? ? Hct ?31.0 L ? ? MCV ?85.0 ? ? MCH ?28.3 ? ? MCHC ?33.3 ? ? RDW ?19.9 H ? ? Plt Count ?190 ? ? Neut % (Auto) ?88.7 H ? ? Lymph % (Auto) ?7.6 L ? ? Pacific % (Auto) ?3.5 ? ? Eos % (Auto) ?0.0 L ? ? Baso % (Auto) ?0.2 ? ? Neut # (Auto) ?08122 H ? ? Lymph # (Auto) ?900 L ? ? Pacific # (Auto) ?400 ? ? Eos # (Auto) ?0 ? ? Baso # (Auto) ?0 ? ? Sodium ? ?137 ? Potassium ? ?3.6 ? Chloride ? ?104 ? Carbon Dioxide ? ?21 L ? BUN ? ?41 H ? Creatinine ? ?1.10 ? Estimated GFR ? ?> 60 ? BUN/Creatinine Ratio ? ?37.3 H ? Glucose ? ?103 ? Calcium ? ?8.5 ? Magnesium ? ? ?2.0 Total Bilirubin ? ?0.6 ? AST ? ?25 ? ALT ? ?19 ? Alkaline Phosphatase ? ?109 ? Troponin I ? ? ? NT-Pro-B Natriuret Pep ? ? ? Total Protein ? ?6.2 L ? Albumin ? ?3.0 L ? Globulin ? ?3.2 ? Albumin/Globulin Ratio ? ?0.9 L ? ? 02/25/22 02/25/22 02/25/22 ? 03:15 03:15 08:30 WBC ? ? ? RBC ? ? ? Hgb ? ? ? Hct ? ? ? MCV ? ? ? MCH ? ? ? MCHC ? ? ? RDW ? ? ? Plt Count ? ? ? Neut % (Auto) ? ? ? Lymph % (Auto) ? ? ? Pacific % (Auto) ? ? ? Eos % (Auto) ? ? ? Baso % (Auto) ? ? ? Neut # (Auto) ? ? ? Lymph # (Auto) ? ? ? Pacific # (Auto) ? ? ? Eos # (Auto) ? ? ? Baso # (Auto) ? ? ? Sodium ? ? ? Potassium ? ? ? Chloride ? ? ? Carbon Dioxide ? ? ? BUN ? ? ? Creatinine ? ? ? Estimated GFR ? ? ? BUN/Creatinine Ratio ? ? ? Glucose ? ? ? Calcium ? ? ? Magnesium ? ? ? Total Bilirubin ? ? ? AST ? ? ? ALT ? ? ? Alkaline Phosphatase ? ? ? Troponin I ? ?0.029 ?0.082 H NT-Pro-B Natriuret Pep ?66608 H ? ? Total Protein ? ? ? Albumin ? ? ? Globulin ? ? ? Albumin/Globulin Ratio ? ? ? Exam Vital Signs (past 8 hours): - ? 02/25/22 02:53 02/25/22 02:54 02/25/22 02:24 Temperature ? ? ? Pulse Rate ? 108 H ? Respiratory Rate ? 30 H 30 H Blood Pressure 156/75 H ? ? Pulse Oximetry ? 95 ? Oxygen Delivery Method ? ? ? Oxygen Flow Rate ? ? ? Fraction of Inspired Oxygen ? 02/25/22 02:56 02/25/22 03:00 02/25/22 03:00 Temperature ? ? ? Pulse Rate ? ? 104 H Respiratory Rate ? ? 30 H Blood Pressure 156/75 H 147/68 H ? Pulse Oximetry ? ? 96 Oxygen Delivery Method ? ? ? Oxygen Flow Rate ? ? ? Fraction of Inspired Oxygen 50 ? ? ? 02/25/22 03:30 02/25/22 03:34 02/25/22 03:34 Temperature ? ? ? Pulse Rate 99 H 95 H ? Respiratory Rate 30 H 28 H ? Blood Pressure ? ? 114/58 L Pulse Oximetry 96 96 ? Oxygen Delivery Method ? ? ? Oxygen Flow Rate ? ? ? Fraction of Inspired Oxygen ? 02/25/22 03:30 02/25/22 04:00 02/25/22 04:29 Temperature ? ? ? Pulse Rate ? 93 H ? Respiratory Rate ? 29 H ? Blood Pressure ? ? 114/58 L Pulse Oximetry ? 95 ? Oxygen Delivery Method Room Air ? ? Oxygen Flow Rate ? ? ? Fraction of Inspired Oxygen ? ? 50 ? 02/25/22 04:30 02/25/22 04:36 02/25/22 04:36 Temperature ? ? ? Pulse Rate 88 94 H ? Respiratory Rate 28 H 28 H ? Blood Pressure ? ? 130/64 Pulse Oximetry 97 99 ? Oxygen Delivery Method ? ? ? Oxygen Flow Rate ? ? ? Fraction of Inspired Oxygen ? 02/25/22 05:00 02/25/22 05:30 02/25/22 05:37 Temperature ? ? ? Pulse Rate 85 84 85 Respiratory Rate 28 H 27 H 28 H Blood Pressure ? ? ? Pulse Oximetry 97 98 98 Oxygen Delivery Method ? ? ? Oxygen Flow Rate ? ? ? Fraction of Inspired Oxygen ? 02/25/22 05:37 02/25/22 05:56 02/25/22 06:00 Temperature ? ? ? Pulse Rate ? ? ? Respiratory Rate ? ? ? Blood Pressure 123/60 ? 121/58 L Pulse Oximetry ? 97 ? Oxygen Delivery Method ? Nasal Cannula ? Oxygen Flow Rate ? 6 ? Fraction of Inspired Oxygen ? 44 ? ? 02/25/22 06:00 02/25/22 06:30 02/25/22 08:00 Temperature ? ? 98.2 F Pulse Rate 84 83 ? Respiratory Rate 28 H 28 H 26 H Blood Pressure ? ? ? Pulse Oximetry 95 92 96 Oxygen Delivery Method ? ? ? Oxygen Flow Rate ? ? 6 Fraction of Inspired Oxygen ? 02/25/22 07:00 02/25/22 07:30 02/25/22 08:00 Temperature ? ? ? Pulse Rate 84 83 ? Respiratory Rate 25 H 27 H ? Blood Pressure ? ? 128/58 L Pulse Oximetry 95 92 ? Oxygen Delivery Method ? ? ? Oxygen Flow Rate ? ? ? Fraction of Inspired Oxygen ? 02/25/22 08:00 02/25/22 08:30 02/25/22 09:00 Temperature ? ? ? Pulse Rate 83 84 ? Respiratory Rate 27 H 25 H ? Blood Pressure ? ? 125/59 L Pulse Oximetry 96 94 ? Oxygen Delivery Method ? ? ? Oxygen Flow Rate ? ? ? Fraction of Inspired Oxygen ? 02/25/22 09:00 Temperature ? Pulse Rate 84 Respiratory Rate 25 H Blood Pressure ? Pulse Oximetry 93 Oxygen Delivery Method ? Oxygen Flow Rate ? Fraction of Inspired Oxygen ? Fraction of Inspired Oxygen ? 44? Oxygen Delivery Method? Nasal Cannula ? Oxygen Flow Rate? 6 ? Quality TeleICU VTE Deep Vein Thrombosis/Pulmonary Embolism Present on Admission: No Assessment & Plan Assessment & Plan narrative: [address] [address] Teleintensivist Consult NotePatient: Cory Lin MR#: [id number] : 1955 Acct:[id number] Age/Sex: 66 / M ? Date of Service: 02/23/22 Provider:?Cornelio Dasilva MD History of Present Illness Consult details If camera was activated, add TeleICU A-V Statement: Patient was seen by two-way interactive audiovisual telecommunication. Chief complaint: Blood infection- sent by Dr Pelaez Consent obtained for tele-internal medicine nurse practitioner care: Yes Patient Location: ICU Provider location (State): [place] Other participants/roles: RN Narrative: 66 y.o. male upgraded to ICU status for BIPAP therapy.? RN reports possible episode of AF on floor prior to ICU arrival.? BIPAP @ 04/14 FiO2 50% w/ RR of 10 on initial camera activation.? Patient also received 40 mg Lasix on floor prior to transport.? Originally admitted 02/23 for increasing somnolence and fluid-responsive hypotension; also had mild JAMAL which has resolved.? Blood cultures are (+) for Staphyloccoccus aureus; sensitivities are pending. 02/23 AM 2-D echo w/ LVEF% of 20-25%, RV dysfunction and mild-moderate MR. 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 PFSH Medical History? 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 History of carpal tunnel repair (1977) History of coronary artery stent placement (04/2014) Hx of inguinal hernia surgery (1977) S/P CABG x 3 S/P CABG x 3 Status post arthroscopy Status post rotator cuff repair Family History? Father?? Coronary artery disease Alcoholism Sudden deathOther Depression Social History? marital status:? details:? to Francisco J, lives in [place] household members:? spouse lives independently:? Yes caregiver/support person:? No housing:? house princess/latter-day:? [employer] / [employer] Smoking Status:? Never smoker alcohol intake:? never substance use type:? does not use eating out:? 1-3 times/week Type(s) of exercise:? walking, aerobic, bicycling, advised to exercise at least 150 min/week (moderate intensity aerobic) and advised to perform resistance training at least 2x/week Current Medications Current Medications Medications: Home Medications semaglutide 0.25 mg or 0.5 mg (2 mg/1.5 mL) subcutaneous pen injector (Ozempic) 1 mg SUBCUT QWEEK 03/15/19 [History Confirmed 02/23/22] cyclobenzaprine 10 mg tablet 10 mg PO TID PRN spasms 04/25/19 [History Confirmed 02/23/22] aspirin 81 mg tablet,delayed release (Enteric Coated Aspirin) 81 mg PO DAILY 09/10/20 [History Confirmed 02/23/22] epinephrine 0.3 mg/0.3 mL injection, auto-injector 0.3 mg IM ONCE PRN anaphylaxis 09/10/20 [History Confirmed 02/23/22] allopurinol 300 mg tablet 300 mg PO DAILY #90 tabs 03/24/21 [Rx Confirmed 02/23/22] amlodipine 10 mg tablet 10 mg PO DAILY #90 tabs 03/24/21 [Rx Confirmed 02/23/22] carvedilol 12.5 mg tablet 12.5 mg PO BID #180 tabs 03/24/21 [Rx Confirmed 02/23/22] colchicine 0.6 mg tablet 0.6 mg PO BID #180 tabs 03/24/21 [Rx Confirmed 02/23/22] dapagliflozin 10 mg tablet 10 mg PO DAILY #90 tabs 03/24/21 [Rx Confirmed 02/23/22] duloxetine 60 mg capsule,delayed release 60 mg PO DAILY #90 caps 03/24/21 [Rx Confirmed 02/23/22] furosemide 20 mg tablet 20 mg PO DAILY #90 tabs 03/24/21 [Rx Confirmed 02/23/22] gabapentin 600 mg tablet 1,200 mg PO BID #360 tabs 03/24/21 [Rx Confirmed 02/23/22] olmesartan 40 mg tablet 40 mg PO DAILY #90 tabs 03/24/21 [Rx Confirmed 02/23/22] pantoprazole 20 mg tablet,delayed release 20 mg PO DAILY #90 tabs 03/24/21 [Rx Confirmed 02/23/22] ropinirole 2 mg tablet See Rx Instructions PO BID #270 tabs 03/24/21 [Rx Confirmed 02/23/22] rosuvastatin 10 mg tablet 10 mg PO DAILY #90 tabs 03/24/21 [Rx Confirmed 02/23/22] insulin glargine 100 unit/mL (3 mL) subcutaneous pen (Lantus Solostar U-100 Insulin) 55 unit (0.55 mL) SUBCUT BID #135 mL 03/26/21 [Rx Confirmed 02/23/22] insulin lispro 100 unit/mL subcutaneous solution (Humalog U-100 Insulin) 5 unit (0.05 mL) SUBCUT TID #150 mL 03/26/21 [Rx Confirmed 02/23/22] metformin 500 mg tablet 1,000 mg PO BIDCC #360 tabs 03/26/21 [Rx Confirmed 02/23/22] rivaroxaban 20 mg tablet (Xarelto) 20 mg PO QPM #90 tabs 06/15/21 [Rx Confirmed 02/23/22] glucagon 1 mg solution for injection 1 mg SUBCUT Q20M PRN Hypoglycemia 02/15/22 [History Confirmed 02/23/22] prednisone 10 mg tablet 10 mg PO DAILY #30 tabs 02/22/22 [Rx Confirmed 02/23/22] hydrocodone 5 mg-acetaminophen 325 mg tablet 1 tab PO Q6H PRN pain 02/23/22 [History Confirmed 02/23/22] sucralfate 1 gram tablet (Carafate) 1 g PO QID stomach irritation 02/23/22 [History Confirmed 02/23/22] tamsulosin 0.4 mg capsule (Flomax) 0.4 mg PO DAILY PRN Urinary Retention 02/23/22 [History Confirmed 02/23/22] tramadol 50 mg tablet 50 mg PO Q6HR 02/23/22 [History Confirmed 02/23/22] triamcinolone acetonide 0.1 % lotion 1 applic topical DAILY PRN Rash 02/23/22 [History Confirmed 02/23/22] Visit Medications (administered) Generic Name? Dose Route? Start? Last Admin ? Trade Name? Freq? PRN Reason? Stop? Dose Admin Hydrocodone Bitart/Acetaminophen? ?1 tab? ?02/23/22 15:49? ?02/24/22 11:55 ? Hydrocodone/Acet 5/325 Tablet? ?PO?1 tab ?? ?Q4HR PRN?Administration ?? ?Pain, Moderate (4-6)? Allopurinol? ?300 mg? ?02/24/22 09:00? ?02/24/22 08:29 ? Allopurinol 300 Mg Tablet? ?PO?300 mg ?? ?DAILY MELANIE?Administration Aspirin? ?81 mg? ?02/24/22 09:00? ?02/24/22 08:29 ? Aspirin Ec 81 Mg Tablet? ?PO?81 mg ?? ?DAILY MELANIE?Administration Colchicine? ?0.6 mg? ?02/23/22 21:00? ?02/24/22 20:47 ? Colchicine 0.6 Mg Tablet? ?PO?0.6 mg ?? ?BID MELANIE?Administration Docusate Sodium? ?100 mg? ?02/23/22 21:00? ?02/24/22 20:48 ? Docusate 100 Mg Capsule? ?PO?100 mg ?? ?BID MELANIE?Administration Duloxetine HCl? ?60 mg? ?02/24/22 09:00? ?02/24/22 08:29 ? Duloxetine 30 Mg Capsule? ?PO?60 mg ?? ?DAILY MELANIE?Administration Gabapentin? ?1,200 mg? ?02/23/22 21:00? ?02/24/22 20:48 ? Gabapentin 600 Mg Tablet? ?PO?1,200 mg ?? ?BID MELANIE?Administration Piperacillin Sod/Tazobactam? ?100 mls @ 25 mls/hr? ?02/23/22 21:00? ?02/25/22 00:48 ? Sod 3.375 gm/ Sodium Chloride? ?IV?Infused ?? ?Q8H MELANIE?Infusion Vancomycin HCl/Dextrose? ?1,500 mg in 300 mls @ 200 mls/hr? ?02/24/22 14:00? ?02/24/22 14:17 ? Vancomycin? ?IV?200 mls/hr ?? ?DAILY@1400 MELANIE?Administration Insulin Glargine? ?55 unit? ?02/23/22 21:00? ?02/24/22 21:01 ? Insulin Glargine 100 Unit/Ml 3ml Pen? ?SUBCUT?55 unit ?? ?BEDTIME MELANIE?Administration Insulin Human Lispro? ?0 unit? ?02/23/22 16:45? ?02/24/22 21:00 ? Insulin Lispro 100 Unit/Ml 3ml Vial? ?SUBCUT?Not Given ?? ?ACHS MELANIE?Protocol? Pantoprazole Sodium? ?20 mg? ?02/24/22 09:00? ?02/24/22 08:29 ? Pantoprazole Dr 20 Mg Tablet? ?PO?20 mg ?? ?DAILY MELANIE?Administration Prednisone? ?20 mg? ?02/24/22 09:00? ?02/24/22 08:29 ? Prednisone 20 Mg Tablet? ?PO?20 mg ?? ?DAILY MELANIE?Administration Rivaroxaban? ?20 mg? ?02/23/22 17:00? ?02/24/22 17:39 ? Rivaroxaban 10 Mg Tablet? ?PO?20 mg ?? ?QPM MELANIE?Administration Ropinirole HCl? ?1 mg? ?02/24/22 09:00? ?02/24/22 08:35 ? Ropinirole 1 Mg Tablet? ?PO?1 mg ?? ?DAILY MELANIE?Administration Ropinirole HCl? ?2 mg? ?02/23/22 21:00? ?02/24/22 20:47 ? Ropinirole 1 Mg Tablet? ?PO?2 mg ?? ?BEDTIME MELANIE?Administration Tamsulosin HCl? ?0.4 mg? ?02/23/22 21:00? ?02/24/22 20:49 ? Tamsulosin 0.4 Mg Capsule? ?PO?0.4 mg ?? ?BEDTIME MELANIE?Administration Exam Vital Signs (past 8 hours): - ?? 02/25/2200:00? 02/25/2202:53? 02/25/2202:54 Temperature? 97.6 F? Pulse Rate? 80? ?? 108 H Respiratory Rate? 19? ?? 30 H Blood Pressure? 124/67? 156/75 H? ? Pulse Oximetry? 93? ?? 95 Fraction of Inspired Oxygen? 02/25/2202:24? 02/25/2202:56? 02/25/2203:00 Temperature? Pulse Rate? Respiratory Rate? 30 H? Blood Pressure? ?? 156/75 H? 147/68 H Pulse Oximetry? Fraction of Inspired Oxygen? ?? 50? 02/25/2203:00? 02/25/2203:30? 02/25/2203:34 Temperature? Pulse Rate? 104 H? 99 H? 95 H Respiratory Rate? 30 H? 30 H? 28 H Blood Pressure? Pulse Oximetry? 96? 96? 96 Fraction of Inspired Oxygen? 02/25/2203:34 Temperature? ? Pulse Rate? ? Respiratory Rate? ? Blood Pressure? 114/58 L Pulse Oximetry? ? Fraction of Inspired Oxygen? ? Fraction of Inspired Oxygen ?? 50? Oxygen Delivery Method? Room Air? Oxygen Flow Rate? 0 ? Const General: comfortable Nutritional Appearance: obese Resp Effort & Inspection: normal respiratory effort (on NIPPV 10/5 50% w/ RR 10) Objective Labs Result Diagrams: 02/25/22 03:15? 02/25/22 03:15? Labs: Laboratory Results - last 24 hr ?? 02/24/22? 02/24/22? 02/24/22 ?? 04:35? 04:35? 06:10 WBC? ?9.5? RBC? ?3.30 L? Hgb? ?9.6 L? Hct? ?28.7 L? MCV? ?87.0? MCH? ?29.1? MCHC? ?33.5? RDW? ?20.0 H? Plt Count? ?140 L? Neut % (Auto)? ?83.8 H? Lymph % (Auto)? ?9.5 L? [place] % (Auto)? ?6.4? Eos % (Auto)? ?0.3 L? Baso % (Auto)? ?0.0? Neut # (Auto)? ?7900 H? Lymph # (Auto)? ?900 L? [place] # (Auto)? ?600? Eos # (Auto)? ?0? Baso # (Auto)? ?0? Sodium?135 L? ? Potassium?3.6? ? Chloride?104? ? Carbon Dioxide?20 L? ? BUN?43 H? ? Creatinine?1.19? ? Estimated GFR?> 60? ? BUN/Creatinine Ratio?36.1 H? ? Glucose?73 L D? ? Lactate?1.4 Calcium?7.9 L? ? Magnesium?2.0? ? Total Bilirubin?0.4? ? AST?24? ? ALT?17? ? Alkaline Phosphatase?77? ? Total Protein?5.5 L? ? Albumin?2.7 L? ? Globulin?2.8? ? Albumin/Globulin Ratio?1.0? 02/25/22? 02/25/22 ?? 03:15? 03:15 WBC? ?12.0 H? ? RBC? ?3.65 L? ? Hgb? ?10.3 L? ? Hct? ?31.0 L? ? MCV? ?85.0? ? MCH? ?28.3? ? MCHC? ?33.3? ? RDW? ?19.9 H? ? Plt Count? ?190? ? Neut % (Auto)? ?88.7 H? ? Lymph % (Auto)? ?7.6 L? ? [place] % (Auto)? ?3.5? ? Eos % (Auto)? ?0.0 L? ? Baso % (Auto)? ?0.2? ? Neut # (Auto)? ?35739 H? ? Lymph # (Auto)? ?900 L? ? [place] # (Auto)? ?400? ? Eos # (Auto)? ?0? ? Baso # (Auto)? ?0? ? Sodium?137 Potassium?3.6 Chloride?104 Carbon Dioxide?21 L BUN?41 H Creatinine?1.10 Estimated GFR?> 60 BUN/Creatinine Ratio?37.3 H Glucose?103 Lactate? Calcium?8.5 Magnesium? Total Bilirubin?0.6 AST?25 ALT?19 Alkaline Phosphatase?109 Total Protein?6.2 L Albumin?3.0 L Globulin?3.2 Albumin/Globulin Ratio?0.9 L Assessment and plan (1) Acute respiratory failure with hypoxia: ?Status:?Acute ?Plan: -On 3 L NC, resp status improving -continue to have good response to IV Lasix 40 mg; close I/O, adjust lasix dose and frequency for goal 2L negative - Keep K & Mag level 4&2 respectively, repalce as needed (2) Bacteremia due to Staphylococcus aureus: ?Status:?Acute ?Plan: -Continue vancomycin/Zosyn -Pending transfer to a higher level of care for AMANDA to definitively evaluate for endocarditis. (3) Type 2 diabetes mellitus with complication, with long-term current use of insulin: ?Problem details: Complicated by neuropathy/retinopathy ?Status:?Acute ?Plan: -Continue SUBQ insulin protocol (4) Coronary artery disease, continue meds, rec card consult and AMANDA as above (5) Afib on xarelto and BB (6) Gout, on medical mgt, consider to wean off predinsone in the sitting of baceteremia (7) on Full AC and PPI Time Spent With Patient Critical Care time: I spent a total of [] minutes of critical care time on this patient's care today; this time is exclusive of procedural time.
[2022-02-26] MEDS: INSULIN LISPRO 100 UNIT/ML 3ML VIAL SUBCUT ×3 (12:16→20:46)
--- NOTE | 2022-02-26 12:18 | DIET.CONS ---
Dietary Consultation Note Admission Date: 02/23/2022 14:34 Assessment: 66 y/o M treated for acute respiratory failure, bacteremia with h/o T2DM. RD consulted for intake. MNA score of 10 due to reported weight loss in the last three months, however EMR records indicate weight gain. Today Cory is unsure if he has actually lost weight or why he may lose weight. Has limited appetite currently. States he does not feel like eating potatoes, vegetables or meat. Enjoying vanilla Ensure BID currently. 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 Checks FBG and often 130-140 mg/dL. Hx with diabetes education. I have done it all. wt hx per EMR: 02/25/22: 119.2kg 08/20/21: 116kg 03/19/2021: 122.47kg (-2.7% over one year, not significant) Ht: 182.88 cm Wt: 119.2 kg BMI: 33.0 UBW: 109kg reported Last BM: 02/26/22 (02/26/22 10:51) MNA: 10 Javno Score: 16 Diet: 02/23/22 Dinner Carbohydrate Consistent Diet Diet Modifications: Carbohydrate level: Medium (3 CHO) Bedtime snack: Yes Nutrition Percent Meal Consumed Pt refused breakfast 02/26/22 08:56 Percent Meal Consumed 25% 02/25/22 18:04 Percent Meal Consumed 75% 02/24/22 18:28 Percent Meal Consumed 25% 02/24/22 13:30 Labs: RBC 3.41 X10^6/uL (4.5-5.9) L 02/26/22 04:11 Hgb 9.7 g/dL (13.5-17.5) L 02/26/22 04:11 Hct 29.0 % (41-53) L 02/26/22 04:11 Creatinine 1.04 mg/dL (0.66-1.25) 02/26/22 04:11 Lactate 1.4 mmol/L (0.7-2.1) 02/24/22 06:10 NT-Pro-B Natriuret Pep 57407 pg/mL (<125) H 02/25/22 03:15 Nutrition Diagnosis: Inadequate PO r/t loss of appetite aeb PO <50% most meals and pt report Interventions: RD to discuss pt food preferences with kitchen. Will send ONS BID to support kcal needs. Monitoring/Evaluations: PO Electronically Signed by: Indira Jean 02/26/22 12:18 Clinical Dietitian [address] [id number]
--- NOTE | 2022-02-26 14:36 | PT.IPTN ---
Current Diagnoses Sepsis, unspecified organism (02/23/22) Methicillin susceptible Staphylococcus aureus infection as the cause of diseases classified elsewhere (02/23/22) Type 2 diabetes mellitus with unspecified complications (02/23/22) Obesity, unspecified (02/23/22) Obstructive sleep apnea (adult) (pediatric) (02/23/22) Other chronic pain (02/23/22) Atherosclerotic heart disease of [place] coronary artery without angina pectoris (02/23/22) Unspecified atrial fibrillation (02/23/22) Acute systolic (congestive) heart failure (02/23/22) Acute respiratory failure with hypoxia (02/23/22) Other chondrocalcinosis, unspecified site (02/23/22) Severe sepsis without septic shock (02/23/22) Bacteremia (02/23/22) 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 (02/23/22) 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 (02/23/22) Physical Therapy Treatment Note M2 PT-IP Current Condition Start: 02/24/22 12:14 Freq: NEEDED Status: Active Protocol: Document 02/26/22 14:02 SP (Rec: 02/26/22 16:13 SP [id number]) Physical Therapy Current Condition Current Condition Evaluation Date 02/24/22 Treatment Diagnosis sepsis; pseudogout; difficulty in walking Onset Date 02/23/22 M3 PT-IP Subjective Start: 02/24/22 12:14 Freq: NEEDED Status: Active Protocol: Document 02/26/22 14:02 SP (Rec: 02/26/22 16:13 SP [id number]) Subjective Physical Therapy Visit Type Type Treatment Note Visit Start Time 14:02 Visit Stop Time 14:36 Total Visit Minutes 34 Notes Vitals during tx: supine: BP 133/81 HR 103 SaO2 97% on 6L. during mobility: HR 109, SaO2 97-98% on 6L Nurse provided 2nd person assist as needed throughout tx . Number of COOK TACO Visits 2 Physical Therapy Visit Comments Patient Comments Pt agreeable to working with therapy with encouragement with being tired this afternoon. States has been doing LE exercises instructed last tx. M4 PT-IP Mobility and Gait Start: 02/24/22 12:14 Freq: NEEDED Status: Active Protocol: Document 02/26/22 14:02 SP (Rec: 02/26/22 16:13 SP [id number]) PT-Bed Mobility Assessment Supine to Sit Supine to Sit Moderate Assistance,2 Person Assistance,Head of Bed Elevated Sit to Supine Sit to Supine Moderate Assistance,1 Person Assistance,Bedrails Scooting Scooting to Edge of Bed Moderate Assistance,Maximum Assistance Scooting Up and Down in Bed Maximum Assistance PT-Transfer Assessment Sit to and From Stand Sit to and from Stand Moderate Assistance,Maximum Assistance,2 Person Assistance ,Use of Upper Extremities Equipment Transfer Assistive Device Gait Belt,Platform Walker Orthotic/Prosthetic Devices or Brace: No Transfers Transfer Destination Bed,Chair Transfer Technique Stand Step Pivot, ambulated w/ PFWW Transfer Ability Level of Assist Minimal Assistance,Moderate Assistance,1 Person Assistance ,Use of Upper Extremities Comments Mobility Comments COOK TACO reviewed w/ pt BLE ex: AP, HS, quad sets x3 reps each performed AROM. Elevated supine>sit Mod-Max x1-2, scoot Mod-Max x1-2, Sit<>stand Mod- Max A x2 from EOB/ Max x2 from chair, SPT to chair w/PFWW stand>sit Mod A x2 w/ cues for reaching back chair arm self controlled sit. Sat briefly 1 min. Pt ambulated around room w/ PFWW Mami x1 with support from nursing IV pole and tubing lines as needed, 30 ft total. Pt returned to bed Mod A x1 for LE support into bed then Pt lateral scoot center self SBA, Min A for upper shoulder/trunk centering. Placed pillow under B thighs, donned SCDs and call light in reach, bed alarmed for safety fall risk. 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 Will continue to assess progress. Gait Assessment Gait Gait Assistance Required: Minimum Assistance,1 Person Assist Distance (Feet) 30 Able to Maintain Weight Bearing Status Yes During Gait Assistive Devices Assistive Device Gait Belt,Platform Walker Orthotic/Prosthetic Devices or Brace: No Gait Deviations General Gait Pattern Antalgic,Decreased Stride Length,Decreased Feet Clearance,Flexed Trunk,Lateral Trunk Lean,Step-to Gait,Wide Based Gait Factors Limiting Gait Function Factors Limiting Gait Function Decreased Activity Tolerance, Decreased Sensation,Decreased Strength,Limited Range of Motion,Pain,Poor Balance,Poor Safety Awareness,Respiratory Distress Comments Gait Comments SPT bed>chair, forward gait chair>door>R side bed 30 ft, step to patterning, cued for upright posturing and foot clearance, occasional assist forPFWW repositioning on right this tx. Stair Climbing Assessment Comments Stair Climbing Comments Unable at this time but will need complete 3 step wide HR to enter home for safe DC when able. PT-Balance Assessment Sitting Balance and Reactions Static Sitting Balance Ability Good Dynamic Sitting Balance Ability Fair Standing Balance and Reactions Static Standing Balance Ability Fair Dynamic Standing Balance Ability Poor Device Used PFWW M5 PT-IP Objective Assessments Start: 02/24/22 12:14 Freq: NEEDED Status: Active Protocol: Document 02/24/22 10:20 AB (Rec: 02/24/22 12:24 AB [id number]) Orientation Orientation/Cognition Level of Alertness Alert Orientation Name,Place,Situation Language Function Ability Hard of Hearing Safety Awareness Decreased Safety Awareness Memory Description Short Term Impaired Gross Range of Motion Lower Extremity ROM Assessment Left Impaired Impairments pain limiting L knee movement Strength Lower Extremity Strength Assessment Left Impaired Hip 4-/5 Knee 3+/5 Coordination Assessment Gross Coordination Gross Coordination WNL Muscle Tone Muscle Tone WNL Yes M6 PT-IP Treatment Start: 02/24/22 12:14 Freq: NEEDED Status: Active Protocol: Document 02/26/22 14:02 SP (Rec: 02/26/22 16:13 SP [id number]) Physical Therapy Treatment Exercises Exercises Ankle Pumps,Heel Slides,Supine Hip Abduction Education Education Provided Weight Bearing Status,Safety Other Treatments Other Treatment Performed Improved RUE support on bed for mobility. M7 PT-IP Assessment and Plan Start: 02/24/22 12:14 Freq: NEEDED Status: Active Protocol: Document 02/26/22 14:02 SP (Rec: 02/26/22 16:13 SP [id number]) PT Summary Assessment and Plan Potential Rehabilitation Potential Fair Status of Condition at Evaluation Evolving Summary Impairments Pain,ROM,Strength,Balance, Coordination,Sensation,Tone, Cognition,Bed Mobility, Transfers,Gait,Activity Tolerance Progress Towards Goals Progressing Toward Goals,Slow Progress due to Pain,Slow Progress due to Medical Issues ,Slow Progress due to Activity Tolerance Assessment Summary Pt identified pain mostly L knee, able use R UE more with mobility elbow 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 Max A 1-2 for bed mob, STS Mod-Max A w/ PFWW, transfer and gait Min A x1 30 ft across room back to EOB. Pt will require SNF for increased strength and mobility, works all day 7-7 and unable to assist him. Goals Bed Mobility Goal Minimal Assistance Transfer Goal Minimal Assistance,Front Wheeled Walker Gait Goal Minimal Assistance,Front Wheel Walker Gait Distance 100 Other Goals improve bed mobility, transfers using FWW, ambulation using FWW 150 ft SBA up/down 3 steps 1 rail SBA Days to Meet Goals 10 Frequency of Treatment Frequency Of Treatment Once a Day Treatment Plan Physical Therapy Treatment Plan Bed Mobility Training,Transfer Training,Gait Training, Therapeutic Exercise,Balance Retraining,Discharge Planning, Hot or Cold Pack,Neuromuscular Re-ed,Coordination Retraining ,Manual Therapy Other Recommendations and Next Treatment LE ex, bed mob, transfers, STS Focus for strengthening, gait further distance w/ PFWW. Recommendations To Nursing Amount of Assist Needed 2 Person Assist Discharge Recommendations PT Discharge Recommendations SNF Rehab Transportation Needs at Discharge Wheelchair/Cabulance
--- NOTE | 2022-02-26 17:02 | CM.DPNOTE ---
DCP Note Patient not medically stable for DC, Dr Graham: Sepsis-patient growing Staph aureus from all blood cultures. Sensitive to current antibiotic therapy. No clear source of infection and agree that transesophageal echo is probably essential to rule out endocarditis. According to discussion in morning multidisciplinary rounds, no bed found yet for transfer for AMANDA. RN Coordinator [place] working today on possible transfer and treat (?) Recommendation for SNF from therapy team Met w/patient this morning to review this rec. Patient sleepy, drifting off but easily awakens and redirects easily. 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 Reviewed [facility] choice list, Patient requests this GRAPHICS MANAGER look into all SNFs on the [facility] choice list, first choice [facility] ([facility]). Meanwhile, patient wants to discuss home plan w/his family, in case he can discharge home w assist and HH services CM team will begin SNF search, can be carried on by another hospital CM team if patient discharges from for transfer JW
[2022-02-26] MEDS: RIVAROXABAN 10 MG TABLET 20 MG PO (17:55)
--- NOTE | 2022-02-26 20:00 | PM.ICURNDS ---
- Date Patient Seen: 02/26/22 Time Patient Seen: 20:02 :: This patient was seen via real time interactive two-way audiovisual telecommunication. Note: No acute issues during the day. Still requires intermittent BiPAP along with burst of A fib w/ RVR. Cont coreg 12.5 mg BID and may consider increasing to 25 BID if BP allow. On xarelto for stroke prophylaxis. Patient reports having bilateral wrist pain which attributed to gout. Currently on allopurinol, colchicine, and prednisone. Encourage patient to take pain meds as needed. D/w RN and patient at bedside.
[2022-02-26] MEDS: OXYCODONE IR 10 MG TABLET PO (20:24)
[2022-02-26] MEDS: TAMSULOSIN 0.4 MG CAPSULE PO (20:25)
[2022-02-26] MEDS: INSULIN GLARGINE 100 UNIT/ML 3ML PEN 55 UNIT SUBCUT (20:47)
[2022-02-27] VITALS (70 sets, daily range): BP systolic 104–159; BP diastolic 63–102; PULSE 63–111; RESP 17–28; TEMP 35.9–37.6; O2SAT 89–100
[2022-02-27] MEDS: OXYCODONE IR 10 MG TABLET PO ×2 (00:08→05:53)
[2022-02-27] MEDS: SODIUM CHLORIDE 0.9% FLUSH 10 ML IV ×3 (00:10→22:30)
[2022-02-27] MEDS: ROPINIROLE 1 MG TABLET 2 MG PO ×2 (00:10→21:49)
[2022-02-27] MEDS: COLCHICINE 0.6 MG TABLET PO ×3 (00:15→21:49)
[2022-02-27] MEDS: PIPERACILLIN/TAZO 3.375 GM in SODIUM CHLORIDE 0.9% 100 ML IV (05:03)
[2022-02-27 05:43] LABS: Blood Urea Nitrogen 30 mg/dL (9-20); Calcium 8.1 mg/dL (8.4-10.2); Carbon Dioxide 28 mmol/L (22-32); Chloride 98 mmol/L (98-107); Estimated Glomerular Filt Rate > 60 mL/min (>60); Glucose 126 mg/dL (80-110); HEMOLYSIS < 15 (0-50); Magnesium 1.9 mg/dL (1.6-2.3); Potassium 3.7 mmol/L (3.4-5.1); Sodium 133 mmol/L (137-145)
[2022-02-27 06:17] LABS: Add Manual Diff / Slide Review NO; Basophils Absolute Auto 0 /uL (0-100); Basophils Percent Auto 0.3 % (0-2); Eosinophils Absolute Auto 100 /uL (0-450); Eosinophils Percent Auto 0.7 % (2-4); Hematocrit 28.9 % (41-53); Hemoglobin 9.6 g/dL (13.5-17.5); Lymphocytes Absolute Auto 1700 /uL (1100-4500); Lymphocytes Percent Auto 12.9 % (25-40); Mean Corpuscular HGB Conc 33.2 % (30-36); Mean Corpuscular Hemoglobin 28.5 PG (26-34); Mean Corpuscular Volume 85.9 fL (80-100); Monocytes Absolute Auto 900 /uL (0-900); Monocytes Percent Auto 6.9 % (3-14); Neutrophils Absolute Auto 10300 /uL (1500-7000); Neutrophils Percent Auto 79.2 % (50-75); Platelet Count 212 X10^3/uL (150-400); Red Blood Cell Count 3.37 X10^6/uL (4.5-5.9); Red Cell Distribution Width 19.9 % (11.6-14.8); White Blood Cell Count 12.9 X10^3/uL (4.5-11.0)
--- NOTE | 2022-02-27 06:23 | PC.NURSE ---
Patient agreed trial of BiPap and tolerated same for 45 minutes. Patient placed on 4L nasal cannula and Sp
--- NOTE | 2022-02-27 06:24 | PC.NURSE ---
Patient agreed to trial BiPap and able to tolerate BiPap for 45 minutes. O2 at 4L per nasal cannula with O2 saturations to 97%. O2 decreased to 3L and sats maintained at 94-96% throughout night. R wrist remains swollen with blisters and erythema. R wrist elevated on a pillow. Patient states L knee also painful and remains swollen. Patient medicated with Oxycontin 10mg per EMAR. Patient able to sleep for 4 to 5 hours without interruption. REmains in Afib HR 90-110. BP 156/72
--- NOTE | 2022-02-27 06:28 | RT ---
Patient removed BIPAP and refused to go back on after being on for a couple of hours at bedtime. Was weaned down to 35% with sats still in the 94-96% range. Patient remained on NC rest of shift. Starting at 4 and weaning to 3 per RN. Patient has own CPAP here and appears that he would benefit from returning to using it now that his O2 needs are much less.
[2022-02-27] MEDS: DOCUSATE 100 MG CAPSULE PO ×2 (09:14→21:42)
[2022-02-27] MEDS: PANTOPRAZOLE DR 20 MG TABLET PO (09:14)
[2022-02-27] MEDS: predniSONE 20 MG TABLET PO (09:14)
[2022-02-27] MEDS: ROPINIROLE 1 MG TABLET PO (09:14)
[2022-02-27] MEDS: DULOXETINE 30 MG CAPSULE 60 MG PO (09:14)
[2022-02-27] MEDS: allopurinoL 300 MG TABLET PO (09:15)
[2022-02-27] MEDS: MAGNESIUM OXIDE 400 MG TABLET PO (09:15)
[2022-02-27] MEDS: carvediloL 12.5 MG TABLET PO ×2 (09:15→21:41)
[2022-02-27] MEDS: POTASSIUM CHLORIDE 20 MEQ TAB PO ×2 (09:15→17:07)
[2022-02-27] MEDS: GABAPENTIN 600 MG TABLET 1200 MG PO ×2 (09:15→21:41)
[2022-02-27] MEDS: ASPIRIN EC 81 MG TABLET PO ×2 (09:16→22:41)
--- NOTE | 2022-02-27 10:45 | PT-IP ANOTE ---
Pt leaving with surgical staff for procedure on R wrist when arrived for therapy. Will hold for am and assess if able to see in pm.
--- NOTE | 2022-02-27 10:45 | PM.CN ---
History of Present Illness Consult details Date Patient Seen: 02/27/22 Time Patient Seen: 10:45 Chief complaint: Blood infection- sent by Dr Pelaez Reason for consult: Right wrist abscess Requesting provider: Sam Reyes Narrative: Mr. Lin is a medically debilitated 66-year-old right hand dominant gentleman with a prior history of an episode of sepsis which included swelling of the right wrist. This occurred approximately a year ago and was treated in [place]. No surgery was done at that time. He was seen in my office for consultation after this admission and an aspiration of his wrist was a dry tap. He has also had a prior right carpal tunnel release performed by Dr. Armando Quinn prior to this episode. He was admitted to the hospital on February 24, 2020 with a presumed bacterial sepsis, and blood cultures have returned with Staphylococcus aureus. He underwent a repeat wrist aspiration by the emergency room physician at that time and was found to have no fluid in the wrist. He had swelling of his right wrist which was thought to represent gout. After several days this has worsened and orthopedic consultation is obtained. Meds Home Medications and Allergies Home Medications Medication Instructions Recorded Confirmed Type semaglutide 0.25 mg or 0.5 mg (2 1 mg SUBCUT QWEEK 03/15/19 02/23/22 History mg/1.5 mL) subcutaneous pen injector (Ozempic) cyclobenzaprine 10 mg tablet 10 mg PO TID PRN spasms 04/25/19 02/23/22 History aspirin 81 mg tablet,delayed 81 mg PO DAILY 09/10/20 02/23/22 History release (Enteric Coated Aspirin) epinephrine 0.3 mg/0.3 mL 0.3 mg IM ONCE PRN anaphylaxis 09/10/20 02/23/22 History injection, auto-injector allopurinol 300 mg tablet 300 mg PO DAILY #90 tabs 03/24/21 02/23/22 Rx amlodipine 10 mg tablet 10 mg PO DAILY #90 tabs 03/24/21 02/23/22 Rx carvedilol 12.5 mg tablet 12.5 mg PO BID #180 tabs 03/24/21 02/23/22 Rx colchicine 0.6 mg tablet 0.6 mg PO BID #180 tabs 03/24/21 02/23/22 Rx dapagliflozin 10 mg tablet 10 mg PO DAILY #90 tabs 03/24/21 02/23/22 Rx duloxetine 60 mg capsule,delayed 60 mg PO DAILY #90 caps 03/24/21 02/23/22 Rx release furosemide 20 mg tablet 20 mg PO DAILY #90 tabs 03/24/21 02/23/22 Rx gabapentin 600 mg tablet 1,200 mg PO BID #360 tabs 03/24/21 02/23/22 Rx olmesartan 40 mg tablet 40 mg PO DAILY #90 tabs 03/24/21 02/23/22 Rx pantoprazole 20 mg tablet,delayed 20 mg PO DAILY #90 tabs 03/24/21 02/23/22 Rx release ropinirole 2 mg tablet See Rx Instructions PO BID #270 03/24/21 02/23/22 Rx tabs rosuvastatin 10 mg tablet 10 mg PO DAILY #90 tabs 03/24/21 02/23/22 Rx insulin glargine 100 unit/mL (3 55 unit (0.55 mL) SUBCUT BID #135 03/26/21 02/23/22 Rx mL) subcutaneous pen (Lantus mL Solostar U-100 Insulin) insulin lispro 100 unit/mL 5 unit (0.05 mL) SUBCUT TID #150 mL 03/26/21 02/23/22 Rx subcutaneous solution (Humalog U-100 Insulin) metformin 500 mg tablet 1,000 mg PO BIDCC #360 tabs 03/26/21 02/23/22 Rx rivaroxaban 20 mg tablet (Xarelto) 20 mg PO QPM #90 tabs 06/15/21 02/23/22 Rx glucagon 1 mg solution for 1 mg SUBCUT Q20M PRN Hypoglycemia 02/15/22 02/23/22 History injection prednisone 10 mg tablet 10 mg PO DAILY #30 tabs 02/22/22 02/23/22 Rx hydrocodone 5 mg-acetaminophen 325 1 tab PO Q6H PRN pain 02/23/22 02/23/22 History mg tablet sucralfate 1 gram tablet (Carafate) 1 g PO QID stomach irritation 02/23/22 02/23/22 History tamsulosin 0.4 mg capsule (Flomax) 0.4 mg PO DAILY PRN Urinary 02/23/22 02/23/22 History Retention tramadol 50 mg tablet 50 mg PO Q6HR 02/23/22 02/23/22 History triamcinolone acetonide 0.1 % 1 applic topical DAILY PRN Rash 02/23/22 02/23/22 History lotion Allergies Allergy/AdvReac Type Severity Reaction Status Date / Time Iodinated Contrast Media Allergy Severe Anaphylaxis Verified 02/23/22 12:07 LOLY Inhibitors AdvReac Mild cough Verified 02/23/22 12:07 [LOLY INHIBITORS] shrimp Allergy Severe blotchy Uncoded 02/23/22 12:07 eyes, edema contrast dye Allergy Anaphylaxis Uncoded 02/23/22 12:07 Review of Systems Review of Systems Narrative: Septic history is given above. Otherwise he reports he is in his normal state of health. Exam Vital Signs (past 8 hours): - 02/27/22 03:00 02/27/22 03:30 02/27/22 04:00 Temperature Pulse Rate 104 H 99 H 90 Respiratory Rate Blood Pressure Pulse Oximetry 95 96 95 Oxygen Delivery Method Oxygen Flow Rate 3 02/27/22 04:30 02/27/22 04:48 02/27/22 05:00 Temperature Pulse Rate 97 H 93 H 90 Respiratory Rate Blood Pressure Pulse Oximetry 96 96 96 Oxygen Delivery Method Oxygen Flow Rate 3 3 02/27/22 06:50 02/27/22 05:30 02/27/22 05:44 Temperature 98.3 F Pulse Rate 92 H 96 H 97 H Respiratory Rate 22 Blood Pressure 156/72 H Pulse Oximetry 97 94 97 Oxygen Delivery Method Oxygen Flow Rate 3 3 02/27/22 05:44 02/27/22 06:00 02/27/22 06:30 Temperature Pulse Rate 99 H 106 H Respiratory Rate Blood Pressure 156/72 H Pulse Oximetry 97 96 Oxygen Delivery Method Oxygen Flow Rate 02/27/22 07:00 02/27/22 09:15 02/27/22 08:00 Temperature Pulse Rate 100 H 85 Respiratory Rate Blood Pressure 156/72 H Pulse Oximetry 95 Oxygen Delivery Method Nasal Cannula Oxygen Flow Rate 02/27/22 07:30 02/27/22 08:00 02/27/22 08:30 Temperature Pulse Rate 94 H 95 H 89 Respiratory Rate Blood Pressure Pulse Oximetry 96 95 95 Oxygen Delivery Method Oxygen Flow Rate 02/27/22 09:00 02/27/22 09:30 02/27/22 10:00 Temperature Pulse Rate 98 H 101 H 101 H Respiratory Rate Blood Pressure Pulse Oximetry 97 100 98 Oxygen Delivery Method Oxygen Flow Rate 02/27/22 10:04 02/27/22 10:04 Temperature Pulse Rate 95 H Respiratory Rate Blood Pressure 139/69 Pulse Oximetry 97 Oxygen Delivery Method Oxygen Flow Rate Fraction of Inspired Oxygen 35 Oxygen Delivery Method Nasal Cannula Oxygen Flow Rate 3 Narrative Exam Narrative: The patient is examined in his intensive care unit bed. His right arm is elevated. It is extremely edematous in the fingers into the forearm. There is a large area of discoloration on the dorsum of the wrist and there is a discoloration also on the palmar aspect with subcutaneous purulence evident. From this examination I can not determine whether the swelling in the hand is merely edema or if it is in fact extension of the abscess. It is also not clear as to whether these 2 abscesses are connected as a ?collar button? abscess across the wrist or if they are 2 separate areas of infection. Objective Labs Result Diagrams: 02/27/22 04:39 02/27/22 04:39 Labs: Laboratory Results - last 24 hr 02/27/22 02/27/22 04:39 04:39 WBC 12.9 H RBC 3.37 L Hgb 9.6 L Hct 28.9 L MCV 85.9 MCH 28.5 MCHC 33.2 RDW 19.9 H Plt Count 212 Neut % (Auto) 79.2 H Lymph % (Auto) 12.9 L [place] % (Auto) 6.9 Eos % (Auto) 0.7 L Baso % (Auto) 0.3 Neut # (Auto) 59169 H Lymph # (Auto) 1700 [place] # (Auto) 900 Eos # (Auto) 100 Baso # (Auto) 0 Sodium 133 L Potassium 3.7 Chloride 98 Carbon Dioxide 28 BUN 30 H Creatinine 0.77 Estimated GFR > 60 BUN/Creatinine Ratio 39.0 H Glucose 126 H Calcium 8.1 L Magnesium 1.9 PFSH Medical History Chronic pain Chronic rhinitis Coronary artery disease (04/29/14) CTS (carpal tunnel syndrome) (1977) Diabetes mellitus Essential hypertension ETD (eustachian tube dysfunction) Hypersomnia (~1997) Hypogonadism in male Insomnia, persistent (~1995) Mixed hyperlipidemia Obesity with body mass index (BMI) of 30.0 to 39.9 (04/24/15) Obstructive sleep apnea of adult Osteoarthritis of hands, 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 (07/29/15) Primary osteoarthritis of left knee (03/03/16) Restless legs syndrome (04/24/15) Squamous cell carcinoma of nose (2004) Type 2 diabetes mellitus with other skin ulcer (04/24/15) Wound healing, delayed Wound, open, foot Surgical History History of carpal tunnel repair (1977) History of coronary artery stent placement (04/2014) Hx of inguinal hernia surgery (1977) S/P CABG x 3 S/P CABG x 3 Status post arthroscopy Status post rotator cuff repair Family History Father Coronary artery disease Alcoholism Sudden Other Depression Social History marital status: details: jose Marx, lives in [place] household members: spouse lives independently: Yes caregiver/support person: No housing: house princess/spiritism: [employer] Tobacco & Substance Use Smoking Status: Never smoker alcohol intake: never substance use type: does not use Diet and Exercise eating out: 1-3 times/week Type(s) of exercise: walking, aerobic, bicycling, advised to exercise at least 150 min/week (moderate intensity aerobic) and advised to perform resistance training at least 2x/week Assessment & Plan Assessment & Plan narrative: He appears to have abscesses on both the dorsum and the volar aspect of his wrist. These may extend into his palm for palmar space infections. There is also a dorsal abscess. It is unclear whether the wrist itself is involved. He has documented sepsis with Staphylococcus aureus. He has given verbal consent for incision and drainage of both the dorsum and palmar aspects of his wrist after discussion the risks benefits and alternatives. The patient is [id number] and is unable to use his right hand to sign the consent form. His verbal consent was witnessed by the intensive care unit nurse. Risks discussed included but were not limited to: Failure to improve, stiffness, nerve damage, tendon damage, need for further surgery, stroke coma myocardial infarction, permanent paralysis, and . Time Spent With Patient Critical Care time: I spent a total of [] minutes of critical care time on this patient's care today; this time is exclusive of procedural time.
--- NOTE | 2022-02-27 10:46 | PM.PN.1 ---
Subjective Subjective Date Patient Seen: 02/27/22 Time Patient Seen: 10:46 Interval history: Patient seen in follow-up for multiple issues including right wrist swelling, hypoxia, AFib, sepsis. Patient overall is doing mildly better as far as feeling better. Continues has severe pain in his right wrist. Really affecting no other changes. Output is-600+. Goal is 2000+. No other changes. Exam Vital Signs (past 8 hours): - 02/27/22 03:00 02/27/22 03:30 02/27/22 04:00 Temperature Pulse Rate 104 H 99 H 90 Respiratory Rate Blood Pressure Pulse Oximetry 95 96 95 Oxygen Delivery Method Oxygen Flow Rate 3 02/27/22 04:30 02/27/22 04:48 02/27/22 05:00 Temperature Pulse Rate 97 H 93 H 90 Respiratory Rate Blood Pressure Pulse Oximetry 96 96 96 Oxygen Delivery Method Oxygen Flow Rate 3 3 02/27/22 06:50 02/27/22 05:30 02/27/22 05:44 Temperature 98.3 F Pulse Rate 92 H 96 H 97 H Respiratory Rate 22 Blood Pressure 156/72 H Pulse Oximetry 97 94 97 Oxygen Delivery Method Oxygen Flow Rate 3 3 02/27/22 05:44 02/27/22 06:00 02/27/22 06:30 Temperature Pulse Rate 99 H 106 H Respiratory Rate Blood Pressure 156/72 H Pulse Oximetry 97 96 Oxygen Delivery Method Oxygen Flow Rate 02/27/22 07:00 02/27/22 09:15 02/27/22 08:00 Temperature Pulse Rate 100 H 85 Respiratory Rate Blood Pressure 156/72 H Pulse Oximetry 95 Oxygen Delivery Method Nasal Cannula Oxygen Flow Rate 02/27/22 07:30 02/27/22 08:00 02/27/22 08:30 Temperature Pulse Rate 94 H 95 H 89 Respiratory Rate Blood Pressure Pulse Oximetry 96 95 95 Oxygen Delivery Method Oxygen Flow Rate 02/27/22 09:00 02/27/22 09:30 02/27/22 10:00 Temperature Pulse Rate 98 H 101 H 101 H Respiratory Rate Blood Pressure Pulse Oximetry 97 100 98 Oxygen Delivery Method Oxygen Flow Rate 02/27/22 10:04 02/27/22 10:04 Temperature Pulse Rate 95 H Respiratory Rate Blood Pressure 139/69 Pulse Oximetry 97 Oxygen Delivery Method Oxygen Flow Rate Fraction of Inspired Oxygen 35 Oxygen Delivery Method Nasal Cannula Oxygen Flow Rate 3 Narrative Exam Narrative: Alert male in no acute distress comfortable in his bed. Somewhat sleepy. Status post pain medicine this morning. HEENT exam is unremarkable. Neck supple without adenopathy. Lungs are clear. Heart is irregular but no murmurs clicks rubs or gallops. Abdomen is soft positive bowel sounds nontender. Lower extremities show no edema. Right knee is not warm to the touch is nontender to palpation. No erythema. Right wrist is markedly swollen. Appears to have abscess like material in the palmar surface pockets of 2 cm each. Is markedly red with what appears to be the development of a pocket of purulent material on the posterior aspect. Hand is markedly swollen. All very tender to palpation and movement. Objective Labs Result Diagrams: 02/27/22 04:39 02/27/22 04:39 Labs: Laboratory Results - last 24 hr 02/27/22 02/27/22 04:39 04:39 WBC 12.9 H RBC 3.37 L Hgb 9.6 L Hct 28.9 L MCV 85.9 MCH 28.5 MCHC 33.2 RDW 19.9 H Plt Count 212 Neut % (Auto) 79.2 H Lymph % (Auto) 12.9 L [place] % (Auto) 6.9 Eos % (Auto) 0.7 L Baso % (Auto) 0.3 Neut # (Auto) 07599 H Lymph # (Auto) 1700 [place] # (Auto) 900 Eos # (Auto) 100 Baso # (Auto) 0 Sodium 133 L Potassium 3.7 Chloride 98 Carbon Dioxide 28 BUN 30 H Creatinine 0.77 Estimated GFR > 60 BUN/Creatinine Ratio 39.0 H Glucose 126 H Calcium 8.1 L Magnesium 1.9 PFSH Medical History Chronic pain Chronic rhinitis Coronary artery disease (04/29/14) CTS (carpal tunnel syndrome) (1977) Diabetes mellitus Essential hypertension ETD (eustachian tube dysfunction) Hypersomnia (~1997) Hypogonadism in male Insomnia, persistent (~1995) Mixed hyperlipidemia Obesity with body mass index (BMI) of 30.0 to 39.9 (04/24/15) Obstructive sleep apnea of adult Osteoarthritis of hands, 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 (07/29/15) Primary osteoarthritis of left knee (03/03/16) Restless legs syndrome (04/24/15) Squamous cell carcinoma of nose (2004) Type 2 diabetes mellitus with other skin ulcer (04/24/15) Wound healing, delayed Wound, open, foot Surgical History History of carpal tunnel repair (1977) History of coronary artery stent placement (04/2014) Hx of inguinal hernia surgery (1977) S/P CABG x 3 S/P CABG x 3 Status post arthroscopy Status post rotator cuff repair Family History Father Coronary artery disease Alcoholism Sudden Other Depression Social History marital status: details: jose Marx, lives in [place] household members: spouse lives independently: Yes caregiver/support person: No housing: house princess/jehovah's witness: [employer] [facility] / [facility] Smoking Status: Never smoker alcohol intake: never substance use type: does not use eating out: 1-3 times/week Type(s) of exercise: walking, aerobic, bicycling, advised to exercise at least 150 min/week (moderate intensity aerobic) and advised to perform resistance training at least 2x/week Assessment & Plan Assessment & Plan narrative: Right wrist swelling. Certainly appears to be an infectious cause. Concern for septic joint. Discussed with Dr. Tripp who agrees that this is what it looks like to him also. And he recommends taking him to surgery today. He will be taken today. Most likely this is secondary to the staff sepsis. Whether it is the primary cause or not is unclear. Will continue IV antibiotics. Has been sensitive. We maybe switching to nafcillin in response to potential cause of endocarditis. Discussed with pharmacist. She is going to review. But either weight should be good coverage. Staph sepsis. Etiology continues to remain a little unclear. Says the question is whether his wrist caused his sepsis or whether his sepsis seeded his joint but it is unclear at this time. Still could and is concerning for the possibility of endocarditis. Discussed with pharmacist. Her recommendation is switch to nafcillin. We will do that. If after review she feels like it is appropriate for the bacteria were growing which should be since his pansensitive. Still looking needing [facility]. Been unable to locate bed available. 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 Will continue antibiotics at this time. Vital signs are stable and overall he is trending in the right directions. No change at this time. Acute respiratory failure. Patient continues to decompensated night which may be more related to his history of sleep apnea. Apparently he is not consistent in using is CPAP. But otherwise he is on a nasal cannula. [place] to be mostly secondary to his systolic heart failure and atrial fibrillation. A will follow. Appreciate tele ICU input. More aggressive diuresis will be undertaken. We will follow. Acute systolic heart failure. Patient has had a ejection fraction 40 50%. Goal is for negative fluid of 2000 a day. Increased diuresis undertaken today. We will continue to follow. Atrial fibrillation. Patient continues to be in AFib. But rate is well controlled. He seems to be doing well. We will follow. No changes at this time. Hypokalemia. Patient seems to be normal today. Will recheck in a.m.. Had replacement yesterday. We are going to increase his diuresis today so will make sure he is on a daily potassium. Acute mental status changes. Hard to tell today because he had recently been given narcotics so but was alert and interactive. Polyarticular joint swelling. I am unimpressed with his right knee I do not see anything else other than his wrist. Which see above for that. Will wean off the prednisone as per tele ICU and follow from there. Coronary artery disease. Appears stable. Troponins were increased what was felt to be secondary to his atrial fibrillation. No evidence of definitive cardiac injury. Type 2 diabetes stable continue current meds Morbid obesity. With sleep apnea. No other changes. Sleep apnea. Restart his CPAP Hyperlipidemia. Stable. Continue meds. BPH. Stable. No changes at this time. Code status full DVT prophylaxis on treatment. Disposition. Appreciate tele ICU input. Overall trending in the right direction. Biggest issue is whether not his right wrist which clearly is infected is causing his sepsis or whether not he seeded his joint from potential valvular disease. Need esophageal echo to determine. Looking for transfer. Currently beds are not available. Even if we discussed the [facility] and brought him back it would be good. Will follow from there. Patient will be requiring multiple days of treatment and will not be discharged probably for several days. Time Spent With Patient Critical Care time: I spent a total of [] minutes of critical care time on this patient's care today; this time is exclusive of procedural time. Quality VTE Deep Vein Thrombosis/Pulmonary Embolism Present on Admission: No
--- NOTE | 2022-02-27 10:57 | PM.PN.EICU ---
Subjective Subjective Consent obtained for tele-atmospheric technician care: Yes Patient Location: ICU Provider location (State): Other participants/roles: MD, RN Interval history: Pt was seen using the camera, comfortable in bed, 1.5 L of oxygen through NC. Rt wrist swelling, redness increase Assessmnet & recommendation: (1) Acute respiratory failure with hypoxia: ?Status:?Acute ?Plan: -On 1.5 L NC, resp status improving -continue to have good response to IV Lasix 40 mg; close I/O, adjust lasix dose and frequency for goal 2L negative - Keep K & Mag level 4&2 respectively, repalce as needed (2) Bacteremia due to Staphylococcus aureus: ?Status:?Acute ?Plan: -Continue vancomycin/Zosyn -Pending transfer to a higher level of care for AMANDA to definitively evaluate for endocarditis. - ID consulted - Orthopedic consult for eval of Rt wrist/ need for aspiration (3) Type 2 diabetes mellitus with complication, with long-term current use of insulin: ?Problem details: Complicated by neuropathy/retinopathy ?Status:?Acute ?Plan: -Continue SUBQ insulin protocol (4) Coronary artery disease, continue meds, rec card consult and AMANDA as above (5) Afib on xarelto and BB (6) Gout, on medical mgt, please start wean off predinsone in the sitting of baceteremia (7)Mild hyponatremia and anasarca - Start IV lasix 40 mg bid, goal 2 L neg (8) on Full AC and PPI Plan discussed with RN and MD on round Current Medications Current Medications Medications: Home Medications semaglutide 0.25 mg or 0.5 mg (2 mg/1.5 mL) subcutaneous pen injector (Ozempic) 1 mg SUBCUT QWEEK 03/15/19 [History Confirmed 02/23/22] cyclobenzaprine 10 mg tablet 10 mg PO TID PRN spasms 04/25/19 [History Confirmed 02/23/22] aspirin 81 mg tablet,delayed release (Enteric Coated Aspirin) 81 mg PO DAILY 09/10/20 [History Confirmed 02/23/22] epinephrine 0.3 mg/0.3 mL injection, auto-injector 0.3 mg IM ONCE PRN anaphylaxis 09/10/20 [History Confirmed 02/23/22] allopurinol 300 mg tablet 300 mg PO DAILY #90 tabs 03/24/21 [Rx Confirmed 02/23/22] amlodipine 10 mg tablet 10 mg PO DAILY #90 tabs 03/24/21 [Rx Confirmed 02/23/22] carvedilol 12.5 mg tablet 12.5 mg PO BID #180 tabs 03/24/21 [Rx Confirmed 02/23/22] colchicine 0.6 mg tablet 0.6 mg PO BID #180 tabs 03/24/21 [Rx Confirmed 02/23/22] dapagliflozin 10 mg tablet 10 mg PO DAILY #90 tabs 03/24/21 [Rx Confirmed 02/23/22] duloxetine 60 mg capsule,delayed release 60 mg PO DAILY #90 caps 03/24/21 [Rx Confirmed 02/23/22] furosemide 20 mg tablet 20 mg PO DAILY #90 tabs 03/24/21 [Rx Confirmed 02/23/22] gabapentin 600 mg tablet 1,200 mg PO BID #360 tabs 03/24/21 [Rx Confirmed 02/23/22] olmesartan 40 mg tablet 40 mg PO DAILY #90 tabs 03/24/21 [Rx Confirmed 02/23/22] pantoprazole 20 mg tablet,delayed release 20 mg PO DAILY #90 tabs 03/24/21 [Rx Confirmed 02/23/22] ropinirole 2 mg tablet See Rx Instructions PO BID #270 tabs 03/24/21 [Rx Confirmed 02/23/22] rosuvastatin 10 mg tablet 10 mg PO DAILY #90 tabs 03/24/21 [Rx Confirmed 02/23/22] insulin glargine 100 unit/mL (3 mL) subcutaneous pen (Lantus Solostar U-100 Insulin) 55 unit (0.55 mL) SUBCUT BID #135 mL 03/26/21 [Rx Confirmed 02/23/22] insulin lispro 100 unit/mL subcutaneous solution (Humalog U-100 Insulin) 5 unit (0.05 mL) SUBCUT TID #150 mL 03/26/21 [Rx Confirmed 02/23/22] metformin 500 mg tablet 1,000 mg PO BIDCC #360 tabs 03/26/21 [Rx Confirmed 02/23/22] rivaroxaban 20 mg tablet (Xarelto) 20 mg PO QPM #90 tabs 06/15/21 [Rx Confirmed 02/23/22] glucagon 1 mg solution for injection 1 mg SUBCUT Q20M PRN Hypoglycemia 02/15/22 [History Confirmed 02/23/22] prednisone 10 mg tablet 10 mg PO DAILY #30 tabs 02/22/22 [Rx Confirmed 02/23/22] hydrocodone 5 mg-acetaminophen 325 mg tablet 1 tab PO Q6H PRN pain 02/23/22 [History Confirmed 02/23/22] sucralfate 1 gram tablet (Carafate) 1 g PO QID stomach irritation 02/23/22 [History Confirmed 02/23/22] tamsulosin 0.4 mg capsule (Flomax) 0.4 mg PO DAILY PRN Urinary Retention 02/23/22 [History Confirmed 02/23/22] tramadol 50 mg tablet 50 mg PO Q6HR 02/23/22 [History Confirmed 02/23/22] triamcinolone acetonide 0.1 % lotion 1 applic topical DAILY PRN Rash 02/23/22 [History Confirmed 02/23/22] Visit Medications (administered) Generic Name Dose Route Start Last Admin Trade Name Freq PRN Reason Stop Dose Admin Hydrocodone Bitart/Acetaminophen 1 tab 02/23/22 15:49 02/24/22 11:55 Hydrocodone/Acet 5/325 Tablet PO 1 tab Q4HR PRN Administration Pain, Moderate (4-6) Allopurinol 300 mg 02/24/22 09:00 02/27/22 09:15 Allopurinol 300 Mg Tablet PO 300 mg DAILY MELANIE Administration Aspirin 81 mg 02/24/22 09:00 02/27/22 09:16 Aspirin Ec 81 Mg Tablet PO 81 mg DAILY MELANIE Administration Carvedilol 12.5 mg 02/25/22 09:00 02/27/22 09:15 Carvedilol 12.5 Mg Tablet PO 12.5 mg BID MELANIE Administration Colchicine 0.6 mg 02/23/22 21:00 02/27/22 09:14 Colchicine 0.6 Mg Tablet PO 0.6 mg BID MELANIE Administration Docusate Sodium 100 mg 02/23/22 21:00 02/27/22 09:14 Docusate 100 Mg Capsule PO 100 mg BID MEALNIE Administration Duloxetine HCl 60 mg 02/24/22 09:00 02/27/22 09:14 Duloxetine 30 Mg Capsule PO 60 mg DAILY MELANIE Administration Gabapentin 1,200 mg 02/23/22 21:00 02/27/22 09:15 Gabapentin 600 Mg Tablet PO 1,200 mg BID MELANIE Administration Piperacillin Sod/Tazobactam 100 mls @ 25 mls/hr 02/23/22 21:00 02/27/22 09:17 Sod 3.375 gm/ Sodium Chloride IV Infused Q8H MELANIE Infusion Insulin Glargine 55 unit 02/23/22 21:00 02/26/22 20:47 Insulin Glargine 100 Unit/Ml 3ml Pen SUBCUT 55 unit BEDTIME MELANIE Administration Insulin Human Lispro 0 unit 02/23/22 16:45 02/27/22 09:07 Insulin Lispro 100 Unit/Ml 3ml Vial SUBCUT Not Given ACHS MELANIE Protocol Magnesium Oxide 400 mg 02/26/22 09:00 02/27/22 09:15 Magnesium Oxide 400 Mg Tablet PO 400 mg DAILY MELANIE Administration Oxycodone HCl 10 mg 02/23/22 15:49 02/27/22 05:53 Oxycodone Ir 10 Mg Tablet PO 10 mg Q4HR PRN Administration Pain, Severe (7-10) Pantoprazole Sodium 20 mg 02/24/22 09:00 02/27/22 09:[address] 20 Mg Tablet PO 20 mg DAILY MELANIE Administration Potassium Chloride 20 meq 02/26/22 08:00 02/27/22 09:15 Potassium Chloride 20 Meq Tab PO 20 meq BIDWM MELANIE Administration Prednisone 20 mg 02/24/22 09:00 02/27/22 09:14 Prednisone 20 Mg Tablet PO 20 mg DAILY MELANIE Administration Rivaroxaban 20 mg 02/23/22 17:00 02/26/22 17:55 Rivaroxaban 10 Mg Tablet PO 20 mg QPM MELANIE Administration Ropinirole HCl 1 mg 02/24/22 09:00 02/27/22 09:14 Ropinirole 1 Mg Tablet PO 1 mg DAILY MELANIE Administration Ropinirole HCl 2 mg 02/23/22 21:00 02/27/22 00:10 Ropinirole 1 Mg Tablet PO 2 mg BEDTIME MELANIE Administration Sodium Chloride 10 ml 02/25/22 09:00 02/27/22 09:16 Sodium Chloride 0.9% Flush IV 10 ml BID MELANIE Administration Tamsulosin HCl 0.4 mg 02/23/22 21:00 02/26/22 20:25 Tamsulosin 0.4 Mg Capsule PO 0.4 mg BEDTIME MELANIE Administration Objective Ventilator Parameters: Ventilator Settings FiO2 4 Labs Result Diagrams: 02/27/22 04:39 02/27/22 04:39 Labs: Laboratory Results - last 24 hr 02/27/22 02/27/22 04:39 04:39 WBC 12.9 H RBC 3.37 L Hgb 9.6 L Hct 28.9 L MCV 85.9 MCH 28.5 MCHC 33.2 RDW 19.9 H Plt Count 212 Neut % (Auto) 79.2 H Lymph % (Auto) 12.9 L [place] % (Auto) 6.9 Eos % (Auto) 0.7 L Baso % (Auto) 0.3 Neut # (Auto) 42606 H Lymph # (Auto) 1700 [place] # (Auto) 900 Eos # (Auto) 100 Baso # (Auto) 0 Sodium 133 L Potassium 3.7 Chloride 98 Carbon Dioxide 28 BUN 30 H Creatinine 0.77 Estimated GFR > 60 BUN/Creatinine Ratio 39.0 H Glucose 126 H Calcium 8.1 L Magnesium 1.9 Exam Vital Signs (past 8 hours): - 02/27/22 03:00 02/27/22 03:30 02/27/22 04:00 Temperature Pulse Rate 104 H 99 H 90 Respiratory Rate Blood Pressure Pulse Oximetry 95 96 95 Oxygen Delivery Method Oxygen Flow Rate 3 02/27/22 04:30 02/27/22 04:48 02/27/22 05:00 Temperature Pulse Rate 97 H 93 H 90 Respiratory Rate Blood Pressure Pulse Oximetry 96 96 96 Oxygen Delivery Method Oxygen Flow Rate 3 3 02/27/22 06:50 02/27/22 05:30 02/27/22 05:44 Temperature 98.3 F Pulse Rate 92 H 96 H 97 H Respiratory Rate 22 Blood Pressure 156/72 H Pulse Oximetry 97 94 97 Oxygen Delivery Method Oxygen Flow Rate 3 3 02/27/22 05:44 02/27/22 06:00 02/27/22 06:30 Temperature Pulse Rate 99 H 106 H Respiratory Rate Blood Pressure 156/72 H Pulse Oximetry 97 96 Oxygen Delivery Method Oxygen Flow Rate 02/27/22 07:00 02/27/22 09:15 02/27/22 08:00 Temperature Pulse Rate 100 H 85 Respiratory Rate Blood Pressure 156/72 H Pulse Oximetry 95 Oxygen Delivery Method Nasal Cannula Oxygen Flow Rate 02/27/22 07:30 02/27/22 08:00 02/27/22 08:30 Temperature Pulse Rate 94 H 95 H 89 Respiratory Rate Blood Pressure Pulse Oximetry 96 95 95 Oxygen Delivery Method Oxygen Flow Rate 02/27/22 09:00 02/27/22 09:30 02/27/22 10:00 Temperature Pulse Rate 98 H 101 H 101 H Respiratory Rate Blood Pressure Pulse Oximetry 97 100 98 Oxygen Delivery Method Oxygen Flow Rate 02/27/22 10:04 02/27/22 10:04 02/27/22 10:30 Temperature Pulse Rate 95 H 90 Respiratory Rate Blood Pressure 139/69 Pulse Oximetry 97 96 Oxygen Delivery Method Oxygen Flow Rate Fraction of Inspired Oxygen 35 Oxygen Delivery Method Nasal Cannula Oxygen Flow Rate 3 Quality TeleICU VTE Deep Vein Thrombosis/Pulmonary Embolism Present on Admission: No Assessment & Plan Time Spent With Patient Critical Care time: I spent a total of [] minutes of critical care time on this patient's care today; this time is exclusive of procedural time.
--- NOTE | 2022-02-27 10:57 | PC.NURSE ---
Addendum entered by Yari Davidson R.N. 02/28/22 16:43: correction taken at 1050 to OR Pt returned from OR at 1345, VSS, bandage to R wrist CDI, covering rafael drain. Very sleep rouses to voice, at bedside, c/o pain addressed with PO pain medications. Bed low and locked will continue to monitor. Original Note: Day shift note: A/Ox4, resting in bed with eyes closed, rouses to voice, c/o pain when moved, R wrist extremely swollen, with blisters, red and hot to touch, currently elevated on pillow. Rounds with Tele mold release worker and Dr Reyes at bedside, new orders received, Ortho consult, Dr Tripp at bedside, pt to be taken down to OR for I & D of R wrist. Called spouse and updated her on status. pt taken at 1050 to order
[2022-02-27] MEDS: LACTATED RINGERS 1,000 ML 42 ML IV (11:13)
--- NOTE | 2022-02-27 11:41 | SUR.OPER ---
Supine on padded OR bed, head on pillow, arms secured on padded arm boards at <90 degrees abduction, legs uncrossed, safety belt at thigh, tape over blanket over lower legs.right arm on padded arm board extension and in control of the surgeon.
--- NOTE | 2022-02-27 12:48 | PM.OP.1 ---
Operative Date/Time/Diagnoses Date of procedure: 02/27/22 Time of procedure: 12:48 Pre-op diagnosis: Right wrist abscesses Post-op diagnosis: other (Right wrist palmar space infection and septic wrist arthritis) Procedure & Clinicians Procedure: 1. Drainage of right palmar space 2. Drainage of right wrist joint Same procedure as scheduled: Yes Indications: The patient is a 66-year-old debilitated gentleman who has had Staphylococcus aureus sepsis for several days. He had swelling and pain in his right wrist. This was aspirated 4 days ago and no fluid returned when he was in the emergency room. This morning he was noted by his attending medical physician to have a grossly swollen wrist with what appeared to be a pointing abscess. Orthopedic consultation was obtained for evaluation and treatment. The patient had agreed to the risks benefits and alternatives of surgery as documented in my preoperative note. Given the involvement of his dominant hand, he was unable to sign an informed consent document but verbally gave his consent in front of witnesses. Surgeon: Bhavesh Tripp Click Yes if Unassisted: Yes Anesthesia Type: General Operative Notes Findings: Approximately 15-20 mL of grossly purulent fluid in the carpal canal with extension into the palmar space. The thenar compartment was not involved. There was also a dorsal swelling which communicated with the 4th dorsal compartment and through that into the joint itself through incompetent capsule dorsally. There apparently was also incompetent capsule on the volar aspect of the wrist as when irrigating the dorsal wound water was produced through the volar wound. Closure Type: primary Specimen(s): other (Cultures from both the dorsal and palmar wounds were sent.) Applied: drain(s) Estimated Blood Loss (mL): 10 Blood products transfused: none Tourniquet time (min): 52 Procedure in detail: The patient was seen in his intensive care unit room where the right arm was identified as the operative site. There were grossly swollen areas which identified this as the area of incision and this was used to identify the operative site. He was taken to the operating room and placed on the operating room table in a supine position where he underwent the induction of a general anesthetic. A tourniquet was placed about his proximal right arm and a front line supervisor-out was performed prior to prepping and draping. The right arm was prepared from the fingertips to the tourniquet with ChloraPrep and draped through sterile drapes. The arm was elevated to exsanguinated and the tourniquet inflated to 250 mmHg. Initially the carpal tunnel was opened as this was the most obvious area of infection. He had undergone a previous carpal tunnel release and I attempted to use the same surgical approach. I kept the incision to the ulnar side of the carpal tunnel to avoid the median nerve. There was gross purulence returned immediately upon entering the subcutaneous tissues. This was cultured. Careful dissection with scissors with care being taken to avoid tendon and nerve was performed into the carpal canal. The median nerve was identified and was heavily scarred to surrounding tissue. I did not dissected free. Access to the palmar space on both the medial and lateral side of the median nerve was obtained with blunt dissection. We then turned our attention to the dorsal aspect where there was a swollen area overlying the 4th dorsal compartment. This was incised. Base small foreign body was encountered in the purulence fluid which appeared to be a knot of Ethibond suture. This area was also cultured. Blunt dissection in this wound through the base of the 4th dorsal compartment immediately gained access to the intra-articular space through an incompetent dorsal capsule. The joint was irrigated using a 16 gauge Angiocath. I then turned my attention to the potential infection of the thenar eminence and a 3 cm incision was created along the thenar space on the palm. This did not return any purulence. The 2 infected wounds were then irrigated with a total of 3 L of sterile saline solution. It became evident that the fluid being placed in either wound would exit the other wound which implied there was access through the joint. After full irrigation, the thenar eminence wound was closed completely with 4-0 nylon mattress sutures. Maynard drains were placed in the joint through the dorsal incision and this wound was closed around the drain with horizontal mattress sutures of 4-0 nylon. Nataly drains were placed on either side of the median nerve into the palmar space and this wound was partially closed with 4-0 nylon leaving about a cm of the wound open overlying the wrist crease. This area had lost the epidermis from the swelling of the infection. The skin had been removed. This was dressed with Xeroform. Drain sponges were placed both dorsally and palmarly. Additional gauze was placed on top of the drains to absorb fluid. Kerlix was applied followed by bias cut stockinette. The tourniquet was deflated during dressing placement for total tourniquet time of 52 minutes. The patient was allowed to awaken from his anesthetic and was transferred to the recovery room in good condition having tolerated the procedure well. Complications: none Post-operative Condition: stable Disposition: PACU Plan for aftercare: The patient will be maintained with the current dressing for the next 2 days. On Tuesday his dressing will be taken down, the Maynard drains removed and the wounds inspected. If it is apparent there is incomplete treatment of the infection he will be taken back to the operating room for repeat incision and drainage Tuesday. If his condition is improving a dressing change will be performed at bedside.
--- NOTE | 2022-02-27 13:07 | SUR.OPER ---
Condom catheter removed after procedure in OR. Urinary catheter 16F latex placed at 1230, Betasept solution used for sterile cleaning prior to inserting catheter due to iodinated contrast allergy. Placed in OR per Hospitalist order and request of MANUFACTURING RECRUITER to be placed in OR prior to returning to ICU.
--- NOTE | 2022-02-27 13:09 | SUR.PHASEI ---
Patient waking and responsive to PACU nurse; able to state his name and his correct ; following some commands; ice chips provided. Vital signs remain stable.
[2022-02-27] MEDS: FUROSEMIDE 40 MG/4 ML VIAL IV (14:15)
[2022-02-27] MEDS: HYDROCODONE/ACET 5/325 TABLET 1 TAB PO ×2 (14:15→22:37)
[2022-02-27] MEDS: NAFCILLIN 2 GM in SODIUM CHLORIDE 0.9% 100 ML IV ×3 (14:15→21:42)
--- NOTE | 2022-02-27 14:18 | PT-IP ANOTE ---
Pt just returned within the hour from R wrist procedure, nurse stated still pretty medicated and sleeping, hold for afternoon. Pt sleeping and challenge to keep eyes open when tried to arouse. Will assess progress tomorrow.
--- NOTE | 2022-02-27 15:14 | CM.DPNOTE ---
DCP Note Faxed SNF referral to all regional SNFs to k on availability- [facility], [facility], [facility], [facility], [facility], [facility] and [facility] Tripp taking patient to the OR today for wash out of patient's infected right wrist. JW
[2022-02-27] MEDS: SUCRALFATE 1 GM TABLET PO ×2 (17:07→21:41)
[2022-02-27] MEDS: METFORMIN HCL 500 MG TABLET 1000 MG PO (17:07)
[2022-02-27] MEDS: RIVAROXABAN 10 MG TABLET 20 MG PO (17:07)
--- NOTE | 2022-02-27 20:00 | PM.ICURNDS ---
- :: This patient was seen via real time interactive two-way audiovisual telecommunication. Note: Pt looks clinically better than this am, he did have I&D this am , for?Right septic arthritis/ wrist palmar space infection/ abscess, AB changed to Naficillin for MSSA bacetermia, blood cx repeat sent.
[2022-02-27] MEDS: INSULIN LISPRO 100 UNIT/ML 3ML VIAL SUBCUT (21:34)
[2022-02-27] MEDS: INSULIN GLARGINE 100 UNIT/ML 3ML PEN 55 UNIT SUBCUT (21:35)
[2022-02-27] MEDS: TAMSULOSIN 0.4 MG CAPSULE PO (21:42)
[2022-02-27] MEDS: ATORVASTATIN 20 MG TABLET PO (21:42)
[2022-02-28] VITALS (9 sets, daily range): BP systolic 118–163; BP diastolic 68–79; PULSE 64–97; RESP 16–19; TEMP 36.2–36.4; O2SAT 95–100
[2022-02-28] MEDS: FUROSEMIDE 40 MG/4 ML VIAL IV (00:19)
[2022-02-28] MEDS: NAFCILLIN 2 GM in SODIUM CHLORIDE 0.9% 100 ML IV ×6 (01:43→22:55)
[2022-02-28 05:30] LABS: Add Manual Diff / Slide Review NO; Basophils Absolute Auto 100 /uL (0-100); Basophils Percent Auto 0.4 % (0-2); Eosinophils Absolute Auto 100 /uL (0-450); Eosinophils Percent Auto 0.4 % (2-4); Hematocrit 28.2 % (41-53); Hemoglobin 9.4 g/dL (13.5-17.5); Lymphocytes Absolute Auto 2200 /uL (1100-4500); Lymphocytes Percent Auto 13.1 % (25-40); Mean Corpuscular HGB Conc 33.2 % (30-36); Mean Corpuscular Hemoglobin 28.3 PG (26-34); Mean Corpuscular Volume 85.4 fL (80-100); Monocytes Absolute Auto 1000 /uL (0-900); Monocytes Percent Auto 5.9 % (3-14); Neutrophils Absolute Auto 13600 /uL (1500-7000); Neutrophils Percent Auto 80.2 % (50-75); Platelet Count 248 X10^3/uL (150-400); Red Cell Distribution Width 20.1 % (11.6-14.8); White Blood Cell Count 16.9 X10^3/uL (4.5-11.0)
[2022-02-28 05:35] LABS: HEMOLYSIS < 15 (0-50); Iron 24 ug/dL (49-181)
[2022-02-28 05:37] LABS: Alanine Aminotransferase 15 IU/L (<50); Albumin 2.5 g/dL (3.5-5.0); Albumin Globulin Ratio 0.9 (1.0-2.8); Alkaline Phosphatase 93 U/L (38-126); Aspartate Aminotransferase 22 IU/L (17-59); Bilirubin Total 1.1 mg/dL (0.2-1.3); Blood Urea Nitrogen 31 mg/dL (9-20); Calcium 7.9 mg/dL (8.4-10.2); Carbon Dioxide 32 mmol/L (22-32); Chloride 96 mmol/L (98-107); Estimated Glomerular Filt Rate > 60 mL/min (>60); Globulin 2.9 g/dL (1.7-4.1); Glucose 169 mg/dL (80-110); HEMOLYSIS < 15 (0-50); Potassium 3.6 mmol/L (3.4-5.1); Sodium 133 mmol/L (137-145); Total Protein 5.4 g/dL (6.3-8.2)
[2022-02-28 05:46] LABS: Percent Iron Saturation 14 % (20-50); Total Iron Binding Capacity 173 ug/dL (261-462); Transferrin 122 mg/dL (206-381)
[2022-02-28 05:56] LABS: Anisocytosis 1+
[2022-02-28] MEDS: HYDROCODONE/ACET 5/325 TABLET 1 TAB PO ×4 (06:01→20:53)
--- NOTE | 2022-02-28 06:43 | PM.PN.EICU ---
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 Pt given IVF and started on Zosyn for MSSA bacteremia. 02/24: ECHO shows EF of 25-30% (was normal in 2014) 02/25: patient develops respiratory failure from CHF and requires BIPAP. Pt. diuresed. 02/26: on and off BIPAP, some intermittent episodesof afib with RVR 02/27: R wrist more painful and swollen. Patient goes for I & D of R wrist. Switched from Zosyn to Nafcillin Recent Events: WBC still trending up (now 16.9) but no fever. Patient diuresed 2.8 L net neg in last 24 hours, is 1.3L net neg since hospital stay. BP stable. Pt. requiring 3-4 L nc of O2. He has not required going back on BIPAP. Current Medications Current Medications Medications: Home Medications semaglutide 0.25 mg or 0.5 mg (2 mg/1.5 mL) subcutaneous pen injector (Ozempic) 1 mg SUBCUT QWEEK 03/15/19 [History Confirmed 02/23/22] cyclobenzaprine 10 mg tablet 10 mg PO TID PRN spasms 04/25/19 [History Confirmed 02/23/22] aspirin 81 mg tablet,delayed release (Enteric Coated Aspirin) 81 mg PO DAILY 09/10/20 [History Confirmed 02/23/22] epinephrine 0.3 mg/0.3 mL injection, auto-injector 0.3 mg IM ONCE PRN anaphylaxis 09/10/20 [History Confirmed 02/23/22] allopurinol 300 mg tablet 300 mg PO DAILY #90 tabs 03/24/21 [Rx Confirmed 02/23/22] amlodipine 10 mg tablet 10 mg PO DAILY #90 tabs 03/24/21 [Rx Confirmed 02/23/22] carvedilol 12.5 mg tablet 12.5 mg PO BID #180 tabs 03/24/21 [Rx Confirmed 02/23/22] colchicine 0.6 mg tablet 0.6 mg PO BID #180 tabs 03/24/21 [Rx Confirmed 02/23/22] dapagliflozin 10 mg tablet 10 mg PO DAILY #90 tabs 03/24/21 [Rx Confirmed 02/23/22] duloxetine 60 mg capsule,delayed release 60 mg PO DAILY #90 caps 03/24/21 [Rx Confirmed 02/23/22] furosemide 20 mg tablet 20 mg PO DAILY #90 tabs 03/24/21 [Rx Confirmed 02/23/22] gabapentin 600 mg tablet 1,200 mg PO BID #360 tabs 03/24/21 [Rx Confirmed 02/23/22] olmesartan 40 mg tablet 40 mg PO DAILY #90 tabs 03/24/21 [Rx Confirmed 02/23/22] pantoprazole 20 mg tablet,delayed release 20 mg PO DAILY #90 tabs 03/24/21 [Rx Confirmed 02/23/22] ropinirole 2 mg tablet See Rx Instructions PO BID #270 tabs 03/24/21 [Rx Confirmed 02/23/22] rosuvastatin 10 mg tablet 10 mg PO DAILY #90 tabs 03/24/21 [Rx Confirmed 02/23/22] insulin glargine 100 unit/mL (3 mL) subcutaneous pen (Lantus Solostar U-100 Insulin) 55 unit (0.55 mL) SUBCUT BID #135 mL 03/26/21 [Rx Confirmed 02/23/22] insulin lispro 100 unit/mL subcutaneous solution (Humalog U-100 Insulin) 5 unit (0.05 mL) SUBCUT TID #150 mL 03/26/21 [Rx Confirmed 02/23/22] metformin 500 mg tablet 1,000 mg PO BIDCC #360 tabs 03/26/21 [Rx Confirmed 02/23/22] rivaroxaban 20 mg tablet (Xarelto) 20 mg PO QPM #90 tabs 06/15/21 [Rx Confirmed 02/23/22] glucagon 1 mg solution for injection 1 mg SUBCUT Q20M PRN Hypoglycemia 02/15/22 [History Confirmed 02/23/22] prednisone 10 mg tablet 10 mg PO DAILY #30 tabs 02/22/22 [Rx Confirmed 02/23/22] hydrocodone 5 mg-acetaminophen 325 mg tablet 1 tab PO Q6H PRN pain 02/23/22 [History Confirmed 02/23/22] sucralfate 1 gram tablet (Carafate) 1 g PO QID stomach irritation 02/23/22 [History Confirmed 02/23/22] tamsulosin 0.4 mg capsule (Flomax) 0.4 mg PO DAILY PRN Urinary Retention 02/23/22 [History Confirmed 02/23/22] tramadol 50 mg tablet 50 mg PO Q6HR 02/23/22 [History Confirmed 02/23/22] triamcinolone acetonide 0.1 % lotion 1 applic topical DAILY PRN Rash 02/23/22 [History Confirmed 02/23/22] Visit Medications (administered) Generic Name Dose Route Start Last Admin Trade Name Freq PRN Reason Stop Dose Admin Hydrocodone Bitart/Acetaminophen 1 tab 02/23/22 15:49 02/28/22 06:01 Hydrocodone/Acet 5/325 Tablet PO 1 tab Q4HR PRN Administration Pain, Moderate (4-6) Allopurinol 300 mg 02/24/22 09:00 02/27/22 09:15 Allopurinol 300 Mg Tablet PO 300 mg DAILY MELANIE Administration Aspirin 81 mg 02/24/22 09:00 02/27/22 09:16 Aspirin Ec 81 Mg Tablet PO 81 mg DAILY MELANIE Administration Aspirin 81 mg 02/27/22 21:00 02/27/22 22:41 Aspirin Ec 81 Mg Tablet PO 81 mg BID MELANIE Administration Atorvastatin Calcium 20 mg 02/27/22 21:00 02/27/22 21:42 Atorvastatin 20 Mg Tablet PO 20 mg BEDTIME MELANIE Administration Carvedilol 12.5 mg 02/25/22 09:00 02/27/22 21:41 Carvedilol 12.5 Mg Tablet PO 12.5 mg BID MELANIE Administration Colchicine 0.6 mg 02/23/22 21:00 02/27/22 21:49 Colchicine 0.6 Mg Tablet PO 0.6 mg BID MELANIE Administration Docusate Sodium 100 mg 02/23/22 21:00 02/27/22 21:42 Docusate 100 Mg Capsule PO 100 mg BID MELANIE Administration Duloxetine HCl 60 mg 02/24/22 09:00 02/27/22 09:14 Duloxetine 30 Mg Capsule PO 60 mg DAILY MELANIE Administration Gabapentin 1,200 mg 02/23/22 21:00 02/27/22 21:41 Gabapentin 600 Mg Tablet PO 1,200 mg BID MELANIE Administration Nafcillin Sodium 2 gm/ Sodium 100 mls @ 200 mls/hr 02/27/22 14:00 02/28/22 05:59 Chloride IV 200 mls/hr Q4H MELANIE Administration Insulin Glargine 55 unit 02/23/22 21:00 02/27/22 21:35 Insulin Glargine 100 Unit/Ml 3ml Pen SUBCUT 55 unit BEDTIME MELANIE Administration Insulin Human Lispro 0 unit 02/23/22 16:45 02/27/22 21:34 Insulin Lispro 100 Unit/Ml 3ml Vial SUBCUT 2 unit ACHS MELANIE Administration Protocol Magnesium Oxide 400 mg 02/26/22 09:00 02/27/22 09:15 Magnesium Oxide 400 Mg Tablet PO 400 mg DAILY MELANIE Administration Metformin HCl 1,000 mg 02/27/22 17:00 02/27/22 17:07 Metformin Hcl 500 Mg Tablet PO 1,000 mg BIDWM MELANIE Administration Oxycodone HCl 10 mg 02/23/22 15:49 02/27/22 05:53 Oxycodone Ir 10 Mg Tablet PO 10 mg Q4HR PRN Administration Pain, Severe (7-10) Pantoprazole Sodium 20 mg 02/24/22 09:00 02/27/22 09:[address] 20 Mg Tablet PO 20 mg DAILY MELANIE Administration Potassium Chloride 20 meq 02/27/22 17:00 02/27/22 17:07 Potassium Chloride 20 Meq Tab PO 20 meq BIDWM MELANIE Administration Rivaroxaban 20 mg 02/23/22 17:00 02/27/22 17:07 Rivaroxaban 10 Mg Tablet PO 20 mg QPM MELANIE Administration Ropinirole HCl 1 mg 02/24/22 09:00 02/27/22 09:14 Ropinirole 1 Mg Tablet PO 1 mg DAILY MELANIE Administration Ropinirole HCl 2 mg 02/23/22 21:00 02/27/22 21:49 Ropinirole 1 Mg Tablet PO 2 mg BEDTIME MELANIE Administration Sucralfate 1 gm 02/27/22 13:19 02/27/22 21:41 Sucralfate 1 Gm Tablet PO 1 gm QID MELANIE Administration Tamsulosin HCl 0.4 mg 02/23/22 21:00 02/27/22 21:42 Tamsulosin 0.4 Mg Capsule PO 0.4 mg BEDTIME MELANIE Administration Objective Ventilator Parameters: Ventilator Settings FiO2 4 Imaging Echo: Radiologist's impression: 02/24: 1) Mildly to moderately increased left ventricular thickness (concentric) with normal size and severely reduced systolic function (EF 25-30%). 2) Mildly enlarged right ventricle with moderately reduced function. 3) Severely enlarged left atrium. 4) There is mild to moderate mitral regurgitation. 5) Compared to the Echo done 12/26/2014, LVEF has dropped significantly from normal to severely reduced on this study. Labs Result Diagrams: 02/28/22 05:02 02/28/22 05:02 Labs: Laboratory Results - last 24 hr 02/28/22 02/28/22 02/28/22 05:02 05:02 05:02 WBC 16.9 H RBC 3.30 L Hgb 9.4 L Hct 28.2 L MCV 85.4 MCH 28.3 MCHC 33.2 RDW 20.1 H Plt Count 248 Neut % (Auto) 80.2 H Lymph % (Auto) 13.1 L [place] % (Auto) 5.9 Eos % (Auto) 0.4 L Baso % (Auto) 0.4 Neut # (Auto) 68725 H Lymph # (Auto) 2200 [place] # (Auto) 1000 H Eos # (Auto) 100 Baso # (Auto) 100 RBC Morphology See below Anisocytosis 1+ H Sodium 133 L Potassium 3.6 Chloride 96 L Carbon Dioxide 32 BUN 31 H Creatinine 1.00 Estimated GFR > 60 BUN/Creatinine Ratio 31.0 H Glucose 169 H Calcium 7.9 L Iron 24 L TIBC 173 L % Saturation 14 L Transferrin 122 L Total Bilirubin 1.1 AST 22 ALT 15 Alkaline Phosphatase 93 Total Protein 5.4 L Albumin 2.5 L Globulin 2.9 Albumin/Globulin Ratio 0.9 L Exam Vital Signs (past 8 hours): - 02/27/22 23:00 02/28/22 00:18 02/28/22 02:24 Temperature 97.4 F L Pulse Rate 104 H 96 H 97 H Respiratory Rate 24 19 18 Blood Pressure 118/70 Pulse Oximetry 98 97 96 Oxygen Flow Rate 4 Fraction of Inspired Oxygen 35 Oxygen Delivery Method Nasal Cannula Oxygen Flow Rate 4 Narrative Exam Narrative: Patient seen through 2 way audio visual system. He is seen sitting up in bed breathing comfortably on nasal cannula Quality TeleICU VTE Deep Vein Thrombosis/Pulmonary Embolism Present on Admission: No Assessment & Plan Assessment & Plan narrative: Assessment MSSA bacteremia Septic joint s/p I & D of R wrist CHF (EF of 25-30%) Paroxysmal afib MARIO Plan -continue Nafcillin for MSSA bacteremia and septic joint -awaiting transfer to tertiary center for AMANDA to evaluate for endocarditis - f/u on R wrist aspirate cultures - f/u on repeat Blood culture 02/27 to see if bacteremia has cleared -given patient is 1.3 L net neg, has contraction alkalosis and resp status has improved, will stop Lasix 40 mg IV BID today and do Diamox 250 PO BID today and then switch to Lasix 40 mg IV QD tomorrow. Goal is about 500-1000 cc net neg a day -replace K and mg as needed -CPAP when sleeping for MARIO -continue to wean down prednisone as tolerated -BG better controlled, continue current insulin regimen PPX: xarelto CCT spent: 40 min Time Spent With Patient Critical Care time: I spent a total of [] minutes of critical care time on this patient's care today; this time is exclusive of procedural time.
--- NOTE | 2022-02-28 06:49 | P.PN_ITS ---
Subjective Subjective Date Patient Seen: 02/28/22 Time Patient Seen: 07:55 Interval history: Pt sleeping, arouses easily to voice. Exam Vital Signs (past 8 hours): - 02/27/22 23:00 02/28/22 00:18 02/28/22 02:24 Temperature 97.4 F L Pulse Rate 104 H 96 H 97 H Respiratory Rate 24 19 18 Blood Pressure 118/70 Pulse Oximetry 98 97 96 Oxygen Flow Rate 4 Fraction of Inspired Oxygen 35 Oxygen Delivery Method Nasal Cannula Oxygen Flow Rate 4 Narrative Exam Narrative: Pt able to move fingers, minimal extension/flexion of 3rd, 4th, and 5th digits. Sensation to touch intact in all digits, brisk capillary refill. Dressing CDI. Intraoperative cultures pending. Objective Labs Result Diagrams: 02/28/22 05:02 02/28/22 05:02 Labs: Laboratory Results - last 24 hr 02/28/22 02/28/22 02/28/22 05:02 05:02 05:02 WBC 16.9 H RBC 3.30 L Hgb 9.4 L Hct 28.2 L MCV 85.4 MCH 28.3 MCHC 33.2 RDW 20.1 H Plt Count 248 Neut % (Auto) 80.2 H Lymph % (Auto) 13.1 L [place] % (Auto) 5.9 Eos % (Auto) 0.4 L Baso % (Auto) 0.4 Neut # (Auto) 62992 H Lymph # (Auto) 2200 [place] # (Auto) 1000 H Eos # (Auto) 100 Baso # (Auto) 100 RBC Morphology See below Anisocytosis 1+ H Sodium 133 L Potassium 3.6 Chloride 96 L Carbon Dioxide 32 BUN 31 H Creatinine 1.00 Estimated GFR > 60 BUN/Creatinine Ratio 31.0 H Glucose 169 H Calcium 7.9 L Magnesium Iron 24 L TIBC 173 L % Saturation 14 L Transferrin 122 L Total Bilirubin 1.1 AST 22 ALT 15 Alkaline Phosphatase 93 Total Protein 5.4 L Albumin 2.5 L Globulin 2.9 Albumin/Globulin Ratio 0.9 L 02/28/22 05:02 WBC RBC Hgb Hct MCV MCH MCHC RDW Plt Count Neut % (Auto) Lymph % (Auto) [place] % (Auto) Eos % (Auto) Baso % (Auto) Neut # (Auto) Lymph # (Auto) [place] # (Auto) Eos # (Auto) Baso # (Auto) RBC Morphology Anisocytosis Sodium Potassium Chloride Carbon Dioxide BUN Creatinine Estimated GFR BUN/Creatinine Ratio Glucose Calcium Magnesium 2.0 Iron TIBC % Saturation Transferrin Total Bilirubin AST ALT Alkaline Phosphatase Total Protein Albumin Globulin Albumin/Globulin [facility] Medical History Chronic pain Chronic rhinitis Coronary artery disease (04/29/14) CTS (carpal tunnel syndrome) (1977) Diabetes mellitus Essential hypertension ETD (eustachian tube dysfunction) Hypersomnia (~1997) Hypogonadism in male Insomnia, persistent (~1995) Mixed hyperlipidemia Obesity with body mass index (BMI) of 30.0 to 39.9 (04/24/15) Obstructive sleep apnea of adult Osteoarthritis of hands, 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 (07/29/15) Primary osteoarthritis of left knee (03/03/16) Restless legs syndrome (04/24/15) Squamous cell carcinoma of nose (2004) Type 2 diabetes mellitus with other skin ulcer (04/24/15) Wound healing, delayed Wound, open, foot Surgical History History of carpal tunnel repair (1977) History of coronary artery stent placement (04/2014) Hx of inguinal hernia surgery (1977) S/P CABG x 3 S/P CABG x 3 Status post arthroscopy Status post rotator cuff repair Family History Father Coronary artery disease Alcoholism Sudden Other Depression Social History marital status: details: jose Marx, lives in [place] household members: spouse lives independently: Yes caregiver/support person: No housing: house princess/lutheran: Hindu Saint / [employer] Smoking Status: Never smoker alcohol intake: never substance use type: does not use eating out: 1-3 times/week Type(s) of exercise: walking, aerobic, bicycling, advised to exercise at least 150 min/week (moderate intensity aerobic) and advised to perform resistance training at least 2x/week Assessment & Plan Post-op Assessment and plan (1) Abscess, wrist: Assessment and Plan narrative: The patient will be maintained with the current dressing.? Tomorrow morning his dressing will be taken down, the [place] drains removed and the wounds inspected.? If it is apparent there is incomplete treatment of the infection he will be taken back to the operating room for repeat incision and drainage Tuesday.? If his condition is improving a dressing change will be performed at [facility]. Postoperative Procedures: Procedures Operation Date: 02/27/22 11:30 Actual Procedure Side Surgeon p Incision and Drainage Right Wrist Right Bhavesh Tripp MD Postoperative day: 1 Quality VTE Deep Vein Thrombosis/Pulmonary Embolism Present on Admission: No
--- NOTE | 2022-02-28 07:37 | PC.NURSE ---
Patient states that pain in R hand and wrist is much improved since surgery. Ortho checks stable. Patient states decreased sensation is unchanged from prehospitalization and is chronic to R fingers. Patient diuresing well with IV Lasix and greater than 2000 cc out this 12 hours. Patient medicated with Vicodin per EMAR for L shoulder pain with good relief. Patient remains in AFib, CVR. O2 at 3L nasal cannula and sats maintained at 94% during night.
[2022-02-28] MEDS: carvediloL 12.5 MG TABLET PO ×2 (08:50→20:46)
[2022-02-28] MEDS: PANTOPRAZOLE DR 20 MG TABLET PO (08:51)
[2022-02-28] MEDS: SUCRALFATE 1 GM TABLET PO ×4 (08:51→20:46)
[2022-02-28] MEDS: GABAPENTIN 600 MG TABLET 1200 MG PO ×2 (08:51→20:47)
[2022-02-28] MEDS: acetaZOLAMIDE 250 MG TABLET PO ×2 (08:51→20:47)
[2022-02-28] MEDS: ASPIRIN EC 81 MG TABLET PO ×2 (08:51→20:47)
[2022-02-28] MEDS: predniSONE 5 MG TABLET 10 MG PO (08:51)
[2022-02-28] MEDS: ROPINIROLE 1 MG TABLET PO (08:51)
[2022-02-28] MEDS: MAGNESIUM OXIDE 400 MG TABLET PO (08:51)
[2022-02-28] MEDS: DULOXETINE 30 MG CAPSULE 60 MG PO (08:53)
[2022-02-28] MEDS: METFORMIN HCL 500 MG TABLET 1000 MG PO ×2 (08:53→16:10)
[2022-02-28] MEDS: POTASSIUM CHLORIDE 20 MEQ TAB PO ×2 (08:53→16:10)
[2022-02-28] MEDS: OXYCODONE IR 10 MG TABLET PO ×2 (08:53→14:21)
[2022-02-28] MEDS: ACETAMINOPHEN 325 MG TABLET 650 MG PO (08:54)
[2022-02-28] MEDS: DOCUSATE 100 MG CAPSULE PO ×2 (08:54→20:46)
[2022-02-28] MEDS: COLCHICINE 0.6 MG TABLET PO ×2 (08:54→20:47)
[2022-02-28] MEDS: allopurinoL 300 MG TABLET PO (08:55)
--- NOTE | 2022-02-28 11:14 | P.PN_ITS ---
Subjective Subjective Date Patient Seen: 02/28/22 Time Patient Seen: 11:15 Interval history: Patient seen in follow-up of multiple issues including sepsis. Clinically doing a little better today. Feeling little better. Mentally cleared better today. Feeling a little more like himself. Still sleepy. Pain is much improved. Still having some left knee pain. But that has been longstanding he does not feel like it has changed. Exam Vital Signs (past 8 hours): - 02/28/22 05:00 02/28/22 06:53 02/28/22 08:50 Temperature 97.3 F L Pulse Rate 94 H 96 H Respiratory Rate 18 Blood Pressure 134/79 124/71 Pulse Oximetry 99 Oxygen Delivery Method Nasal Cannula Oxygen Flow Rate 3 02/28/22 08:00 Temperature 97.2 F L Pulse Rate 88 Respiratory Rate 16 Blood Pressure 124/71 Pulse Oximetry 97 Oxygen Delivery Method Oxygen Flow Rate 0 Fraction of Inspired Oxygen 35 Oxygen Delivery Method Nasal Cannula Oxygen Flow Rate 0 Narrative Exam Narrative: Alert male lying in bed no acute distress Lungs are clear heart irregular rhythm but controlled rate. Left knee shows some tenderness but no erythema no warmth. Right wrist in bandage hand seems to be slightly less swollen. Objective Labs Result Diagrams: 02/28/22 05:02 02/28/22 05:02 Labs: Laboratory Results - last 24 hr 02/28/22 02/28/22 02/28/22 05:02 05:02 05:02 WBC 16.9 H RBC 3.30 L Hgb 9.4 L Hct 28.2 L MCV 85.4 MCH 28.3 MCHC 33.2 RDW 20.1 H Plt Count 248 Neut % (Auto) 80.2 H Lymph % (Auto) 13.1 L [place] % (Auto) 5.9 Eos % (Auto) 0.4 L Baso % (Auto) 0.4 Neut # (Auto) 65216 H Lymph # (Auto) 2200 [place] # (Auto) 1000 H Eos # (Auto) 100 Baso # (Auto) 100 RBC Morphology See below Anisocytosis 1+ H Sodium 133 L Potassium 3.6 Chloride 96 L Carbon Dioxide 32 BUN 31 H Creatinine 1.00 Estimated GFR > 60 BUN/Creatinine Ratio 31.0 H Glucose 169 H Calcium 7.9 L Magnesium Iron 24 L TIBC 173 L % Saturation 14 L Transferrin 122 L Total Bilirubin 1.1 AST 22 ALT 15 Alkaline Phosphatase 93 Total Protein 5.4 L Albumin 2.5 L Globulin 2.9 Albumin/Globulin Ratio 0.9 L 02/28/22 05:02 WBC RBC Hgb Hct MCV MCH MCHC RDW Plt Count Neut % (Auto) Lymph % (Auto) [place] % (Auto) Eos % (Auto) Baso % (Auto) Neut # (Auto) Lymph # (Auto) [place] # (Auto) Eos # (Auto) Baso # (Auto) RBC Morphology Anisocytosis Sodium Potassium Chloride Carbon Dioxide BUN Creatinine Estimated GFR BUN/Creatinine Ratio Glucose Calcium Magnesium 2.0 Iron TIBC % Saturation Transferrin Total Bilirubin AST ALT Alkaline Phosphatase Total Protein Albumin Globulin Albumin/Globulin Ratio [facility] Medical History Chronic pain Chronic rhinitis Coronary artery disease (04/29/14) CTS (carpal tunnel syndrome) (1977) Diabetes mellitus Essential hypertension ETD (eustachian tube dysfunction) Hypersomnia (~1997) Hypogonadism in male Insomnia, persistent (~1995) Mixed hyperlipidemia Obesity with body mass index (BMI) of 30.0 to 39.9 (04/24/15) Obstructive sleep apnea of adult Osteoarthritis of hands, 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 (07/29/15) Primary osteoarthritis of left knee (03/03/16) Restless legs syndrome (04/24/15) Squamous cell carcinoma of nose (2004) Type 2 diabetes mellitus with other skin ulcer (04/24/15) Wound healing, delayed Wound, open, foot Surgical History History of carpal tunnel repair (1977) History of coronary artery stent placement (04/2014) Hx of inguinal hernia surgery (1977) S/P CABG x 3 S/P CABG x 3 Status post arthroscopy Status post rotator cuff repair Family History Father Coronary artery disease Alcoholism Sudden Other Depression Social History marital status: details: jose Marx, lives in [place] household members: spouse lives independently: Yes caregiver/support person: No housing: house princess/buddhism: Mandaen Saint / Pentecostal Smoking Status: Never smoker alcohol intake: never substance use type: does not use eating out: 1-3 times/week Type(s) of exercise: walking, aerobic, bicycling, advised to exercise at least 150 min/week (moderate intensity aerobic) and advised to perform resistance training at least 2x/week Assessment & Plan Assessment & Plan narrative: Staph sepsis. Switch to nafcillin yesterday. Does have a slight increase in his white count today but unsure if this is stress secondary to his surgery or relative to his nafcillin switch. Patient will need to be on IV antibiotics for 6 weeks and nafcillin may not be the best given the fact that his every 4 hours. Discussed with pharmacist about options. Really is going to depend mostly on where he is going to be for follow-up care and if he is going home will need something simple precious significantly. If not may be okay with something more frequent. Will have to see how things go. Will see what tomorrow brings. Sti ll have question as to whether right wrist caused issue in the 1st place or whether we have endocarditis which seeded joint. And it is unclear at this time. Still need AMANDA to clarify issue but I am having issues getting him sent some more. Will still working on that. He was 14. On the list yesterday and that is the best we could do. This may be something we can do either as referral and treat or do as outpatient will have to see. Going to be on long- term antibiotics no matter what. He understands questions answered. Discussed with care team. Continuing to look for transfer. Right wrist abscess. Appreciate Dr. Tripp is evaluation and drainage yesterday. Will be looked at again tomorrow. Seems to be doing well. Pain is improved. Will continue to follow. Cultures are still pending. Acute respiratory failure. Patient seems to be doing better. Probably a combination of sleep apnea and congestive heart failure secondary to atrial fibrillation and infection. All seems to be proceeding in improved situation and will follow. ICU tele health have changed diuretics and will read the re- evaluate in a.m.. Output has been excellent. Acute systolic heart failure secondary to probable infection and atrial fibrillation. Slowly improving. Excellent output today. Atrial fibrillation. Will rate is controlled. On anticoagulation. Will follow. Hypokalemia. Stable at this time. Iron deficiency anemia. Will begin replacement today. Will recheck as an outp atient. Guaiac is pending. Acute mental status changes. Metabolic encephalopathy. Probably secondary to combination of medication and infection. Seems to be much improved. Will follow. Polyarticular joint disease. Patient seems to be doing well. Now currently off of his prednisone and we will follow. Certainly his right wrist was infected mother started out as gout hard to tell. But currently infected his left knee shows no evidence of erythema or warmth and we will follow closely. Continue off prednisone for now. Coronary artery disease. Stable. No change at this time. Mild ill increase in troponins was probably secondary to atrial fibrillation. Type 2 diabetes. Stable. Morbid obesity is stable. Sleep apnea. Patient states that he does not mind wearing his CPAP and will push tonight to do that. Hyperlipidemia continue meds BPH stable no change at this time. Code status full. DVT prophylaxis on anticoagulation. Disposition. Clearly will need to be here for surgical evaluation of his right wrist for a few days. Will continue antibiotics but will need long-term antibiotics. Do not want to put a PICC line in secondary to risk to valvular issues and will await AMANDA before that can be placed. Will place midline. Because he will need long-term antibiotics that decision will be made in the next few days on what that will look like. Continuing to look for PE whether it is just for treatment and back or whether not we can transfer. But at this point I do not think change in treatment is going to happen and he is on good antibiotic coverage. Clinically certainly no evidence of valvular failure and will follow closely. Re-evaluate a.m. Time Spent With Patient Critical Care time: I spent a total of [] minutes of critical care time on this patient's care today; this time is exclusive of procedural time. Quality VTE Deep Vein Thrombosis/Pulmonary Embolism Present on Admission: No
[2022-02-28] MEDS: INSULIN LISPRO 100 UNIT/ML 3ML VIAL SUBCUT ×3 (11:51→21:02)
--- NOTE | 2022-02-28 14:15 | CM.DPC ---
DCP Cont: Per Ortho, pt's drain to be removed tomorrow Mon and will reassess to determine if further I&D needed of his wrist. Per MD, recommendation of 6 weeks IV-Abx and couple options pending if pt discharges home vs SNF. SW called following SNFs previously referred: [facility]- declines [facility]- left msg [facility]- left msg [facility]- left msg [facility]- left msg [facility]- willing to review, might be able to accept if pt willing to get updated COVID booster and pending IV-Abx needed. SW printed pt's COVID vax status from [facility] and double COVID vaxd and one booster in May 2021. PASRR completed in anticipation of SNF. PT ordered and still pending. SW met bedside with pt and explained role and he confirms he is feeling a little better but still below baseline and preference would be home although he states his is skilled and knowledgeable since she is an RN but states she works all the time. Pt states they have 4 adult children locally and 2 work and 2 do not and one option is staying with his Dtr in [place] if he is safe for a home discharge. F2F and HH orders previously completed at admission as first anticipated pt could d/c home. Pt states he is aware though that SNF might be needed pending his mobility, pain, etc and still agreeable with SNF vs HH pending progress. Plan: SW to follow with [facility] tomorrow Mon to confirm if they can accept when medically stable and PT eval to determine d/c planning needs. JANN Hankins
[2022-02-28] MEDS: FERROUS SULFATE 325 MG TABLET PO (16:10)
[2022-02-28] MEDS: RIVAROXABAN 10 MG TABLET 20 MG PO (16:11)
[2022-02-28] MEDS: TAMSULOSIN 0.4 MG CAPSULE PO (20:47)
[2022-02-28] MEDS: ATORVASTATIN 20 MG TABLET PO (20:47)
--- NOTE | 2022-02-28 20:53 | PM.ICURNDS ---
- :: This patient was seen via real time interactive two-way audiovisual telecommunication. patietn awake and conversive, on @l Nc, and wishes to use home cpap qhs given fitting. Otherwise pt is Hd stbale, and seems to be imprroving. Currently on nafcillin for MSSA due ot septic joint now s/p I & D, and volume status improved, but goal remians net negative
[2022-02-28] MEDS: ROPINIROLE 1 MG TABLET 2 MG PO (20:54)
[2022-02-28] MEDS: INSULIN GLARGINE 100 UNIT/ML 3ML PEN 55 UNIT SUBCUT (21:55)
[2022-03-01] VITALS (10 sets, daily range): BP systolic 137–176; BP diastolic 66–79; PULSE 71–80; RESP 19–26; TEMP 35.9–37.6; O2SAT 95–100
[2022-03-01] MEDS: OXYCODONE IR 10 MG TABLET PO (00:59)
[2022-03-01] MEDS: NAFCILLIN 2 GM in SODIUM CHLORIDE 0.9% 100 ML IV ×6 (02:04→22:03)
[2022-03-01 05:37] LABS: Add Manual Diff / Slide Review NO; Basophils Absolute Auto 100 /uL (0-100); Basophils Percent Auto 0.3 % (0-2); Eosinophils Absolute Auto 200 /uL (0-450); Eosinophils Percent Auto 1.4 % (2-4); Hematocrit 28.9 % (41-53); Hemoglobin 9.6 g/dL (13.5-17.5); Lymphocytes Absolute Auto 1800 /uL (1100-4500); Lymphocytes Percent Auto 10.4 % (25-40); Mean Corpuscular HGB Conc 33.2 % (30-36); Mean Corpuscular Hemoglobin 28.6 PG (26-34); Mean Corpuscular Volume 86.2 fL (80-100); Monocytes Absolute Auto 800 /uL (0-900); Monocytes Percent Auto 4.5 % (3-14); Neutrophils Absolute Auto 14200 /uL (1500-7000); Neutrophils Percent Auto 83.4 % (50-75); Platelet Count 279 X10^3/uL (150-400); Red Blood Cell Count 3.35 X10^6/uL (4.5-5.9); Red Cell Distribution Width 20.1 % (11.6-14.8)
[2022-03-01 05:42] LABS: Alanine Aminotransferase 14 IU/L (<50); Albumin 2.5 g/dL (3.5-5.0); Albumin Globulin Ratio 0.8 (1.0-2.8); Alkaline Phosphatase 96 U/L (38-126); Aspartate Aminotransferase 18 IU/L (17-59); Bilirubin Total 0.8 mg/dL (0.2-1.3); Blood Urea Nitrogen 31 mg/dL (9-20); Carbon Dioxide 27 mmol/L (22-32); Chloride 100 mmol/L (98-107); Estimated Glomerular Filt Rate > 60 mL/min (>60); Globulin 3.1 g/dL (1.7-4.1); Glucose 137 mg/dL (80-110); HEMOLYSIS < 15 (0-50); Potassium 3.5 mmol/L (3.4-5.1); Sodium 134 mmol/L (137-145); Total Protein 5.6 g/dL (6.3-8.2)
[2022-03-01 06:04] LABS: Anisocytosis 1+
--- NOTE | 2022-03-01 06:50 | PC.NURSE ---
Addendum entered by Shawnee Peralta R.N. 03/01/22 07:00: Dr. Tripp coming to check dressing, not Dr. Pelaez. Original Note: Pt doing well. Vitals stable. Pt requested to be put on CPAP while sleeping. Given 3 doses of Naficllin. Real Estate Accountant called and ordered continuation of current plan. Had 40 mL from wrist removed on 02/27/22. Nataly put in place and Dr. Mena is coming to look at dressing this morning. Plan is for him to go home with Nafcillin.
--- NOTE | 2022-03-01 07:40 | PM.PN.1 ---
Subjective Subjective Date Patient Seen: 03/01/22 Time Patient Seen: 07:40 Interval history: Patient seen and evaluated this morning. Discussed care with orthopedic surgeon discussed care with patient nurse and for all at bedside. He is doing well this morning. Little bit quiet. Not complaining of pain. Feeling a little bit weak. Discussed care plan such as discharge home discharge to senior living facility. Will have convention planner talk with his today. Vital signs have been stable over the weekend no further hypotension. Reviewed laboratory test culture results white blood cell counts a little bit elevated. Exam Vital Signs (past 8 hours): - 03/01/22 00:00 03/01/22 01:00 03/01/22 04:00 Temperature 97.6 F 97.8 F Pulse Rate 71 71 Respiratory Rate 19 19 Blood Pressure 157/70 H 161/72 H Pulse Oximetry 100 97 Oxygen Delivery Method CPAP Oxygen Flow Rate 2 2 03/01/22 05:00 Temperature Pulse Rate Respiratory Rate Blood Pressure Pulse Oximetry Oxygen Delivery Method CPAP Oxygen Flow Rate Fraction of Inspired Oxygen 35 Oxygen Delivery Method CPAP Oxygen Flow Rate 2 Narrative Exam Narrative: Gen.: Alert oriented to person and place HEENT: Pupils equal round and reactive or mucosa is moist neck is supple Cardio: S1-S2 irregular rhythm systolic murmur present Respiratory: Lungs are clear no wheezes crackles difficult to auscultate Abdomen: Soft nontender no obese. Extremities: Lower extremity no edema. Left knee swollen right wrist is dressed bandage. Improved range of motion less swollen Objective Labs Result Diagrams: 03/01/22 05:20 03/01/22 05:20 Labs: Laboratory Results - last 24 hr 03/01/22 03/01/22 05:20 05:20 WBC 17.0 H RBC 3.35 L Hgb 9.6 L Hct 28.9 L MCV 86.2 MCH 28.6 MCHC 33.2 RDW 20.1 H Plt Count 279 Neut % (Auto) 83.4 H Lymph % (Auto) 10.4 L [place] % (Auto) 4.5 Eos % (Auto) 1.4 L Baso % (Auto) 0.3 Neut # (Auto) 46332 H Lymph # (Auto) 1800 [place] # (Auto) 800 Eos # (Auto) 200 Baso # (Auto) 100 RBC Morphology See below Anisocytosis 1+ H Sodium 134 L Potassium 3.5 Chloride 100 Carbon Dioxide 27 BUN 31 H Creatinine 0.94 Estimated GFR > 60 BUN/Creatinine Ratio 33.0 H Glucose 137 H Calcium 8.0 L Total Bilirubin 0.8 AST 18 ALT 14 Alkaline Phosphatase 96 Total Protein 5.6 L Albumin 2.5 L Globulin 3.1 Albumin/Globulin Ratio 0.8 L PFSH Medical History Chronic pain Chronic rhinitis Coronary artery disease (04/29/14) CTS (carpal tunnel syndrome) (1977) Diabetes mellitus Essential hypertension ETD (eustachian tube dysfunction) Hypersomnia (~1997) Hypogonadism in male Insomnia, persistent (~1995) Mixed hyperlipidemia Obesity with body mass index (BMI) of 30.0 to 39.9 (04/24/15) Obstructive sleep apnea of adult Osteoarthritis of hands, 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 (07/29/15) Primary osteoarthritis of left knee (03/03/16) Restless legs syndrome (04/24/15) Squamous cell carcinoma of nose (2004) Type 2 diabetes mellitus with other skin ulcer (04/24/15) Wound healing, delayed Wound, open, foot Surgical History History of carpal tunnel repair (1977) History of coronary artery stent placement (04/2014) Hx of inguinal hernia surgery (1977) S/P CABG x 3 S/P CABG x 3 Status post arthroscopy Status post rotator cuff repair Family History Father Coronary artery disease Alcoholism Sudden Other Depression Social History marital status: details: jose Marx, lives in [place] household members: spouse lives independently: Yes caregiver/support person: No housing: house princess/mu-ism: [employer] Smoking Status: Never smoker alcohol intake: never substance use type: does not use eating out: 1-3 times/week Type(s) of exercise: walking, aerobic, bicycling, advised to exercise at least 150 min/week (moderate intensity aerobic) and advised to perform resistance training at least 2x/week Assessment & Plan Assessment and plan (1) Abscess, wrist: Status: Acute (2) Bacteremia due to Staphylococcus aureus: Status: Acute Plan Staph aureus bacteremia wrist abscess and severe sepsis. Patient taken to the OR on Tuesday wrist was I indeed washed out and drained. Appreciate orthopedic surgery consultation on this patient. Vital signs stable this morning blood pressure looks good. IV antibiotics with midline in place. White blood cell elevated this morning. Not on anticipated considering recent surgery. Appropriate antibiotic on board based on susceptibility. Per orthopedic surgery will need 6 weeks of IV antibiotics at home or senior living. Will discuss with ID consultation outpatient previously has seen today to get further direction on antibiotics discussed with pharmacy as well. Will also work with cardiology for outpatient AMANDA for evaluation of heart as patient is unable to be transferred to tertiary care facility for this procedure due to unavailable bed status multiple attempts were made during his hospital stay. Acute respiratory failure. Due to acute systolic heart failure. Patient has resolved his respiratory failure and back on room air. Acute systolic heart failure due to infection atrial fibrillation. Improved. Good urine output. Will continue with moderate amount of diuresis. Atrial fibrillation with rapid ventricular response and normal sinus rate rhythm. Still going in and out of it AFib. He is on anticoagulation. Acute myocardial ischemia with elevation of troponin and hospital stay due to underlying sepsis respiratory failure history of coronary artery disease with CABG. Current cardiac enzymes are stable and trending down. Acute metabolic encephalopathy. This resolving due to treatment of underlying infection sepsis atrial fibrillation Coronary artery disease status post CABG elevation of troponins initially stable now. Type 2 diabetes insulin dependent. Blood sugars are well controlled. Morbid obesity chronic stable. Sleep apnea continuing to use his CPAP at night BPH. Dela Cruz catheter in place remove Dela Cruz today. Disposition and plan. Discussed with pharmacy infectious Disease about long-term IV antibiotics for 6 weeks. Discussed with discharge planning about correction stay versus home with home health. Remove Dela Cruz catheter. Discussed care with Orthopedic surgery Time Spent With Patient Critical Care time: I spent a total of [] minutes of critical care time on this patient's care today; this time is exclusive of procedural time. Quality VTE Deep Vein Thrombosis/Pulmonary Embolism Present on Admission: No
--- NOTE | 2022-03-01 07:45 | P.PN_ITS ---
Subjective Subjective Date Patient Seen: 03/01/22 Time Patient Seen: 07:15 Interval history: The patient has no new complaints. Exam Vital Signs (past 8 hours): - 03/01/22 00:00 03/01/22 01:00 03/01/22 04:00 Temperature 97.6 F 97.8 F Pulse Rate 71 71 Respiratory Rate 19 19 Blood Pressure 157/70 H 161/72 H Pulse Oximetry 100 97 Oxygen Delivery Method CPAP Oxygen Flow Rate 2 2 03/01/22 05:00 Temperature Pulse Rate Respiratory Rate Blood Pressure Pulse Oximetry Oxygen Delivery Method CPAP Oxygen Flow Rate Fraction of Inspired Oxygen 35 Oxygen Delivery Method CPAP Oxygen Flow Rate 2 Narrative Exam Narrative: Sensation is diminished but intact in all fingers. He has an underlying neuropathy which has diminished his sensation over his fingers in the long-term. Swelling in the hand is diminished from preoperatively. The dressing is removed along with the [place] drains, there is bloody drainage evident on the bandages but no purulence. I can not express purulent fluid with light pressure in the palm. He is able to move all fingers slightly but is quite stiff. Objective Labs Result Diagrams: 03/01/22 05:20 03/01/22 05:20 Labs: Laboratory Results - last 24 hr 03/01/22 03/01/22 05:20 05:20 WBC 17.0 H RBC 3.35 L Hgb 9.6 L Hct 28.9 L MCV 86.2 MCH 28.6 MCHC 33.2 RDW 20.1 H Plt Count 279 Neut % (Auto) 83.4 H Lymph % (Auto) 10.4 L [place] % (Auto) 4.5 Eos % (Auto) 1.4 L Baso % (Auto) 0.3 Neut # (Auto) 51375 H Lymph # (Auto) 1800 [place] # (Auto) 800 Eos # (Auto) 200 Baso # (Auto) 100 RBC Morphology See below Anisocytosis 1+ H Sodium 134 L Potassium 3.5 Chloride 100 Carbon Dioxide 27 BUN 31 H Creatinine 0.94 Estimated GFR > 60 BUN/Creatinine Ratio 33.0 H Glucose 137 H Calcium 8.0 L Total Bilirubin 0.8 AST 18 ALT 14 Alkaline Phosphatase 96 Total Protein 5.6 L Albumin 2.5 L Globulin 3.1 Albumin/Globulin Ratio 0.8 L PFSH Medical History Chronic pain Chronic rhinitis Coronary artery disease (04/29/14) CTS (carpal tunnel syndrome) (1977) Diabetes mellitus Essential hypertension ETD (eustachian tube dysfunction) Hypersomnia (~1997) Hypogonadism in male Insomnia, persistent (~1995) Mixed hyperlipidemia Obesity with body mass index (BMI) of 30.0 to 39.9 (04/24/15) Obstructive sleep apnea of adult Osteoarthritis of hands, 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 (07/29/15) Primary osteoarthritis of left knee (03/03/16) Restless legs syndrome (04/24/15) Squamous cell carcinoma of nose (2004) Type 2 diabetes mellitus with other skin ulcer (04/24/15) Wound healing, delayed Wound, open, foot Surgical History History of carpal tunnel repair (1977) History of coronary artery stent placement (04/2014) Hx of inguinal hernia surgery (1977) S/P CABG x 3 S/P CABG x 3 Status post arthroscopy Status post rotator cuff repair Family History Father Coronary artery disease Alcoholism Sudden Other Depression Social History marital status: details: jose Marx, lives in [place] household members: spouse lives independently: Yes caregiver/support person: No housing: house princess/uatsdin: [employer] [facility] Smoking Status: Never smoker alcohol intake: never substance use type: does not use eating out: 1-3 times/week Type(s) of exercise: walking, aerobic, bicycling, advised to exercise at least 150 min/week (moderate intensity aerobic) and advised to perform resistance training at least 2x/week Assessment & Plan Post-op Postoperative Procedures: Procedures Operation Date: 02/27/22 11:30 Actual Procedure Side Surgeon p Incision and Drainage Right Wrist Right Bhavesh Tripp MD Postoperative day: 2 Postoperative status: doing well and other (Rising white count) Postoperative status narrative: He appears to be stable postoperatively however it is worrisome that his white count is increasing. On inspection of the surgical wounds I see no evidence of ongoing need for infection or repeat I&D. Whether his wrist is the outcome of his bacteremia or the cause is not clear at this point. Postoperative plan: routine post-op care Postoperative plan narrative: I have re-dressed the wound this morning. We will follow his clinical course. If his hand worsens I will repeat incision and drainage. I think he needs at least 6 weeks of IV antibiotics. Time Spent With Patient Time with patient: 15-24 minutes Quality VTE Deep Vein Thrombosis/Pulmonary Embolism Present on Admission: No
[2022-03-01] MEDS: METFORMIN HCL 500 MG TABLET 1000 MG PO ×2 (08:17→17:20)
[2022-03-01] MEDS: MAGNESIUM OXIDE 400 MG TABLET PO (08:17)
[2022-03-01] MEDS: ROPINIROLE 1 MG TABLET PO (08:17)
[2022-03-01] MEDS: COLCHICINE 0.6 MG TABLET PO ×2 (08:17→22:03)
[2022-03-01] MEDS: DULOXETINE 30 MG CAPSULE 60 MG PO (08:17)
[2022-03-01] MEDS: carvediloL 12.5 MG TABLET PO ×2 (08:17→22:05)
[2022-03-01] MEDS: SUCRALFATE 1 GM TABLET PO ×4 (08:18→22:06)
[2022-03-01] MEDS: POTASSIUM CHLORIDE 20 MEQ TAB PO ×2 (08:18→17:20)
[2022-03-01] MEDS: allopurinoL 300 MG TABLET PO (08:18)
[2022-03-01] MEDS: ASPIRIN EC 81 MG TABLET PO ×2 (08:18→22:04)
[2022-03-01] MEDS: DOCUSATE 100 MG CAPSULE PO ×2 (08:18→22:04)
[2022-03-01] MEDS: GABAPENTIN 600 MG TABLET 1200 MG PO ×2 (08:18→22:08)
[2022-03-01] MEDS: FERROUS SULFATE 325 MG TABLET PO ×2 (08:18→17:20)
[2022-03-01] MEDS: FUROSEMIDE 40 MG/4 ML VIAL IV (08:19)
[2022-03-01] MEDS: PANTOPRAZOLE DR 20 MG TABLET PO (08:20)
--- NOTE | 2022-03-01 09:33 | P.TELICUPN_ITS ---
Subjective Subjective Consent obtained for tele-preflight mechanic care: Yes Patient Location: ICU Provider location (State): [place] Other participants/roles: none Interval history: 66 yo man with PMH of CAD s/p stenting and CABG, IDDM, HTN, HL, MARIO (noncompliant with CPAP at home), osteoarthritis, and goute who was admitted with staph bacteremia, polyarticular swelling and pain (R wrist and L knee), AK? and severe sepsis. Pt given IVF and started on Zosyn for MSSA bacteremia. 02/24: ECHO shows EF of 25-30% (was normal in 2014) 02/25: patient develops respiratory failure from CHF and requires BIPAP. Pt. diuresed. 02/26: on and off BIPAP, some intermittent episodesof afib with RVR 02/27: R wrist more painful and swollen.? Patient goes for I & D of R wrist. Switched from Zosyn to Nafcillin 02/28: WBC still trending up but no fever. Pt. remains off BIPAP Recent Events: NO fever. WBC about the same as yesterday (went from 16.9 to 17). BP a little elevated (140-160s/70s). Pt. remains off BIPAP. Prednisone stopped. Current Medications Current Medications Medications: Home Medications semaglutide 0.25 mg or 0.5 mg (2 mg/1.5 mL) subcutaneous pen injector (Ozempic) 1 mg SUBCUT QWEEK 03/15/19 [History Confirmed 02/23/22] cyclobenzaprine 10 mg tablet 10 mg PO TID PRN spasms 04/25/19 [History Confirmed 02/23/22] aspirin 81 mg tablet,delayed release (Enteric Coated Aspirin) 81 mg PO DAILY 09/10/20 [History Confirmed 02/23/22] epinephrine 0.3 mg/0.3 mL injection, auto-injector 0.3 mg IM ONCE PRN anaphylaxis 09/10/20 [History Confirmed 02/23/22] allopurinol 300 mg tablet 300 mg PO DAILY #90 tabs 03/24/21 [Rx Confirmed 02/23/22] amlodipine 10 mg tablet 10 mg PO DAILY #90 tabs 03/24/21 [Rx Confirmed 02/23/22] carvedilol 12.5 mg tablet 12.5 mg PO BID #180 tabs 03/24/21 [Rx Confirmed 02/23/22] colchicine 0.6 mg tablet 0.6 mg PO BID #180 tabs 03/24/21 [Rx Confirmed 02/23/22] dapagliflozin 10 mg tablet 10 mg PO DAILY #90 tabs 03/24/21 [Rx Confirmed 02/23/22] duloxetine 60 mg capsule,delayed release 60 mg PO DAILY #90 caps 03/24/21 [Rx Confirmed 02/23/22] furosemide 20 mg tablet 20 mg PO DAILY #90 tabs 03/24/21 [Rx Confirmed 02/23/22] gabapentin 600 mg tablet 1,200 mg PO BID #360 tabs 03/24/21 [Rx Confirmed 02/23/22] olmesartan 40 mg tablet 40 mg PO DAILY #90 tabs 03/24/21 [Rx Confirmed 02/23/22] pantoprazole 20 mg tablet,delayed release 20 mg PO DAILY #90 tabs 03/24/21 [Rx Confirmed 02/23/22] ropinirole 2 mg tablet See Rx Instructions PO BID #270 tabs 03/24/21 [Rx Confirmed 02/23/22] rosuvastatin 10 mg tablet 10 mg PO DAILY #90 tabs 03/24/21 [Rx Confirmed 02/23/22] insulin glargine 100 unit/mL (3 mL) subcutaneous pen (Lantus Solostar U-100 Insulin) 55 unit (0.55 mL) SUBCUT BID #135 mL 03/26/21 [Rx Confirmed 02/23/22] insulin lispro 100 unit/mL subcutaneous solution (Humalog U-100 Insulin) 5 unit (0.05 mL) SUBCUT TID #150 mL 03/26/21 [Rx Confirmed 02/23/22] metformin 500 mg tablet 1,000 mg PO BIDCC #360 tabs 03/26/21 [Rx Confirmed 02/23/22] rivaroxaban 20 mg tablet (Xarelto) 20 mg PO QPM #90 tabs 06/15/21 [Rx Confirmed 02/23/22] glucagon 1 mg solution for injection 1 mg SUBCUT Q20M PRN Hypoglycemia 02/15/22 [History Confirmed 02/23/22] prednisone 10 mg tablet 10 mg PO DAILY #30 tabs 02/22/22 [Rx Confirmed 02/23/22] hydrocodone 5 mg-acetaminophen 325 mg tablet 1 tab PO Q6H PRN pain 02/23/22 [History Confirmed 02/23/22] sucralfate 1 gram tablet (Carafate) 1 g PO QID stomach irritation 02/23/22 [History Confirmed 02/23/22] tamsulosin 0.4 mg capsule (Flomax) 0.4 mg PO DAILY PRN Urinary Retention 02/23/22 [History Confirmed 02/23/22] tramadol 50 mg tablet 50 mg PO Q6HR 02/23/22 [History Confirmed 02/23/22] triamcinolone acetonide 0.1 % lotion 1 applic topical DAILY PRN Rash 02/23/22 [History Confirmed 02/23/22] Visit Medications (administered) Generic Name Dose Route Start Last Admin Trade Name Costaq PRN Reason Stop Dose Admin Acetaminophen 650 mg 02/23/22 15:49 02/28/22 08:54 Acetaminophen 325 Mg Tablet PO 650 mg Q6HR PRN Administration Fever/Mild Pain (1-3) Hydrocodone Bitart/Acetaminophen 1 tab 02/23/22 15:49 02/28/22 20:53 Hydrocodone/Acet 5/325 Tablet PO 1 tab Q4HR PRN Administration Pain, Moderate (4-6) Allopurinol 300 mg 02/24/22 09:00 03/01/22 08:18 Allopurinol 300 Mg Tablet PO 300 mg DAILY MELANIE Administration Aspirin 81 mg 02/27/22 21:00 03/01/22 08:18 Aspirin Ec 81 Mg Tablet PO 81 mg BID MELANIE Administration Atorvastatin Calcium 20 mg 02/27/22 21:00 02/28/22 20:47 Atorvastatin 20 Mg Tablet PO 20 mg BEDTIME MELANIE Administration Carvedilol 12.5 mg 02/25/22 09:00 03/01/22 08:17 Carvedilol 12.5 Mg Tablet PO 12.5 mg BID MELANIE Administration Colchicine 0.6 mg 02/23/22 21:00 03/01/22 08:17 Colchicine 0.6 Mg Tablet PO 0.6 mg BID MELANIE Administration Docusate Sodium 100 mg 02/23/22 21:00 03/01/22 08:18 Docusate 100 Mg Capsule PO 100 mg BID MELANIE Administration Duloxetine HCl 60 mg 02/24/22 09:00 03/01/22 08:17 Duloxetine 30 Mg Capsule PO 60 mg DAILY MELANIE Administration Ferrous Sulfate 325 mg 02/28/22 17:00 03/01/22 08:18 Ferrous Sulfate 325 Mg Tablet PO 325 mg BIDWM MELANIE Administration Furosemide 40 mg 03/01/22 09:00 03/01/22 08:19 Furosemide 40 Mg/4 Ml Vial IV 40 mg DAILY MELANIE Administration Gabapentin 1,200 mg 02/23/22 21:00 03/01/22 08:18 Gabapentin 600 Mg Tablet PO 1,200 mg BID MELANIE Administration Nafcillin Sodium 2 gm/ Sodium 100 mls @ 200 mls/hr 02/27/22 14:00 03/01/22 09:19 Chloride IV 200 mls/hr Q4H MELANIE Administration Insulin Glargine 55 unit 02/23/22 21:00 02/28/22 21:55 Insulin Glargine 100 Unit/Ml 3ml Pen SUBCUT 55 unit BEDTIME MELANIE Administration Insulin Human Lispro 0 unit 02/23/22 16:45 03/01/22 08:20 Insulin Lispro 100 Unit/Ml 3ml Vial SUBCUT Not Given ACHS [facility] Protocol Magnesium Oxide 400 mg 02/26/22 09:00 03/01/22 08:17 Magnesium Oxide 400 Mg Tablet PO 400 mg DAILY MELANIE Administration Metformin HCl 1,000 mg 02/27/22 17:00 03/01/22 08:17 Metformin Hcl 500 Mg Tablet PO 1,000 mg BIDWM MELANIE Administration Oxycodone HCl 10 mg 02/23/22 15:49 03/01/22 00:59 Oxycodone Ir 10 Mg Tablet PO 10 mg Q4HR PRN Administration Pain, Severe (7-10) Pantoprazole Sodium 20 mg 02/24/22 09:00 03/01/22 08:[address] 20 Mg Tablet PO 20 mg DAILY MELANIE Administration Potassium Chloride 20 meq 02/27/22 17:00 03/01/22 08:18 Potassium Chloride 20 Meq Tab PO 20 meq BIDWM MELANIE Administration Rivaroxaban 20 mg 02/23/22 17:00 02/28/22 16:11 Rivaroxaban 10 Mg Tablet PO 20 mg QPM MELANIE Administration Ropinirole HCl 1 mg 02/24/22 09:00 03/01/22 08:17 Ropinirole 1 Mg Tablet PO 1 mg DAILY MELANIE Administration Ropinirole HCl 2 mg 02/23/22 21:00 02/28/22 20:54 Ropinirole 1 Mg Tablet PO 2 mg BEDTIME MELANIE Administration Sucralfate 1 gm 02/27/22 13:19 03/01/22 08:18 Sucralfate 1 Gm Tablet PO 1 gm QID MELANIE Administration Tamsulosin HCl 0.4 mg 02/23/22 21:00 02/28/22 20:47 Tamsulosin 0.4 Mg Capsule PO 0.4 mg BEDTIME MELANIE Administration Objective Ventilator Parameters: Ventilator Settings FiO2 4 Labs Result Diagrams: 03/01/22 05:20 03/01/22 05:20 Labs: Laboratory Results - last 24 hr 03/01/22 03/01/22 05:20 05:20 WBC 17.0 H RBC 3.35 L Hgb 9.6 L Hct 28.9 L MCV 86.2 MCH 28.6 MCHC 33.2 RDW 20.1 H Plt Count 279 Neut % (Auto) 83.4 H Lymph % (Auto) 10.4 L [place] % (Auto) 4.5 Eos % (Auto) 1.4 L Baso % (Auto) 0.3 Neut # (Auto) 54612 H Lymph # (Auto) 1800 [place] # (Auto) 800 Eos # (Auto) 200 Baso # (Auto) 100 RBC Morphology See below Anisocytosis 1+ H Sodium 134 L Potassium 3.5 Chloride 100 Carbon Dioxide 27 BUN 31 H Creatinine 0.94 Estimated GFR > 60 BUN/Creatinine Ratio 33.0 H Glucose 137 H Calcium 8.0 L Total Bilirubin 0.8 AST 18 ALT 14 Alkaline Phosphatase 96 Total Protein 5.6 L Albumin 2.5 L Globulin 3.1 Albumin/Globulin Ratio 0.8 L Exam Vital Signs (past 8 hours): - 03/01/22 04:00 03/01/22 05:00 03/01/22 08:17 Temperature 97.8 F Pulse Rate 71 74 Respiratory Rate 19 Blood Pressure 161/72 H 166/74 H Pulse Oximetry 97 Oxygen Delivery Method CPAP Oxygen Flow Rate 2 03/01/22 08:00 Temperature 98.6 F Pulse Rate 74 Respiratory Rate 25 H Blood Pressure 166/74 H Pulse Oximetry 97 Oxygen Delivery Method Oxygen Flow Rate 3 Fraction of Inspired Oxygen 35 Oxygen Delivery Method CPAP Oxygen Flow Rate 3 Narrative Exam Narrative: patient seen through two way audio visual system: He is sitting up in bed breathing comfortably on 3L nc with no signs of respiratory distress Quality TeleICU VTE Deep Vein Thrombosis/Pulmonary Embolism Present on Admission: No Assessment & Plan Assessment & Plan narrative: MSSA bacteremia Septic joint s/p I & D of R wrist CHF (EF of 25-30%) Paroxysmal afib MARIO Plan -restart ARB for BP control and afterload reduction. Pt. was on Omesartan 40 mg QD at home but it is non-formulary here so will do Losartan 50 mg QD. -continue lasix 40 mg IV QD -plan for 6 weeks of antibiotics -plan for outpatient AMANDA as no bed available for transfer to another hospital for AMANDA -replace K and Mg as needed -CPAP for MARIO when sleeping at night -agree with stopping prednisone CCT spent 40 min Time Spent With Patient Critical Care time: I spent a total of [] minutes of critical care time on this patient's care today; this time is exclusive of procedural time.
[2022-03-01] MEDS: LOSARTAN 50 MG TABLET PO (10:16)
[2022-03-01 10:58] LABS: Magnesium 1.8 mg/dL (1.6-2.3)
--- NOTE | 2022-03-01 11:39 | PT.IPTN ---
Current Diagnoses Sepsis, unspecified organism (02/23/22) Methicillin susceptible Staphylococcus aureus infection as the cause of diseases classified elsewhere (02/23/22) Type 2 diabetes mellitus with unspecified complications (02/23/22) Obesity, unspecified (02/23/22) Obstructive sleep apnea (adult) (pediatric) (02/23/22) Other chronic pain (02/23/22) Atherosclerotic heart disease of [place] coronary artery without angina pectoris (02/23/22) Unspecified atrial fibrillation (02/23/22) Acute systolic (congestive) heart failure (02/23/22) Acute respiratory failure with hypoxia (02/23/22) Cutaneous abscess of limb, unspecified (02/23/22) Other chondrocalcinosis, unspecified site (02/23/22) Severe sepsis without septic shock (02/23/22) Bacteremia (02/23/22) halfway (current) use of anticoagulants (02/23/22) halfway (current) use of insulin (02/23/22) Surgery Performed Operation Date: 02/27/22 11:30 Actual Procedures p Incision and Drainage Right Wrist(Right) - Bhavesh Tripp MD Physical Therapy Treatment Note M2 PT-IP Current Condition Start: 02/24/22 12:14 Freq: NEEDED Status: Active Protocol: Document 03/01/22 11:01 SP (Rec: 03/01/22 14:12 SP [id number]) Physical Therapy Current Condition Current Condition Evaluation Date 02/24/22 Treatment Diagnosis sepsis; pseudogout; difficulty in walking Onset Date 02/23/22 M3 PT-IP Subjective Start: 02/24/22 12:14 Freq: NEEDED Status: Active Protocol: Document 03/01/22 11:01 SP (Rec: 03/01/22 14:12 SP [id number]) Subjective Physical Therapy Visit Type Type Treatment Note Visit Start Time 11:01 Visit Stop Time 11:39 Total Visit Minutes 38 Notes Vitals: supine BP 123/67 HR 72 SaO2 97 % on RA. ENGINE REPAIR SUPERVISOR provided 2nd person Max A needed during tx. Number of ELECTRICAL CONTROLS TECHNICIAN Visits 3 Physical Therapy Visit Comments Patient Comments Pt agreeable to working with therapy. Patient Goals get stronger before going home . M4 PT-IP Mobility and Gait Start: 02/24/22 12:14 Freq: NEEDED Status: Active Protocol: Document 03/01/22 11:01 SP (Rec: 03/01/22 14:12 SP [id number]) PT-Bed Mobility Assessment Supine to Sit Supine to Sit Maximum Assistance,2 Person Assistance,Head of Bed Elevated,Bedrails Scooting Scooting to Edge of Bed Maximum Assistance PT-Transfer Assessment Sit to and From Stand Sit to and from Stand Maximum Assistance,2 Person Assistance,Use of Upper Extremities Equipment Transfer Assistive Device Gait Belt,Platform Walker Orthotic/Prosthetic Devices or Brace: No Transfers Transfer Destination Chair Transfer Technique Stand Step Pivot Transfer Ability Level of Assist Maximum Assistance,2 Person Assistance,Use of Upper Extremities Comments Mobility Comments Pt required increased trunk support LLE cues placement decreased WB self support today and retro leaning challenge during elevated supine>sit, scoot to EOB Max A x2 with use of transfer pad. Required Mod- Max A for sitting support at EOB. Sit<> stand from bed, stand step pivot to chair w/ PFWW and sit onto chair and scoot back Max A x2 with support for trunk stability and walker repositioning, max cues for each LE progression. Assisted elevated RLE with pillows higher than heart, pillows under BLE reclined in chair. Had call light and all needs in reach with chair alarm donned for safety. Gait Assessment Gait Gait Assistance Required: Maximum Assistance,2 Person Assist Distance (Feet) 2 Able to Maintain Weight Bearing Status Yes During Gait Assistive Devices Assistive Device Gait Belt,Platform Walker Orthotic/Prosthetic Devices or Brace: No Gait Deviations General Gait Pattern Antalgic,Decreased Stride Length,Decreased Feet Clearance,Flexed Trunk,Lateral Trunk Lean,Step-to Gait,Wide Based Gait Factors Limiting Gait Function Factors Limiting Gait Function Decreased Activity Tolerance, Decreased Sensation,Decreased Strength,Difficulty Following Directions,Limited Range of Motion,Pain,Poor Balance,Poor Safety Awareness Comments Gait Comments see mobility comments, SPT only w/ PFWW Max A x2 step to gait with increased trunk/ FWW support, max cues for sequencing. Stair Climbing Assessment Comments Stair Climbing Comments Unable at this time but will need complete 3 step wide HR to enter home for safe DC when able. PT-Balance Assessment Sitting Balance and Reactions Static Sitting Balance Ability Poor Dynamic Sitting Balance Ability Poor Standing Balance and Reactions Static Standing Balance Ability Poor Dynamic Standing Balance Ability Poor Device Used PFWW M5 PT-IP Objective Assessments Start: 02/24/22 12:14 Freq: NEEDED Status: Active Protocol: Document 02/24/22 10:20 AB (Rec: 02/24/22 12:24 AB [id number]) Orientation Orientation/Cognition Level of Alertness Alert Orientation Name,Place,Situation Language Function Ability Hard of Hearing Safety Awareness Decreased Safety Awareness Memory Description Short Term Impaired Gross Range of Motion Lower Extremity ROM Assessment Left Impaired Impairments pain limiting L knee movement Strength Lower Extremity Strength Assessment Left Impaired Hip 4-/5 Knee 3+/5 Coordination Assessment Gross Coordination Gross Coordination WNL Muscle Tone Muscle Tone WNL Yes M6 PT-IP Treatment Start: 02/24/22 12:14 Freq: NEEDED Status: Active Protocol: Document 03/01/22 11:01 SP (Rec: 03/01/22 14:12 SP [id number]) Physical Therapy Treatment Education Education Provided Weight Bearing Status,Safety M7 PT-IP Assessment and Plan Start: 02/24/22 12:14 Freq: NEEDED Status: Active Protocol: Document 03/01/22 11:01 SP (Rec: 03/01/22 14:12 SP [id number]) PT Summary Assessment and Plan Potential Rehabilitation Potential Fair Status of Condition at Evaluation Evolving Summary Impairments Pain,ROM,Strength,Balance, Coordination,Sensation,Tone, Cognition,Bed Mobility, Transfers,Gait,Activity Tolerance Progress Towards Goals Slow Progress due to Pain,Slow Progress due to Activity Tolerance Assessment Summary Pt increased physical assist Max A for all mobility today, including assist for trunk support seated and FWW repositioning. Pt will need SNF for improved functional mobility strengthening. Goals Bed Mobility Goal Minimal Assistance Transfer Goal Minimal Assistance,Front Wheeled Walker Gait Goal Minimal Assistance,Front Wheel Walker Gait Distance 100 Other Goals improve bed mobility, transfers using FWW, ambulation using FWW 150 ft SBA up/down 3 steps 1 rail SBA Days to Meet Goals 10 Frequency of Treatment Frequency Of Treatment Once a Day Treatment Plan Physical Therapy Treatment Plan Bed Mobility Training,Transfer Training,Gait Training, Therapeutic Exercise,Balance Retraining,Discharge Planning, Hot or Cold Pack,Neuromuscular Re-ed,Coordination Retraining ,Manual Therapy Other Recommendations and Next Treatment LE ex, bed mob, transfers, STS Focus for strengthening, gait further distance w/ PFWW and chair follow. Recommendations To Nursing Amount of Assist Needed 2 Person Assist Discharge Recommendations PT Discharge Recommendations SNF Rehab Transportation Needs at Discharge Wheelchair/Cabulance
[2022-03-01] MEDS: HYDROCODONE/ACET 5/325 TABLET 1 TAB PO (12:11)
[2022-03-01] MEDS: INSULIN LISPRO 100 UNIT/ML 3ML VIAL SUBCUT (12:12)
--- NOTE | 2022-03-01 12:32 | CM.DPC ---
Addendum entered by Alena RubiomanJANN 03/01/22 16:05: ADD: Return call from spouse and COVID card shows last COVID booster was 11/20/21. SW called [facility] and confirmed within the window and no further booster shot needed but they will need a copy for their records. SW will need to request from spouse tomorrow. BF Addendum entered by Alena Huddleston, CRIMPER ASSEMBLER 03/01/22 14:28: ADD: Return call from Vincent at [facility] and pt's out of pocket would be at least $500 a week. SW met bedside with pt and spouse and updated on out of pocket expense for home infusion and discussed pt's current 2PA and spouse confirms that pt is waxing and waning with his confusion and spouse in agreement now that SNF needed and SW updated on [facility], [facility], [facility], and [facility] review. Spouse appreciative. SW received a return call from [facility] that they can accept pt pending pricing out his home meds and if needed pt may need to bring one or two of his own home meds but feel they can meet his needs. Pt may need updated COVID booster shot or will have a private room anyways for CPAP needs. SW called spouse Francisco J and updated and she is agreeable with [facility] and has copy of pt's COVID vaccinations and thinks he received one recently and she will check and let SW know. SW called and left Dr. Pelaez a msg on acceptance at [facility]. Plan: SW to follow for plan of d/c to [facility] via BLS vs Cabulance pending pt's abilities when medically stable and possible need for updated COVID booster. BF Original Note: DCP SNF vs Home Infusion Per MD, after consultation with Ortho and ID MD decision of 6 weeks IV-Abx and either Naficillin Q4 or Cefazolin Q8 depending on insurance coverage for either SNF or home infusion. Pt currently with midline as PICC not recommended yet due to need for pt still to have outpt AMANDA to r/o endocarditis. MD anticipates possible d/c in 1-2 days pending progress. Per Ortho, drain removed, seems to be improving but concern for white count continuing to increase. Per MD and PT, still recommending SNF as pt 2PA max and fatigues even after stand pivot transfer. SW met bedside with pt and discussed above and pt was really hopeful to avoid SNF and d/c to home. SW discussed his current 2PA max needs and pt confirms currently he would not have 2PA 31/01. SW also discussed his straight Medicare does not cover home infusion for IV-Abx and pt would have a copay/out pocket expense depending on how much his supplemental insurance would cover and unclear if midline would be an issue for home infusion company rather than PICC. Pt agreeable with SW making referral to [facility] to determine out of pocket expense and also with updating his spouse on above to determine best d/c plan. SW faxed referral to [facility] and spoke to Vincent regarding situation and need to know out of pocket expense and also if midline would be an issue. Vincent states the reason they prefer PICC is midlines tend to stop working and need to be replaced within just a couple weeks and would not last for 6 weeks of IV-abx but could be discussed further if pt/spouse determine they want to attempt home. SW faxed updated clinicals and IV-Abx needs to following SNFs (pt would need updated COVID booster): [facility]- continuing to review, pt would need to bring two of his own home meds. [facility]- left msg requesting review of updated notes [facility]- called and discussed pt situation and agreeable to review updated notes today [facility]- left msg and requested review of updated notes [facility]- no anticipated beds for a few days Plan: SW to follow closely for [facility] for out pocket expense and for above SNF's final review to determine safe d/c plan at discharge. JANN Hankins
[2022-03-01] MEDS: RIVAROXABAN 10 MG TABLET 20 MG PO (17:20)
[2022-03-01] MEDS: ATORVASTATIN 20 MG TABLET PO (22:05)
[2022-03-01] MEDS: TAMSULOSIN 0.4 MG CAPSULE PO (22:05)
[2022-03-01] MEDS: ROPINIROLE 1 MG TABLET 2 MG PO (22:06)
[2022-03-01] MEDS: INSULIN GLARGINE 100 UNIT/ML 3ML PEN 55 UNIT SUBCUT (22:16)
[2022-03-02] VITALS (8 sets, daily range): BP systolic 142–176; BP diastolic 64–78; PULSE 70–80; RESP 20–24; TEMP 36.3–37.2; O2SAT 94–98
[2022-03-02] MEDS: NAFCILLIN 2 GM in SODIUM CHLORIDE 0.9% 100 ML IV ×6 (01:15→21:25)
[2022-03-02 05:46] LABS: Add Manual Diff / Slide Review NO; Basophils Absolute Auto 0 /uL (0-100); Basophils Percent Auto 0.2 % (0-2); Eosinophils Absolute Auto 200 /uL (0-450); Eosinophils Percent Auto 0.8 % (2-4); Hematocrit 30.1 % (41-53); Hemoglobin 9.8 g/dL (13.5-17.5); Lymphocytes Absolute Auto 2100 /uL (1100-4500); Lymphocytes Percent Auto 10.7 % (25-40); Mean Corpuscular HGB Conc 32.6 % (30-36); Monocytes Absolute Auto 900 /uL (0-900); Monocytes Percent Auto 4.6 % (3-14); Neutrophils Absolute Auto 16400 /uL (1500-7000); Neutrophils Percent Auto 83.7 % (50-75); Platelet Count 346 X10^3/uL (150-400); Red Cell Distribution Width 19.8 % (11.6-14.8); White Blood Cell Count 19.6 X10^3/uL (4.5-11.0)
[2022-03-02 05:47] LABS: Alanine Aminotransferase 12 IU/L (<50); Albumin 2.5 g/dL (3.5-5.0); Alkaline Phosphatase 88 U/L (38-126); Aspartate Aminotransferase 19 IU/L (17-59); BUN Creatinine Ratio 31.3 (6-22); Bilirubin Total 0.8 mg/dL (0.2-1.3); Blood Urea Nitrogen 30 mg/dL (9-20); Carbon Dioxide 24 mmol/L (22-32); Chloride 103 mmol/L (98-107); Estimated Glomerular Filt Rate > 60 mL/min (>60); Glucose 102 mg/dL (80-110); Potassium 3.6 mmol/L (3.4-5.1); Sodium 132 mmol/L (137-145); Total Protein 5.7 g/dL (6.3-8.2)
[2022-03-02 05:48] LABS: Albumin Globulin Ratio 0.8 (1.0-2.8); Globulin 3.2 g/dL (1.7-4.1); HEMOLYSIS < 15 (0-50)
[2022-03-02 05:59] LABS: Troponin I 0.014 ng/mL (0.01-0.034)
[2022-03-02 09:24] LABS: Erythrocyte Sedimentation Rate 112 MM/HR (0-15)
[2022-03-02] MEDS: DOCUSATE 100 MG CAPSULE PO (10:03)
[2022-03-02] MEDS: POTASSIUM CHLORIDE 20 MEQ TAB PO ×2 (10:03→16:57)
[2022-03-02] MEDS: AMLODIPINE 5 MG TABLET 10 MG PO ×2 (10:04→18:10)
[2022-03-02] MEDS: METFORMIN HCL 500 MG TABLET 1000 MG PO ×2 (10:04→16:57)
[2022-03-02] MEDS: allopurinoL 300 MG TABLET PO (10:04)
[2022-03-02] MEDS: PANTOPRAZOLE DR 20 MG TABLET PO (10:04)
[2022-03-02] MEDS: DULOXETINE 30 MG CAPSULE 60 MG PO (10:04)
[2022-03-02] MEDS: ASPIRIN EC 81 MG TABLET PO ×2 (10:05→20:29)
[2022-03-02] MEDS: SUCRALFATE 1 GM TABLET PO ×4 (10:05→20:29)
[2022-03-02] MEDS: MAGNESIUM OXIDE 400 MG TABLET PO (10:05)
[2022-03-02] MEDS: FERROUS SULFATE 325 MG TABLET PO ×2 (10:05→16:57)
[2022-03-02] MEDS: GABAPENTIN 600 MG TABLET 1200 MG PO ×2 (10:05→20:31)
[2022-03-02] MEDS: carvediloL 12.5 MG TABLET PO ×2 (10:06→20:29)
--- NOTE | 2022-03-02 10:06 | P.DS_ITS ---
History of Present Illness History of Present Illness Chief complaint: Blood infection- sent by Dr Pelaez Narrative: 66-year-old male with coronary artery disease status post coronary artery stenting and CABG insulin-dependent diabetes with diabetic nephropathy neuropathy hypertension hyperlipidemia obstructive sleep apnea with obesity significant arthritis restless leg syndrome patient presented to the clinic yesterday with not feeling well symptoms. Patient was weak his noticed he was a little bit pale. 24 hours before arrival to the clinic patient had 1 episode of fever. Patient began to have multiple areas of joint pain including his knee wrists and shoulders. Patient has a history of significant osteoarthritis and pseudogout. Patient has had episodes of weakness low-grade fevers and inflammatory markers elevation 2 or 3 times in the past few years. Patient has had a workup for bacterial infections with blood cultures echocardiogram including AMANDA to rule out valvular vegetations. Despite this patient has not had any obvious source of infection with workup over the past 1- 2 years with these events are episodes. His episode he presents with that today is very similar to his previous episodes. After evaluation in the clinic blood work was done including blood cultures and white blood cell count. Patient was discharged home with his closely monitoring him who was a nurse. Patient's blood work came back positive this morning with a blood culture patient was contacted his and patient was brought to the emergency department His states that last night was a little bit of a rough night he was a little bit confused. Trying to bring him into the emergency department he was very weak and had a hard time standing and had a little bit of a fall. On arrival to the emergency department patient was found to have a solid systolic blood pressure of 87 and diastolic pressed pressure of 51 which is considered quite hypotensive for the patient. Patient was not significantly tachycardic patient is on a beta-sis. His temperature was 98.5 his his tempe rature was at home was 100.1. because of patient's hypotensive status is weakness and positive blood culture. Patient was treated for sepsis. Patient had additional blood work testing done which showed elevated lactic acid elevated white blood cell count elevated procalcitonin. Patient was given appropriate antibiotics fluid resuscitation. A my evaluation in the patient is not hypoxic blood pressures are a little bit soft. He is not mentating normally and not a good historian his is at the bedside. He says he is tired and weak and his joints hurt. Discharge Providers Provider Date of admission: 02/23/22 14:34 Discharge Date: 03/02/22 Primary care physician: Gigi Pelaez MD Consults: 02/23/22 15:49 Consult to Dietitian, Adult Routine Comment: Reason For Exam: intake Consult to Discharge Planning Routine Comment: Consult to Physical Therapy Evaluate & Treat Comment: Physician Instructions: Evaluate and Treat 02/24/22 12:26 Consult to Home Health Routine Comment: Severe sepsis, encephalopathy, kidney injury Reason For Exam: Set up RN/PT/PHYSIATRIST for d/c to home 02/25/22 02:38 Consult to Respiratory Therapy Evaluate & Treat Comment: Physician Instructions: Evaluate and treat Consult to Tele-sewing machine operator floorperson Routine Comment: Consulting Provider: Jaqui Tele-intensivists Reason for consultation: Physician Neonatology services 02/27/22 10:15 Consult to Physician Routine Comment: Consulting Provider: Bhavesh Tripp Reason for consultation: right wrist swelling Has provider been notified: Yes 02/27/22 13:19 Consult to Discharge Planning Routine Comment: Consult to Physical Therapy Evaluate & Treat Comment: Physician Instructions: Evaluate and Treat Consult to Respiratory Therapy Evaluate & Treat Comment: Physician Instructions: Evaluate and treat Discharge provider: Gigi Pelaez MD Summary Hospital Course Discharge Diagnosis: Severe sepsis due to Staph aureus bacteremia non methicillin resistant Staph aureus bacteremia Right wrist abscess Acute respiratory failure due to sepsis and heart failure Acute systolic heart failure due to sepsis Atrial fibrillation with rapid ventricular response due to sepsis and heart failure Acute myocardial ischemia with elevation of troponin due to sepsis Acute kidney injury due to sepsis Acute metabolic encephalopathy due to sepsis and heart failure Coronary artery disease status post CABG Insulin-dependent type 2 diabetes Morbid obesity Obstructive sleep apnea requiring uses CPAP BPH Hypertension Hyperlipidemia Hospital Course: Patient admitted to the hospital with severe sepsis due to underlying bacterial infection with Staph aureus. Patient had positive blood cultures. On arrival to the hospital he was hypotensive had elevation of his kidney function. He was admitted to the hospital with IV antibiotics and evaluation for source. Ultimate source was found out to be a right wrist infection was taken to the OR with I&D. Patient had Staph aureus not only in his blood but grew out in his a wound culture of his right wrist. Patient had good debridement of the wound and good after results. Patient initially was quite hypotensive received lots of IV fluid resuscitation. Patient went into respiratory failure due to sepsis and fluids provided with his underlying congestive heart failure and atrial fibrillation with rapid ventricular response. Patient was transferred to the ICU his respiratory failure was treated appropriately his atrial fibrillation was managed. And his kidney function was monitored closely. Patient had episodes of confusion initially in the hospital that then had improvement during his hospital stay as his infection improved. Patient had elevation of his cardiac enzymes not significantly thought due to ischemia with his underlying coronary artery disease due to his sepsis hypotension and respiratory failure and significant atrial fibrillation. Patient remained on anticoagulation during his hospital stay. Patient had control of his blood sugars during his hospital stay. At the time of discharge. Orthopedic surgery is following his wound and will have a continuous wound checks and a follow-up appointment with Dr. Albert Tripp as [facility] recommended a follow-up appointment.. Talk with his infections Disease specialist Dr. Darnell who recommended 6 weeks of IV antibiotics cefazolin 2 g every 8 hours. She wants twice weekly CBC basic metabolic profile sed rate CRP. Patient will need to schedule follow-up appointment with her in 2 weeks as well. Exam Vital Signs (past 8 hours): - 03/02/22 05:00 03/02/22 08:48 Temperature 98.2 F 97.4 F L Pulse Rate 78 80 Respiratory Rate 22 22 Blood Pressure 161/75 H 161/77 H Pulse Oximetry 96 96 Oxygen Flow Rate 0 0 Fraction of Inspired Oxygen 35 Oxygen Delivery Method Room Air,CPAP Oxygen Flow Rate 0 Objective Labs Result Diagrams: 03/02/22 05:26 03/02/22 05:26 Labs: Laboratory Results - last 24 hr 03/01/22 03/02/22 03/02/22 10:20 00:01 00:01 WBC RBC Hgb Hct MCV MCH MCHC RDW Plt Count Neut % (Auto) Lymph % (Auto) Morrill % (Auto) Eos % (Auto) Baso % (Auto) Neut # (Auto) Lymph # (Auto) [place]rill # (Auto) Eos # (Auto) Baso # (Auto) ESR 112 H Sodium Potassium Chloride Carbon Dioxide BUN Creatinine Estimated GFR BUN/Creatinine Ratio Glucose Calcium Magnesium 1.8 Total Bilirubin AST ALT Alkaline Phosphatase Troponin I C-Reactive Protein 17.0 H Total Protein Albumin Globulin Albumin/Globulin Ratio 03/02/22 03/02/22 05:26 05:26 WBC 19.6 H RBC 3.50 L Hgb 9.8 L Hct 30.1 L MCV 86.0 MCH 28.0 MCHC 32.6 RDW 19.8 H Plt Count 346 Neut % (Auto) 83.7 H Lymph % (Auto) 10.7 L Morrill % (Auto) 4.6 Eos % (Auto) 0.8 L Baso % (Auto) 0.2 Neut # (Auto) 99955 H Lymph # (Auto) 2100 Morrill # (Auto) 900 Eos # (Auto) 200 Baso # (Auto) 0 ESR Sodium 132 L Potassium 3.6 Chloride 103 Carbon Dioxide 24 BUN 30 H Creatinine 0.96 Estimated GFR > 60 BUN/Creatinine Ratio 31.3 H Glucose 102 Calcium 8.0 L Magnesium Total Bilirubin 0.8 AST 19 ALT 12 Alkaline Phosphatase 88 Troponin I 0.014 C-Reactive Protein Total Protein 5.7 L Albumin 2.5 L Globulin 3.2 Albumin/Globulin Ratio 0.8 L PFSH Medical History Chronic pain Chronic rhinitis Coronary artery disease (04/29/14) CTS (carpal tunnel syndrome) (1977) Diabetes mellitus Essential hypertension ETD (eustachian tube dysfunction) Hypersomnia (~1997) Hypogonadism in male Insomnia, persistent (~1995) Mixed hyperlipidemia Obesity with body mass index (BMI) of 30.0 to 39.9 (04/24/15) Obstructive sleep apnea of adult Osteoarthritis of hands, 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 (07/29/15) Primary osteoarthritis of left knee (03/03/16) Restless legs syndrome (04/24/15) Squamous cell carcinoma of nose (2004) Type 2 diabetes mellitus with other skin ulcer (04/24/15) Wound healing, delayed Wound, open, foot Surgical History History of carpal tunnel repair (1977) History of coronary artery stent placement (04/2014) Hx of inguinal hernia surgery (1977) S/P CABG x 3 S/P CABG x 3 Status post arthroscopy Status post rotator cuff repair Family History Father Coronary artery disease Alcoholism Sudden Other Depression Social History marital status: details: jose Marx, lives in [place] household members: spouse lives independently: Yes caregiver/support person: No housing: house princess/episcopal: [employer]ism Saint / Restorationism Smoking Status: Never smoker alcohol intake: never substance use type: does not use eating out: 1-3 times/week Type(s) of exercise: walking, aerobic, bicycling, advised to exercise at least 150 min/week (moderate intensity aerobic) and advised to perform resistance training at least 2x/week Discharge Plan Discharge Plan Transfer to: [facility] Provider Discharge Comment: needs twice weekly cbc bmp sed rate and crp. Needs F?U apt with Dr Venkatesh Escobedo Infectious disease [phone] Follow up [facility] Ortho Dr. Caleb Bee for wrist I and D 10 days dressing change every other day to wrist or with saturation Discharge orders & Medications Discharge Orders: Discharge (Order); Ordered 03/02/22 Ordered By: Gigi Pelaez Prescriptions: New acetaminophen 325 mg Tablet 650 mg PO Q6HR PRN (Reason: Fever/Mild Pain (1-3)) Qty: 30 0RF ferrous sulfate 325 mg (65 mg iron) Tablet 325 mg PO DAILY Qty: 30 0RF cefazolin 2 gram recon soln 2 g IM Q8H Qty: 25 0RF Continued aspirin [Enteric Coated Aspirin] 81 mg tablet,delayed release (DR/EC) 81 mg PO DAILY allopurinol 300 mg tablet 300 mg PO DAILY Qty: 90 3RF amlodipine 10 mg tablet 10 mg PO DAILY Qty: 90 3RF carvedilol 12.5 mg tablet 12.5 mg PO BID Qty: 180 3RF Rx Instructions: must administer with a meal/food dapagliflozin 10 mg tablet 10 mg PO DAILY Qty: 90 3RF duloxetine 60 mg capsule,delayed release(DR/EC) 60 mg PO DAILY Qty: 90 3RF gabapentin 600 mg tablet 1,200 mg PO BID Qty: 360 3RF olmesartan 40 mg tablet 40 mg PO DAILY Qty: 90 3RF pantoprazole 20 mg tablet,delayed release (DR/EC) 20 mg PO DAILY Qty: 90 3RF ropinirole 2 mg tablet See Rx Instructions PO BID Qty: 270 3RF Rx Instructions: Take one tab each am and 2 tabs at bedtime rosuvastatin 10 mg tablet 10 mg PO DAILY Qty: 90 3RF furosemide 20 mg tablet 20 mg PO DAILY Qty: 90 3RF metformin 500 mg tablet 1,000 mg PO BIDCC Qty: 360 3RF insulin lispro [Humalog U-100 Insulin] 100 unit/mL solution 5 unit SUBCUT TID Qty: 150 3RF Rx Instructions: 15-30 units before meals Xarelto 20 mg tablet 20 mg PO QPM Qty: 90 3RF cyclobenzaprine 10 mg tablet 10 mg PO TID PRN (Reason: spasms) Label Comments: patient states taken a long time ago. 04/25/19 tamsulosin [Flomax] 0.4 mg Capsule 0.4 mg PO DAILY PRN (Reason: Urinary Retention) Changed insulin glargine [Lantus Solostar U-100 Insulin] 100 unit/mL (3 mL) insulin pen 55 unit SUBCUT BEDTIME Qty: 135 3RF hydrocodone-acetaminophen 5-325 mg tablet 1 tab PO Q6H PRN (Reason: pain) Qty: 20 0RF Rx Instructions: EXEMPT tramadol 50 mg tablet 50 mg PO Q6HR Qty: 20 0RF Discontinued glucagon 1 mg recon soln 1 mg SUBCUT Q20M PRN (Reason: Hypoglycemia) Rx Instructions: until target blood sugar attained epinephrine 0.3 mg/0.3 mL auto-injector 0.3 mg IM ONCE PRN (Reason: anaphylaxis) Rx Instructions: as a single dose prednisone 10 mg tablet 10 mg PO DAILY Qty: 30 0RF Rx Instructions: 20 mg po for 5 days (3 days left) 10 mg po for 5 day and 5 mg po for 5 day colchicine 0.6 mg tablet 0.6 mg PO BID Qty: 180 3RF sucralfate [Carafate] 1 gram Tablet 1 g PO QID triamcinolone acetonide 0.1 % lotion 1 applic topical DAILY PRN (Reason: Rash) Ozempic 0.25 mg or 0.5 mg(2 mg/1.5 mL) pen injector 1 mg SUBCUT QWEEK Rx Instructions: wednesdays Follow up/Referrals: Gigi Pelaez MD [Primary Care Provider] - Discharge Data Primary Care Provider: Gigi Pelaez Quality VTE Deep Vein Thrombosis/Pulmonary Embolism Present on Admission: No
[2022-03-02] MEDS: FUROSEMIDE 40 MG/4 ML VIAL IV (10:07)
[2022-03-02] MEDS: ROPINIROLE 1 MG TABLET PO (10:34)
[2022-03-02] MEDS: COLCHICINE 0.6 MG TABLET PO (10:34)
[2022-03-02] MEDS: SODIUM CHLORIDE 0.9% FLUSH 10 ML IV (10:35)
--- NOTE | 2022-03-02 10:56 | PT.IPTN ---
Current Diagnoses Sepsis, unspecified organism (02/23/22) Methicillin susceptible Staphylococcus aureus infection as the cause of diseases classified elsewhere (02/23/22) Type 2 diabetes mellitus with unspecified complications (02/23/22) Obesity, unspecified (02/23/22) Obstructive sleep apnea (adult) (pediatric) (02/23/22) Other chronic pain (02/23/22) Atherosclerotic heart disease of [place] coronary artery without angina pectoris (02/23/22) Unspecified atrial fibrillation (02/23/22) Acute systolic (congestive) heart failure (02/23/22) Acute respiratory failure with hypoxia (02/23/22) Cutaneous abscess of limb, unspecified (02/23/22) Other chondrocalcinosis, unspecified site (02/23/22) Severe sepsis without septic shock (02/23/22) Bacteremia (02/23/22) care home (current) use of anticoagulants (02/23/22) care home (current) use of insulin (02/23/22) Surgery Performed Operation Date: 02/27/22 11:30 Actual Procedures p Incision and Drainage Right Wrist(Right) - Bhavesh Tripp MD Physical Therapy Treatment Note M2 PT-IP Current Condition Start: 02/24/22 12:14 Freq: NEEDED Status: Active Protocol: Document 03/01/22 11:01 SP (Rec: 03/01/22 14:12 SP [id number]) Physical Therapy Current Condition Current Condition Evaluation Date 02/24/22 Treatment Diagnosis sepsis; pseudogout; difficulty in walking Onset Date 02/23/22 M3 PT-IP Subjective Start: 02/24/22 12:14 Freq: NEEDED Status: Active Protocol: Document 03/02/22 10:56 AB (Rec: 03/02/22 12:49 AB [id number]) Subjective Physical Therapy Visit Type Type Treatment Note Visit Start Time 10:56 Visit Stop Time 11:30 Total Visit Minutes 34 Number of GARBAGE COLLECTOR SUPERVISOR Visits 0 Physical Therapy Visit Comments Patient Comments agreeable to do PT M4 PT-IP Mobility and Gait Start: 02/24/22 12:14 Freq: NEEDED Status: Active Protocol: Document 03/02/22 10:56 AB (Rec: 03/02/22 12:49 AB [id number]) PT-Bed Mobility Assessment Supine to Sit Supine to Sit Maximum Assistance,2 Person Assistance,Head of Bed Elevated,Bedrails Sit to Supine Sit to Supine Maximum Assistance,2 Person Assistance PT-Transfer Assessment Sit to and From Stand Sit to and from Stand Maximum Assistance,2 Person Assistance,Use of Upper Extremities Equipment Transfer Assistive Device Gait Belt,Platform Walker Orthotic/Prosthetic Devices or Brace: No Comments Mobility Comments pt completed bed mobility supine to sit max A x 2 and max cues. max A x 2 for scooting to EOB. completed sit to stand max A x 2 and max cues and ambulated in room ~ 15 ft using PFWmax A and max cues. pt refused to sit on the chair and wants to go back to bed. ambulated back to bed using PFW max A and completed sit to supine max a x 2 and max cues. positioned pt in bed. call light and table placed within reach. Gait Assessment Gait Gait Assistance Required: Maximum Assistance,1 Person Assist Distance (Feet) 15 Assistive Devices Assistive Device Gait Belt,Platform Walker Orthotic/Prosthetic Devices or Brace: No Gait Deviations General Gait Pattern Antalgic,Decreased Stride Length,Decreased Feet Clearance,Step-to Gait Factors Limiting Gait Function Factors Limiting Gait Function Decreased Activity Tolerance, Decreased Strength,Difficulty Following Directions,Limited Range of Motion,Pain,Poor Balance,Poor Safety Awareness M5 PT-IP Objective Assessments Start: 02/24/22 12:14 Freq: NEEDED Status: Active Protocol: Document 02/24/22 10:20 AB (Rec: 02/24/22 12:24 AB [id number]) Orientation Orientation/Cognition Level of Alertness Alert Orientation Name,Place,Situation Language Function Ability Hard of Hearing Safety Awareness Decreased Safety Awareness Memory Description Short Term Impaired Gross Range of Motion Lower Extremity ROM Assessment Left Impaired Impairments pain limiting L knee movement Strength Lower Extremity Strength Assessment Left Impaired Hip 4-/5 Knee 3+/5 Coordination Assessment Gross Coordination Gross Coordination WNL Muscle Tone Muscle Tone WNL Yes M6 PT-IP Treatment Start: 02/24/22 12:14 Freq: NEEDED Status: Active Protocol: Document 03/02/22 10:56 AB (Rec: 03/02/22 12:49 AB [id number]) Physical Therapy Treatment Education Education Provided Safety M7 PT-IP Assessment and Plan Start: 02/24/22 12:14 Freq: NEEDED Status: Active Protocol: Document 03/02/22 10:56 AB (Rec: 03/02/22 12:49 AB [id number]) PT Summary Assessment and Plan Potential Rehabilitation Potential Fair Summary Impairments Pain,ROM,Strength,Balance, Coordination,Sensation,Tone, Cognition,Bed Mobility, Transfers,Gait,Activity Tolerance Progress Towards Goals Slow Progress due to Pain,Slow Progress due to Medical Issues,Slow Progress due to Activity Tolerance Assessment Summary pt requiring max A x 2 with mobility using PFW. pt will require SNF rehab to improve strength and mobility. Goals Bed Mobility Goal Minimal Assistance Transfer Goal Minimal Assistance,Front Wheeled Walker Gait Goal Minimal Assistance,Front Wheel Walker Gait Distance 100 Other Goals improve bed mobility, transfers using FWW, ambulation using FWW 150 ft SBA up/down 3 steps 1 rail SBA Days to Meet Goals 10 Frequency of Treatment Frequency Of Treatment Once a Day Treatment Plan Physical Therapy Treatment Plan Bed Mobility Training,Transfer Training,Gait Training, Therapeutic Exercise,Balance Retraining,Discharge Planning, Hot or Cold Pack,Neuromuscular Re-ed,Coordination Retraining ,Manual Therapy Recommendations To Nursing Amount of Assist Needed 2 Person Assist Discharge Recommendations PT Discharge Recommendations SNF Rehab Transportation Needs at Discharge Wheelchair/Cabulance
[2022-03-02] MEDS: LOSARTAN 50 MG TABLET PO (12:56)
[2022-03-02] MEDS: INSULIN LISPRO 100 UNIT/ML 3ML VIAL SUBCUT ×3 (12:57→20:43)
--- NOTE | 2022-03-02 16:54 | PM.PNPO.1 ---
Subjective Subjective Date Patient Seen: 03/02/22 Time Patient Seen: 13:00 Interval history: The patient is sleepy and trying to take a nap with his CPAP on. He has minimal risk complaints at this time. He denies any fevers, chills, night sweats. Exam Vital Signs (past 8 hours): - 03/02/22 12:13 03/02/22 16:00 Temperature 97.7 F 99.0 F Pulse Rate 78 74 Respiratory Rate 20 23 Blood Pressure 165/76 H 176/78 H Pulse Oximetry 96 98 Oxygen Flow Rate 0 Fraction of Inspired Oxygen 35 Oxygen Delivery Method Room Air Oxygen Flow Rate 0 Narrative Exam Narrative: Pleasant 66-year-old male, resting comfortably in bed, no acute distress. [id number] swelling throughout the hand. Sensation is diminished but intact in all fingers.? He has an underlying neuropathy which has diminished his sensation over his fingers in the long-term.? He is able to move all fingers slightly but is quite stiff. Objective Labs Result Diagrams: 03/02/22 05:26 03/02/22 05:26 Labs: Laboratory Results - last 24 hr 03/02/22 03/02/22 03/02/22 00:01 00:01 05:26 WBC 19.6 H RBC 3.50 L Hgb 9.8 L Hct 30.1 L MCV 86.0 MCH 28.0 MCHC 32.6 RDW 19.8 H Plt Count 346 Neut % (Auto) 83.7 H Lymph % (Auto) 10.7 L [place] % (Auto) 4.6 Eos % (Auto) 0.8 L Baso % (Auto) 0.2 Neut # (Auto) 27874 H Lymph # (Auto) 2100 [place] # (Auto) 900 Eos # (Auto) 200 Baso # (Auto) 0 ESR 112 H Sodium Potassium Chloride Carbon Dioxide BUN Creatinine Estimated GFR BUN/Creatinine Ratio Glucose Calcium Total Bilirubin AST ALT Alkaline Phosphatase Troponin I C-Reactive Protein 17.0 H Total Protein Albumin Globulin Albumin/Globulin Ratio 03/02/22 05:26 WBC RBC Hgb Hct MCV MCH MCHC RDW Plt Count Neut % (Auto) Lymph % (Auto) [place] % (Auto) Eos % (Auto) Baso % (Auto) Neut # (Auto) Lymph # (Auto) [place] # (Auto) Eos # (Auto) Baso # (Auto) ESR Sodium 132 L Potassium 3.6 Chloride 103 Carbon Dioxide 24 BUN 30 H Creatinine 0.96 Estimated GFR > 60 BUN/Creatinine Ratio 31.3 H Glucose 102 Calcium 8.0 L Total Bilirubin 0.8 AST 19 ALT 12 Alkaline Phosphatase 88 Troponin I 0.014 C-Reactive Protein Total Protein 5.7 L Albumin 2.5 L Globulin 3.2 Albumin/Globulin Ratio 0.8 L PFSH Medical History Chronic pain Chronic rhinitis Coronary artery disease (04/29/14) CTS (carpal tunnel syndrome) (1977) Diabetes mellitus Essential hypertension ETD (eustachian tube dysfunction) Hypersomnia (~1997) Hypogonadism in male Insomnia, persistent (~1995) Mixed hyperlipidemia Obesity with body mass index (BMI) of 30.0 to 39.9 (04/24/15) Obstructive sleep apnea of adult Osteoarthritis of hands, 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 (07/29/15) Primary osteoarthritis of left knee (03/03/16) Restless legs syndrome (04/24/15) Squamous cell carcinoma of nose (2004) Type 2 diabetes mellitus with other skin ulcer (04/24/15) Wound healing, delayed Wound, open, foot Surgical History History of carpal tunnel repair (1977) History of coronary artery stent placement (04/2014) Hx of inguinal hernia surgery (1977) S/P CABG x 3 S/P CABG x 3 Status post arthroscopy Status post rotator cuff repair Family History Father Coronary artery disease Alcoholism Sudden Other Depression Social History marital status: details: jose Marx, lives in [place] household members: spouse lives independently: Yes caregiver/support person: No housing: house princess/buddhism: [employer] / Yazidism Smoking Status: Never smoker alcohol intake: never substance use type: does not use eating out: 1-3 times/week Type(s) of exercise: walking, aerobic, bicycling, advised to exercise at least 150 min/week (moderate intensity aerobic) and advised to perform resistance training at least 2x/week Assessment & Plan Post-op Postoperative Procedures: Procedures Operation Date: 02/27/22 11:30 Actual Procedure Side Surgeon p Incision and Drainage Right Wrist Right Bhavesh Tripp MD Postoperative day: 3 Postoperative status narrative: doing well and other (Rising white count) Postoperative plan: routine post-op care Postoperative plan narrative: He appears to be stable postoperatively however it is worrisome that his white count is still increasing. Postoperative plan narrative: His nurse re-dressed the wound this morning. We will need dressing changes every 48 hours. If his hand worsens, we will likely need repeat incision and drainage. -Plan is 6 weeks of IV antibiotics with Infectious Disease. -follow-up with Dr. Tripp in [facility] orthopedics in 10-14 days postoperatively. Orthopedics to sign off at this point, please not hesitate to re-consult with any questions or concerns. Quality VTE Deep Vein Thrombosis/Pulmonary Embolism Present on Admission: No
[2022-03-02] MEDS: RIVAROXABAN 10 MG TABLET 20 MG PO (16:57)
[2022-03-02] MEDS: ROPINIROLE 1 MG TABLET 2 MG PO (20:28)
[2022-03-02] MEDS: ATORVASTATIN 20 MG TABLET PO (20:29)
[2022-03-02] MEDS: TAMSULOSIN 0.4 MG CAPSULE PO (20:29)
[2022-03-02] MEDS: HYDROCODONE/ACET 5/325 TABLET 1 TAB PO (20:34)
[2022-03-02] MEDS: INSULIN GLARGINE 100 UNIT/ML 3ML PEN 55 UNIT SUBCUT (20:43)
[2022-03-03 01:19] VITALS: BP 153/81; PULSE 77; RESP 22; TEMP 37.1; O2SAT 93
[2022-03-03] MEDS: NAFCILLIN 2 GM in SODIUM CHLORIDE 0.9% 100 ML IV ×3 (01:29→09:01)
[2022-03-03 03:38] VITALS: BP 120/58; PULSE 75; RESP 17; TEMP 36.7; O2SAT 96
[2022-03-03 05:24] LABS: Add Manual Diff / Slide Review NO; Basophils Absolute Auto 100 /uL (0-100); Basophils Percent Auto 0.6 % (0-2); Eosinophils Absolute Auto 200 /uL (0-450); Eosinophils Percent Auto 1.1 % (2-4); Hematocrit 29.9 % (41-53); Hemoglobin 9.8 g/dL (13.5-17.5); Lymphocytes Absolute Auto 1600 /uL (1100-4500); Lymphocytes Percent Auto 8.7 % (25-40); Mean Corpuscular HGB Conc 32.7 % (30-36); Mean Corpuscular Hemoglobin 27.8 PG (26-34); Mean Corpuscular Volume 85.2 fL (80-100); Monocytes Absolute Auto 1000 /uL (0-900); Monocytes Percent Auto 5.4 % (3-14); Neutrophils Absolute Auto 15800 /uL (1500-7000); Neutrophils Percent Auto 84.2 % (50-75); Platelet Count 370 X10^3/uL (150-400); Red Blood Cell Count 3.51 X10^6/uL (4.5-5.9); Red Cell Distribution Width 19.9 % (11.6-14.8); White Blood Cell Count 18.8 X10^3/uL (4.5-11.0)
[2022-03-03 05:47] LABS: Alanine Aminotransferase 11 IU/L (<50); Albumin 2.5 g/dL (3.5-5.0); Albumin Globulin Ratio 0.8 (1.0-2.8); Alkaline Phosphatase 87 U/L (38-126); Aspartate Aminotransferase 17 IU/L (17-59); BUN Creatinine Ratio 33.3 (6-22); Bilirubin Total 0.7 mg/dL (0.2-1.3); Blood Urea Nitrogen 29 mg/dL (9-20); Calcium 7.9 mg/dL (8.4-10.2); Carbon Dioxide 22 mmol/L (22-32); Chloride 102 mmol/L (98-107); Estimated Glomerular Filt Rate > 60 mL/min (>60); Globulin 3.2 g/dL (1.7-4.1); Glucose 153 mg/dL (80-110); HEMOLYSIS < 15 (0-50); Potassium 3.1 mmol/L (3.4-5.1); Sodium 132 mmol/L (137-145); Total Protein 5.7 g/dL (6.3-8.2)
--- NOTE | 2022-03-03 07:40 | PM.PN.1 ---
Subjective Subjective Date Patient Seen: 03/03/22 Time Patient Seen: 07:41 Interval history: Patient seen and evaluated this morning a sleep doing well. Nurse reports was up walking about 15 ft yesterday with a walker. Says he does not have much of an appetite not complaining of pain. Good bowel movement urination. He says he is unsteady on his feet feeling weak. Blood pressure little bit high last night better this morning. Potassium a little bit low on laboratory tests he is on oral potassium replacement. Exam Vital Signs (past 8 hours): - 03/03/22 01:19 03/03/22 03:38 Temperature 98.7 F 98.0 F Pulse Rate 77 75 Respiratory Rate 22 17 Blood Pressure 153/81 H 120/58 L Pulse Oximetry 93 96 Oxygen Flow Rate 0 0 Fraction of Inspired Oxygen 35 Oxygen Delivery Method Room Air,CPAP Oxygen Flow Rate 0 Narrative Exam Narrative: Gen.: Alert somewhat sleepy. Arousable good historian HEENT: Pupils equal round and reactive or mucosa is moist neck is supple Cardio: S1-S2 regular rate and rhythm systolic murmur present Respiratory: Normal respiratory effort lung sounds are distant Abdomen: [Soft nontender no rebound or guarding no liver spleen enlargement no appreciable hernias] Extremities: Bandage on his right wrist decreased range of motion in his fingers. Lower extremity no edema left knee swollen not red or hot or tender Objective Labs Result Diagrams: 03/03/22 05:15 03/03/22 05:15 Labs: Laboratory Results - last 24 hr 03/02/22 03/02/22 03/03/22 00:01 00:01 05:15 WBC 18.8 H RBC 3.51 L Hgb 9.8 L Hct 29.9 L MCV 85.2 MCH 27.8 MCHC 32.7 RDW 19.9 H Plt Count 370 Neut % (Auto) 84.2 H Lymph % (Auto) 8.7 L [place] % (Auto) 5.4 Eos % (Auto) 1.1 L Baso % (Auto) 0.6 Neut # (Auto) 33691 H Lymph # (Auto) 1600 [place] # (Auto) 1000 H Eos # (Auto) 200 Baso # (Auto) 100 ESR 112 H Sodium Potassium Chloride Carbon Dioxide BUN Creatinine Estimated GFR BUN/Creatinine Ratio Glucose Calcium Total Bilirubin AST ALT Alkaline Phosphatase C-Reactive Protein 17.0 H Total Protein Albumin Globulin Albumin/Globulin Ratio 03/03/22 05:15 WBC RBC Hgb Hct MCV MCH MCHC RDW Plt Count Neut % (Auto) Lymph % (Auto) [place] % (Auto) Eos % (Auto) Baso % (Auto) Neut # (Auto) Lymph # (Auto) [place] # (Auto) Eos # (Auto) Baso # (Auto) ESR Sodium 132 L Potassium 3.1 L Chloride 102 Carbon Dioxide 22 BUN 29 H Creatinine 0.87 Estimated GFR > 60 BUN/Creatinine Ratio 33.3 H Glucose 153 H Calcium 7.9 L Total Bilirubin 0.7 AST 17 ALT 11 Alkaline Phosphatase 87 C-Reactive Protein Total Protein 5.7 L Albumin 2.5 L Globulin 3.2 Albumin/Globulin Ratio 0.8 L PFSH Medical History Chronic pain Chronic rhinitis Coronary artery disease (04/29/14) CTS (carpal tunnel syndrome) (1977) Diabetes mellitus Essential hypertension ETD (eustachian tube dysfunction) Hypersomnia (~1997) Hypogonadism in male Insomnia, persistent (~1995) Mixed hyperlipidemia Obesity with body mass index (BMI) of 30.0 to 39.9 (04/24/15) Obstructive sleep apnea of adult Osteoarthritis of hands, 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 (07/29/15) Primary osteoarthritis of left knee (03/03/16) Restless legs syndrome (04/24/15) Squamous cell carcinoma of nose (2004) Type 2 diabetes mellitus with other skin ulcer (04/24/15) Wound healing, delayed Wound, open, foot Surgical History History of carpal tunnel repair (1977) History of coronary artery stent placement (04/2014) Hx of inguinal hernia surgery (1977) S/P CABG x 3 S/P CABG x 3 Status post arthroscopy Status post rotator cuff repair Family History Father Coronary artery disease Alcoholism Sudden Other Depression Social History marital status: details: to Francisco J, lives in [place] household members: spouse lives independently: Yes caregiver/support person: No housing: house princess/yazidism: [employer] / Christian Smoking Status: Never smoker alcohol intake: never substance use type: does not use eating out: 1-3 times/week Type(s) of exercise: walking, aerobic, bicycling, advised to exercise at least 150 min/week (moderate intensity aerobic) and advised to perform resistance training at least 2x/week Assessment & Plan Assessment and plan (1) Severe sepsis: Status: Acute (2) Bacteremia due to Staphylococcus aureus: Status: Acute (3) Abscess, wrist: Status: Acute Plan Staph aureus bacteremia wrist abscess and severe sepsis.? Discharged to SNF with [address] Lamb I will see patient as outpatient and schedule AMANDA. Patient stable afebrile blood cultures are negative x2 now. Acute respiratory failure.? Due to acute systolic heart failure and sepsis. Patient is euvolemic. On a little bit of diuretics. Tolerating this well. Hypokalemia. Potassium replacement he is getting oral potassium will give 40 mEq of IV potassium today Acute systolic heart failure due to infection atrial fibrillation.? Improved on IV Lasix this will be stopped at the time of discharge Atrial fibrillation with rapid ventricular response. Patient in normal sinus rhythm anticoagulated Acute myocardial ischemia with elevation of troponin and hospital stay due to underlying sepsis respiratory failure history of coronary artery disease with CABG.? Stable cardiac enzymes Acute metabolic encephalopathy.? Resolved Coronary artery disease status post CABG elevation of troponins initially stable now.? Type 2 diabetes insulin dependent.? Blood sugars are well controlled mid 150s this morning? Morbid obesity chronic stable.? Sleep apnea continuing to use his CPAP at night BPH Dela Cruz catheter is removed Disposition and plan discharge today Time Spent With Patient Critical Care time: I spent a total of [] minutes of critical care time on this patient's care today; this time is exclusive of procedural time. Quality VTE Deep Vein Thrombosis/Pulmonary Embolism Present on Admission: No
[2022-03-03 08:00] VITALS: BP 144/65; PULSE 75; RESP 16; TEMP 37.1; O2SAT 97
--- NOTE | 2022-03-03 08:15 | CM.DPC ---
DCP Discharge SNF Per MD, pt remains stable for d/c to SNF today and no identified barriers to discharge. [facility] set up transport for [id number] today and pt was cleared by PT to safely transport via cabulance. Signed med list and covid vax card faxed yesterday to [facility] for review. CC Lexy kindly faxing d/c packet to [facility] for review and RN kindly getting updated COVID swab prior to d/c this morning. Spouse had been updated yesterday on plan for today and agreeable. BUDDY called [facility] and Iesha confirms she only needs PASRR updated to show new med Cymbalta for depression and updated COVID swab results. BUDDY updated RN, HALF SOLE FITTER, and heat set operator and provided report number for RN and reminded for pt to d/c with own CPAP. Plan: Patient to d/c to [facility] today via cabulance around 1030 before safe return home with spouse. JANN Hankins
[2022-03-03] MEDS: ASPIRIN EC 81 MG TABLET PO (08:24)
[2022-03-03] MEDS: FERROUS SULFATE 325 MG TABLET PO (08:24)
[2022-03-03] MEDS: ROPINIROLE 1 MG TABLET PO (08:24)
[2022-03-03] MEDS: DULOXETINE 30 MG CAPSULE 60 MG PO (08:24)
[2022-03-03] MEDS: MAGNESIUM OXIDE 400 MG TABLET PO (08:24)
[2022-03-03] MEDS: carvediloL 12.5 MG TABLET PO (08:24)
[2022-03-03] MEDS: FUROSEMIDE 40 MG/4 ML VIAL IV (08:24)
[2022-03-03] MEDS: METFORMIN HCL 500 MG TABLET 1000 MG PO (08:24)
[2022-03-03] MEDS: GABAPENTIN 600 MG TABLET 1200 MG PO (08:25)
[2022-03-03] MEDS: allopurinoL 300 MG TABLET PO (08:25)
[2022-03-03] MEDS: LOSARTAN 50 MG TABLET 100 MG PO (08:25)
[2022-03-03] MEDS: POTASSIUM CHLORIDE 20 MEQ TAB PO (08:25)
[2022-03-03] MEDS: SUCRALFATE 1 GM TABLET PO (08:25)
[2022-03-03] MEDS: AMLODIPINE 5 MG TABLET 10 MG PO (08:25)
[2022-03-03] MEDS: PANTOPRAZOLE DR 20 MG TABLET PO (08:26)
[2022-03-03] MEDS: POTASSIUM CHLORIDE 20 MEQ TAB 40 MEQ PO (09:20)
[2022-03-03 09:34] LABS: COVID19 -Nasal RAPID Negative (Negative)
--- NOTE | 2022-03-03 11:21 | PM.PNPO.1 ---
Subjective Subjective Date Patient Seen: 03/03/22 Time Patient Seen: 07:45 Interval history: Resting comfortably in bed. Per nursing, plan is to d/c to SNF today. Exam Vital Signs (past 8 hours): - 03/03/22 03:38 03/03/22 08:00 Temperature 98.0 F 98.8 F Pulse Rate 75 75 Respiratory Rate 17 16 Blood Pressure 120/58 L 144/65 H Pulse Oximetry 96 97 Oxygen Flow Rate 0 3 Fraction of Inspired Oxygen 35 Oxygen Delivery Method Room Air,CPAP Oxygen Flow Rate 3 Narrative Exam Narrative: WBC down from 19.6 yesterday to 18.8 today. Dressing taken down. Dorsal incision with nylon sutures, well-approximated edges, some bloody and serosanguinous drainage on dressing, no purulent drainage noted. On palmar surface, incisions closed with nylon and open area also with scant serosanguinous drainage, no purulence noted. Objective Labs Result Diagrams: 03/03/22 05:15 03/03/22 05:15 Labs: Laboratory Results - last 24 hr 03/03/22 03/03/22 03/03/22 05:15 05:15 07:50 WBC 18.8 H RBC 3.51 L Hgb 9.8 L Hct 29.9 L MCV 85.2 MCH 27.8 MCHC 32.7 RDW 19.9 H Plt Count 370 Neut % (Auto) 84.2 H Lymph % (Auto) 8.7 L [place] % (Auto) 5.4 Eos % (Auto) 1.1 L Baso % (Auto) 0.6 Neut # (Auto) 36202 H Lymph # (Auto) 1600 [place] # (Auto) 1000 H Eos # (Auto) 200 Baso # (Auto) 100 Sodium 132 L Potassium 3.1 L Chloride 102 Carbon Dioxide 22 BUN 29 H Creatinine 0.87 Estimated GFR > 60 BUN/Creatinine Ratio 33.3 H Glucose 153 H Calcium 7.9 L Total Bilirubin 0.7 AST 17 ALT 11 Alkaline Phosphatase 87 Total Protein 5.7 L Albumin 2.5 L Globulin 3.2 Albumin/Globulin Ratio 0.8 L SARS-CoV-2 (PCR) Negative [facility] Medical History Chronic pain Chronic rhinitis Coronary artery disease (04/29/14) CTS (carpal tunnel syndrome) (1977) Diabetes mellitus Essential hypertension ETD (eustachian tube dysfunction) Hypersomnia (~1997) Hypogonadism in male Insomnia, persistent (~1995) Mixed hyperlipidemia Obesity with body mass index (BMI) of 30.0 to 39.9 (04/24/15) Obstructive sleep apnea of adult Osteoarthritis of hands, 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 (07/29/15) Primary osteoarthritis of left knee (03/03/16) Restless legs syndrome (04/24/15) Squamous cell carcinoma of nose (2004) Type 2 diabetes mellitus with other skin ulcer (04/24/15) Wound healing, delayed Wound, open, foot Surgical History History of carpal tunnel repair (1977) History of coronary artery stent placement (04/2014) Hx of inguinal hernia surgery (1977) S/P CABG x 3 S/P CABG x 3 Status post arthroscopy Status post rotator cuff repair Family History Father Coronary artery disease Alcoholism Sudden Other Depression Social History marital status: details: jose Marx, lives in [place] household members: spouse lives independently: Yes caregiver/support person: No housing: house princess/bahai: [employer] / [employer] Smoking Status: Never smoker alcohol intake: never substance use type: does not use eating out: 1-3 times/week Type(s) of exercise: walking, aerobic, bicycling, advised to exercise at least 150 min/week (moderate intensity aerobic) and advised to perform resistance training at least 2x/week Assessment & Plan Post-op Assessment and plan (1) Abscess, wrist: Assessment and Plan narrative: -Dressing changes every 48 hours.? -Plan is 6 weeks of IV antibiotics with Infectious Disease. -follow-up with Dr. Tripp in [facility] orthopedics in 10-14 days postoperatively. Postoperative Procedures: Procedures Operation Date: 02/27/22 11:30 Actual Procedure Side Surgeon p Incision and Drainage Right Wrist Right Bhavesh Tripp MD Postoperative day: 4 Quality VTE Deep Vein Thrombosis/Pulmonary Embolism Present on Admission: No
== END 2022-03-03 10:50 | DRG 853 ==
LOC: ED 14:11 → AC 14:52 → ICU 02-26 06:49
PROVIDERS: Family Medicine; Internal Medicine; Internal Medicine Critical Care Medicine; Orthopaedic Surgery; Admitting Provider Family Medicine; Emergency Provider Emergency Medicine; PCP Family Medicine; Referring Provider Emergency Medicine; Visit Provider Family Medicine
PROC: 0R9N0ZZ Drainage of Right Wrist Joint, Open Approach (ICD-10-PCS; principal; 2022-02-27 11:30)
DX: A41.01 Sepsis due to Methicillin susceptible Staphylococcus aureus (principal); G93.41 Metabolic encephalopathy; J96.01 Acute respiratory failure with hypoxia; I50.21 Acute systolic (congestive) heart failure; N17.9 Acute kidney failure, unspecified; M00.031 Staphylococcal arthritis, right wrist; I24.9 Acute ischemic heart disease, unspecified; R65.20 Severe sepsis without septic shock; I95.9 Hypotension, unspecified; I48.91 Unspecified atrial fibrillation; E87.6 Hypokalemia; B95.61 Methicillin susceptible Staphylococcus aureus infection as the cause of diseases classified elsewhere; I25.10 Atherosclerotic heart disease of native coronary artery without angina pectoris; G47.33 Obstructive sleep apnea (adult) (pediatric); E78.5 Hyperlipidemia, unspecified; N40.0 Benign prostatic hyperplasia without lower urinary tract symptoms; E11.21 Type 2 diabetes mellitus with diabetic nephropathy; E11.40 Type 2 diabetes mellitus with diabetic neuropathy, unspecified; E66.01 Morbid (severe) obesity due to excess calories; D50.9 Iron deficiency anemia, unspecified; I11.0 Hypertensive heart disease with heart failure; M10.9 Gout, unspecified; Z79.84 Long term (current) use of oral hypoglycemic drugs; Z79.4 Long term (current) use of insulin; Z20.822 Contact with and (suspected) exposure to COVID-19; Z95.1 Presence of aortocoronary bypass graft; Z95.5 Presence of coronary angioplasty implant and graft; Z79.01 Long term (current) use of anticoagulants; Z68.34 Body mass index [BMI] 34.0-34.9, adult; R50.9 Fever, unspecified
CPT/HCPCS: 36415; 36569; 71045; 74176; 80048; 80053; 81003; 81015; 82962; 83540; 83550; 83605; 83690; 83735; 83880; 84145; 84484; 84550; 85025; 85651; 86140; 87040; 87070; 87075; 87077; 87147; 87150; 87186; 87205; 87635; 87797; 93005; 93010; 93306; 94660; 94762; 96365; 96366; 96367; 97110; 97116; 97162; 97530; 99223; 99232; 99233; 99285; 99291; C9803; J1815; J1940; J2543; J2704; J3010; Q9957

== ENCOUNTER → 2022-04-13 11:23 | Outpatient (ROUT) | payer MEDICARE, OTHER, SELFPAY ==
[2022-02-23 14:37] VITALS: BMI 33.0
[2022-02-26 22:09] VITALS: PULSE 97; RESP 16; O2SAT 99
[2022-04-13 11:35] LABS: Add Manual Diff / Slide Review NO; Basophils Absolute Auto 100 /uL (0-100); Basophils Percent Auto 1.1 % (0-2); Eosinophils Absolute Auto 300 /uL (0-450); Eosinophils Percent Auto 3.6 % (2-4); Hematocrit 26.5 % (41-53); Hemoglobin 8.2 g/dL (13.5-17.5); Lymphocytes Absolute Auto 2300 /uL (1100-4500); Lymphocytes Percent Auto 27.4 % (25-40); Mean Corpuscular HGB Conc 31.1 % (30-36); Mean Corpuscular Hemoglobin 25.8 PG (26-34); Mean Corpuscular Volume 83.2 fL (80-100); Monocytes Absolute Auto 500 /uL (0-900); Monocytes Percent Auto 6.4 % (3-14); Neutrophils Absolute Auto 5200 /uL (1500-7000); Neutrophils Percent Auto 61.5 % (50-75); Platelet Count 368 X10^3/uL (150-400); Red Blood Cell Count 3.19 X10^6/uL (4.5-5.9); White Blood Cell Count 8.4 X10^3/uL (4.5-11.0)
[2022-04-13 11:42] LABS: Alanine Aminotransferase 11 IU/L (<50); Albumin 2.9 g/dL (3.5-5.0); Albumin Globulin Ratio 0.8 (1.0-2.8); Alkaline Phosphatase 115 U/L (38-126); Aspartate Aminotransferase 27 IU/L (17-59); BUN Creatinine Ratio 34.8 (6-22); Bilirubin Total 0.4 mg/dL (0.2-1.3); Blood Urea Nitrogen 24 mg/dL (9-20); C-Reactive Protein Quant 5.7 mg/dL (<1.0); Calcium 8.8 mg/dL (8.4-10.2); Carbon Dioxide 29 mmol/L (22-32); Chloride 99 mmol/L (98-107); Estimated Glomerular Filt Rate > 60 mL/min (>60); Globulin 3.5 g/dL (1.7-4.1); Glucose 173 mg/dL (80-110); HEMOLYSIS 33 (0-50); Potassium 4.6 mmol/L (3.4-5.1); Sodium 139 mmol/L (137-145); Total Protein 6.4 g/dL (6.3-8.2)
== END ==
PROVIDERS: PCP Family Medicine; Visit Provider Internal Medicine Infectious Disease
DX: B99.9 Unspecified infectious disease (principal); M01.X Direct infection of joint in infectious and parasitic diseases classified elsewhere
CPT/HCPCS: 80053; 85025; 86140

== ENCOUNTER → 2022-05-06 12:20 | Outpatient (CLI) | payer MEDICARE, OTHER, SELFPAY ==
[2022-02-23 14:37] VITALS: BMI 33.0
[2022-02-26 22:09] VITALS: PULSE 97; RESP 16; O2SAT 99
[2022-05-06 15:01] LABS: Add Manual Diff / Slide Review NO; Basophils Absolute Auto 100 /uL (0-100); Basophils Percent Auto 0.9 % (0-2); Eosinophils Absolute Auto 500 /uL (0-450); Eosinophils Percent Auto 5.3 % (2-4); Hematocrit 25.4 % (41-53); Lymphocytes Absolute Auto 4000 /uL (1100-4500); Lymphocytes Percent Auto 39.6 % (25-40); Mean Corpuscular HGB Conc 31.3 % (30-36); Mean Corpuscular Hemoglobin 25.9 PG (26-34); Mean Corpuscular Volume 82.7 fL (80-100); Monocytes Absolute Auto 800 /uL (0-900); Monocytes Percent Auto 7.8 % (3-14); Neutrophils Absolute Auto 4700 /uL (1500-7000); Neutrophils Percent Auto 46.4 % (50-75); Platelet Count 349 X10^3/uL (150-400); Red Blood Cell Count 3.08 X10^6/uL (4.5-5.9); Red Cell Distribution Width 20.2 % (11.6-14.8); White Blood Cell Count 10.1 X10^3/uL (4.5-11.0)
[2022-05-06 15:42] LABS: Alanine Aminotransferase 16 IU/L (<50); Albumin 3.3 g/dL (3.5-5.0); Albumin Globulin Ratio 0.8 (1.0-2.8); Alkaline Phosphatase 108 U/L (38-126); Aspartate Aminotransferase 26 IU/L (17-59); BUN Creatinine Ratio 33.3 (6-22); Bilirubin Total 0.3 mg/dL (0.2-1.3); Blood Urea Nitrogen 23 mg/dL (9-20); C-Reactive Protein Quant 2.3 mg/dL (<1.0); Carbon Dioxide 29 mmol/L (22-32); Chloride 103 mmol/L (98-107); Creatine Kinase 21 U/L (55-170); Estimated Glomerular Filt Rate > 60 mL/min (>60); Glucose 117 mg/dL (80-110); HEMOLYSIS < 15 (0-50); Potassium 3.4 mmol/L (3.4-5.1); Sodium 142 mmol/L (137-145); Total Protein 7.3 g/dL (6.3-8.2)
[2022-05-06 16:17] LABS: Anisocytosis 2+; Hypochromasia 1+
== END ==
PROVIDERS: PCP Family Medicine; Referring Provider Internal Medicine Infectious Disease; Visit Provider Internal Medicine Infectious Disease
DX: L08.9 Local infection of the skin and subcutaneous tissue, unspecified (principal); T14.8XXA Other injury of unspecified body region, initial encounter
CPT/HCPCS: 36415; 80053; 82550; 85025; 86140

== ENCOUNTER → 2022-05-21 11:34 | Outpatient (CLI) | payer MEDICARE, OTHER, SELFPAY ==
[2022-02-23 14:37] VITALS: BMI 33.0
[2022-02-26 22:09] VITALS: PULSE 97; RESP 16; O2SAT 99
[2022-05-21 13:13] LABS: Add Manual Diff / Slide Review NO; Basophils Absolute Auto 0 /uL (0-100); Basophils Percent Auto 0.4 % (0-2); Eosinophils Absolute Auto 600 /uL (0-450); Eosinophils Percent Auto 6.4 % (2-4); Hematocrit 31.1 % (41-53); Hemoglobin 9.9 g/dL (13.5-17.5); Lymphocytes Absolute Auto 2900 /uL (1100-4500); Lymphocytes Percent Auto 32.6 % (25-40); Mean Corpuscular HGB Conc 31.7 % (30-36); Mean Corpuscular Volume 84.9 fL (80-100); Monocytes Absolute Auto 600 /uL (0-900); Monocytes Percent Auto 6.7 % (3-14); Neutrophils Absolute Auto 4800 /uL (1500-7000); Neutrophils Percent Auto 53.9 % (50-75); Platelet Count 239 X10^3/uL (150-400); Red Blood Cell Count 3.66 X10^6/uL (4.5-5.9); Red Cell Distribution Width 22.4 % (11.6-14.8); White Blood Cell Count 8.9 X10^3/uL (4.5-11.0)
[2022-05-21 14:20] LABS: C-Reactive Protein Quant 2.7 mg/dL (<1.0)
[2022-05-21 14:49] LABS: Anisocytosis 2+
== END ==
PROVIDERS: PCP Family Medicine; Referring Provider Internal Medicine Infectious Disease; Visit Provider Internal Medicine Infectious Disease
DX: M00.031 Staphylococcal arthritis, right wrist (principal)
CPT/HCPCS: 36415; 85025; 86140; 87040

== ENCOUNTER → 2022-05-25 14:08 | Outpatient (CLI) | payer MEDICARE, OTHER, SELFPAY ==
[2022-02-23 14:37] VITALS: BMI 33.0
[2022-02-26 22:09] VITALS: PULSE 97; RESP 16; O2SAT 99
== END ==
PROVIDERS: PCP Family Medicine; Referring Provider Family Medicine; Visit Provider Surgery
DX: E11.622 Type 2 diabetes mellitus with other skin ulcer (principal); L98.492 Non-pressure chronic ulcer of skin of other sites with fat layer exposed
CPT/HCPCS: 97597; 99213

== ENCOUNTER → 2022-06-01 10:25 | Outpatient (CLI) | payer MEDICARE, OTHER, SELFPAY ==
[2022-02-23 14:37] VITALS: BMI 33.0
[2022-02-26 22:09] VITALS: PULSE 97; RESP 16; O2SAT 99
== END ==
PROVIDERS: PCP Family Medicine; Referring Provider Family Medicine; Visit Provider Surgery
DX: E11.622 Type 2 diabetes mellitus with other skin ulcer (principal); I25.10 Atherosclerotic heart disease of native coronary artery without angina pectoris; Z95.1 Presence of aortocoronary bypass graft; Z98.1 Arthrodesis status; E11.628 Type 2 diabetes mellitus with other skin complications; S61.501A Unspecified open wound of right wrist, initial encounter; M86.68 Other chronic osteomyelitis, other site
CPT/HCPCS: 36415; 71046; 83036; 99213; 99214

== ENCOUNTER → 2022-06-01 11:10 | Outpatient (CLI) | payer MEDICARE, OTHER, SELFPAY ==
[2022-02-23 14:37] VITALS: BMI 33.0
[2022-02-26 22:09] VITALS: PULSE 97; RESP 16; O2SAT 99
--- NOTE | 2022-06-01 11:12 | DI.RAD.S_ITS ---
PROCEDURE: XR CHEST 2V INDICATIONS: Eval for Hyperbaric Treatment TECHNIQUE: 2 views of the chest were acquired. COMPARISON: [facility], CR, XR CHEST 1 VIEW, 04/20/2022, 16:06. FINDINGS: Surgical changes and devices: Sternotomy and CABG. Lower cervical spine fusion. Lungs and pleura: Left basilar opacity may be infiltrate or atelectasis. No pleural effusions or pneumothorax. Mediastinum: Mediastinal contours are normal. Heart size is normal. Bones and chest wall: No suspicious bony abnormalities. Soft tissues appear unremarkable. IMPRESSION: Left basilar infiltrate or atelectasis. Dictated by: Arianna Cardoso M.D. on 06/01/2022 at 14:50 Approved by: Arianna Cardoso M.D. on 06/01/2022 at 14:52
[2022-06-01 15:05] LABS: Hemoglobin A1C% w Est Avg Glu 5.5 % (4.0-6.0)
== END ==
PROVIDERS: PCP Family Medicine; Referring Provider Surgery; Visit Provider Surgery
DX: E11.622 Type 2 diabetes mellitus with other skin ulcer (principal); I25.10 Atherosclerotic heart disease of native coronary artery without angina pectoris; Z95.1 Presence of aortocoronary bypass graft; Z98.1 Arthrodesis status
CPT/HCPCS: 36415; 71046; 83036

== ENCOUNTER → 2022-06-08 09:53 | Outpatient (CLI) | payer MEDICARE, OTHER, SELFPAY ==
[2022-02-23 14:37] VITALS: BMI 33.0
[2022-02-26 22:09] VITALS: PULSE 97; RESP 16; O2SAT 99
== END ==
PROVIDERS: PCP Family Medicine; Referring Provider Family Medicine; Visit Provider Surgery
DX: M86.68 Other chronic osteomyelitis, other site (principal); S61.501A Unspecified open wound of right wrist, initial encounter; L08.89 Other specified local infections of the skin and subcutaneous tissue
CPT/HCPCS: 11042; 99213

== ENCOUNTER → 2022-06-15 10:31 | Outpatient (CLI) | payer MEDICARE, OTHER, SELFPAY ==
[2022-02-23 14:37] VITALS: BMI 33.0
[2022-02-26 22:09] VITALS: PULSE 97; RESP 16; O2SAT 99
== END ==
PROVIDERS: PCP Family Medicine; Referring Provider Family Medicine; Visit Provider Surgery
DX: S61.501A Unspecified open wound of right wrist, initial encounter (principal); E11.628 Type 2 diabetes mellitus with other skin complications; M86.68 Other chronic osteomyelitis, other site; E11.40 Type 2 diabetes mellitus with diabetic neuropathy, unspecified
CPT/HCPCS: 99213

== ENCOUNTER → 2022-06-22 08:46 | Outpatient (CLI) | payer MEDICARE, OTHER, SELFPAY ==
[2022-02-23 14:37] VITALS: BMI 33.0
[2022-02-26 22:09] VITALS: PULSE 97; RESP 16; O2SAT 99
== END ==
PROVIDERS: PCP Family Medicine; Referring Provider Family Medicine; Visit Provider Surgery
DX: M86.68 Other chronic osteomyelitis, other site (principal); S61.501A Unspecified open wound of right wrist, initial encounter; E11.628 Type 2 diabetes mellitus with other skin complications; L08.89 Other specified local infections of the skin and subcutaneous tissue
CPT/HCPCS: 97597; 99212; 99213

== ENCOUNTER → 2022-06-24 14:23 | Outpatient (CLI) | payer MEDICARE, OTHER, SELFPAY ==
[2022-02-23 14:37] VITALS: BMI 33.0
[2022-02-26 22:09] VITALS: PULSE 97; RESP 16; O2SAT 99
--- NOTE | 2022-06-24 14:23 | DI.CT.S_ITS ---
PROCEDURE: CT UE RT W CON INDICATIONS: evaluate for osteomyelitis of right wrist TECHNIQUE: After the administration of intravenous contrast, 1 mm axial sections acquired of the right wrist , with coronal and sagittal reformats. COMPARISON: [facility], CT, CT WRIST RIGHT WITH CONTRAST, 04/20/2022, 21:22. [facility], CR, XR HAND 3+ VIEWS RIGHT, 06/04/2022, 9:50. FINDINGS: Image quality: Excellent. Bones: Metallic is are seen within the scaphoid and capitate. Osseous erosions and cortical destruction are seen in the distal radius, which have progressed when compared to the CT from 04/20/2022. Multiple osseous erosions throughout the carpal bones are again seen. Findings appear mildly progressed at the lunate and ulnar styloid additional osseous erosions throughout the carpal bones and metacarpal bases appear relatively stable. There is chronic widening of the scapholunate interval with mild proximal migration of the capitate. Dorsal tilting of the lunate is noted. Slender coal lucency at the dorsal aspect of the distal ulnar shaft and distal radial shaft are most likely postsurgical in nature. Soft tissues: Large joint effusions are seen throughout the wrist with synovial enhancement. Radiopaque dressing material and skin defect are seen at the volar ulnar aspect of the wrist with surrounding subcutaneous edema and peripherally enhancing fluid. Decreased fluid is seen within the carpal tunnel when compared to the CT from 04/20/2022. Lobular peripherally enhancing fluid adjacent to the distal ulna appears slightly better defined and may represent loculated joint fluid or abscess. Diffuse soft tissue edema is seen surrounding the wrist. There is fatty infiltration of the intrinsic hand musculature. The articular cartilages, ligaments, and tendons are not well evaluated with standard CT. IMPRESSION: 1. Mild progression of osseous erosions and cortical destruction throughout the wrist and proximal metacarpals, which is most notable at the distal radial articular surface and is suspicious for active osteomyelitis/septic arthritis. 2. Loculated peripherally enhancing fluid adjacent to the distal ulna may represent loculated joint fluid or a separate abscess. Fluid within the carpal tunnel has significantly decreased. 3. Large joint effusions are seen throughout the wrist with synovial hyperenhancement. Joint aspiration could be performed to confirm ongoing infection if indicated clinically. 4. Widening of the scapholunate interval is most likely secondary to chronic scapholunate ligament tearing with suspected dorsal intercalated segment instability and developing SLAC wrist, overall not significantly changed. Approved by: Jesus Dahl M.D. on 06/25/2022 at 9:29
== END ==
PROVIDERS: PCP Family Medicine; Referring Provider Surgery; Visit Provider Surgery
DX: M85.831 Other specified disorders of bone density and structure, right forearm (principal); M85.841 Other specified disorders of bone density and structure, right hand; L02.413 Cutaneous abscess of right upper limb; M25.431 Effusion, right wrist
CPT/HCPCS: 73201; Q9967

== ENCOUNTER 2022-06-25 01:21 | Emergency (ER) | payer MEDICARE, OTHER, SELFPAY ==
[2022-02-23 14:37] VITALS: BMI 33.0
[2022-02-26 22:09] VITALS: PULSE 97; RESP 16; O2SAT 99
[2022-06-25] VITALS (16 sets, daily range): BP systolic 128–181; BP diastolic 62–100; PULSE 74–139; RESP 10–24; TEMP 36.6; O2SAT 97–100; BMI 31.1
--- NOTE | 2022-06-25 01:44 | DI.RAD.S_ITS ---
PROCEDURE: XR CHEST 1V INDICATIONS: afib TECHNIQUE: One view of the chest was acquired. COMPARISON: [facility], CR, CHEST 1 VIEW, 04/14/2014, 16:35. [facility], CR, XR CHEST 1V, 02/23/2022, 12:07. [facility], CR, XR CHEST 1 VIEW, 04/20/2022, 16:06. [facility], CR, XR CHEST 2V, 06/01/2022, 11:11. [facility], CR, XR CHEST 1V, 02/25/2022, 8:06. FINDINGS: Surgical changes and devices: Sternotomy. Lower cervical spine fusion. Lungs and pleura: Right diaphragmatic eventration. Lungs are clear. No pleural effusions or pneumothorax. Mediastinum: Mediastinal contours appear normal. Heart size is prominent. Bones and chest wall: No suspicious bony lesions. Overlying soft tissues appear unremarkable. IMPRESSION: 1. No acute cardiopulmonary disease. No significant discrepancy with the central services tech radiology preliminary report. Dictated by: Arianna Cardoso M.D. on 06/25/2022 at 7:55 Approved by: Arianna Cardoso M.D. on 06/25/2022 at 7:57
[2022-06-25] MEDS: SODIUM CHLORIDE 0.9% 1,000 ML 1000 ML IV (01:50)
[2022-06-25 01:57] LABS: INR 1.2 (0.9-1.3); Prothrombin Time 13.5 SECONDS (10.1-12.7)
[2022-06-25 01:59] LABS: PTT Partial Thromboplastin Tim 36 SECONDS (26-36)
[2022-06-25 02:03] LABS: Alanine Aminotransferase 21 IU/L (<50); Albumin Globulin Ratio 1.3 (1.0-2.8); Alkaline Phosphatase 94 U/L (38-126); Aspartate Aminotransferase 31 IU/L (17-59); BUN Creatinine Ratio 37.3 (6-22); Bilirubin Total 0.3 mg/dL (0.2-1.3); Blood Urea Nitrogen 25 mg/dL (9-20); Calcium 9.7 mg/dL (8.4-10.2); Carbon Dioxide 26 mmol/L (22-32); Chloride 102 mmol/L (98-107); Creatine Kinase 58 U/L (55-170); Estimated Glomerular Filt Rate > 60 mL/min (>60); Globulin 3.2 g/dL (1.7-4.1); Glucose 84 mg/dL (80-110); HEMOLYSIS 15 (0-50); Lipase 57 U/L (23-300); Magnesium 1.7 mg/dL (1.6-2.3); Potassium 3.1 mmol/L (3.4-5.1); Sodium 139 mmol/L (137-145); Total Protein 7.2 g/dL (6.3-8.2)
[2022-06-25 02:04] LABS: Basophils Absolute Auto 100 /uL (0-100); Basophils Percent Auto 0.6 % (0-2); Eosinophils Absolute Auto 900 /uL (0-450); Eosinophils Percent Auto 6.9 % (2-4); Hematocrit 35.5 % (41-53); Hemoglobin 11.5 g/dL (13.5-17.5); Lymphocytes Absolute Auto 5800 /uL (1100-4500); Lymphocytes Percent Auto 43.9 % (25-40); Mean Corpuscular HGB Conc 32.3 % (30-36); Mean Corpuscular Hemoglobin 27.6 PG (26-34); Mean Corpuscular Volume 85.5 fL (80-100); Monocytes Absolute Auto 900 /uL (0-900); Neutrophils Absolute Auto 5500 /uL (1500-7000); Neutrophils Percent Auto 41.6 % (50-75); Platelet Count 277 X10^3/uL (150-400); Red Blood Cell Count 4.15 X10^6/uL (4.5-5.9); Red Cell Distribution Width 22.5 % (11.6-14.8); White Blood Cell Count 13.1 X10^3/uL (4.5-11.0)
[2022-06-25 02:05] LABS: Add Manual Diff / Slide Review SLIDE REVIEW
[2022-06-25 02:11] LABS: NT-proBNP (BNP-Adult 18+) 1940 pg/mL (<125)
[2022-06-25 02:14] LABS: Troponin I 0.039 ng/mL (0.01-0.034)
[2022-06-25] MEDS: POTASSIUM CHLORIDE 20 MEQ TAB 40 MEQ PO (03:23)
[2022-06-25 04:06] LABS: Troponin I 0.042 ng/mL (0.01-0.034)
[2022-06-25] MEDS: dilTIAZem 5 MG/ML SDV 10 MG IV (04:14)
--- NOTE | 2022-06-25 04:22 | ED.ARRPALP ---
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 Patient presents today with concern for being in atrial fibrillation he felt a little nauseated sweaty dizzy and anxious today he denies chest pain or pressure, he had some dyspnea on exertion which was new. Patient did not have any syncope. He denies any shortness of breath while seated. He states some mild nausea but no vomiting. Slightly constipated but stooling. No urinary symptoms that are new. No new swelling in extremities. Patient states he actually had a CT today of his wrist at this facility to check for the stability of his osteomyelitis. They checked his blood pressure cuff at home in his heart rate was 140s to 150s around 11:00 p.m.. Symptoms had started shortly before this. Patient did recently have his amlodipine restarted in the evening about a month ago, his blood pressures have been quite labile and it had been stopped 2nd to low blood pressures. Patient is not on Cardizem or any other rate-controlling medications currently, he has been on Xarelto for the past 3 years and he would his state he had a AMANDA as an outpatient November they were told his EF was 50%, he had an atrial appendage device placed but was told after his AMANDA he would have to continue on Xarelto. 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 Related Data Home Medications Medication Instructions Recorded Confirmed cyclobenzaprine 10 mg tablet 10 mg PO TID PRN spasms 04/25/19 02/23/22 aspirin 81 mg tablet,delayed 81 mg PO DAILY 09/10/20 02/23/22 release (Enteric Coated Aspirin) ascorbic acid (vitamin C) 1,000 mg 1 g PO BID 04/19/22 04/19/22 tablet brimonidine 0.2 % eye drops drp EYE-BOTH BID 04/19/22 04/19/22 cholecalciferol (vitamin D3) 125 125 mcg PO BID 04/19/22 04/19/22 mcg (5,000 unit) tablet glucagon 1 mg/0.2 mL subcutaneous 1 mg SUBCUT Q20M PRN 04/19/22 04/19/22 solution latanoprost 0.005 % eye drops drp EYE-BOTH BID 04/19/22 04/19/22 metoclopramide HCl 5 mg tablet 5 mg PO QACHS PRN gastroparesis 04/19/22 04/19/22 semaglutide 1 mg/dose (2 mg/1.5 1 mg SUBCUT QWEEK 04/19/22 04/19/22 mL) subcutaneous pen injector (Ozempic) sucralfate 1 gram tablet 1 g PO QACHS PRN stomach upset 04/19/22 04/19/22 Previous Rx's Medication Instructions Recorded cefazolin 2 gram solution for 2 g IM Q8H #25 ea 03/02/22 injection CPAP Supplies #3 ea 03/19/22 Bedside Commode #1 ea 03/24/22 Shower Chair #1 ea 03/24/22 wheelchair #1 ea 03/24/22 dapagliflozin 10 mg tablet See Rx Instructions .Route 04/07/22 ([facility]) .COMPLEX #90 tabs allopurinol 300 mg tablet 300 mg PO DAILY #90 tabs 04/13/22 carvedilol 12.5 mg tablet 12.5 mg PO BID #180 tabs 04/13/22 duloxetine 60 mg capsule,delayed 60 mg PO DAILY #90 caps 04/13/22 release furosemide 20 mg tablet 20 mg PO DAILY #90 tabs 04/13/22 gabapentin 600 mg tablet 1,200 mg PO BID #360 tabs 04/13/22 metformin 500 mg tablet 1,000 mg PO BIDCC #360 tabs 04/13/22 olmesartan 40 mg tablet 40 mg PO DAILY #90 tabs 04/13/22 pantoprazole 20 mg tablet,delayed 20 mg PO DAILY #90 tabs 04/13/22 release ropinirole 2 mg tablet See Rx Instructions PO BID #270 04/13/22 tabs rosuvastatin 10 mg tablet 10 mg PO DAILY #90 tabs 04/13/22 colchicine 0.6 mg tablet 0.6 mg PO BID #180 tabs 04/15/22 ferrous sulfate 325 mg (65 mg 325 mg PO BID #30 tabs 04/19/22 iron) tablet insulin glargine 100 unit/mL (3 35 unit (0.35 mL) SUBCUT DAILY 04/19/22 mL) subcutaneous pen (Lantus #135 mL Solostar U-100 Insulin) insulin lispro 100 unit/mL 5 unit (0.05 mL) SUBCUT TID #150 mL 04/19/22 subcutaneous solution (Humalog U-100 Insulin) tramadol 50 mg tablet 50 mg PO BID PRN pain #60 tabs 05/13/22 trazodone 50 mg tablet 50 mg PO DAILY #30 tabs 05/17/22 One Touch Delica Lancets #300 ea 06/11/22 rivaroxaban 20 mg tablet (Xarelto) See Rx Instructions .Route 06/18/22 .COMPLEX #90 tabs amlodipine 10 mg tablet 5 mg PO DAILY #90 tabs 06/24/22 betamethasone valerate 0.1 % lotion 1 applic topical TID PRN eczema 06/24/22 #180 mL blood sugar diagnostic (Blood #600 ea 06/24/22 Glucose Test strips) insulin syringe-needle U-100 1 mL #600 ea 06/24/22 31 gauge x 5/16 (BD Insulin Syringe Ultra-Fine) pen needle, diabetic 31 gauge x #600 ea 06/24/22 5/16 (BD Ultra-Fine Short Pen Needle) Allergies Allergy/AdvReac Type Severity Reaction Status Date / Time Iodinated Contrast Media Allergy Severe Anaphylaxis Unverified 06/25/22 01:42 shrimp Allergy Severe blotchy Verified 06/25/22 01:42 eyes, edema LOLY Inhibitors AdvReac Mild cough Verified 06/25/22 01:42 [LOLY INHIBITORS] Review of Systems Review of Systems ROS Unobtainable: All systems reviewed & are unremarkable except as noted in HPI and below 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 (07/29/15) Primary osteoarthritis of left knee (03/03/16) Restless legs syndrome (04/24/15) Squamous cell carcinoma of nose (2004) Type 2 diabetes mellitus with other skin ulcer (04/24/15) Wound healing, delayed Wound, open, foot Surgical History History of carpal tunnel repair (1977) History of coronary artery stent placement (04/2014) Hx of inguinal hernia surgery (1977) S/P CABG x 3 S/P CABG x 3 Status post arthroscopy Status post rotator cuff repair Family History Father Coronary artery disease Alcoholism Sudden Other Depression Social History marital status: details: jose Marx, lives in [place] household members: spouse lives independently: Yes caregiver/support person: No housing: house 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 [employer] Smoking Status: Never smoker alcohol intake: never substance use type: does not use eating out: 1-3 times/week Type(s) of exercise: walking, aerobic, bicycling, advised to exercise at least 150 min/week (moderate intensity aerobic) and advised to perform resistance training at least 2x/week Smoking Status: Never smoker alcohol intake frequency: holidays/special occasions only Substance Use Type: does not use Exam Narrative Exam Narrative: GENERAL: Alert and oriented x three, male in mild distress HEENT: Head normocephalic, atraumatic, EOMI, pupils reactive, face symmetric, moist mucous membranes NECK: Supple, full range of motion CARDIOVASCULAR: Irregularly irregular rate and rhythm without murmurs, rubs or gallops. No JVD. No swelling bilateral lower extremities. RESPIRATORY: Breath sounds equal bilaterally, no wheezes rales or rhonchi. No tachypnea accessory muscle use. ABDOMEN: Soft, nontender. Normoactive bowel sounds all 4 quadrants. No guarding or rebound, rigidity, no mass : No CVA tenderness EXTREMITIES: Normal range of motion, no clubbing or edema. Neurovascularly intact NEUROLOGICAL: Cranial nerves II through XII grossly intact. Moving all extremities SKIN: Warm, dry, no petechiae, no rashes. Patient has Band-Aid over right wrist. Initial Vital Signs Initial Vital Signs: Vital Signs Temperature 97.8 F 06/25/22 01:32 Pulse Rate 115 H 06/25/22 01:32 Respiratory Rate 22 06/25/22 01:32 Blood Pressure 146/62 H 06/25/22 01:32 Pulse Oximetry 100 06/25/22 01:32 Oxygen Delivery Method 06/25/22 01:32 Procedures Cardioversion Consent Signed: Yes Indication: afib with RVR Stability: Stable Number of attempts (shocks): 1 Joules used: 150 Cardiac rhythm post-cardioversion: normal sinus rhythm Procedural Sedation Consent signed: Yes Time out performed: Yes Indication: cardioversion ASA Class: III Mallampati Airway Classification: Class II Time of Last PO Intake: 03:20 Preparation: phototypesetting equipment monitor applied, pulse oximeter, capnometry used, supplemental O2 applied, suction/airway equipment at bedside and IV secured IV Propofol dose (mg): 50 ED Sedation Level: Moderate (Concious) Patient Tolerated Procedure: Well Complications: hypoxia Interventions: Airway repositioned (chin thrust for 1-2 minutes. patient then encouraged to take deep breath verbally and was able to maintain. ) Course Orders Ordered: ED Orders 06/25/22 EKG-12 Lead Routine 06/25/22 01:37 EKG-12 Lead Stat 06/25/22 01:39 Complete Blood Count AUTO DIFF Stat Comprehensive Metabolic Panel Stat Lipase Stat Magnesium Stat NT-proBNP (BNP-Adult 18+) Stat Partial Thromboplastin Time Stat Prothrombin Time INR Stat Troponin & CK Cardiac Panel Stat 06/25/22 01:44 XR chest 1V Stat 06/25/22 03:30 Trop I [Troponin I] Stat Discontinued Medications Aspirin (Aspirin 81 Mg Chew Tab) 324 mg PO NOW ONE Stop: 06/25/22 01:38 Last Admin: 06/25/22 02:52 Dose: Not Given Documented By: OW Diltiazem HCl (Diltiazem 5 Mg/Ml Sdv) 10 mg IV NOW ONE Stop: 06/25/22 04:06 Last Admin: 06/25/22 04:14 Dose: 10 mg Documented By: OW Sodium Chloride (Normal Saline 0.9%) 1,000 mls @ 1,000 mls/hr IV BOLUS ONE Stop: 06/25/22 02:43 Last Infusion: 06/25/22 02:41 Dose: 0 mls/hr Documented By: Admin: 06/25/22 01:50 Dose: 1,000 mls/hr Documented By: OW Potassium Chloride (Potassium Chloride 20 Meq Tab) 40 meq PO NOW ONE Stop: 06/25/22 02:56 Last Admin: 06/25/22 03:23 Dose: 40 meq Documented By: OW Propofol (Propofol 200 Mg/20 Ml Vial) 105 mg 1 mg/kg (105 mg) IV NOW ONE Stop: 06/25/22 05:18 Last Admin: 06/25/22 05:40 Dose: 50 mg Documented By: DONNA Consultations Consultation #1: Dr. Funes, cardiology at [facility]. Reviewed patient had AMANDA done 05/2122 which showed 50% EF, normal valves mild thoracic aortic plaque, normal left ventricular systolic function and normal left ventricular chamber size as well as right ventricular chamber size. Discussed patient's findings his potassium was 3.1 today Mag is 1.7, renal function otherwise normal troponin indeterminate 0.039 and then 0.042 patient is persistently on Xarelto. He does recommend cardioversion. If patient is unsuccessful can start Cardizem for rate control or if patient chooses not to can start Cardizem for rate control. Time: 05:04 Vital Signs Vital signs: Vital Signs - 8 hr 06/25/22 01:32 06/25/22 01:44 06/25/22 02:00 Temperature 97.8 F Pulse Rate 115 H 128 H Respiratory Rate 22 14 Blood Pressure 146/62 H 157/88 H Pulse Oximetry 100 98 Oxygen Delivery Method Room Air Oxygen Flow Rate 06/25/22 02:00 06/25/22 02:30 06/25/22 02:30 Temperature Pulse Rate 114 H 107 H Respiratory Rate 16 17 Blood Pressure 162/76 H Pulse Oximetry 100 99 Oxygen Delivery Method Oxygen Flow Rate 06/25/22 03:01 06/25/22 04:14 06/25/22 05:44 Temperature Pulse Rate 115 H 124 H 75 Respiratory Rate 18 12 Blood Pressure 181/82 H 130/84 149/75 H Pulse Oximetry 98 98 Oxygen Delivery Method Room Air Oxygen Flow Rate 06/25/22 05:51 06/25/22 04:00 06/25/22 04:30 Temperature Pulse Rate 75 139 H 80 Respiratory Rate 10 L 16 16 Blood Pressure 135/75 130/84 141/82 H Pulse Oximetry 98 100 100 Oxygen Delivery Method Room Air Room Air Oxygen Flow Rate 06/25/22 05:00 06/25/22 05:31 06/25/22 05:50 Temperature 98 F 97.9 F Pulse Rate 100 H 97 H 74 Respiratory Rate 16 24 12 Blood Pressure 152/100 H 128/71 135/75 Pulse Oximetry 100 98 99 Oxygen Delivery Method Room Air Nasal Cannula Room Air Oxygen Flow Rate 2 06/25/22 06:00 06/25/22 06:15 06/25/22 06:30 Temperature Pulse Rate 75 77 80 Respiratory Rate 10 L 15 21 Blood Pressure 130/72 131/77 153/84 H Pulse Oximetry 99 100 97 Oxygen Delivery Method Nasal Cannula Room Air Room Air Oxygen Flow Rate 2 MDM - Arrhythmia/Palpitations Lab Data Result diagrams: 06/25/22 01:39 06/25/22 01:39 Labs: Lab Results 06/25/22 06/25/22 06/25/22 Range/Units 01:39 01:39 01:39 WBC 13.1 H (4.5-11.0) X10^3/uL RBC 4.15 L (4.5-5.9) X10^6/uL Hgb 11.5 L (13.5-17.5) g/dL Hct 35.5 L (41-53) % MCV 85.5 (80-100) fL MCH 27.6 (26-34) PG MCHC 32.3 (30-36) % RDW 22.5 H (11.6-14.8) % Plt Count 277 (150-400) X10^3/uL Neut % (Auto) 41.6 L (50-75) % Lymph % (Auto) 43.9 H (25-40) % Verm[place] % (Auto) 7.0 (3-14) % Eos % (Auto) 6.9 H (2-4) % Baso % (Auto) 0.6 (0-2) % Neut # (Auto) 5500 (0561-0573) /uL Lymph # (Auto) 5800 H (4299-9322) /uL [place] # (Auto) 900 (0-900) /uL Eos # (Auto) 900 H (0-450) /uL Baso # (Auto) 100 (0-100) /uL RBC Morphology See below Anisocytosis 3+ H PT 13.5 H (10.1-12.7) SECONDS INR 1.2 (0.9-1.3) APTT 36 (26-36) SECONDS Sodium 139 (137-145) mmol/L Potassium 3.1 L (3.4-5.1) mmol/L Chloride 102 (98-107) mmol/L Carbon Dioxide 26 (22-32) mmol/L BUN 25 H (9-20) mg/dL Creatinine 0.67 (0.66-1.25) mg/dL Estimated GFR > 60 (>60) mL/min BUN/Creatinine Ratio 37.3 H (6-22) Glucose 84 (80-110) mg/dL Calcium 9.7 (8.4-10.2) mg/dL Magnesium 1.7 (1.6-2.3) mg/dL Total Bilirubin 0.3 (0.2-1.3) mg/dL AST 31 (17-59) IU/L ALT 21 (<50) IU/L Alkaline Phosphatase 94 (38-126) U/L Total Creatine Kinase 58 (55-170) U/L CK-MB (CK-2) TNP CK-MB (CK-2) Rel Index TNP Troponin I 0.039 H (0.01-0.034) ng/mL NT-Pro-B Natriuret Pep (<125) pg/mL Total Protein 7.2 (6.3-8.2) g/dL Albumin 4.0 (3.5-5.0) g/dL Globulin 3.2 (1.7-4.1) g/dL Albumin/Globulin Ratio 1.3 (1.0-2.8) Lipase 57 (23-300) U/L 06/25/22 06/25/22 Range/Units 01:39 03:30 WBC (4.5-11.0) X10^3/uL RBC (4.5-5.9) X10^6/uL Hgb (13.5-17.5) g/dL Hct (41-53) % MCV (80-100) fL MCH (26-34) PG MCHC (30-36) % RDW (11.6-14.8) % Plt Count (150-400) X10^3/uL Neut % (Auto) (50-75) % Lymph % (Auto) (25-40) % Vermilion % (Auto) (3-14) % Eos % (Auto) (2-4) % Baso % (Auto) (0-2) % Neut # (Auto) (4170-0641) /uL Lymph # (Auto) (3195-5066) /uL Vermilion # (Auto) (0-900) /uL Eos # (Auto) (0-450) /uL Baso # (Auto) (0-100) /uL RBC Morphology Anisocytosis PT (10.1-12.7) SECONDS INR (0.9-1.3) APTT (26-36) SECONDS Sodium (137-145) mmol/L Potassium (3.4-5.1) mmol/L Chloride (98-107) mmol/L Carbon Dioxide (22-32) mmol/L BUN (9-20) mg/dL Creatinine (0.66-1.25) mg/dL Estimated GFR (>60) mL/min BUN/Creatinine Ratio (6-22) Glucose (80-110) mg/dL Calcium (8.4-10.2) mg/dL Magnesium (1.6-2.3) mg/dL Total Bilirubin (0.2-1.3) mg/dL AST (17-59) IU/L ALT (<50) IU/L Alkaline Phosphatase (38-126) U/L Total Creatine Kinase (55-170) U/L CK-MB (CK-2) CK-MB (CK-2) Rel Index Troponin I 0.042 H (0.01-0.034) ng/mL NT-Pro-B Natriuret Pep 1940 H (<125) pg/mL Total Protein (6.3-8.2) g/dL Albumin (3.5-5.0) g/dL Globulin (1.7-4.1) g/dL Albumin/Globulin Ratio (1.0-2.8) Lipase (23-300) U/L Imaging Data Chest x-ray: Radiologist's Impresson: Postop changes, no acute abnormality. Stable chest. Patient has a left atrial appendage occlusive device in place. ECG Data Attestation: I personally reviewed and interpreted this ECG as follows: Prior ECG tracings: available for review Interpretation: AFib with RVR 114 QRS of [address]TC [address] No acute ST changes. Patient had pre EKG from 02/25/2022 no acute or dynamic changes appreciated. EKG shows sinus rhythm rate of 74 MI 204 QRS of 134 and QTC of 446. No acute ST changes. MDM Narrative Medical decision making narrative: This is a 67-year-old male with known atrial fibrillation who is in AFib RVR, he is not hypotensive electrolytes do show a potassium of 3.1, Mag is 1.7, patient has normal renal function troponins are indeterminate at 0.039 and 0.042. Patient chest x-ray does not show acute change he does not appear to be in florid CHF, BNP is elevated today at 7:40 p.m. but significantly improved from prior hospitalizations. Patient did receive 500 bolus of fluids his heart rates been 100 to 120s persistently, he received 10 mg of Cardizem which improved rate but was persistently in AFib, and potassium replacement orally. I spoke with his cardiology team he did have a AMANDA and this is able to be found in our records with an EF of 50%, no thrombus, I spoke with his cardiology team, Dr. Funes who recommends cardioversion for the patient today if unsuccessful or patient chooses not to he does recommend Cardizem daily for rate control. Spoke with the patient and at bedside, they elect for cardioversion risks versus benefits were reviewed and consent was signed. Patient tolerated procedure well and was successfully cardioverted and discharged home. Plan to have potassium rechecked in the next 2-3 days. Discharge Plan Departure Patient Disposition: Home Clinical Impression: Atrial fibrillation with rapid ventricular response, Hypokalemia Instructions: DI for Atrial Fibrillation Activity Restrictions/Additional Instructions: Today you were atrial fibrillation, your potassium was slightly low and likely contributed. Please have your potassium rechecked in the next several days. You do not have to have any other medication changes currently. Please return for recurrent symptoms, new chest pain, shortness of breath, new swelling in your extremities, persistent fast or irregular heartbeat, nausea vomiting, sweatiness or diaphoresis or other new or concerning changes. Prescriptions: No Action ascorbic acid (vitamin C) 1,000 mg tablet 1 g PO BID brimonidine 0.2 % drops EYE-BOTH BID cholecalciferol (vitamin D3) 125 mcg (5,000 unit) tablet 125 mcg PO BID ferrous sulfate 325 mg (65 mg iron) tablet 325 mg PO BID Qty: 30 0RF insulin lispro [Humalog U-100 Insulin] 100 unit/mL solution 5 unit SUBCUT TID Qty: 150 3RF Rx Instructions: 0-10 units before meals/sliding scale insulin glargine [Lantus Solostar U-100 Insulin] 100 unit/mL (3 mL) insulin pen 35 unit SUBCUT DAILY Qty: 135 3RF Rx Instructions: 25U SQ QAM, 10U SQ QPM latanoprost 0.005 % drops EYE-BOTH BID Ozempic 1 mg/dose (2 mg/1.5 mL) pen injector 1 mg SUBCUT QWEEK metoclopramide HCl 5 mg tablet 5 mg PO QACHS PRN (Reason: gastroparesis) glucagon 1 mg/0.2 mL solution 1 mg SUBCUT Q20M PRN Rx Instructions: until target blood sugar attained sucralfate 1 gram tablet 1 g PO QACHS PRN (Reason: stomach upset) aspirin [Enteric Coated Aspirin] 81 mg tablet,delayed release (DR/EC) 81 mg PO DAILY (DME) CPAP Supplies See Rx Instructions .Route .MEDSUPPLY Qty: 3 3RF Rx Instructions: Resperonics Heated Tubing, Resperonics Airfit Nasal Pillow Mask (DME) wheelchair See Rx Instructions .Route .MEDSUPPLY Qty: 1 0RF Rx Instructions: As directed (DME) Bedside Commode See Rx Instructions .Route .MEDSUPPLY Qty: 1 0RF Rx Instructions: As directed (DME) Shower Chair See Rx Instructions .Route .MEDSUPPLY Qty: 1 0RF Rx Instructions: As directed Farxiga 10 mg tablet See Rx Instructions .ROUTE .COMPLEX Qty: 90 3RF Dose Instruction: TAKE 1 TABLET BY MOUTH DAILY Rx Instructions: TAKE 1 TABLET BY MOUTH DAILY allopurinol 300 mg tablet 300 mg PO DAILY Qty: 90 3RF furosemide 20 mg tablet 20 mg PO DAILY Qty: 90 3RF metformin 500 mg tablet 1,000 mg PO BIDCC Qty: 360 3RF ropinirole 2 mg tablet See Rx Instructions PO BID Qty: 270 3RF Rx Instructions: Take one tab each am and 2 tabs at bedtime carvedilol 12.5 mg tablet 12.5 mg PO BID Qty: 180 3RF Rx Instructions: must administer with a meal/food rosuvastatin 10 mg tablet 10 mg PO DAILY Qty: 90 3RF olmesartan 40 mg tablet 40 mg PO DAILY Qty: 90 3RF duloxetine 60 mg capsule,delayed release(DR/EC) 60 mg PO DAILY Qty: 90 3RF pantoprazole 20 mg tablet,delayed release (DR/EC) 20 mg PO DAILY Qty: 90 3RF gabapentin 600 mg tablet 1,200 mg PO BID Qty: 360 3RF colchicine 0.6 mg tablet 0.6 mg PO BID Qty: 180 3RF tramadol 50 mg tablet 50 mg PO BID PRN (Reason: pain) Qty: 60 0RF trazodone 50 mg tablet 50 mg PO DAILY Qty: 30 1RF (DME) One Touch Delica Lancets See Rx Instructions .Route .MEDSUPPLY Qty: 300 3RF Rx Instructions: Change Lancet each time you test your blood sugar up to 6 times daily Xarelto 20 mg tablet See Rx Instructions .ROUTE .COMPLEX Qty: 90 3RF Dose Instruction: TAKE 1 TABLET BY MOUTH IN THE EVENING Rx Instructions: TAKE 1 TABLET BY MOUTH IN THE EVENING betamethasone valerate 0.1 % lotion 1 applic topical TID PRN (Reason: eczema) Qty: 180 3RF (DME) insulin syringe-needle U-100 [BD Insulin Syringe Ultra-Fine] 1 mL 31 gauge x 5/16 syringe See Rx Instructions .Route Qty: 600 3RF Rx Instructions: As directed up to 6 times daily for insulin injection (DME) pen needle, diabetic [BD Ultra-Fine Short Pen Needle] 31 gauge x 5/16 needle See Rx Instructions .Route Qty: 600 3RF Rx Instructions: As directed for insulin injections up to 6 x daily (DME) Blood Glucose Test Strip See Dose Instructions .ROUTE .MEDSUPPLY Qty: 600 3RF Dose Instruction: As directed Rx Instructions: One Touch Ultra Blue Test Strips. Test blood glucose 6 times daily amlodipine 10 mg tablet 5 mg PO DAILY Qty: 90 3RF Rx Instructions: 06/24/22 rx by cardiology cyclobenzaprine 10 mg tablet 10 mg PO TID PRN (Reason: spasms) Label Comments: patient states taken a long time ago. 04/25/19 cefazolin 2 gram recon soln 2 g IM Q8H Qty: 25 0RF Referrals: Gigi Pelaez MD [Primary Care Provider] - Visit Report Forms: Patient Portal/API
[2022-06-25 04:52] LABS: Anisocytosis 3+
[2022-06-25] MEDS: propofoL 200 MG/20 ML VIAL 105 MG IV (05:40)
--- NOTE | 2022-06-25 07:07 | PC.NURSE ---
0645; Pt is A&Ox4 and reports being ready to go home. Pt assisted to a sitting position and was able to use his home walker to get from the bed to a wheelchair with one person assist. This is his baseline mobility. Pt denied CP, SOB or dizziness upon ambulating.
== END 2022-06-25 06:55 | disposition home or self-care (01) ==
PROVIDERS: Emergency Provider Emergency Medicine; PCP Family Medicine
DX: I48.20 Chronic atrial fibrillation, unspecified (principal); E87.6 Hypokalemia; Z79.01 Long term (current) use of anticoagulants; R09.02 Hypoxemia; R42 Dizziness and giddiness; R11.0 Nausea; Z79.899 Other long term (current) drug therapy
CPT/HCPCS: 36415; 71045; 80053; 82550; 83690; 83735; 83880; 84484; 85025; 85610; 85730; 92960; 93005; 93010; 96361; 96374; 99152; 99285; J2704

== ENCOUNTER → 2022-07-07 13:45 | Outpatient (CLI) | payer MEDICARE, OTHER, SELFPAY ==
[2022-02-23 14:37] VITALS: BMI 33.0
[2022-02-26 22:09] VITALS: PULSE 97; RESP 16; O2SAT 99
== END ==
PROVIDERS: PCP Family Medicine; Referring Provider Family Medicine; Visit Provider Surgery
DX: E11.628 Type 2 diabetes mellitus with other skin complications (principal); S61.501A Unspecified open wound of right wrist, initial encounter; M86.68 Other chronic osteomyelitis, other site
CPT/HCPCS: 97597; 99213

== ENCOUNTER → 2022-07-14 11:35 | Outpatient (CLI) | payer MEDICARE, SELFPAY ==
[2022-02-23 14:37] VITALS: BMI 33.0
[2022-02-26 22:09] VITALS: PULSE 97; RESP 16; O2SAT 99
== END ==
PROVIDERS: PCP Family Medicine; Referring Provider Family Medicine; Visit Provider Surgery
DX: E11.628 Type 2 diabetes mellitus with other skin complications (principal); S61.501A Unspecified open wound of right wrist, initial encounter; M86.68 Other chronic osteomyelitis, other site; R60.0 Localized edema
CPT/HCPCS: 11042

== ENCOUNTER → 2022-07-27 13:32 | Outpatient (CLI) | payer MEDICARE, SELFPAY ==
[2022-02-23 14:37] VITALS: BMI 33.0
[2022-02-26 22:09] VITALS: PULSE 97; RESP 16; O2SAT 99
== END ==
PROVIDERS: PCP Family Medicine; Referring Provider Family Medicine; Visit Provider Surgery
DX: E11.622 Type 2 diabetes mellitus with other skin ulcer (principal); M86.68 Other chronic osteomyelitis, other site; I25.10 Atherosclerotic heart disease of native coronary artery without angina pectoris
CPT/HCPCS: 99183; G0277

== ENCOUNTER → 2022-07-28 15:22 | Outpatient (CLI) | payer MEDICARE, SELFPAY ==
[2022-02-23 14:37] VITALS: BMI 33.0
[2022-02-26 22:09] VITALS: PULSE 97; RESP 16; O2SAT 99
== END ==
PROVIDERS: PCP Family Medicine; Referring Provider Family Medicine; Visit Provider Surgery
DX: E11.622 Type 2 diabetes mellitus with other skin ulcer (principal); M86.68 Other chronic osteomyelitis, other site; I25.10 Atherosclerotic heart disease of native coronary artery without angina pectoris
CPT/HCPCS: 99183; G0277

== ENCOUNTER → 2022-07-29 13:23 | Outpatient (CLI) | payer MEDICARE, SELFPAY ==
[2022-02-23 14:37] VITALS: BMI 33.0
[2022-02-26 22:09] VITALS: PULSE 97; RESP 16; O2SAT 99
== END ==
PROVIDERS: PCP Family Medicine; Referring Provider Family Medicine; Visit Provider Surgery
DX: M86.68 Other chronic osteomyelitis, other site (principal); S61.501A Unspecified open wound of right wrist, initial encounter; R60.0 Localized edema; E11.622 Type 2 diabetes mellitus with other skin ulcer; I25.10 Atherosclerotic heart disease of native coronary artery without angina pectoris
CPT/HCPCS: 11042; 99183; 99213; G0277

== ENCOUNTER → 2022-07-30 13:57 | Outpatient (CLI) | payer MEDICARE, SELFPAY ==
[2022-02-23 14:37] VITALS: BMI 33.0
[2022-02-26 22:09] VITALS: PULSE 97; RESP 16; O2SAT 99
== END ==
PROVIDERS: PCP Family Medicine; Referring Provider Family Medicine; Visit Provider Nurse Practitioner Family
DX: E11.622 Type 2 diabetes mellitus with other skin ulcer (principal); M86.68 Other chronic osteomyelitis, other site; I25.10 Atherosclerotic heart disease of native coronary artery without angina pectoris
CPT/HCPCS: 99183; G0277

== ENCOUNTER → 2022-08-03 14:07 | Outpatient (CLI) | payer MEDICARE, SELFPAY ==
[2022-02-23 14:37] VITALS: BMI 33.0
[2022-02-26 22:09] VITALS: PULSE 97; RESP 16; O2SAT 99
== END ==
PROVIDERS: PCP Family Medicine; Referring Provider Family Medicine; Visit Provider Surgery
DX: E11.622 Type 2 diabetes mellitus with other skin ulcer (principal); M86.68 Other chronic osteomyelitis, other site; I25.10 Atherosclerotic heart disease of native coronary artery without angina pectoris
CPT/HCPCS: 99183; G0277

== ENCOUNTER → 2022-08-04 14:15 | Outpatient (CLI) | payer MEDICARE, SELFPAY ==
[2022-02-23 14:37] VITALS: BMI 33.0
[2022-02-26 22:09] VITALS: PULSE 97; RESP 16; O2SAT 99
== END ==
PROVIDERS: PCP Family Medicine; Referring Provider Family Medicine; Visit Provider Surgery
DX: E11.622 Type 2 diabetes mellitus with other skin ulcer (principal); M86.68 Other chronic osteomyelitis, other site; I25.10 Atherosclerotic heart disease of native coronary artery without angina pectoris
CPT/HCPCS: 99183; G0277

== ENCOUNTER → 2022-08-05 13:19 | Outpatient (CLI) | payer MEDICARE, SELFPAY ==
[2022-02-23 14:37] VITALS: BMI 33.0
[2022-02-26 22:09] VITALS: PULSE 97; RESP 16; O2SAT 99
== END ==
PROVIDERS: PCP Family Medicine; Referring Provider Family Medicine; Visit Provider Surgery
DX: E11.622 Type 2 diabetes mellitus with other skin ulcer (principal); M86.68 Other chronic osteomyelitis, other site; I25.10 Atherosclerotic heart disease of native coronary artery without angina pectoris
CPT/HCPCS: 99183; G0277

== ENCOUNTER → 2022-08-11 13:17 | Outpatient (CLI) | payer MEDICARE, SELFPAY ==
[2022-02-23 14:37] VITALS: BMI 33.0
[2022-02-26 22:09] VITALS: PULSE 97; RESP 16; O2SAT 99
== END ==
PROVIDERS: PCP Family Medicine; Referring Provider Family Medicine; Visit Provider Surgery
DX: E11.622 Type 2 diabetes mellitus with other skin ulcer (principal); M86.68 Other chronic osteomyelitis, other site; I25.10 Atherosclerotic heart disease of native coronary artery without angina pectoris
CPT/HCPCS: 99183; G0277

== ENCOUNTER → 2022-08-12 13:56 | Outpatient (CLI) | payer MEDICARE, SELFPAY ==
[2022-02-23 14:37] VITALS: BMI 33.0
[2022-02-26 22:09] VITALS: PULSE 97; RESP 16; O2SAT 99
== END ==
PROVIDERS: PCP Family Medicine; Referring Provider Family Medicine; Visit Provider Surgery
DX: M86.68 Other chronic osteomyelitis, other site (principal); E11.622 Type 2 diabetes mellitus with other skin ulcer; I25.10 Atherosclerotic heart disease of native coronary artery without angina pectoris; S61.501A Unspecified open wound of right wrist, initial encounter; S80.811A Abrasion, right lower leg, initial encounter; E11.628 Type 2 diabetes mellitus with other skin complications
CPT/HCPCS: 11042; 99183; G0277

== ENCOUNTER → 2022-08-13 12:59 | Outpatient (CLI) | payer MEDICARE, SELFPAY ==
[2022-02-23 14:37] VITALS: BMI 33.0
[2022-02-26 22:09] VITALS: PULSE 97; RESP 16; O2SAT 99
== END ==
PROVIDERS: PCP Family Medicine; Referring Provider Family Medicine; Visit Provider Nurse Practitioner Family
DX: E11.622 Type 2 diabetes mellitus with other skin ulcer (principal); M86.68 Other chronic osteomyelitis, other site; I25.10 Atherosclerotic heart disease of native coronary artery without angina pectoris
CPT/HCPCS: 99183; G0277

== ENCOUNTER → 2022-08-17 11:02 | Outpatient (CLI) | payer MEDICARE, SELFPAY ==
[2022-02-23 14:37] VITALS: BMI 33.0
[2022-02-26 22:09] VITALS: PULSE 97; RESP 16; O2SAT 99
== END ==
PROVIDERS: PCP Family Medicine; Referring Provider Family Medicine; Visit Provider Surgery
DX: E11.622 Type 2 diabetes mellitus with other skin ulcer (principal); M86.68 Other chronic osteomyelitis, other site; I25.10 Atherosclerotic heart disease of native coronary artery without angina pectoris
CPT/HCPCS: 99183; G0277

== ENCOUNTER → 2022-08-19 11:24 | Outpatient (CLI) | payer MEDICARE, SELFPAY ==
[2022-02-23 14:37] VITALS: BMI 33.0
[2022-02-26 22:09] VITALS: PULSE 97; RESP 16; O2SAT 99
== END ==
PROVIDERS: PCP Family Medicine; Referring Provider Family Medicine; Visit Provider Surgery
DX: E11.622 Type 2 diabetes mellitus with other skin ulcer (principal); M86.68 Other chronic osteomyelitis, other site; I25.10 Atherosclerotic heart disease of native coronary artery without angina pectoris
CPT/HCPCS: 99183; G0277

== ENCOUNTER → 2022-08-20 09:47 | Outpatient (CLI) | payer MEDICARE, SELFPAY ==
[2022-02-23 14:37] VITALS: BMI 33.0
[2022-02-26 22:09] VITALS: PULSE 97; RESP 16; O2SAT 99
== END ==
PROVIDERS: PCP Family Medicine; Referring Provider Family Medicine; Visit Provider Nurse Practitioner Family
DX: M86.68 Other chronic osteomyelitis, other site (principal); I25.10 Atherosclerotic heart disease of native coronary artery without angina pectoris
CPT/HCPCS: 99183; G0277

== ENCOUNTER → 2022-08-23 10:01 | Outpatient (CLI) | payer MEDICARE, SELFPAY ==
[2022-02-23 14:37] VITALS: BMI 33.0
[2022-02-26 22:09] VITALS: PULSE 97; RESP 16; O2SAT 99
== END ==
PROVIDERS: PCP Family Medicine; Referring Provider Family Medicine; Visit Provider Surgery
DX: E11.622 Type 2 diabetes mellitus with other skin ulcer (principal); M86.68 Other chronic osteomyelitis, other site; I25.10 Atherosclerotic heart disease of native coronary artery without angina pectoris
CPT/HCPCS: 99183; G0277

== ENCOUNTER → 2022-08-24 08:50 | Outpatient (CLI) | payer MEDICARE, SELFPAY ==
[2022-02-23 14:37] VITALS: BMI 33.0
[2022-02-26 22:09] VITALS: PULSE 97; RESP 16; O2SAT 99
== END ==
PROVIDERS: PCP Family Medicine; Referring Provider Family Medicine; Visit Provider Surgery
DX: E11.622 Type 2 diabetes mellitus with other skin ulcer (principal); M86.68 Other chronic osteomyelitis, other site; I25.10 Atherosclerotic heart disease of native coronary artery without angina pectoris; S80.811D Abrasion, right lower leg, subsequent encounter
CPT/HCPCS: 11042; 99183; 99212; G0277

== ENCOUNTER → 2022-08-26 09:49 | Outpatient (CLI) | payer MEDICARE, SELFPAY ==
[2022-02-23 14:37] VITALS: BMI 33.0
[2022-02-26 22:09] VITALS: PULSE 97; RESP 16; O2SAT 99
== END ==
PROVIDERS: PCP Family Medicine; Referring Provider Family Medicine; Visit Provider Surgery
DX: E11.622 Type 2 diabetes mellitus with other skin ulcer (principal); M86.68 Other chronic osteomyelitis, other site; I25.10 Atherosclerotic heart disease of native coronary artery without angina pectoris; S80.811D Abrasion, right lower leg, subsequent encounter
CPT/HCPCS: 99183; G0277

== ENCOUNTER → 2022-08-27 09:30 | Outpatient (CLI) | payer MEDICARE, SELFPAY ==
[2022-02-23 14:37] VITALS: BMI 33.0
[2022-02-26 22:09] VITALS: PULSE 97; RESP 16; O2SAT 99
== END ==
PROVIDERS: PCP Family Medicine; Referring Provider Family Medicine; Visit Provider Nurse Practitioner Family
DX: E11.622 Type 2 diabetes mellitus with other skin ulcer (principal); M86.68 Other chronic osteomyelitis, other site; I25.10 Atherosclerotic heart disease of native coronary artery without angina pectoris; S80.811D Abrasion, right lower leg, subsequent encounter
CPT/HCPCS: 99183; G0277

== ENCOUNTER → 2022-08-31 09:12 | Outpatient (CLI) | payer MEDICARE, SELFPAY ==
[2022-02-23 14:37] VITALS: BMI 33.0
[2022-02-26 22:09] VITALS: PULSE 97; RESP 16; O2SAT 99
== END ==
PROVIDERS: PCP Family Medicine; Referring Provider Family Medicine; Visit Provider Surgery
DX: E11.622 Type 2 diabetes mellitus with other skin ulcer (principal); M86.68 Other chronic osteomyelitis, other site; I25.10 Atherosclerotic heart disease of native coronary artery without angina pectoris; S80.811D Abrasion, right lower leg, subsequent encounter
CPT/HCPCS: 99183; G0277

== ENCOUNTER → 2022-09-02 14:36 | Outpatient (CLI) | payer MEDICARE, SELFPAY ==
[2022-02-23 14:37] VITALS: BMI 33.0
[2022-02-26 22:09] VITALS: PULSE 97; RESP 16; O2SAT 99
== END ==
PROVIDERS: PCP Family Medicine; Referring Provider Family Medicine; Visit Provider Surgery
DX: E11.622 Type 2 diabetes mellitus with other skin ulcer (principal); M86.68 Other chronic osteomyelitis, other site; S80.811D Abrasion, right lower leg, subsequent encounter
CPT/HCPCS: 99183; G0277

== ENCOUNTER → 2022-09-03 13:09 | Outpatient (CLI) | payer MEDICARE, SELFPAY ==
[2022-02-23 14:37] VITALS: BMI 33.0
[2022-02-26 22:09] VITALS: PULSE 97; RESP 16; O2SAT 99
== END ==
PROVIDERS: PCP Family Medicine; Referring Provider Family Medicine; Visit Provider Nurse Practitioner Family
DX: E11.622 Type 2 diabetes mellitus with other skin ulcer (principal); M86.68 Other chronic osteomyelitis, other site; I25.10 Atherosclerotic heart disease of native coronary artery without angina pectoris; S80.811D Abrasion, right lower leg, subsequent encounter
CPT/HCPCS: 99183; G0277

== ENCOUNTER → 2022-09-06 12:08 | Outpatient (CLI) | payer MEDICARE, SELFPAY ==
[2022-02-23 14:37] VITALS: BMI 33.0
[2022-02-26 22:09] VITALS: PULSE 97; RESP 16; O2SAT 99
== END ==
PROVIDERS: PCP Family Medicine; Referring Provider Family Medicine; Visit Provider Surgery
DX: M86.68 Other chronic osteomyelitis, other site (principal); E11.622 Type 2 diabetes mellitus with other skin ulcer; I25.10 Atherosclerotic heart disease of native coronary artery without angina pectoris; S80.811D Abrasion, right lower leg, subsequent encounter
CPT/HCPCS: 99183; G0277

== ENCOUNTER → 2022-09-07 10:20 | Outpatient (CLI) | payer MEDICARE, SELFPAY ==
[2022-02-23 14:37] VITALS: BMI 33.0
[2022-02-26 22:09] VITALS: PULSE 97; RESP 16; O2SAT 99
== END ==
PROVIDERS: PCP Family Medicine; Referring Provider Family Medicine; Visit Provider Surgery
DX: M86.68 Other chronic osteomyelitis, other site (principal); T23.301A Burn of third degree of right hand, unspecified site, initial encounter; S61.501A Unspecified open wound of right wrist, initial encounter; S80.811A Abrasion, right lower leg, initial encounter; T31.10 Burns involving 10-19% of body surface with 0% to 9% third degree burns
CPT/HCPCS: 11042; 16020; 97597; 99211; 99213

== ENCOUNTER → 2022-09-09 13:56 | Outpatient (CLI) | payer MEDICARE, SELFPAY ==
[2022-02-23 14:37] VITALS: BMI 33.0
[2022-02-26 22:09] VITALS: PULSE 97; RESP 16; O2SAT 99
== END ==
PROVIDERS: PCP Family Medicine; Referring Provider Family Medicine; Visit Provider Surgery
DX: N39.41 Urge incontinence (principal); R39.9 Unspecified symptoms and signs involving the genitourinary system; R26.89 Other abnormalities of gait and mobility; Z79.01 Long term (current) use of anticoagulants; E11.622 Type 2 diabetes mellitus with other skin ulcer; M86.68 Other chronic osteomyelitis, other site; I25.10 Atherosclerotic heart disease of native coronary artery without angina pectoris; S80.811D Abrasion, right lower leg, subsequent encounter; T23.301A Burn of third degree of right hand, unspecified site, initial encounter
CPT/HCPCS: 51798; 99183; 99214; G0277

== ENCOUNTER → 2022-09-13 11:14 | Outpatient (CLI) | payer MEDICARE, SELFPAY ==
[2022-02-23 14:37] VITALS: BMI 33.0
[2022-02-26 22:09] VITALS: PULSE 97; RESP 16; O2SAT 99
== END ==
PROVIDERS: PCP Family Medicine; Referring Provider Family Medicine; Visit Provider Surgery
DX: E11.622 Type 2 diabetes mellitus with other skin ulcer (principal); M86.68 Other chronic osteomyelitis, other site; I25.10 Atherosclerotic heart disease of native coronary artery without angina pectoris; S80.811D Abrasion, right lower leg, subsequent encounter; T23.301A Burn of third degree of right hand, unspecified site, initial encounter
CPT/HCPCS: 99183; G0277

== ENCOUNTER → 2022-09-14 09:52 | Outpatient (CLI) | payer MEDICARE, SELFPAY ==
[2022-02-23 14:37] VITALS: BMI 33.0
[2022-02-26 22:09] VITALS: PULSE 97; RESP 16; O2SAT 99
== END ==
PROVIDERS: PCP Family Medicine; Referring Provider Family Medicine; Visit Provider Surgery
DX: E11.622 Type 2 diabetes mellitus with other skin ulcer (principal); M86.68 Other chronic osteomyelitis, other site; T23.301A Burn of third degree of right hand, unspecified site, initial encounter
CPT/HCPCS: 99183; G0277

== ENCOUNTER → 2022-09-15 10:11 | Outpatient (CLI) | payer MEDICARE, SELFPAY ==
[2022-02-23 14:37] VITALS: BMI 33.0
[2022-02-26 22:09] VITALS: PULSE 97; RESP 16; O2SAT 99
== END ==
PROVIDERS: PCP Family Medicine; Referring Provider Family Medicine; Visit Provider Surgery
DX: M86.68 Other chronic osteomyelitis, other site (principal)
CPT/HCPCS: 99183; G0277

== ENCOUNTER → 2022-09-16 09:52 | Outpatient (CLI) | payer MEDICARE, SELFPAY ==
[2022-02-23 14:37] VITALS: BMI 33.0
[2022-02-26 22:09] VITALS: PULSE 97; RESP 16; O2SAT 99
== END ==
PROVIDERS: PCP Family Medicine; Referring Provider Family Medicine; Visit Provider Surgery
DX: M86.68 Other chronic osteomyelitis, other site (principal); E11.622 Type 2 diabetes mellitus with other skin ulcer; I25.10 Atherosclerotic heart disease of native coronary artery without angina pectoris; S81.811D Laceration without foreign body, right lower leg, subsequent encounter; T23.301A Burn of third degree of right hand, unspecified site, initial encounter
CPT/HCPCS: 99183; G0277

== ENCOUNTER → 2022-09-20 09:44 | Outpatient (CLI) | payer MEDICARE, SELFPAY ==
[2022-02-23 14:37] VITALS: BMI 33.0
[2022-02-26 22:09] VITALS: PULSE 97; RESP 16; O2SAT 99
== END ==
PROVIDERS: PCP Family Medicine; Referring Provider Family Medicine; Visit Provider Surgery
DX: E11.622 Type 2 diabetes mellitus with other skin ulcer (principal); M86.68 Other chronic osteomyelitis, other site; I25.10 Atherosclerotic heart disease of native coronary artery without angina pectoris; S80.811D Abrasion, right lower leg, subsequent encounter; T23.301A Burn of third degree of right hand, unspecified site, initial encounter
CPT/HCPCS: 99183; G0277

== ENCOUNTER → 2022-09-24 08:41 | Outpatient (CLI) | payer MEDICARE, SELFPAY ==
[2022-02-23 14:37] VITALS: BMI 33.0
[2022-02-26 22:09] VITALS: PULSE 97; RESP 16; O2SAT 99
== END ==
PROVIDERS: PCP Family Medicine; Referring Provider Family Medicine; Visit Provider Nurse Practitioner Family
DX: E11.628 Type 2 diabetes mellitus with other skin complications (principal); M86.68 Other chronic osteomyelitis, other site; S80.811A Abrasion, right lower leg, initial encounter; T23.321A Burn of third degree of single right finger (nail) except thumb, initial encounter; T31.10 Burns involving 10-19% of body surface with 0% to 9% third degree burns; E11.40 Type 2 diabetes mellitus with diabetic neuropathy, unspecified
CPT/HCPCS: 16020; 97597; 99212; 99213

== ENCOUNTER → 2022-09-27 08:54 | Outpatient (CLI) | payer MEDICARE, SELFPAY ==
[2022-02-23 14:37] VITALS: BMI 33.0
[2022-02-26 22:09] VITALS: PULSE 97; RESP 16; O2SAT 99
== END ==
PROVIDERS: PCP Family Medicine; Referring Provider Family Medicine; Visit Provider Surgery
DX: E11.622 Type 2 diabetes mellitus with other skin ulcer (principal); M86.68 Other chronic osteomyelitis, other site; I25.10 Atherosclerotic heart disease of native coronary artery without angina pectoris; S80.811D Abrasion, right lower leg, subsequent encounter; T23.321D Burn of third degree of single right finger (nail) except thumb, subsequent encounter
CPT/HCPCS: 97597; 99212

== ENCOUNTER → 2022-10-04 09:25 | Outpatient (CLI) | payer MEDICARE, SELFPAY ==
[2022-02-23 14:37] VITALS: BMI 33.0
[2022-02-26 22:09] VITALS: PULSE 97; RESP 16; O2SAT 99
== END ==
PROVIDERS: PCP Family Medicine; Referring Provider Family Medicine; Visit Provider Surgery
DX: S80.811A Abrasion, right lower leg, initial encounter (principal); T23.321A Burn of third degree of single right finger (nail) except thumb, initial encounter; M86.68 Other chronic osteomyelitis, other site; E11.628 Type 2 diabetes mellitus with other skin complications
CPT/HCPCS: 16020; 97597

== ENCOUNTER → 2022-10-06 16:48 | Outpatient (CLI) | payer MEDICARE, SELFPAY ==
[2022-02-23 14:37] VITALS: BMI 33.0
[2022-02-26 22:09] VITALS: PULSE 97; RESP 16; O2SAT 99
== END ==
PROVIDERS: PCP Family Medicine; Visit Provider Urology
DX: N32.81 Overactive bladder (principal); N39.41 Urge incontinence; R33.9 Retention of urine, unspecified
CPT/HCPCS: 52000; 87086

== ENCOUNTER → 2022-10-25 09:47 | Outpatient (CLI) | payer MEDICARE, SELFPAY ==
[2022-02-23 14:37] VITALS: BMI 33.0
[2022-02-26 22:09] VITALS: PULSE 97; RESP 16; O2SAT 99
== END ==
PROVIDERS: PCP Family Medicine; Referring Provider Family Medicine; Visit Provider Surgery
DX: E11.621 Type 2 diabetes mellitus with foot ulcer (principal); E11.628 Type 2 diabetes mellitus with other skin complications; M86.68 Other chronic osteomyelitis, other site; S80.811A Abrasion, right lower leg, initial encounter; L97.512 Non-pressure chronic ulcer of other part of right foot with fat layer exposed; T23.321D Burn of third degree of single right finger (nail) except thumb, subsequent encounter
CPT/HCPCS: 99213

== ENCOUNTER → 2022-11-16 09:39 | Outpatient (CLI) | payer MEDICARE, SELFPAY ==
[2022-02-23 14:37] VITALS: BMI 33.0
[2022-02-26 22:09] VITALS: PULSE 97; RESP 16; O2SAT 99
== END ==
PROVIDERS: PCP Family Medicine; Referring Provider Family Medicine; Visit Provider Surgery
DX: E11.622 Type 2 diabetes mellitus with other skin ulcer (principal); E11.628 Type 2 diabetes mellitus with other skin complications; S80.811A Abrasion, right lower leg, initial encounter; L97.812 Non-pressure chronic ulcer of other part of right lower leg with fat layer exposed; M86.68 Other chronic osteomyelitis, other site
CPT/HCPCS: 11042

== ENCOUNTER → 2022-12-08 09:53 | Outpatient (CLI) | payer MEDICARE, SELFPAY ==
[2022-02-23 14:37] VITALS: BMI 33.0
[2022-02-26 22:09] VITALS: PULSE 97; RESP 16; O2SAT 99
== END ==
PROVIDERS: PCP Family Medicine; Referring Provider Family Medicine; Visit Provider Surgery
DX: S80.811D Abrasion, right lower leg, subsequent encounter (principal)
CPT/HCPCS: 99212; 99213

== ENCOUNTER → 2023-07-13 13:05 | Outpatient (CLI) | payer MEDICARE, SELFPAY ==
[2022-02-23 14:37] VITALS: BMI 33.0
[2022-02-26 22:09] VITALS: PULSE 97; RESP 16; O2SAT 99
--- NOTE | 2023-07-13 14:10 | DI.RAD.S_ITS ---
PROCEDURE: XR CHEST 2V INDICATIONS: Cough TECHNIQUE: 2 views of the chest were acquired. COMPARISON: [facility], CR, XR CHEST 1V, 06/25/2022, 2:12. FINDINGS: Surgical changes and devices: Median sternotomy wires, atrial clip are again seen. Surgical hardware in lower cervical spine is also noted. Lungs and pleura: Ill-defined airspace opacities are seen in right lower lobe concerning for right lower lobe infiltrate. No pleural effusions or pneumothorax. Mediastinum: Mediastinal contours are normal. Heart size is normal. Bones and chest wall: No suspicious bony abnormalities. Soft tissues appear unremarkable. IMPRESSION: Small to moderate size right lower lobe infiltrate. No pleural effusion or pneumothorax. Dictated by: Pedrito Bojorquez M.D. on 07/13/2023 at 15:47 Approved by: Pedrito Bojorquez M.D. on 07/13/2023 at 15:48
[2023-07-13 14:14] LABS: Influenza A - CEPHEID Flu A NEGATIVE (NEGATIVE); Influenza B - CEPHEID Flu B NEGATIVE (NEGATIVE); Respiratory Syncytial Virus Negative (Negative)
[2023-07-13 14:15] LABS: COVID-19 CEPHEID 4-PLEX PCR Negative (Negative)
== END ==
PROVIDERS: PCP Family Medicine; Referring Provider Nurse Practitioner Family; Visit Provider Nurse Practitioner Family
DX: R05.1 Acute cough (principal); R05.9 Cough, unspecified
CPT/HCPCS: 0241U; 71046